=== PATIENT | female | born 1935 | race Caucasian/White ===

== ENCOUNTER → 2016-09-28 | Outpatient (CLI) | payer BC ==
[~2016-09-28] MED LIST: ACET300T2 PO; ACET325T30 PO; AGG PO; ALUM-30 PO; ARTI1SOL8 OPB; ATV/1 PO; BACL1TAB PO; DIPH25TA24 PO; FERR325T51 PO; FLUT27.5 NAE; GUAI100S75 PO; HYDR-4330 PO; LACT10SO30 PO; LEVE500T13 PO; LORA-741 PO; LTRSCR45 TOP; MOML PO; MRLP17X PO; NTRGSL/4 UT; OFLO0.3S4 OPR; ONDA4TAB46 PO; OXGN; OXYC1TAB3 PO; PHN/100 PO; PRLSR20 PO; TAMO20TA47 PO; TRAM-10 PO; VENL75CA73 PO; [UNRECOGNIZED DRUG - CODE] PO; [UNRECOGNIZED DRUG - CODE] PO
== END | disposition home or self-care (01) ==
LOC: C.LABWYN 12:40
PROVIDERS: ATTEND Psychiatry & Neurology Neurology
DX: G40.209 Localization-related (focal) (partial) symptomatic epilepsy and epileptic syndromes with complex partial seizures, not intractable, without status epilepticus (principal)

== ENCOUNTER → 2016-10-11 | Outpatient (CLI) | payer BC ==
--- NOTE | 2016-10-11 11:38 | DIAGNOSTIC IMAGING REPORT ---
HEAD CT NONCONTRAST CT DOSE: 823.94 mGycm HISTORY: Fall. Head injury. TECHNIQUE: Multiaxial CT images of the head were performed without the use of intravenous contrast. Automated exposure control was utilized for this study. Comparison: Head CT 07/31/2016. Findings: The paranasal sinuses and mastoid air cells are clear. Right-sided norman holes are again noted. 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 Atrophy and microvascular ischemic changes are again noted. There is no mass, hematoma, midline shift, acute infarct. Impression: No significant change compared to the prior study. No acute intracranial abnormality. 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 Electronically signed by: Neymar Head M.D. 10/11/2016 11:36 AM Dictated Date/Time: 10/11/2016 11:31 AM
== END | disposition home or self-care (01) ==
LOC: C.CTS 11:19
PROVIDERS: ATTEND Psychiatry & Neurology Neurology
DX: S09.90XA Unspecified injury of head, initial encounter (principal); X58.XXXA Exposure to other specified factors, initial encounter

== ENCOUNTER → 2016-10-17 | Outpatient (CLI) | payer BC | END | disposition home or self-care (01) | LOC: C.LABWYN 13:58 | PROVIDERS: ATTEND Psychiatry & Neurology Neurology | DX: G40.209 Localization-related (focal) (partial) symptomatic epilepsy and epileptic syndromes with complex partial seizures, not intractable, without status epilepticus (principal) ==

== ENCOUNTER → 2016-11-02 | Outpatient (CLI) | payer BC | END | disposition home or self-care (01) | LOC: C.LAB 10:11 | PROVIDERS: ATTEND Psychiatry & Neurology Neurology | DX: G40.209 Localization-related (focal) (partial) symptomatic epilepsy and epileptic syndromes with complex partial seizures, not intractable, without status epilepticus (principal) ==

== ENCOUNTER → 2016-12-01 | Outpatient (CLI) | payer BC | END | disposition home or self-care (01) | LOC: C.LABWYN 08:47 | PROVIDERS: ATTEND Psychiatry & Neurology Neurology | DX: G40.209 Localization-related (focal) (partial) symptomatic epilepsy and epileptic syndromes with complex partial seizures, not intractable, without status epilepticus (principal) ==

== ENCOUNTER → 2017-02-06 | Outpatient (CLI) | payer BC ==
[~2017-02-06] MED LIST changes: +CETI10TA84 PO; -OXYC1TAB3 PO; -TAMO20TA47 PO; +TAMO20TA9 PO; +[UNRECOGNIZED DRUG - CODE] PO
== END | disposition home or self-care (01) ==
LOC: C.LABWYN 10:09
PROVIDERS: ATTEND Psychiatry & Neurology Neurology
DX: G40.209 Localization-related (focal) (partial) symptomatic epilepsy and epileptic syndromes with complex partial seizures, not intractable, without status epilepticus (principal)

== ENCOUNTER → 2017-02-08 | Outpatient (CLI) | payer BC | END | disposition home or self-care (01) | LOC: C.PATHSPEC 18:11 | PROVIDERS: ATTEND Plastic Surgery | DX: L72.0 Epidermal cyst (principal) ==

== ENCOUNTER → 2017-03-06 | Outpatient (CLI) | payer BC | END | disposition home or self-care (01) | LOC: C.LABWYN 08:58 | PROVIDERS: ATTEND Psychiatry & Neurology Neurology | DX: G40.209 Localization-related (focal) (partial) symptomatic epilepsy and epileptic syndromes with complex partial seizures, not intractable, without status epilepticus (principal) ==

== ENCOUNTER → 2017-03-29 | Outpatient (CLI) | payer BC ==
[~2017-03-29] MED LIST changes: -CETI10TA84 PO; +TAMO20TA47 PO; -TAMO20TA9 PO; -[UNRECOGNIZED DRUG - CODE] PO
[2017-03-29 08:37] LABS: HEMATOCRIT 29.9 % (37-47); MEAN CELL VOLUME 71.9 fL (80-100); MEAN CORPUSCULAR HEMOGLOBIN 23.1 pg (25-34); MEAN CORPUSCULAR HGB CONC 32.1 g/dl (32-36); MEAN PLATELET VOLUME 10.2 fL (7.4-10.4); PLATELET COUNT 154 K/uL (130-400); RED BLOOD COUNT 4.16 M/uL (4.2-5.4)
[2017-03-29 09:03] LABS: TOTAL IRON BINDING CAPACITY 144 mcg/dl (250-450)
== END | disposition home or self-care (01) ==
LOC: C.LABWYN 08:02
PROVIDERS: ATTEND Internal Medicine
DX: D64.9 Anemia, unspecified (principal)

== ENCOUNTER → 2017-04-10 | Outpatient (CLI) | payer BC ==
[2017-04-10 09:17] LABS: HEMATOCRIT 29.3 % (37-47); MEAN CELL VOLUME 69.6 fL (80-100); MEAN CORPUSCULAR HEMOGLOBIN 22.8 pg (25-34); MEAN CORPUSCULAR HGB CONC 32.8 g/dl (32-36); MEAN PLATELET VOLUME 10.2 fL (7.4-10.4); PLATELET COUNT 162 K/uL (130-400); RED BLOOD COUNT 4.21 M/uL (4.2-5.4); WHITE BLOOD COUNT 4.43 K/uL (4.8-10.8)
--- NOTE | 2017-04-17 07:11 | CODING QUERY NO DIAGNOSIS ---
TREATMENT RENDERED WITHOUT A DIAGNOSIS Dr. Mak, To promote full compliance with coding requirements relating to patient care, physician participation is requested in all cases of laboratory sampler uncertainty. Please assist us with providing a diagnosis/symptom for the test(s) below: A diagnosis/symptom was not documented on your Order. A valid diagnosis/symptom is required to bill all insurances. Please remember that we are unable to code a diagnosis of rule out, probable, possible, questionable, or suspected. Tests that require a diagnosis: * DIGOXIN LEVEL DIAGNOSIS: * AUTOMATED RETICULOCYTE DIAGNOSIS: * CBC W/O DIFF DIAGNOSIS: DATE OF SERVICE: 04/10/17 Provider Signature: Date: Thank you Irvin Banerjee [facility] Information Management Once completed, please kindly fax back to [phone] For questions please call [phone]
== END | disposition home or self-care (01) ==
LOC: C.LABWYN 07:41
PROVIDERS: ATTEND Internal Medicine
DX: G40.209 Localization-related (focal) (partial) symptomatic epilepsy and epileptic syndromes with complex partial seizures, not intractable, without status epilepticus (principal); I48.91 Unspecified atrial fibrillation; D64.9 Anemia, unspecified; Z51.81 Encounter for therapeutic drug level monitoring; Z79.899 Other long term (current) drug therapy

== ENCOUNTER → 2017-04-12 | Outpatient (CLI) | payer BC ==
--- NOTE | 2017-04-12 09:28 | DIAGNOSTIC IMAGING REPORT ---
GI SERIES W/AIR ROUTINE CLINICAL HISTORY: R07.9,K44.9,K21.9pain. Nausea. Hernia. COMPARISON STUDY: None FLUOROSCOPY TIME: 2.1 minutes. FINDINGS: Patient initiates swallowing function well. Mild esophageal irritability is present. There is moderate gastroesophageal reflux. Size and configuration stomach are normal. Duodenal bulb fills well. Duodenal sweep is unremarkable. IMPRESSION: Moderate gastroesophageal reflux. Otherwise negative study. The above report was generated using voice recognition software. It may contain grammatical, syntax or spelling errors. Electronically signed by: Cecilio Belcher M.D. 04/12/2017 9:27 AM Dictated Date/Time: 04/12/2017 9:26 AM
== END | disposition home or self-care (01) ==
LOC: C.RAD 08:32
PROVIDERS: ATTEND Registered Nurse
DX: K21.9 Gastro-esophageal reflux disease without esophagitis (principal); K44.9 Diaphragmatic hernia without obstruction or gangrene; R07.9 Chest pain, unspecified

== ENCOUNTER → 2017-06-04 | Outpatient (CLI) | payer BC | END | disposition home or self-care (01) | LOC: C.RDSM 11:49 | PROVIDERS: ATTEND Physical Medicine & Rehabilitation Sports Medicine | DX: Z96.641 Presence of right artificial hip joint (principal); M25.551 Pain in right hip ==

== ENCOUNTER → 2017-07-10 | Outpatient (CLI) | payer BC | END | disposition home or self-care (01) | LOC: C.MAMM 09:57 | PROVIDERS: ATTEND Physical Medicine & Rehabilitation Sports Medicine | DX: M85.80 Other specified disorders of bone density and structure, unspecified site (principal); M81.0 Age-related osteoporosis without current pathological fracture ==

== ENCOUNTER → 2017-07-29 | Outpatient (CLI) | payer BC ==
[~2017-07-29] MED LIST changes: -ACET300T2 PO; +CETI10TA84 PO; -HYDR-4330 PO; -TAMO20TA47 PO; +TAMO20TA9 PO
== END | disposition home or self-care (01) ==
LOC: C.LABSPEC 13:24
PROVIDERS: ATTEND Internal Medicine
DX: R19.7 Diarrhea, unspecified (principal)

== ENCOUNTER → 2017-07-30 | Outpatient (CLI) | payer BC ==
--- NOTE | 2017-07-30 12:30 | DIAGNOSTIC IMAGING REPORT ---
PET/CT HISTORY: BREAST CANCER TECHNIQUE: PET/CT was performed from the base of the skull through the pelvis following the intravenous administration of 13.4 mCi of F18-FDG. Non-contrast CT imaging was performed over the same range without breath-hold for attenuation correction of PET images and anatomic correlation, but not for primary interpretation as it is not of standard diagnostic quality. CT DOSE: 326.60 mGycm COMPARISON: Head CT 12/29/2015. FINDINGS: HEAD AND NECK: There is no FDG-avid disease or significant lymphadenopathy in the imaged portions of the head and the neck. CHEST: There is no FDG-avid disease in the chest. There is no axillary, mediastinal, or hilar lymphadenopathy. There is no pleural or pericardial effusion. There is no air-space disease or suspicious lung nodule. Calcified silicone right breast implant demonstrating extracapsular extension of silicone within the upper outer quadrant. This remains unchanged. Prior left mastectomy. Right basilar densities remain unchanged and likely represent atelectasis. ABDOMEN/PELVIS: Below the diaphragm, tracer is distributed physiologically in the gastrointestinal and genitourinary tracts. There is no significant lymphadenopathy and no FDG-avid disease. MUSCULOSKELETAL: There is no FDG-avid or destructive bone lesion. Right hip prosthesis. IMPRESSION: No FDG avid disease identified. Electronically signed by: Neymar Head M.D. 07/30/2017 12:29 PM Dictated Date/Time: 07/30/2017 12:14 PM
== END | disposition home or self-care (01) ==
LOC: C.PET 09:58
PROVIDERS: ATTEND Internal Medicine Hematology
DX: C50.912 Malignant neoplasm of unspecified site of left female breast (principal); Z17.0 Estrogen receptor positive status [ER+]

== ENCOUNTER → 2017-08-28 | Outpatient (CLI) | payer BC ==
[~2017-08-28] MED LIST changes: +ACET-1346 PO; -ACET325T30 PO
[2017-08-28 12:27] LABS: HEMATOCRIT 33.4 % (37-47); MEAN CELL VOLUME 71.2 fL (80-100); MEAN CORPUSCULAR HGB CONC 32.3 g/dl (32-36); MEAN PLATELET VOLUME 10.1 fL (7.4-10.4); PLATELET COUNT 183 K/uL (130-400); RED BLOOD COUNT 4.69 M/uL (4.2-5.4); WHITE BLOOD COUNT 5.87 K/uL (4.8-10.8)
[2017-08-28 12:59] LABS: BLOOD UREA NITROGEN 31 mg/dl (7-18); BUN/CREATININE RATIO 33.9 (10-20); CALCIUM 8.4 mg/dl (8.5-10.1); CARBON DIOXIDE 26 mmol/L (21-32); CHLORIDE 103 mmol/L (98-107); GLUCOSE 108 mg/dl (70-99); POTASSIUM 4.5 mmol/L (3.5-5.1); SODIUM 137 mmol/L (136-145)
[2017-08-28 13:46] LABS: CALCIUM URINE 5.3 mg/dl
[2017-08-28 13:49] LABS: BLOOD UREA NITROGEN 32 mg/dl (7-18); BUN/CREATININE RATIO 35.5 (10-20); CALCIUM 8.4 mg/dl (8.5-10.1); CARBON DIOXIDE 27 mmol/L (21-32); CHLORIDE 103 mmol/L (98-107); CREATININE 0.91 mg/dl (0.60-1.20); GLUCOSE 99 mg/dl (70-99); POTASSIUM 4.6 mmol/L (3.5-5.1); SODIUM 138 mmol/L (136-145)
== END | disposition home or self-care (01) ==
LOC: C.LAB1850 10:57
PROVIDERS: ATTEND Internal Medicine Rheumatology
DX: K21.9 Gastro-esophageal reflux disease without esophagitis (principal); M80.00XA Age-related osteoporosis with current pathological fracture, unspecified site, initial encounter for fracture; E61.8 Deficiency of other specified nutrient elements; E55.9 Vitamin D deficiency, unspecified

== ENCOUNTER → 2017-11-02 | Outpatient (CLI) | payer BC ==
[~2017-11-02] MED LIST changes: +LEVO25TA5 PO; +PSEU60TA80 PO
== END | disposition home or self-care (01) ==
LOC: C.LABWYN 08:04
PROVIDERS: ATTEND Internal Medicine
DX: G40.909 Epilepsy, unspecified, not intractable, without status epilepticus (principal); E03.9 Hypothyroidism, unspecified

== ENCOUNTER → 2017-11-28 | Outpatient (CLI) | payer BC ==
[~2017-11-28] MED LIST changes: +ZOLE5INJ IM
[2017-11-28 13:20] VITALS: BP 143/82; PULSE 72; TEMP 37.2; O2SAT 92
--- NOTE | 2017-11-28 14:02 | Radiation Oncology Follow-Up ---
Radiation Oncology Follow-Up Date of Visit Nov 28, 2017. Reason For Visit One-month follow-up Radiation Completion Date 10/29/17 Diagnosis (1) Breast cancer Status: Resolved Location: Chest wall recurrence Histology Subtype: Lobular carcinoma Stage: Not Applicable Permanent Comment: Status post biopsy of left breast mass 12/07/2015 Lobular carcinoma, grade 1 Estrogen receptor positive, progesterone receptor positive, 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 Treatment was completed October 29, 2017. She received 6640 cGy Last Edited By: Neli Nguyen on Nov 09, 2017 07:57 History of Present Illness Ms. Ridley has a previous history of right breast cancer treated with a mastectomy/reconstruction. More recently, she was diagnosed with left breast cancer. She underwent a mastectomy and sentinel lymph node biopsy of the left breast on 02/03/2016. Pathology from surgery revealed invasive lobular carcinoma that measures 6.5 cm in the greatest dimension with nipple involvement present; the margins were close in the closest margin was 1 mm. Pathology revealed lymphovascular space invasion as well. The tumor was estrogen receptor positive, progesterone receptor positive and HER-2 negative as per previous biopsy staining. 3 sentinel lymph nodes were excised and all the lymph nodes were positive for metastatic carcinoma with no evidence of extranodal extension. The patient was staged as pathologic [id number]. The patient was seen in consultation by Dr. Bogdan Longoria for medical oncology. Dr. Longoria ordered a PET/CT scan which was completed on 12/29/2015 which revealed no evidence of locoregional disease or distant metastatic disease. As per notes , the patient did not want any chemotherapy. The patient was placed on tamoxifen underneath the supervision of Dr. Clay Roth. More recently, the patient noticed a nodule along her mastectomy scar. The patient was seen and evaluated by Dr. Clay Roth who recommended a punch biopsy which was completed on 07/04/2017 which confirmed invasive lobular carcinoma that was estrogen receptor positive and progesterone receptor positive. The patient is being referred to Dr. Francisco Guardado who has ordered a PET/CT scan. We are also seen the patient in consultation discuss role of radiation therapy. She completed radiation therapy October 29, 2017. She received 6640 cGy. Treatment to the left chest wall, supraclavicular area, and axilla. Interim History She has been doing well over the past month. Skin irritation steadily improved. She now has some dark discoloration of the skin. She denies any tenderness. She has no open areas. She is noted no masses or tenderness and no change of the axilla on the left. On the right this morning she felt she may have noticed a lump in the right axilla. There was no pain associated. She was unsure as to the size. She mentioned this to her daughter. Her daughter also checked this area and did not notice a mass in the right axilla. She has been having difficulty with venous access. Since her diagnosis of the breast cancer on the left she has been having blood draws from the right. It is very difficult to gain access on the right. When she receives infusions there is difficulty with using the right arm. Allergies Coded Allergies: Morphine (Verified Adverse Reaction, Unknown, itching, 07/31/16) pt Home Medications Scheduled Artificial Tear Solution ([facility] Natural Tears 0.1-0.3 %), 2 DROPS OPB DIRECTED Betamethasone/Clotrimazole (Clotrimazole/Betameth Crm 45 Gm), 1 APPLN TOP BID Cetirizine (Zyrtec), 10 MG PO DAILY Dipyridamole/Aspirin (Aggrenox 25-200 mg), 1 CAP PO BID Ferrous Sulfate (Iron Supplement), 1 TAB PO BID Fluticasone Furoate (Veramyst), 2 SPRY [place] QAM Home O2 Therapy (Oxygen), 2 LITERS NA HS Levetiracetam (Keppra), 500 MG PO BID Levothyroxine Sodium (Levothyroxine Sodium), 1 TAB PO DAILY Lorazepam (Ativan), 1 MG PO QID Multiple Vitamins W/ Minerals (Theravim), 1 TAB PO QAM Nitroglycerin (Nitrostat), 0.4 MG UT PRN Ofloxacin (Oph) (Ocuflox Oph Soln), 1 DROPS OPR Q3H Omeprazole (Prilosec), 20 MG PO BID Phenytoin Sodium (Dilantin), 160 MG PO BID Pseudoephedrine-Guaifenesin (Mucinex D), 1 TAB PO DAILY Venlafaxine Hcl (Venlafaxine Extended Rel), 75 MG PO BID Zoledronic Acid (Reclast), 1 APPLN IM 3x then monthly Scheduled PRN Acetaminophen (Acetaminophen), 650 MG PO Q4 PRN for Pain or Fever Alum & Mag Hydrox-Simethicone (Mylanta), 30 ML PO Q6 PRN for Indigestion Baclofen (Lioresal), 10 MG PO BID PRN for Muscle Spasms Benzocaine-Menthol (Mouth-Thro (Chloraseptic), 1 LINUS PO UD PRN for SORE THROAT Diphenhydramine Hcl (Benadryl), 1 TAB PO DAILY PRN for ITCHING Guaifenesin (Siltussin Sa), 2 TSP PO Q4H PRN for Cough Lactulose (Encephalopathy) (Lactulose), 30 ML PO QID PRN for Constipation Lorazepam (Ativan), 0.5 MG PO Q4H PRN for Anxiety Magnesium Hydroxide (Milk Of Magnesia), 30 ML PO DAILY PRN for Constipation Ondansetron Hcl (Zofran), 4 MG PO Q6H PRN for Nausea Polyethylene (Miralax), 17 GM PO BID PRN for Constipation Tramadol (Ultram), 1-2 MG PO Q4H PRN for Pain Review of Systems Gastrointestinal: Symptoms: WNL, Constipation GI Comments: Takes stool softeners PRN Oral: Symptoms: No Problems Respiratory: Symptoms: WNL Other Respiratory: Oxygen runs on the lower side Urinary: Symptoms: WNL Skin: Symptoms: No Problems Breast: Right Upper Arm Measurement: 27.5 Right Mid Arm Measurement: 23.1 Right Wrist Measurement: 16.3 Left Upper Arm Measurement: 28.4 Left Mid Arm Measurement: 24.1 Left Wrist Measurement: 16.5 Arm Dominence: Right Physical Exam Vital Signs Date Time Temp Pulse Resp B/P (MAP) Pulse Ox O2 Delivery O2 Flow Rate FiO2 11/28/17 13:20 37.2 72 16 143/82 92 Fatigue: None General Appearance: no apparent distress Eyes: normal inspection, EOMI ENT: normal ENT inspection, hearing grossly normal Neck: no adenopathy, thyroid normal Respiratory/Chest: lungs clear, no respiratory distress, no accessory muscle use Breast: Breast examination reveals status post mastectomy on the left. There is resolving hyperpigmentation. There are no masses or tenderness and no axillary adenopathy. On the right she has a implant. Skin is taut around the implant. Examination of the axilla does not reveal any adenopathy. The chest wall showed no masses or tenderness. Cardiovascular: regular rate, rhythm, no gallop, no murmur Extremities: no pedal edema Neurologic/Psychiatric: no motor/sensory deficits, alert, normal mood/affect Skin: warm/dry Pain Management Patient Reports Pain: No Pain Management Plan She denied pain therefore requires no pain management. Laboratory Laboratory Results: not applicable Pathology Pathology Results: and pertinent findings noted in HPI Imaging Imaging Studies: not applicable Assessment & Plan Plan: Patient was also seen and examined by Dr. Guardado. She will continue regular follow-up with medical oncology. She is going to be scheduled to see Dr. Watson to follow her as her breast surgeon. Dr. Roth has now retired. We asked her to return to our office in 6 months. She may call if she has any questions or concerns in the interim. We discussed using sunscreen. We also discussed that she may go ahead and use the left arm for needle sticks and venous access. She had only a few lymph nodes removed from the side as compared to the right where she had the previous radical mastectomy and axillary lymph node dissection. Assessment & Plan (Attending) I agree with note created by Neli Nguyen PA-C. I reviewed the patient's chart and information with her. I have examined and evaluated the patient. I reviewed relevant clinical information and answered the patient's and/or family' s questions. CUSHION MAKER Total Time In Follow-Up I spent 20 minutes speaking to the patient and performing examination. I spent 15 minutes reviewing information and completing this note. Total Time (Attending) In Follow-Up I spent 15 minutes examining and counseling the patient. CUSHION MAKER Copy To Sallie Watson MD; Francisco Guardado M.D.; Antoine Mak D.O.
== END | disposition home or self-care (01) ==
LOC: C.ONC 13:14
PROVIDERS: ATTEND Physician Assistant Medical
DX: Z08 Encounter for follow-up examination after completed treatment for malignant neoplasm (principal); Z92.3 Personal history of irradiation; Z85.3 Personal history of malignant neoplasm of breast

== ENCOUNTER → 2017-12-06 | Outpatient (CLI) | payer BC ==
[~2017-12-06] MED LIST changes: -TAMO20TA9 PO
== END | disposition home or self-care (01) ==
LOC: C.LABWYN 09:43
PROVIDERS: ATTEND Internal Medicine
DX: E03.9 Hypothyroidism, unspecified (principal)

== ENCOUNTER 2018-01-03 16:05 | Emergency (ER) | payer BC ==
[~2018-01-03] VITALS: Ht 160 cm; Wt 76.2 kg
[2018-01-03 16:05] VITALS: TEMP 36.5; O2SAT 87; Ht 160 cm; Wt 76.2 kg
[2018-01-03] MEDS ORDERED: SODIUM CHLORIDE 0.9% 1000ML 1,000 ML IV STA (16:15)
[2018-01-03] MEDS ORDERED: ONDANSETRON INJ 2 MG/ML 2 ML VIAL IV STA (16:15)
[2018-01-03] MEDS ORDERED: OPTIRAY 320 IV PRN (16:30)
--- NOTE | 2018-01-03 16:36 | DIAGNOSTIC IMAGING REPORT ---
CHEST ONE VIEW PORTABLE HISTORY: 82 years-old Female syncope acute syncopal event COMPARISON: Chest radiograph 07/31/2016, PET CT 07/30/2017 TECHNIQUE: Portable AP view of the chest FINDINGS: Cardiac silhouette is enlarged, unchanged. Atherosclerosis of the aorta. Mitral annular calcifications. Chronic right hemidiaphragmatic elevation with linear subsegmental right basilar opacities suggesting atelectasis or scarring. No pneumothorax, pleural effusion or overt pulmonary edema. Surgical clips project over the right axilla. Mild sigmoidal scoliosis of the spine. Subacute or chronic appearing minimally displaced fractures involve the lateral aspects of the left ninth and 10th ribs. Vascular calcifications of the left axilla. IMPRESSION: 1. Cardiomegaly without overt pulmonary edema. 2. Chronic right hemidiaphragmatic elevation with subsegmental right basilar atelectasis/scarring. 3. Subacute or chronic appearing minimally displaced fractures involve the lateral aspects of the left ninth and 10th ribs. The above report was generated using voice recognition software. It may contain grammatical, syntax or spelling errors. Electronically signed by: Reyes Kaur M.D. 01/03/2018 4:34 PM Dictated Date/Time: 01/03/2018 4:32 PM
[2018-01-03 17:51] LABS: BASO % 0.4 %; BASO ABS # 0.03 K/uL (0-0.2); EOS % 0.4 %; EOS ABS # 0.03 K/uL (0-0.5); HEMATOCRIT 31.1 % (37-47); HEMOGLOBIN 10.2 g/dL (12.0-16.0); IG# 0.01 K/uL (0.00-0.02); LYMPH % 9.4 %; LYMPH ABS # 0.64 K/uL (1.2-3.4); MEAN CORPUSCULAR HEMOGLOBIN 23.9 pg (25-34); MEAN CORPUSCULAR HGB CONC 32.8 g/dl (32-36); MEAN PLATELET VOLUME 9.6 fL (7.4-10.4); MONO % 7.2 %; MONO ABS # 0.49 K/uL (0.11-0.59); NEUT % 82.5 %; NEUT ABS # 5.62 K/uL (1.4-6.5); PLATELET COUNT 174 K/uL (130-400); RED CELL DISTRIBUTION WIDTH CV 15.3 % (11.5-14.5); RED CELL DISTRIBUTION WIDTH SD 40.6 fL (36.4-46.3); WHITE BLOOD COUNT 6.82 K/uL (4.8-10.8)
[2018-01-03 18:07] LABS: ALBUMIN 4.1 gm/dl (3.4-5.0); AST/SGOT 17 U/L (15-37); BLOOD UREA NITROGEN 22 mg/dl (7-18); CARBON DIOXIDE 29 mmol/L (21-32); CREATININE 0.89 mg/dl (0.60-1.20); GLUCOSE 107 mg/dl (70-99); LIPASE 97 U/L (73-393); POTASSIUM 4.2 mmol/L (3.5-5.1); SODIUM 137 mmol/L (136-145)
[2018-01-03] MEDS ORDERED: MULTTAB63 PO (18:11)
[2018-01-03] MEDS ORDERED: POLY1POW2 PO (18:11)
[2018-01-03] MEDS ORDERED: LEVE500T13 PO (18:11)
[2018-01-03] MEDS ORDERED: CHOL20009 PO (18:11)
[2018-01-03] MEDS ORDERED: SENN-61 PO (18:11)
[2018-01-03] MEDS ORDERED: PHEN-310 PO (18:11)
[2018-01-03] MEDS ORDERED: CETI10TA62 PO (18:11)
[2018-01-03] MEDS ORDERED: EFF75 PO (18:11)
[2018-01-03] MEDS ORDERED: NXM/40 PO (18:11)
[2018-01-03] MEDS ORDERED: ASPI1CAP2 PO (18:11)
[2018-01-03] MEDS ORDERED: LEVO25TA PO (18:11)
[2018-01-03] MEDS ORDERED: ATV/1 PO (18:11)
[2018-01-03] MEDS ORDERED: DLN100 PO ×2 (18:11)
[2018-01-03 18:12] LABS: ALKALINE PHOSPHATASE 123 U/L (45-117); ALT/SGPT 23 U/L (12-78); TOTAL PROTEIN 7.6 gm/dl (6.4-8.2)
--- NOTE | 2018-01-03 19:10 | DIAGNOSTIC IMAGING REPORT ---
ABDOMEN AND PELVIS CT WITH IV CONTRAST CT DOSE: 361.18 mGy.cm HISTORY: Acute generalized abdominal pain with history of breast cancer. Acute syncope abd pain TECHNIQUE: Multiaxial CT images of the abdomen and pelvis were performed following the use of intravenous contrast. A dose lowering technique was utilized adhering to the principles of ALARA. COMPARISON STUDY: PET CT 07/30/2017, CT abdomen and pelvis 08/10/2015 FINDINGS: Right breast implant with intracapsular rupture and peripherally calcified capsule is partially imaged. There appears to have been prior left-sided mastectomy. At least moderate multichamber cardiac enlargement with coronary arterial disease. Mitral and aortic annular calcifications are present. The pulmonary arterial tree appears mildly dilated. Chronic consolidation of the right lung base with linear subsegmental opacities of the left lung base suggesting scarring/atelectasis. There is no pneumatosis or pneumoperitoneum identified. 9 mm low attenuating lesion of the posterior right hepatic lobe is unchanged suggesting benign etiology such as a hepatic cyst. No intrahepatic biliary ductal dilation. Gallbladder, spleen, and adrenal glands are unremarkable. Moderate generalized pancreatic atrophy. Low attenuating lesions of the bilateral kidneys suggests renal cysts, largest of which measures 4.0 cm on the left. No renal calculi or obstructive uropathy. Mild wall thickening of the bladder with suggested perivesicular stranding. Pelvic structures are suboptimally visualized secondary to streak artifact from right hip arthroplasty. Uterus is unremarkable. No adnexal mass lesions. Extensive calcification of the abdominal aorta without aneurysm. No bulky adenopathy identified. No bowel obstruction or focal bowel wall thickening. Fluid-filled nondilated loops of small bowel with air-fluid levels noted. Extensive diverticulosis of the sigmoid colon without evidence of acute diverticulitis. Postoperative changes of the cecum suggests prior appendectomy. Soft tissues are unremarkable. The bones appear osteoporotic. Multilevel changes about the spine. Remote inferior pubic smart-white fractures are seen bilaterally. Multilevel Schmorl's nodes. IMPRESSION: 1. No acute intra-abdominal or intrapelvic abnormality identified. 2. No bowel obstruction. Multiple nondilated fluid-filled loops of small bowel throughout the abdomen and pelvis are likely physiologic with enteritis or ileus also in the differential. 3. Colonic diverticulosis without diverticulitis. 4. Cardiomegaly. 5. Right breast augmentation with chronic intracapsular rupture. 6. Additional findings as above. Electronically signed by: Reyes Kaur M.D. 01/03/2018 7:09 PM Dictated Date/Time: 01/03/2018 6:59 PM
[2018-01-03 19:24] VITALS: BP 104/71; PULSE 64; O2SAT 94
--- NOTE | 2018-01-03 21:41 | EMERGENCY ROOM VISIT NOTE ---
History Report prepared by Antonietta: Keaton Dillon Under the Supervision of: Dr. Pro Kennedy D.O. First contact with patient: 16:06 Stated Complaint: Syncope History of Present Illness The patient is an 82 year old female who presents to the Emergency Room with concerns over syncopal/seizure episodes that began today shortly prior to arrival. Per the nursing staff the patient was found by EMS at [facility] sitting on the toilet, having a diarrhea-like bowel movement. The patient returned to [facility] because of the diarrhea and nausea that she was having at her families [facility]. [facility] the [facility] she was having diarrhea and she had an episode where she stares off for 3-5 seconds. She returned to baseline. Family notes that this is consistent with her typical seizures. The patient states that her symptoms started earlier today, before the seizure activity, with abdominal pain around her bellybutton and she vomited shortly after this pain began. She denies any chest pain, shortness of breath, or urinary symptoms. She notes that she does wear 2L of oxygen, but only when she is up and active. She does not need to wear it when she is at rest. The patient does have a history of seizures. There was seizure-like activity observed by the [facility] nursing staff per the patient. She has not missed any doses of her medications. Source of History: patient Onset: Shortly [employer] Position: head Quality: other (Seizure/Syncopal Episode ) Timing: other (multiple episodes of seizure activity) Associated Symptoms: + nausea, + vomiting, + abdominal pain, No chest pain, No SOB Review of Systems See HPI for pertinent positives & negatives. A total of 10 systems reviewed and were otherwise negative. Past Medical & Surgical Medical Problems: (1) Anemia (2) Benign hypertension (3) Breast cancer (4) Cerebrovascular disease (5) Chronic obstructive lung disease (6) Depression (7) Gastroesophageal reflux disease (8) History of atrial fibrillation (9) History of breast cancer (10) History of nephrolithiasis (11) History of subdural hematoma (12) Seizure disorder (13) Traumatic subdural hematoma Surgical Problems: (1) Status post section (2) Status post mastectomy Family History Heart disease Hypertension Social History Smoking Status: Former Smoker Alcohol Use: none Drug Use: none Marital Status: single Housing Status: assisted living Occupation Status: retired Current/Historical Medications Scheduled Artificial Tear Solution ([employer] Natural Tears 0.1-0.3 %), 2 DROPS OPB DIRECTED Aspirin-Dipyridamole (Aspirin/Dipyridamole 25-200 mg), 1 TAB PO BID Cetirizine Hcl (Qc All Day Allergy), 10 MG PO DAILY Cholecalciferol (Vitamin D), 2,000 UNITS PO DAILY Dipyridamole/Aspirin (Aggrenox 25-200 mg), 1 CAP PO BID Esomeprazole Magnesium (Nexium), 40 MG PO DAILY Home O2 Therapy (Oxygen), 2 LITERS NA HS Levetiracetam (Keppra), 500 MG PO BID Levothyroxine Sodium (Synthroid), 25 MCG PO DAILY Multiple Vitamins W/ Minerals (Therems M), 1 TAB PO DAILY Nitroglycerin (Nitrostat), 0.4 MG UT PRN Phenytoin Sodium (Dilantin), 1 CAP PO QAM Phenytoin Sodium (Dilantin), 200 MG PO QPM Phenytoin Sodium Extended (Dilantin), 30 MG PO DAILY Polyethylene Glycol 3350 (Bulk (Polyethylene Glycol 3350), 17 GM PO DAILY Senna (Senokot), 2 TAB PO DAILY Venlafaxine Hcl (Effexor), 75 MG PO BIDM Scheduled PRN Acetaminophen (Acetaminophen), 650 MG PO Q4 PRN for Pain or Fever Diphenhydramine Hcl (Benadryl), 1 TAB PO DAILY PRN for ITCHING Lorazepam (Ativan), 0.5 MG PO Q4H PRN for Anxiety Lorazepam (Ativan), 1 MG PO QID PRN for Anxiety Ondansetron Hcl (Zofran), 4 MG PO Q6H PRN for Nausea Allergies Coded Allergies: Morphine (Verified Adverse Reaction, Unknown, itching, 01/03/18) pt Physical Exam Vital Signs Date Time Temp Pulse Resp B/P (MAP) Pulse Ox O2 Delivery O2 Flow Rate FiO2 01/03/18 19:24 64 20 104/71 94 01/03/18 18:30 58 20 139/63 96 Room Air 01/03/18 17:30 52 22 131/85 98 Nasal Cannula 2.0 01/03/18 16:05 Nasal Cannula 2.0 01/03/18 16:05 87 Room Air 01/03/18 16:05 36.5 54 20 129/72 87 Room Air Physical Exam GENERAL: Sitting up in bed, alert, well appearing, well nourished, no distress, non-toxic EYE EXAM: normal conjunctiva. PERRL and EOM's intact. OROPHARYNX: no exudate, no erythema, lips, buccal mucosa, and tongue normal and mucous membranes are moist NECK: supple, no nuchal rigidity, no adenopathy, non-tender LUNGS: Clear to auscultation. Normal chest wall mechanics HEART: no murmurs, S1 normal and S2 normal ABDOMEN: abdomen soft, non-tender, normo-active bowel sounds, no masses, no rebound or guarding. BACK: Back is symmetrical on inspection and there is no deformity, no midline tenderness, no CVA tenderness. SKIN: no rashes and no bruising UPPER EXTREMITIES: upper extremities are grossly normal. LOWER EXTREMITIES: No pitting edema. NEURO EXAM: Normal sensorium, cranial nerves II-XII intact, normal speech, no weakness of arms, no weakness of legs. No drift. Finger to nose intact. Gross sensation intact. Medical Decision & Procedures ER Provider Diagnostic Interpretation: Radiology results as stated below per my review and the radiologist's interpretation: ABDOMEN AND PELVIS CT WITH IV CONTRAST CT DOSE: 361.18 mGy.cm HISTORY: Acute generalized abdominal pain with history of breast cancer. Acute syncope abd pain TECHNIQUE: Multiaxial CT images of the abdomen and pelvis were performed following the use of intravenous contrast. A dose lowering technique was utilized adhering to the principles of ALARA. COMPARISON STUDY: PET CT 07/30/2017, CT abdomen and pelvis 08/10/2015 FINDINGS: Right breast implant with intracapsular rupture and peripherally calcified capsule is partially imaged. There appears to have been prior left-sided mastectomy. At least moderate multichamber cardiac enlargement with coronary arterial disease. Mitral and aortic annular calcifications are present. The pulmonary arterial tree appears mildly dilated. Chronic consolidation of the right lung base with linear subsegmental opacities of the left lung base suggesting scarring/atelectasis. There is no pneumatosis or pneumoperitoneum identified. 9 mm low attenuating lesion of the posterior right hepatic lobe is unchanged suggesting benign etiology such as a hepatic cyst. No intrahepatic biliary ductal dilation. Gallbladder, spleen, and adrenal glands are unremarkable. Moderate generalized pancreatic atrophy. Low attenuating lesions of the bilateral kidneys suggests renal cysts, largest of which measures 4.0 cm on the left. No renal calculi or obstructive uropathy. Mild wall thickening of the bladder with suggested perivesicular stranding. Pelvic structures are suboptimally visualized secondary to streak artifact from right hip arthroplasty. Uterus is unremarkable. No adnexal mass lesions. Extensive calcification of the abdominal aorta without aneurysm. No bulky adenopathy identified. No bowel obstruction or focal bowel wall thickening. Fluid-filled nondilated loops of small bowel with air-fluid levels noted. Extensive diverticulosis of the sigmoid colon without evidence of acute diverticulitis. Postoperative changes of the cecum suggests prior appendectomy. Soft tissues are unremarkable. The bones appear osteoporotic. Multilevel changes about the spine. Remote inferior pubic smart-white fractures are seen bilaterally. Multilevel Schmorl's nodes. IMPRESSION: 1. No acute intra-abdominal or intrapelvic abnormality identified. 2. No bowel obstruction. Multiple nondilated fluid-filled loops of small bowel throughout the abdomen and pelvis are likely physiologic with enteritis or ileus also in the differential. 3. Colonic diverticulosis without diverticulitis. 4. Cardiomegaly. 5. Right breast augmentation with chronic intracapsular rupture. 6. Additional findings as above. Electronically signed by: Reyes Kaur M.D. 01/03/2018 7:09 PM Dictated Date/Time: 01/03/2018 6:59 PM CHEST ONE VIEW PORTABLE HISTORY: 82 years-old Female syncope acute syncopal event COMPARISON: Chest radiograph 07/31/2016, PET CT 07/30/2017 TECHNIQUE: Portable AP view of the chest FINDINGS: Cardiac silhouette is enlarged, unchanged. Atherosclerosis of the aorta. Mitral annular calcifications. Chronic right hemidiaphragmatic elevation with linear subsegmental right basilar opacities suggesting atelectasis or scarring. No pneumothorax, pleural effusion or overt pulmonary edema. Surgical clips project over the right axilla. Mild sigmoidal scoliosis of the spine. Subacute or chronic appearing minimally displaced fractures involve the lateral aspects of the left ninth and 10th ribs. Vascular calcifications of the left axilla. IMPRESSION: 1. Cardiomegaly without overt pulmonary edema. 2. Chronic right hemidiaphragmatic elevation with subsegmental right basilar atelectasis/scarring. 3. Subacute or chronic appearing minimally displaced fractures involve the lateral aspects of the left ninth and 10th ribs. The above report was generated using voice recognition software. It may contain grammatical, syntax or spelling errors. Electronically signed by: Reyes Kaur M.D. 01/03/2018 4:34 PM Dictated Date/Time: 01/03/2018 4:32 PM Laboratory Results 01/03/18 17:20 Red Blood Count 4.26, Mean Corpuscular Volume 73.0, Mean Corpuscular Hemoglobin 23.9, Mean Corpuscular Hemoglobin Concent 32.8, Mean Platelet Volume 9.6, Neutrophils (%) (Auto) 82.5, Lymphocytes (%) (Auto) 9.4, Monocytes (%) (Auto) 7.2, Eosinophils (%) (Auto) 0.4, Basophils (%) (Auto) 0.4, Neutrophils # (Auto) 5.62, Lymphocytes # (Auto) 0.64, Monocytes # (Auto) 0.49, Eosinophils # (Auto) 0.03, Basophils # (Auto) 0.03 01/03/18 17:20 Test 01/03/18 17:20 White Blood Count 6.82 K/uL (4.8-10.8) Red Blood Count 4.26 M/uL (4.2-5.4) Hemoglobin 10.2 g/dL (12.0-16.0) Hematocrit 31.1 % (37-47) Mean Corpuscular Volume 73.0 fL (80-100) Mean Corpuscular Hemoglobin 23.9 pg (25-34) Mean Corpuscular Hemoglobin Concent 32.8 g/dl (32-36) Platelet Count 174 K/uL (130-400) Mean Platelet Volume 9.6 fL (7.4-10.4) Neutrophils (%) (Auto) 82.5 % Lymphocytes (%) (Auto) 9.4 % Monocytes (%) (Auto) 7.2 % Eosinophils (%) (Auto) 0.4 % Basophils (%) (Auto) 0.4 % Neutrophils # (Auto) 5.62 K/uL (1.4-6.5) Lymphocytes # (Auto) 0.64 K/uL (1.2-3.4) Monocytes # (Auto) 0.49 K/uL (0.11-0.59) Eosinophils # (Auto) 0.03 K/uL (0-0.5) Basophils # (Auto) 0.03 K/uL (0-0.2) RDW Standard Deviation 40.6 fL (36.4-46.3) RDW Coefficient of Variation 15.3 % (11.5-14.5) Immature Granulocyte % (Auto) 0.1 % Immature Granulocyte # (Auto) 0.01 K/uL (0.00-0.02) Anion Gap 6.0 mmol/L (3-11) Est Creatinine Clear Calc Drug Dose 47.6 ml/min Estimated GFR () 70.0 Estimated GFR (Non- 60.4 BUN/Creatinine Ratio 24.9 (10-20) Calcium Level 8.0 mg/dl (8.5-10.1) Total Bilirubin 0.4 mg/dl (0.2-1) Direct Bilirubin 0.1 mg/dl (0-0.2) Aspartate Amino Transf (AST/SGOT) 17 U/L (15-37) Alanine Aminotransferase (ALT/SGPT) 23 U/L (12-78) Alkaline Phosphatase 123 U/L (45-117) Troponin I < 0.015 ng/ml (0-0.045) Total Protein 7.6 gm/dl (6.4-8.2) Albumin 4.1 gm/dl (3.4-5.0) Lipase 97 U/L (73-393) Phenytoin (Dilantin) Level 16.7 mcg/mL (10-20) Laboratory results per my review. Medications Administered Medications (Trade) Dose Ordered Sig/Olivia Route Start Time Stop Time Status Last Admin Dose Admin Sodium Chloride 1,000 ml @ 999 mls/hr Q1H1M STAT IV 01/03/18 16:15 01/03/18 17:15 DC 01/03/18 16:15 999 MLS/HR Ondansetron HCl (Zofran Inj) 4 mg NOW STAT IV 01/03/18 16:15 01/03/18 16:17 DC 01/03/18 17:30 4 MG ECG Per My Interpretation Indication: syncope (seizure) Rate (beats per minute): 57 Findings: T-wave inversion (high lateral, anterior, and lateral), other (LAD) ED Course ED COURSE: Vital signs were reviewed and showed normal vitals. The patients medical record was reviewed The above diagnostic studies were performed and reviewed. ED treatments and interventions as stated above. 1608: The patient was evaluated in room C1B. A complete history and physical examination was performed. 1615: Ordered Zofran 4 mg IV, Sodium Chloride 1000 mL @ 999 mL/hr IV. 1620: I updated the patient. Her daughter was now at bedside. She notes that she has "starring off episodes" as seizures. The patient is now feeling well and the daughter confirms she is at her baseline. 190: I discussed the case with Dr. Wilkins - Neurology. He suggests she continued her current medication and follow up as an outpatient. 1918: Upon reevaluation, the patient is resting in bed. I discussed my findings with the patient and she understands and agrees with the treatment plan, she is adamantly declining urine and requesting to be discharged. Based on the patients age, coexisting illnesses, exam and lab findings the decision to treat as an outpatient was made. The patient remained stable while under my care. The patient appeared well at the time of discharge. Medical Decision Differential diagnoses includes but is not limited to gastritis, peptic ulcer disease, GERD, gallbladder disease, pancreatitis, small bowel obstruction, acute coronary syndrome, pericarditis, ischemic bowel, irritable bowel disease, irritable bowel syndrome, appendicitis, diverticulitis, malignancy, hernia, urinary tract infection, torsion, perforation, trauma, infectious, vasovagal event, infection, hypoglycemia, electrolyte abnormalities, cardiac sources, intracerebral event, toxicologic, neurologic, as well as others were entertained. Patient is an 82-year-old female who started having nausea vomiting diarrhea. [facility] At that time she a 5 second episode of staring off. Shortly after this she was back to baseline. She did not pass out. She was alert when this occurred. Family notes this is typical for her seizures and they witnessed this. Patient notes that she is feeling significantly better. CBC along with BMP, LFTs, bilirubin and troponin was negative. Lipase is normal. Patient was updated throughout the course of her stay. Request a UA but patient notes that she does not want to stay any longer. CT of abdomen pelvis is unremarkable. She was discharged follow-up with PCP as an outpatient for nausea vomiting and diarrhea associated with a likely seizure. Discussed with Pt concerning signs and symptoms to watch out for. Pt was instructed to follow up with their PCP and discussed with the patient their option to return to the ED at anytime for persistent or worsening symptoms. The appropriate anticipatory guidance and out-patient management, including indications for return to the emergency department, were explained at length to the patient and understood. Medication Reconcilliation Current Medication List: was personally reviewed by me Blood Pressure Screening Patient's blood pressure: Normal blood pressure Consults Time Called: 1856 Consulting Physician: Dr. Claudette Kramer Returned Call: 1900 I discussed the case with Dr. Claudette Kramer. He suggests she continued her current medication and follow up as an outpatient. Impression Primary Impression: Seizure Additional Impression: Diarrhea Scribe Attestation The scribe's documentation has been prepared under my direction and personally reviewed by me in its entirety. I confirm that the note above accurately reflects all work, treatment, procedures, and medical decision making performed by me. Departure Information Dispostion Home / Self-Care Referrals [facility] (PCP) Forms HOME CARE DOCUMENTATION FORM, IMPORTANT VISIT INFORMATION Patient Instructions My [facility] Additional Instructions Please follow up with your primary care doctor with in the next 24 hours. Any worsening of your symptoms, please return to the ED immediately. This includes any fevers greater than 100.4, worsening pain, chest pain, shortness breath, persistent nausea, vomiting, unable to eat or drink, or any other concerning signs or symptoms from your standpoint. Problem Qualifiers Additional Impression: Diarrhea Diarrhea type: unspecified type Qualified Codes: R19.7 - Diarrhea, unspecified
== END 2018-01-03 19:31 | disposition home or self-care (01) ==
LOC: EDBD 16:05 → C.EDC 16:06
DX: G40.909 Epilepsy, unspecified, not intractable, without status epilepticus (principal); R19.7 Diarrhea, unspecified; R11.2 Nausea with vomiting, unspecified; I10 Essential (primary) hypertension; Z85.3 Personal history of malignant neoplasm of breast; J44.9 Chronic obstructive pulmonary disease, unspecified; F32.9 Major depressive disorder, single episode, unspecified; Z87.891 Personal history of nicotine dependence; Z90.10 Acquired absence of unspecified breast and nipple; Z98.891 History of uterine scar from previous surgery; Z88.5 Allergy status to narcotic agent; Z82.49 Family history of ischemic heart disease and other diseases of the circulatory system; Z79.02 Long term (current) use of antithrombotics/antiplatelets; Z79.82 Long term (current) use of aspirin; Z79.899 Other long term (current) drug therapy

== ENCOUNTER → 2018-05-01 | Outpatient (CLI) | payer BC ==
[~2018-05-01] MED LIST changes: -ALUM-30 PO; +ASPI1CAP2 PO; -BACL1TAB PO; +CETI10TA62 PO; -CETI10TA84 PO; +CHOL20009 PO; +DLN100 PO; +EFF75 PO; -FERR325T51 PO; -FLUT27.5 NAE; -GUAI100S75 PO; -LACT10SO30 PO; +LEVO25TA PO; -LEVO25TA5 PO; -LTRSCR45 TOP; -MOML PO; -MRLP17X PO; +MULTTAB63 PO; +NXM/40 PO; -OFLO0.3S4 OPR; +PHEN-310 PO; -PHN/100 PO; +POLY1POW2 PO; -PRLSR20 PO; -PSEU60TA80 PO; +SENN-61 PO; -TRAM-10 PO; -VENL75CA73 PO; -ZOLE5INJ IM; -[UNRECOGNIZED DRUG - CODE] PO; -[UNRECOGNIZED DRUG - CODE] PO
--- NOTE | 2018-05-01 10:49 | DIAGNOSTIC IMAGING REPORT ---
PET/CT HISTORY: BREAST CANCER TECHNIQUE: PET/CT was performed from the base of the skull through the pelvis following the intravenous administration of 13.7 mCi of F18-FDG. Non-contrast CT imaging was performed over the same range without breath-hold for attenuation correction of PET images and anatomic correlation, but not for primary interpretation as it is not of standard diagnostic quality. CT DOSE: COMPARISON: PET CT 07/30/2017. FINDINGS: HEAD AND NECK: There is no FDG-avid disease or significant lymphadenopathy in the imaged portions of the head and the neck. CHEST: There is no FDG-avid disease in the chest. There is no axillary, mediastinal, or hilar lymphadenopathy. There is no pleural or pericardial effusion. There is no air-space disease or suspicious lung nodule. Calcified silicone right breast implant demonstrating extracapsular extension of silicone within the upper outer quadrant. This remains unchanged. Prior left mastectomy. Right basilar densities remain unchanged and likely represent atelectasis. Emphysema. ABDOMEN/PELVIS: Below the diaphragm, tracer is distributed physiologically in the gastrointestinal and genitourinary tracts. There is no significant lymphadenopathy and no FDG-avid disease. Stable left renal cyst. MUSCULOSKELETAL: There is no FDG-avid or destructive bone lesion. Right hip prosthesis. IMPRESSION: No FDG avid disease identified. No change from the prior study. Electronically signed by: Neymar Head M.D. 05/01/2018 10:48 AM Dictated Date/Time: 05/01/2018 10:37 AM
== END | disposition home or self-care (01) ==
LOC: C.PET 08:46
PROVIDERS: ATTEND Internal Medicine Hematology
DX: C50.912 Malignant neoplasm of unspecified site of left female breast (principal); Z17.0 Estrogen receptor positive status [ER+]

== ENCOUNTER 2018-10-29 18:55 | Observation (INO) ==
[2018-10-29] MEDS ORDERED: DiphenhydrAMINE HCL 50 MG/ML VIAL IV STA (19:16)
[2018-10-29] MEDS ORDERED: ACETAMINOPHEN 1,000 MG/100 ML VIAL IV STA (19:16)
[2018-10-29] MEDS ORDERED: SODIUM CHLORIDE 0.9% 1000ML 1,000 ML IV ONE (19:16)
[2018-10-29] MEDS ORDERED: PROCHLORPERAZINE 2 ML IV ONE (19:18)
--- NOTE | 2018-10-29 19:58 | XRay Report ---
XR chest 1V portable CLINICAL HISTORY: Chest Pain dyspnea COMPARISON STUDY: 07/07/2018 FINDINGS: Chronic elevation right hemidiaphragm. Mild stable cardiomegaly. Subsegmental atelectasis r ight base. Lungs otherwise appear clear. IMPRESSION: Subsegmental atelectasis right base. Chronic change. Mild stable cardiomegaly. The above report was generated using voice recognition software. It may contain grammatical, syntax or spelling errors. Electronically signed by: Cecilio Belcher M.D. 10/29/2018 7:57 PM
[2018-10-29 20:16] LABS: Influenza A virus by PCR Neg for Influ A (Neg); Influenza B virus by PCR Neg for Influ B (Neg)
--- NOTE | 2018-10-29 20:36 | CT Scan Report ---
CT head/brain wo con CT DOSE: 614.27 mGy.cm HISTORY: Mental status change headache TECHNIQUE: Multiaxial CT images of the head were performed without the use of intravenous contrast. A dose lowering technique was utilized adhering to the principles of ALARA. Comparison: 10/11/2016 Findings: No change compared to the prior study. Old right occipital infarct. Moderate atrophy. Chron ic small vessel change of the periventricular and deep white matter regions. Prior postoperative changes. Ventricular system is midline. The calvarium and skull base are intact. The ventricles and sulci are within normal limits. There is no mass, hematoma, midline shift, or acut e infarct. Impression: Chronic and pre-existing postoperative change. No acute intracranial abnormality. The above report was generated using voice recognition software. It may contain grammatical, syntax or spelling errors. Electronically signed by: Cecilio Belcher M.D. 10/29/2018 8:34 PM
[2018-10-29 20:46] LABS: Basophils # (auto) 0.01 K/uL (0-0.2); Basophils % (auto) 0.2 %; Hematocrit (blood only) 27.6 % (37-47); Hemoglobin 8.6 g/dL (12.0-16.0); Immature Granulocytes # (auto) 0.01 K/uL (0.00-0.02); Immature Granulocytes % (auto) 0.2 %; Lymphocytes # (auto) 0.31 K/uL (1.2-3.4); Lymphocytes % (auto) 7.7 %; Mean Corpuscular Hgb Conc 31.2 g/dL (32-36); Mean Corpuscular Volume 74.8 fL (80-100); Mean Platelet Volume 10.1 fL (7.4-10.4); Monocytes % (auto) 9.9 %; Platelet Count 149 K/uL (130-400); RDW Coefficient of Variation 15.3 % (11.5-14.5); RDW Standard Deviation 41.1 fL (36.4-46.3); Red Blood Count 3.69 M/uL (4.2-5.4); White Blood Count 4.03 K/uL (4.8-10.8)
[2018-10-29 20:53] LABS: Alanine Aminotransferase 19 U/L (12-78); Albumin Level 3.3 gm/dl (3.4-5.0); Aspartate Aminotransferase 18 U/L (15-37); Blood Urea Nitrogen 26 mg/dl (7-18); Calcium 7.4 mg/dl (8.5-10.1); Carbon Dioxide 28 mmol/L (21-32); Chloride 104 mmol/L (98-107); Creatinine Clr Calc Pharmacy 50.6 ml/min; Est GFR (Non-African American) 68.2; Glucose 137 mg/dl (70-99); Sodium 139 mmol/L (136-145)
[2018-10-29 20:58] LABS: Alkaline Phosphatase 85 U/L (45-117); Bilirubin,Total 0.2 mg/dl (0.2-1); Globulin 3.3 gm/dl (2.5-4.0); Phosphorus 2.9 mg/dl (2.5-4.9); Total Protein 6.6 gm/dl (6.4-8.2); Troponin I < 0.015 ng/ml (0-0.045)
[2018-10-29 21:19] LABS: Basophilic Stippling Occasional; Ovalocytes 1+; Tear Drop Cells Occasional
[2018-10-29 22:05] LABS: Appearance Urine Clear (Clear); Bacteria Urine Automated Negative (Negative); Bilirubin Urine Negative (Negative); Cast Urine Automated 0 /lpf (0-5); Color Urine Dark Yellow; Epithelial Cell Urine Auto >30 /lpf (0-5); Glucose Urine UA Negative (Negative); Ketones Urine Negative (Negative); Leukocyte Esterase Urine 1+ (Negative); Nitrite Urine Negative (Negative); Protein Urine Trace (Negative); Specific Gravity Urine 1.026 (1.000-1.030); Urobilinogen Urine Negative (Negative); pH Urine 5.5 (4.5-7.5)
[2018-10-29 22:22] LABS: Renal Epithelial Cells Urine 0-5 /lpf (0-5)
--- NOTE | 2018-10-29 22:37 | Emergency Department Note ---
Entered by Gricelda Marrero acting as a scribe for Azar Harrison MD History of Present Illness General Chief complaint: Headache Stated complaint: HEADACHE Time Seen by Provider: 10/29/18 19:05 Source: patient Limitations: no limitations History of Present Illness Provider complaint: headache Location: head Radiation: non-radiation Associated symptoms: + denies other symptoms (diarrhea, changes in vision), + loss of appetite and + nausea/vomiting (vomiting no nausea); no fever/chills The patient is a 83 year old male who presents to the Emergency Room with complaints of a headache that began 2 hours prior to arrival. The patient states that the pain is in the front of her head. The patient states that she vomited and has a loss of appetite. The patient denies any fevers, chills, diarrhea, nausea, or changes in vision. The patient denies a history of migraines. The patient states that she wears oxygen normally and states that she feels like she's breathing normally. The patient states that she has a history of acid refulx and a mastectomy. Home Medications Home Medications Medication Instructions Recorded Confirmed Type acetaminophen [Tylenol] 650 mg PO Q4H PRN 10/29/18 10/29/18 History aspirin-dipyridamole 1 cap PO BID 10/29/18 10/29/18 History biotin 1,000 mcg PO BID 10/29/18 10/29/18 History calcium carbonate [Tums] 1 tab PO Q4H PRN 10/29/18 10/29/18 History cetirizine [Zyrtec] 10 mg PO QAM 10/29/18 10/29/18 History cholecalciferol (vitamin D3) 2,000 unit PO QAM 10/29/18 10/29/18 History diphenhydramine HCl [Banophen] 25 mg PO Q8H PRN 10/29/18 10/29/18 History esomeprazole magnesium 40 mg PO QAM 10/29/18 10/29/18 History fluticasone [Flonase Allergy 1 spray INTRANASAL DAILY 10/29/18 10/29/18 History Relief] fluticasone-vilanterol [Breo 1 inh INHALATION DAILY 10/29/18 10/29/18 History Ellipta] guaifenesin 10 ml PO Q4H PRN 10/29/18 10/29/18 History ipratropium-albuterol 3 ml INHALATION QID PRN 10/29/18 10/29/18 History levetiracetam 500 mg PO BID 10/29/18 10/29/18 History lorazepam 0.5 mg PO UD PRN 10/29/18 10/29/18 History lorazepam 1 mg PO QID 10/29/18 10/29/18 History multivitamin,jl-mssg-vgisagdy 1 tab PO QAM 10/29/18 10/29/18 History [Therems-M] nitroglycerin [Nitrostat] 0.4 mg SUBLINGUAL UD 10/29/18 10/29/18 History ondansetron HCl 4 mg PO Q6H PRN 10/29/18 10/29/18 History phenytoin sodium extended 100 mg PO QAM 10/29/18 10/29/18 History phenytoin sodium extended 200 mg PO QPM 10/29/18 10/29/18 History polyethylene glycol 3350 [Miralax] 17 g PO DAILY 10/29/18 10/29/18 History polyvinyl alcohol [Artificial 1 drp OPHTHALMIC (EYE) DAILY PRN 10/29/18 History Tears (polyvin alc)] sennosides-docusate sodium 2 tab PO QAM 10/29/18 10/29/18 History [Senna-S] venlafaxine 150 mg PO QAM 10/29/18 10/29/18 History Allergies Allergy/AdvReac Type Severity Reaction Status Date / Time morphine Allergy Unknown itching Verified 10/29/18 23:05 Past Med/Surg History Medical History Pneumonia History of stroke Traumatic subdural hematoma (Resolved Unknown) "2011 after fall evacuated by Dr. 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 Treatment was completed October 29, 2017. 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 Status post mastectomy and sentinel lymph node biopsy 02/03/2016 Stage pT3 pN1a M0, lymphovascular invasion Biopsy-proven chest wall recurrence 07/04/2017" DJD (degenerative joint disease) of hip (Acute) Diarrhea (Acute) Seizure (Acute) Thalassemia Surgical History Status post mastectomy (Chronic) Status post section (Chronic) Social History Current Living Situation: Personal Care Facility Current Living Situation Comment: [facility] Other Information That Helps Us Care for You: No Feels Safe at Home: Yes Safety Concerns: Feels Safe At This Time Smoking Status: Never smoker Do You Dip or Chew Tobacco: No Second Hand Exposure: No Tobacco Cessation Education Requested by Patient: No Hx Alcohol Use: Yes Alcohol type: wine Alcohol Intake Frequency: a few times a week Hx Substance Use: No Beliefs That Will Affect Care: None Preferred Language: Croatian Communication Ability: Effective Review of Systems See HPI for pertinent positives & negatives. and A total of 10 systems reviewed and were otherwise negative Physical Exam Vital Signs Vital Signs - 24 hr 10/29/18 19:01 10/29/18 19:04 10/29/18 19:05 Temperature Temperature Source Sepsis Recent Fever Within 48 Hours No Sepsis New/Unexplained Change in Mental Status No Sepsis Action Taken by Nursing No Action Required Pulse Rate 86 86 Pulse Rate [Left Finger] Pulse Rhythm [Left Finger] Pulse Strength [Left Finger] Respiratory Rate 26 H 24 Respiratory Effort / Characteristics Respiratory Depth Respiratory Pattern Blood Pressure 114/64 Blood Pressure [Left Arm] Blood Pressure Mean 80 Blood Pressure Mean [Left Arm] Blood Pressure Position [Left Arm] Pulse Oximetry 97 98 Pulse Oximetry [Left Index Finger] Oxygen Delivery Method Oxygen Delivery Method [Left Index Finger] Oxygen Flow Rate Oxygen Flow Rate [Left Index Finger] 10/29/18 19:06 10/29/18 19:10 10/29/18 19:20 Temperature 38.2 C H Temperature Source Oral Sepsis Recent Fever Within 48 Hours Sepsis New/Unexplained Change in Mental Status Sepsis Action Taken by Nursing Pulse Rate 79 81 Pulse Rate [Left Finger] 90 Pulse Rhythm [Left Finger] Pulse Strength [Left Finger] Respiratory Rate 18 26 H 25 H Respiratory Effort / Characteristics Non-Labored Spontaneous Respiratory Depth Normal Respiratory Pattern Regular Blood Pressure Blood Pressure [Left Arm] 114/68 Blood Pressure Mean Blood Pressure Mean [Left Arm] 83 Blood Pressure Position [Left Arm] Lying Pulse Oximetry 81 L 98 98 Pulse Oximetry [Left Index Finger] Oxygen Delivery Method Room Air Oxygen Delivery Method [Left Index Finger] Oxygen Flow Rate Oxygen Flow Rate [Left Index Finger] 10/29/18 19:29 10/29/18 19:30 10/29/18 19:35 Temperature Temperature Source Sepsis Recent Fever Within 48 Hours Sepsis New/Unexplained Change in Mental Status Sepsis Action Taken by Nursing Pulse Rate 80 Pulse Rate [Left Finger] Pulse Rhythm [Left Finger] Pulse Strength [Left Finger] Respiratory Rate 25 H Respiratory Effort / Characteristics Respiratory Depth Respiratory Pattern Blood Pressure Blood Pressure [Left Arm] Blood Pressure Mean Blood Pressure Mean [Left Arm] Blood Pressure Position [Left Arm] Pulse Oximetry 98 98 98 Pulse Oximetry [Left Index Finger] Oxygen Delivery Method Nasal Cannula Nasal Cannula Oxygen Delivery Method [Left Index Finger] Oxygen Flow Rate 5 5 Oxygen Flow Rate [Left Index Finger] 10/29/18 19:40 10/29/18 19:50 10/29/18 20:00 Temperature Temperature Source Sepsis Recent Fever Within 48 Hours Sepsis New/Unexplained Change in Mental Status Sepsis Action Taken by Nursing Pulse Rate 75 79 73 Pulse Rate [Left Finger] Pulse Rhythm [Left Finger] Pulse Strength [Left Finger] Respiratory Rate 26 H 25 H 28 H Respiratory Effort / Characteristics Respiratory Depth Respiratory Pattern Blood Pressure Blood Pressure [Left Arm] Blood Pressure Mean Blood Pressure Mean [Left Arm] Blood Pressure Position [Left Arm] Pulse Oximetry 98 97 97 Pulse Oximetry [Left Index Finger] Oxygen Delivery Method Oxygen Delivery Method [Left Index Finger] Oxygen Flow Rate Oxygen Flow Rate [Left Index Finger] 10/29/18 20:10 10/29/18 20:20 10/29/18 20:33 Temperature Temperature Source Sepsis Recent Fever Within 48 Hours Sepsis New/Unexplained Change in Mental Status Sepsis Action Taken by Nursing Pulse Rate 79 80 70 Pulse Rate [Left Finger] Pulse Rhythm [Left Finger] Pulse Strength [Left Finger] Respiratory Rate 27 H 27 H 27 H Respiratory Effort / Characteristics Respiratory Depth Respiratory Pattern Blood Pressure 112/67 Blood Pressure [Left Arm] Blood Pressure Mean 82 Blood Pressure Mean [Left Arm] Blood Pressure Position [Left Arm] Pulse Oximetry 98 96 94 Pulse Oximetry [Left Index Finger] Oxygen Delivery Method Oxygen Delivery Method [Left Index Finger] Oxygen Flow Rate Oxygen Flow Rate [Left Index Finger] 10/29/18 20:35 10/29/18 20:40 10/29/18 20:50 Temperature Temperature Source Sepsis Recent Fever Within 48 Hours Sepsis New/Unexplained Change in Mental Status Sepsis Action Taken by Nursing Pulse Rate 73 71 59 L Pulse Rate [Left Finger] Pulse Rhythm [Left Finger] Pulse Strength [Left Finger] Respiratory Rate 28 H 27 H 23 Respiratory Effort / Characteristics Respiratory Depth Respiratory Pattern Blood Pressure Blood Pressure [Left Arm] Blood Pressure Mean Blood Pressure Mean [Left Arm] Blood Pressure Position [Left Arm] Pulse Oximetry 95 97 98 Pulse Oximetry [Left Index Finger] Oxygen Delivery Method Oxygen Delivery Method [Left Index Finger] Oxygen Flow Rate Oxygen Flow Rate [Left Index Finger] 10/29/18 21:00 10/29/18 21:10 10/29/18 21:20 Temperature Temperature Source Sepsis Recent Fever Within 48 Hours Sepsis New/Unexplained Change in Mental Status Sepsis Action Taken by Nursing Pulse Rate 57 L 58 L 57 L Pulse Rate [Left Finger] Pulse Rhythm [Left Finger] Pulse Strength [Left Finger] Respiratory Rate 24 22 23 Respiratory Effort / Characteristics Respiratory Depth Respiratory Pattern Blood Pressure Blood Pressure [Left Arm] Blood Pressure Mean Blood Pressure Mean [Left Arm] Blood Pressure Position [Left Arm] Pulse Oximetry 99 97 99 Pulse Oximetry [Left Index Finger] Oxygen Delivery Method Oxygen Delivery Method [Left Index Finger] Oxygen Flow Rate Oxygen Flow Rate [Left Index Finger] 10/29/18 21:30 10/29/18 22:32 10/29/18 23:24 Temperature 37 C Temperature Source Oral Sepsis Recent Fever Within 48 Hours Sepsis New/Unexplained Change in Mental Status Sepsis Action Taken by Nursing Pulse Rate 71 Pulse Rate [Left Finger] 58 L 58 L Pulse Rhythm [Left Finger] Regular Pulse Strength [Left Finger] Normal Respiratory Rate 23 19 18 Respiratory Effort / Characteristics Non-Labored Spontaneous Respiratory Depth Normal Respiratory Pattern Blood Pressure Blood Pressure [Left Arm] 111/58 L 108/53 L Blood Pressure Mean Blood Pressure Mean [Left Arm] 75 71 Blood Pressure Position [Left Arm] Pulse Oximetry 100 99 97 Pulse Oximetry [Left Index Finger] Oxygen Delivery Method Nasal Cannula Room Air Oxygen Delivery Method [Left Index Finger] Oxygen Flow Rate 4 Oxygen Flow Rate [Left Index Finger] 10/29/18 23:58 10/30/18 00:30 10/30/18 01:17 Temperature 37.1 C Temperature Source Oral Sepsis Recent Fever Within 48 Hours Sepsis New/Unexplained Change in Mental Status Sepsis Action Taken by Nursing Pulse Rate 54 L Pulse Rate [Left Finger] 62 54 L Pulse Rhythm [Left Finger] Regular Regular Pulse Strength [Left Finger] Normal Normal Respiratory Rate 20 18 Respiratory Effort / Characteristics Non-Labored Spontaneous Non-Labored Spontaneous Respiratory Depth Normal Normal Respiratory Pattern Regular Blood Pressure Blood Pressure [Left Arm] 93/51 L 104/50 L Blood Pressure Mean Blood Pressure Mean [Left Arm] 65 68 Blood Pressure Position [Left Arm] Lying Pulse Oximetry 97 91 Pulse Oximetry [Left Index Finger] 91 Oxygen Delivery Method Nasal Cannula Nasal Cannula Oxygen Delivery Method [Left Index Finger] Nasal Cannula Oxygen Flow Rate 3 3 Oxygen Flow Rate [Left Index Finger] 3 GENERAL: Awake, alert, well-appearing, in no distress HENT: Normocephalic, atraumatic. Oropharynx with dry mucous membranes and otherwise unremarkable. EYES: Normal conjunctiva. Sclera non-icteric. EOMI. No nystamgus. PEARRL. NECK: Supple. No nuchal rigidity. FROM. No JVD. RESPIRATORY: Diminished breath sounds posteriorly with intermittent wheeze, clear anteriorly. CARDIAC: Regular rate, normal rhythm. Extremities warm and well perfused. Pulses equal. ABDOMEN: Soft, non-distended. No tenderness to palpation. No rebound or guarding. No masses. RECTAL: Deferred. MUSCULOSKELETAL: Chest examination reveals no tenderness. The back is symmetrical on inspection without obvious abnormality. There is no CVA tenderness to palpation. No joint edema. LOWER EXTREMITIES: Calves are equal size bilaterally and non-tender. No edema. No discoloration. NEURO: Normal cerebellar function with [id number], alternating palms, heel- to-busch. 5/5 strength. SILT x4 in all extremities. SKIN: No rash or jaundice noted. Course 1909: Past medical records reviewed. The patient was evaluated in room C4, and a complete history and physical examination were performed. 2030: I reassessed the patient after change in mental status. The patient is moving all 4 extremities equally and the patient has symmetrical facial movements, but with increased drowsiness and dysarthria which is most likely due to medication administration. Administered Medications Discontinued Medications Diphenhydramine HCl (Benadryl) 25 mg IV NOW STA Stop: 10/29/18 19:17 Last Admin: 10/29/18 19:37 Dose: 25 mg Acetaminophen (Ofirmev) 1,000 mg in 100 mls @ 400 mls/hr IV NOW STA Stop: 10/29/18 19:30 Last Infusion: 10/29/18 20:25 Dose: 0 mls/hr Admin: 10/29/18 19:37 Dose: 400 mls/hr Prochlorperazine (Compazine) 2 mls @ 1 mls/min IV ONE ONE Stop: 10/29/18 19:19 Last Admin: 10/29/18 19:37 Dose: 1 mls/min Sodium Chloride (Nss 1000ml) 1,000 mls @ 999 mls/hr IV .Q1H1M ONE Stop: 10/29/18 20:16 Last Infusion: 10/29/18 21:03 Dose: 0 mls/hr Admin: 10/29/18 19:38 Dose: 999 mls/hr Medical Decision Making Differential Diagnosis Differential includes: Acute intracranial bleed, trauma, meningitis, encephalitis, increased intracranial pressure, mass or mass effect, facial or dental infection, temporal arteritis, CVA, TIA, acute hypertensive emergency, sinusitis, carbon monoxide exposure. Medical Records Attestation: I reviewed the patient's medical records. Home Medications Current Medication List: was personally reviewed by me Laboratory Data Attestation: I reviewed the patient's lab results. Result diagrams: 10/29/18 20:20 10/29/18 20:20 Lab Results 10/29/18 10/29/18 10/29/18 Range/Units 19:30 20:20 20:20 WBC 4.03 L (4.8-10.8) K/uL RBC 3.69 L (4.2-5.4) M/uL Hgb 8.6 L (12.0-16.0) g/dL Hct 27.6 L (37-47) % MCV 74.8 L (80-100) fL MCH 23.3 L (25-34) pg MCHC 31.2 L (32-36) g/dL RDW Std Deviation 41.1 (36.4-46.3) fL RDW Coeff of Gray 15.3 H (11.5-14.5) % Plt Count 149 (130-400) K/uL MPV 10.1 (7.4-10.4) fL Immature Gran % (Auto) 0.2 % Neut % (Auto) 82.0 % Lymph % (Auto) 7.7 % Hayes % (Auto) 9.9 % Eos % (Auto) 0.0 % Baso % (Auto) 0.2 % Immature Gran # (Auto) 0.01 (0.00-0.02) K/uL Neut # (Auto) 3.30 (1.4-6.5) K/uL Lymph # (Auto) 0.31 L (1.2-3.4) K/uL Hayes # (Auto) 0.40 (0.11-0.59) K/uL Eos # (Auto) 0.00 (0-0.5) K/uL Baso # (Auto) 0.01 (0-0.2) K/uL Basophilic Stippling Occasional Tear Drop Cells Occasional Ovalocytes 1+ VBG pH (7.36-7.41) VBG pCO2 (38-50) mmHg VBG pO2 mmHg VBG HCO3 mmol/L VBG O2 Saturation % VBG Base Excess mEq/L Barometric Pressure mm/Hg Sodium 139 (136-145) mmol/L Potassium 4.0 (3.5-5.1) mmol/L Chloride 104 (98-107) mmol/L Carbon Dioxide 28 (21-32) mmol/L Anion Gap 7.0 (3-11) BUN 26 H (7-18) mg/dl Creatinine 0.80 (0.6-1.2) mg/dl Est Cr Clr Drug Dosing 50.6 ml/min Est GFR ( Amer) 79.0 Est GFR (Non-Af Amer) 68.2 BUN/Creatinine Ratio 33.0 H (10-20) Glucose 137 H (70-99) mg/dl Calcium 7.4 L (8.5-10.1) mg/dl Phosphorus 2.9 (2.5-4.9) mg/dl Magnesium 2.0 (1.8-2.4) mg/dl Total Bilirubin 0.2 (0.2-1) mg/dl AST 18 (15-37) U/L ALT 19 (12-78) U/L Alkaline Phosphatase 85 (45-117) U/L Troponin I < 0.015 (0-0.045) ng/ml Total Protein 6.6 (6.4-8.2) gm/dl Albumin 3.3 L (3.4-5.0) gm/dl Globulin 3.3 (2.5-4.0) gm/dl Albumin/Globulin Ratio 1.0 (0.9-2) Lipase 98 (73-393) U/L Urine Color Urine Appearance (Clear) Urine pH (4.5-7.5) Ur Specific [place] (1.000-1.030) Urine Protein (Negative) Urine Glucose (UA) (Negative) Urine Ketones (Negative) Urine Blood (Negative) Urine Nitrite (Negative) Urine Bilirubin (Negative) Urine Urobilinogen (Negative) Ur Leukocyte Esterase (Negative) Urine WBC (Auto) (0-5) /hpf Urine RBC (Auto) (0-4) /hpf U Hyaline Cast (Auto) (0-5) /lpf U Epithel Cells (Auto) (0-5) /lpf Urine Bacteria (Auto) (Negative) Ur Renal Epithelial Cell (0-5) /lpf Phenytoin (10-20) mcg/ml Influenza Type A (PCR) Neg for Influ A (Neg) Influenza Type B (PCR) Neg for Influ B (Neg) 10/29/18 10/29/18 10/29/18 Range/Units 20:20 21:35 22:50 WBC (4.8-10.8) K/uL RBC (4.2-5.4) M/uL Hgb (12.0-16.0) g/dL Hct (37-47) % MCV (80-100) fL MCH (25-34) pg MCHC (32-36) g/dL RDW Std Deviation (36.4-46.3) fL RDW Coeff of Gray (11.5-14.5) % Plt Count (130-400) K/uL MPV (7.4-10.4) fL Immature Gran % (Auto) % Neut % (Auto) % Lymph % (Auto) % Hayes % (Auto) % Eos % (Auto) % Baso % (Auto) % Immature Gran # (Auto) (0.00-0.02) K/uL Neut # (Auto) (1.4-6.5) K/uL Lymph # (Auto) (1.2-3.4) K/uL Hayes # (Auto) (0.11-0.59) K/uL Eos # (Auto) (0-0.5) K/uL Baso # (Auto) (0-0.2) K/uL Basophilic Stippling Tear Drop Cells Ovalocytes VBG pH 7.31 L (7.36-7.41) VBG pCO2 61 H (38-50) mmHg VBG pO2 45 mmHg VBG HCO3 30 mmol/L VBG O2 Saturation 76.0 % VBG Base Excess 2.4 mEq/L Barometric Pressure 721.8 mm/Hg Sodium (136-145) mmol/L Potassium (3.5-5.1) mmol/L Chloride (98-107) mmol/L Carbon Dioxide (21-32) mmol/L Anion Gap (3-11) BUN (7-18) mg/dl Creatinine (0.6-1.2) mg/dl Est Cr Clr Drug Dosing ml/min Est GFR ( Amer) Est GFR (Non-Af Amer) BUN/Creatinine Ratio (10-20) Glucose (70-99) mg/dl Calcium (8.5-10.1) mg/dl Phosphorus (2.5-4.9) mg/dl Magnesium (1.8-2.4) mg/dl Total Bilirubin (0.2-1) mg/dl AST (15-37) U/L ALT (12-78) U/L Alkaline Phosphatase (45-117) U/L Troponin I (0-0.045) ng/ml Total Protein (6.4-8.2) gm/dl Albumin (3.4-5.0) gm/dl Globulin (2.5-4.0) gm/dl Albumin/Globulin Ratio (0.9-2) Lipase (73-393) U/L Urine Color Dark Yellow Urine Appearance Clear (Clear) Urine pH 5.5 (4.5-7.5) Ur Specific [place] 1.026 (1.000-1.030) Urine Protein Trace H (Negative) Urine Glucose (UA) Negative (Negative) Urine Ketones Negative (Negative) Urine Blood Negative (Negative) Urine Nitrite Negative (Negative) Urine Bilirubin Negative (Negative) Urine Urobilinogen Negative (Negative) Ur Leukocyte Esterase 1+ H (Negative) Urine WBC (Auto) 1-5 (0-5) /hpf Urine RBC (Auto) 0-4 (0-4) /hpf U Hyaline Cast (Auto) 0 (0-5) /lpf U Epithel Cells (Auto) >30 H (0-5) /lpf Urine Bacteria (Auto) Negative (Negative) Ur Renal Epithelial Cell 0-5 (0-5) /lpf Phenytoin 10.3 (10-20) mcg/ml Influenza Type A (PCR) (Neg) Influenza Type B (PCR) (Neg) Imaging Data Radiologist's Impression: Radiology results as stated below per my review and the radiologist's interpretation: CT head/brain wo con CT DOSE: 614.27 mGy.cm HISTORY: Mental status change headache TECHNIQUE: Multiaxial CT images of the head were performed without the use of intravenous contrast. A dose lowering technique was utilized adhering to the principles of ALARA. Comparison: 10/11/2016 Findings: No change compared to the prior study. Old right occipital infarct. Moderate atrophy. Chronic small vessel change of the periventricular and deep white matter regions. Prior postoperative changes. Ventricular system is midline. The calvarium and skull base are intact. The ventricles and sulci are within normal limits. There is no mass, hematoma, midline shift, or acute infarct. Impression: Chronic and pre-existing postoperative change. No acute intracranial abnormality. The above report was generated using voice recognition software. It may contain grammatical, syntax or spelling errors. Electronically signed by: Cecilio Belcher M.D. 10/29/2018 8:34 PM XR chest 1V portable CLINICAL HISTORY: Chest Pain dyspnea COMPARISON STUDY: 07/07/2018 FINDINGS: Chronic elevation right hemidiaphragm. Mild stable cardiomegaly. Subsegmental atelectasis right base. Lungs otherwise appear clear. IMPRESSION: Subsegmental atelectasis right base. Chronic change. Mild stable cardiomegaly. The above report was generated using voice recognition software. It may contain grammatical, syntax or spelling errors. Electronically signed by: Cecilio Belcher M.D. 10/29/2018 7:57 PM ECG Data Attestation: I personally reviewed and interpreted this ECG as follows: Indication: altered mental status Rate (beats per minute): 82 Rhythm: sinus rhythm Findings: + other (LVH) and + PAC; no acute ischemic change Blood Pressure Blood Pressure Findings: Normal blood pressure MDM Narrative The patient is a pleasant 83-year-old woman with a past medical history of remote breast cancer status post mastectomy, CVA, traumatic subdural hematoma, seizure disorder on Dilantin, Keppra, Ativan, COPD on 3 L nasal cannula at baseline who presents to emergency department from [facility] for evaluation of frontal headache which occurred approximately 2 hours prior to arrival per hpi. On arrival patient is in no acute distress, febrile to 38.2, with vital signs otherwise stable. On exam the patient is neurologically intact including 5/5 strength and SILT x 4 extremities and finger to nose. EOMI. No nystamgus. PEARRL. EKG without acute ischemia. Chest x-ray right basilar atelectasis and otherwise without gross focal infiltrate. CT head with stable chronic findings and otherwise no acute process. WBC 4, H/H8 0.6/27.6, platelets 149 all within patient's baseline range. Chemistry without acidosis. BUN/creatinine>30 consistent with the patient's clinically dry appearance. UA without convincing infection. Dilantin level within normal range. Flu negative. Patient was given IV fluids, APAP, Benadryl, Compazine on arrival for her headache and subsequently became drowsy shortly thereafter. Patient was reevaluated at that time and she continued to move all extremities equally with symmetric facial movements. She would arouse to loud voice and follow simple commands and speak with mild dysarthria related to her drowsiness. CT head was performed after onset of symptoms and was unremarkable and given the patient's symptoms occurred shortly after medication administration most likely related to adverse effect of Benadryl or Compazine. The patient does not exhibit any rigidity and so less likely to be extrapyrimidal effect of Compazine. Moreover additional Benadryl could further promote a decrease in her mental status. Therefore reasonable to admit the patient for further monitoring and allow medications to metabolize. Otherwise, given the patient's nausea and vomiting earlier today, fever most likely related to viral GI illness. Case was discussed with Dr. Bell, [facility] hospitalist, who will evaluate the patient for admission. Impression & Plan Headache, Acute alteration in mental status Discharge Plan Visit Data *Final* Discharge Date/Time: 10/30/18 00:03 Chief Complaint: Headache Stated Complaint: HEADACHE ED Provider: Azar Harrison Discharge Problem: Headache, Acute alteration in mental status Patient Disposition: Admitted As Inpatient Discharge Instructions Interventions: ED Discharge Assessment Last Done: 10/30/18 00:03 The scribe's documentation has been prepared under my direction and personally reviewed by me in its entirety. I confirm that the note above accurately reflects all work, treatment, procedures, and medical decision making performed by me.
[2018-10-29 23:01] LABS: Base Excess VBG 2.4 mEq/L; pH VBG 7.31 (7.36-7.41)
[2018-10-30] MEDS ORDERED: guaiFENesin SUGAR FREE 200 MG/10 ML UDC PO PRN (00:30)
[2018-10-30] MEDS ORDERED: ARTIFICIAL TEARS OP PRN (00:30)
[2018-10-30] MEDS ORDERED: ONDANSETRON 4 MG TAB PO PRN (00:30)
[2018-10-30] MEDS ORDERED: ALBUT/IPRATROP 3MG/0.5MG NEB 3 ML VIAL INH PRN (00:30)
[2018-10-30] MEDS ORDERED: CALCIUM CARBONATE 500 MG CHEWABLE TAB PO PRN (00:30)
[2018-10-30] MEDS ORDERED: NITROGLYCERIN SL 0.4 MG/TAB TAB SL PRN (00:30)
[2018-10-30] MEDS ORDERED: LORazepam 0.5 MG TAB PO PRN (00:30)
[2018-10-30] MEDS ORDERED: NITROGLYCERIN SL 0.4 MG/TAB TAB SL SCH (00:30)
[2018-10-30] MEDS ORDERED: ACETAMINOPHEN 325 MG TAB PO PRN (00:30)
[2018-10-30] MEDS ORDERED: ONDANSETRON INJ 2 MG/ML 2 ML VIAL IV PRN (00:30)
--- NOTE | 2018-10-30 00:54 | History and Physical Report ---
DATE OF ADMISSION: 10/29/2018 CHIEF COMPLAINT: Headache. HISTORY OF PRESENT ILLNESS: Patient is an 83-year-old female with history of breast cancer status post right mastectomy 40 years ago, recurrence of breast cancer on tamoxifen and completed left chest wall radiation in early October 2017 and currently on Faslodex injection every 4 weeks, history of atrial fibrillation, history of subdural hematoma status post evacuation, history of rib fracture, history of hematuria, history of seizures, history of COPD, history of thalassemia minor, generalized anxiety disorder, who lives at a personal residential brought in because of severe headache. Daughter is in the room. The patient gets headaches once in a while, but today it was severe and she had to come to the ER. The patient was having some diarrhea since last 1 week and today she had an episode of nausea and vomiting and later severe headache. In the ER, she was given IV Tylenol, Benadryl, Compazine, and fluids. After that, she became drowsy. The labs looked at baseline and CT of the head was unremarkable. Her drowsiness could be from the medication because she is already on Ativan and phenobarbital for seizures at home and the combination of the medication in the ER could be possibly causing her drowsiness. Hemodynamically stable. She had mild temp spike in the ER and we are called for admission. Currently, patient is drowsy, not able to respond to any verbal response. Mild grimacing with painful stimuli. As per daughter, she was doing okay. She did not complained of any blurred visions or sore throat or cough. No recent fever or chills. Did not complain of chest pain or shortness of breath or cough. No abdominal pain. Appetite was okay until today and she walks with help of walker .Could not get a complete review of symptoms as patient is currently drowsy. ALLERGIES: MORPHINE. PAST MEDICAL HISTORY: As mentioned above. PAST SURGICAL HISTORY: Mastectomy, EGD with biopsy, tonsillectomy, hip replacement surgery, brain surgery for hemorrhagic stroke, . FAMILY HISTORY: Significant for heart disease and hypertension. SOCIAL HISTORY: Former smoker, currently living in a personal residential. No drug use as per records. MEDICATIONS: Currently the patient is on aspirin 650 mg p.o. q. 4 hours p.r.n., Aggrenox 1 capsule p.o. b.i.d., biotin 1000 mcg p.o. b.i.d., calcium, Tums 1 tablet p.o. q. 4 hours p.r.n., cetirizine 10 mg p.o. q.a.m., vitamin D 2000 units p.o. a.m., Benadryl 25 mg p.o. q. 8 hours p.r.n., Nexium 40 mg p.o. a.m., Flonase 1 spray into each nostril daily, Breo Ellipta one inhalation daily, guaifenesin 10 mL p.o. q. 4 hours p.r.n., DuoNebs inhalation q.i.d. p.r.n., Keppra 500 mg p.o. b.i.d., Ativan 0.5 mg p.o. p.r.n., Ativan 1 mg p.o. q.i.d., multivitamins with minerals 1 tablet p.o. a.m., nitroglycerin 0.4 mg sublingual p.r.n., Zofran 4 mg p.o. q. 6 hours p.r.n., phenytoin 200 mg p.o. p.m., phenytoin 100 mg p.o. in a.m., MiraLax 17 g p.o. daily, artificial tears 1 drop daily p.r.n., Senokot-S 2 tablets p.o. p.m., venlafaxine 150 mg p.o. q.a.m. REVIEW OF SYMPTOMS: Are currently unobtainable as the patient is drowsy. PHYSICAL EXAMINATION: GENERAL: The patient is currently drowsy and responds to painful stimuli. VITAL SIGNS: Temperature 38.2, pulse 58, respiratory rate 19, blood pressure 111/58, oxygen 99% on 4 liters. HEENT: No pallor, no icterus. Pupils are sluggish, reactive to light. NECK: No JVD, no neck masses. CARDIOVASCULAR: S1, S2 heard, regular rate and rhythm, no murmur, no gallop. RESPIRATORY SYSTEM: Normal AP diameter. No accessory muscle use. No wheezing, no crackles. ABDOMEN: Soft, bowel sounds present. No distention. CENTRAL NERVOUS SYSTEM: Drowsy, does not obey any commands. Grimacing on painful stimuli. EXTREMITIES: No edema, no erythema. LABORATORY DATA: WBC 4, hemoglobin 8.6, hematocrit 27.6, platelets 149. Venous blood gas, pH 7.3, pCO2 of 61, pO2 of 45, bicarb 30, oxygen 91%. Sodium 139, potassium 4, chloride 104, bicarb 28, BUN 26, creatinine 0.8, serum glucose 137, calcium 7.4, phosphorus 2.9, magnesium 2.2, total bilirubin 0.2, AST 18, ALT 19, alkaline phosphatase 85, troponin I less than 0.015, lipase 98. Urinalysis +1for leukocyte esterase but negative for bacteria. Phenytoin level 10.3. Influenza A and B negative. IMAGING DATA: CT of the head, chronic and persistent postoperative change, no acute intracranial abnormalities seen. Chest x-ray, no acute findings. EKG: Sinus rhythm with PACs with a rate of 82. No acute ST changes seen. ASSESSMENT AND PLAN: This is an 83-year-old female who presents with headache and after her medications feels drowsy. 1. Drowsiness. The patient is on phenobarbital, Keppra, and Ativan at home and treated with IV Benadryl, IV Tylenol and Compazine in the ER and became drowsy. CT of the head is unremarkable. Mostly the drowsiness could be from the medications. On ABG, CO2 is slightly elevated. We will place on BiPAP at nighttime and she has a mild temperature spike. We will follow the cultures. Possibly urinary tract infection. We will place on IV fluids and IV Rocephin. Follow the cultures. Follow the response. Monitor on the tele floor. 2. Severe headaches. Currently, patient received IV Tylenol and Benadryl and Compazine in the ER and currently drowsy. CT of the head is unremarkable. We will observe in tele floor .. 3. History of seizures. Continue her Keppra and phenobarbital. Holding Ativan for drowsiness. Restart when patient is more awake. 4. Anxiety and depression. Continue venlafaxine. 5. History of chronic obstructive pulmonary disease. Continue home inhalers p.r.n., currently stable. 6. History of gastroesophageal reflux disease. Continue PPI. 7. History of cerebrovascular accident, on Aggrenox. 8. History of atrial fibrillation, currently in sinus rhythm. Rate under control. Not on anticoagulation, probably secondary to subdural hematoma and hematuria in the past. 9. History of breast cancer status post mastectomy, recurrence, and currently follows with hem/onc and on chemotherapy q. 4 weeks. 10. History of thalassemia minor. Has anemia and leukopenia. Seems to be at baseline. Follow up labs with PCP. 11. Deep venous thrombosis prophylaxis, sequential compression devices for now. 12. Disposition: Close monitoring in tele floor. PT/OT per discharge. Discharge back to personal residential when stable. The patient is a level 1 full code. MTDD
[2018-10-30] MEDS ORDERED: cefTRIAXone SODIUM 1,000 MG in SODIUM CHLOR 0.9% AD-VAN 50 ML IV SCH (01:00)
[2018-10-30] MEDS: SODIUM CHLORIDE 0.9% 1000ML 1,000 ML IV SCH ×2 (01:48→12:29)
[2018-10-30] MEDS ORDERED: CETIRIZINE HCL 10 MG TABLET PO SCH (09:00)
[2018-10-30] MEDS ORDERED: levETIRAcetam 500 MG TAB PO SCH (09:00)
[2018-10-30] MEDS ORDERED: PHENYTOIN SODIUM ER 100 MG CAP PO SCH ×2 (09:00→21:00)
[2018-10-30] MEDS ORDERED: FLUTICASONE PROPIONATE NA SPR 16 GM BTL SCH (09:00)
[2018-10-30] MEDS ORDERED: DOCUSATE SODIUM/SENNA 50/8.6MG TAB PO SCH (09:00)
[2018-10-30] MEDS ORDERED: NON-FORMULARY MEDICATION (Biotin [Biotin] 1,000 MCG) PO SCH (09:00)
[2018-10-30] MEDS ORDERED: CHOLECALCIFEROL 1,000 UNITS TAB PO SCH (09:00)
[2018-10-30] MEDS ORDERED: CEROVITE ADV FORMULA TAB PO SCH (09:00)
[2018-10-30] MEDS ORDERED: POLYETHYLENE (MIRALAX) 17 GM PACK PO SCH (09:00)
[2018-10-30] MEDS ORDERED: PANTOprazole 40 MG TAB PO SCH (09:00)
[2018-10-30] MEDS ORDERED: DIPYRIDAMOLE/ASPIRIN CAP PO SCH (09:00)
[2018-10-30] MEDS ORDERED: VENLAFAXINE HCL XR 150 MG CAPXR PO SCH (09:00)
[2018-10-30] MEDS: LORazepam 1 MG TAB PO SCH ×3 (10:06→18:11)
--- NOTE | 2018-10-30 15:32 | Hospitalist Progress Note ---
Date of Service October 30, 2018 Assessment & Plan (1) Headache: Presented to ED with severe headache after experiencing nausea and vomiting. Head CT showed chronic changes, no acute findings. Low clinical suspicion for [employer]ACTITIONER infection. Headache resolved. (2) Acute alteration in mental status: Probable metabolic encephalopathy secondary to meds administered for headache. Resolved. (3) Nausea & vomiting: Patient attributes nausea and vomiting to something that she ate. She also had some loose stools. Consider gastroenteritis. No evidence of obstruction on abdominal films. Symptoms resolved. (4) Fever: Temp was 38.2 in ED; subsequent temps normal. WBC 4030. No infiltrates on chest x-ray. UA did not appear to be infected. Had some nausea, vomiting, and loose stools. Consider gastroenteritis. Blood cultures negative. Received a dose of ceftriaxone, but no apparent indication for ongoing antibiotic therapy. Re-evaluate as necessary if fever recurs. (5) Seizure disorder: Phenytoin level 10.3. Continue phenytoin and levetiracetam. (6) Breast cancer: Ongoing management per Medical Oncology. (7) DVT prophylaxis: No anticoagulants due to history of SDH. SCD's. Ambulating. (8) Discharge planning issues: Returning to [facility] under the care of Dr. Mak. Subjective Recheck for headache and other problems. Pt was seen in her room around 1515 and re-evaluated in the evening. Daughter was visiting after dinner. Patient feels well and would like to be discharged. Daughter agrees and is supportive. Headache resolved. No further nausea or vomiting. No fever. No urinary symptoms. No chest pain. No cough. Chronic dyspnea on home O2, unchanged. Ambulating in room. Physical Exam 2 Vital Signs (Past 24 Hours): Last Vital Signs Temp 36.9 C 10/30/18 11:27 Pulse 54 L 10/30/18 11:27 Resp 16 10/30/18 11:27 BP 127/55 L 10/30/18 11:27 Pulse Ox 98 10/30/18 11:27 Constitutional: no acute distress Respiratory: Auscultation: + rales (few bibasilar) Cardiovascular: Rate/Rhythm: regular rate and regular rhythm Heart Sounds: no gallop Extremities: no edema Gastrointestinal (Abdomen): Inspection/Auscultation: normal bowel sounds Percussion/Palpation: abdomen soft; abdomen nontender Psychiatric: A+Ox3, euthymic affect _ (1) Headache Headache chronicity pattern: acute headache Headache type: unspecified Intractability: not intractable Qualified Code(s): R51 - Headache
--- NOTE | 2018-10-31 09:02 | Discharge Summary ---
Date of Service Date of admission: 10/29/18 Date of discharge: 10/30/18 Admission HPI Per Admitting Provider Patient is an 83-year-old female with history of breast cancer status post right mastectomy 40 years ago, recurrence of breast cancer on tamoxifen and completed left chest wall radiation in early October 2017 and currently on Faslodex injection every 4 weeks, history of atrial fibrillation, history of subdural hematoma status post evacuation, history of rib fracture, history of hematuria, history of seizures, history of COPD, history of thalassemia minor, generalized anxiety disorder, who lives at a personal longterm brought in because of severe headache. Daughter is in the room. The patient gets headaches once in a while, but today it was severe and she had to come to the ER. The patient was having some diarrhea since last 1 week and today she had an episode of nausea and vomiting and later severe headache. In the ER, she was given IV Tylenol, Benadryl, Compazine, and fluids. After that, she became drowsy. The labs looked at baseline and CT of the head was unremarkable. Her drowsiness could be from the medication because she is already on Ativan and phenobarbital for seizures at home and the combination of the medication in the ER could be possibly causing her drowsiness. Hemodynamically stable. She had mild temp spike in the ER and we are called for admission. Currently, patient is drowsy, not able to respond to any verbal response. Mild grimacing with painful stimuli. As per daughter, she was doing okay. She did not complained of any blurred visions or sore throat or cough. No recent fever or chills. Did not complain of chest pain or shortness of breath or cough. No abdominal pain. Appetite was okay until today and she walks with help of walker .Could not get a complete review of symptoms as patient is currently drowsy. Admission Exam Per Admitting Provider GENERAL: The patient is currently drowsy and responds to painful stimuli. VITAL SIGNS: Temperature 38.2, pulse 58, respiratory rate 19, blood pressure 111/58, oxygen 99% on 4 liters. HEENT: No pallor, no icterus. Pupils are sluggish, reactive to light. NECK: No JVD, no neck masses. CARDIOVASCULAR: S1, S2 heard, regular rate and rhythm, no murmur, no gallop. RESPIRATORY SYSTEM: Normal AP diameter. No accessory muscle use. No wheezing, no crackles. ABDOMEN: Soft, bowel sounds present. No distention. CENTRAL NERVOUS SYSTEM: Drowsy, does not obey any commands. Grimacing on painful stimuli. EXTREMITIES: No edema, no erythema. Principal Diagnosis headache nausea and vomiting Discharge Data Allergies Allergy/AdvReac Type Severity Reaction Status Date / Time morphine Allergy Unknown itching Verified 10/29/18 23:05 Consultations 10/29/18 22:30 ED Decision to Admit Stat 10/30/18 00:30 Consult Case Management - Discharge Planning Routine Ordered Studies 10/29/18 19:16 CT head/brain wo con Stat Hospital Course (1) Headache: Presented to ED with severe headache after experiencing nausea and vomiting. Head CT showed chronic changes, no acute findings. Low clinical suspicion for [employer] HELPER infection. Headache resolved. (2) Acute alteration in mental status: Probable metabolic encephalopathy secondary to meds administered for headache. Resolved. (3) Nausea & vomiting: Patient attributes nausea and vomiting to something that she ate. She also had some loose stools. Consider gastroenteritis. No evidence of obstruction on abdominal films. Symptoms resolved. (4) Fever: Temp was 38.2 in ED; subsequent temps normal. WBC 4030. No infiltrates on chest x-ray. UA did not appear to be infected. Had some nausea, vomiting, and loose stools. Consider gastroenteritis. Blood cultures negative. Received a dose of ceftriaxone, but no apparent indication for ongoing antibiotic therapy. Re-evaluate as necessary if fever recurs. (5) Seizure disorder: Phenytoin level 10.3. Continue phenytoin and levetiracetam. (6) Breast cancer: Ongoing management per Medical Oncology. (7) DVT prophylaxis: No anticoagulants due to history of SDH. SCD's. Ambulating. (8) Discharge planning issues: Returning to [facility] under the care of Dr. Mak. Total Time Total Time Spent Total Time Spent (In Minutes): 30 Discharge Plan Discharge Items Patient Disposition: Personal Long-Term Reason For Visit: HEADACHE Discharge Diagnosis: headache Condition: Good Discharge Goals: Decrease discomfort Activity: Resume your previous activity Non-emergency contact: Primary Care Provider and Hospitalist Call non-emergency contact if: you have any medication questions and your symptoms worsen Follow-up/Referrals: Antoine Mak [Physician] - Diet: Heart Healthy Addtl Provider Instructions: OTHER INSTRUCTIONS: Seek medical attention if you have: * temperature above 101 * severe headache * chest pain or trouble breathing * abdominal pain, nausea, vomiting * diarrhea, dark stools or bloody stools * any unanswered questions or concerns Call 911 if symptoms are severe. Call if you have any questions or problems. My cell # is [phone]. You can also reach a [facility] hospitalist on duty at [facility] 24 hours a day by calling [phone]. Prescriptions: Continue aspirin-dipyridamole 25-200 mg capsule, ER multiphase 12 hr 1 cap PO BID RF: 0 biotin 1,000 mcg Tablet,Chewable 1,000 mcg PO BID RF: 0 fluticasone-vilanterol [Breo Ellipta] 100-25 mcg/dose Blister With Device 1 inh INHALATION DAILY RF: 0 esomeprazole magnesium 40 mg capsule,delayed release(DR/EC) 40 mg PO QAM RF: 0 fluticasone [Flonase Allergy Relief] 50 mcg/actuation [place],Suspension 1 spray INTRANASAL DAILY RF: 0 levetiracetam 500 mg tablet 500 mg PO BID RF: 0 lorazepam 1 mg tablet 1 mg PO QID RF: 0 phenytoin sodium extended 100 mg capsule 100 mg PO QAM RF: 0 phenytoin sodium extended 100 mg capsule 200 mg PO QPM RF: 0 polyethylene glycol 3350 [Miralax] 17 gram/dose Powder 17 g PO DAILY RF: 0 cetirizine [Zyrtec] 10 mg Tablet 10 mg PO QAM RF: 0 sennosides-docusate sodium [Senna-S] 8.6-50 mg Tablet 2 tab PO QAM RF: 0 multivitamin,[id number] [Therems-M] 27-0.4 mg Tablet 1 tab PO QAM RF: 0 venlafaxine 150 mg Capsule,Extended Release 24hr 150 mg PO QAM RF: 0 cholecalciferol (vitamin D3) 2,000 unit Capsule 2,000 unit PO QAM RF: 0 acetaminophen [Tylenol] 325 mg Tablet 650 mg PO Q4H PRN (Reason: Fever Or Pain) RF: 0 polyvinyl alcohol [Artificial Tears (polyvin alc)] 1.4 % Drops 1 drp OPHTHALMIC (EYE) DAILY PRN (Reason: Dry Eye(S)) RF: 0 diphenhydramine HCl [Banophen] 25 mg Capsule 25 mg PO Q8H PRN (Reason: Allergy Symptoms) RF: 0 ipratropium-albuterol 0.5 mg-3 mg(2.5 mg base)/3 mL Solution For Nebulization 3 ml INHALATION QID PRN (Reason: Shortness Of Breath) RF: 0 nitroglycerin [Nitrostat] 0.4 mg Tablet, Sublingual 0.4 mg Sublingual UD RF: 0 ondansetron HCl 4 mg tablet 4 mg PO Q6H PRN (Reason: .N/V) RF: 0 calcium carbonate [Tums] 200 mg calcium (500 mg) Tablet,Chewable 1 tab PO Q4H PRN (Reason: Gi Upset) RF: 0 guaifenesin 100 mg/5 mL Liquid 10 ml PO Q4H PRN (Reason: Cough) RF: 0 lorazepam 0.5 mg Tablet 0.5 mg PO UD PRN (Reason: Anxiety) RF: 0 Stand-Alone Forms: [facility] Discharge Orders: Discharge Order (Routine); Ordered 10/30/18 Ordered By: Best Garcia Admission Data Admit Date/Time: 10/29/18 23:15 Attending Provider: Best Garcia Admit Provider: Denys Bell Primary Care Provider: LUCAS VELAZQUEZ Other Providers: Denys Bell Service: Telemetry Other Interventions: Discharge Summary Assessment (RN) Last Done: 10/30/18 18:18 DC Date/Time DO NOT enter until pt leaves facility: 10/30/18 19:00
== END 2018-10-30 19:00 | disposition home or self-care (01) ==
LOC: ED 18:55 → 2S 18:55

== ENCOUNTER 2019-09-25 10:53 | Inpatient (IN) ==
[2019-09-25] MEDS ORDERED: SODIUM CHLORIDE 0.9% 1000ML 500 ML IV ONE ×2 (11:07→13:05)
--- NOTE | 2019-09-25 11:46 | XRay Report ---
XR chest 1V portable CLINICAL HISTORY: Pt c/o chest pain dyspnea COMPARISON STUDY: 10/29/2018 FINDINGS: Poor inspiratory volumes. Calcification of the mitral annulus as well as thoracic aorta. Lungs are clear. Postoperative changes right axilla. IMPRESSION: No acute process. ACT 112: Negative or not required by law. The above report was generated using voice recognition software. It may contain grammatical, syntax or spelling errors. Electronically signed by: Cecilio Belcher M.D. 09/25/2019 11:45 AM
[2019-09-25 12:19] LABS: Basophils # (auto) 0.03 K/uL (0-0.2); Basophils % (auto) 0.3 %; Eosinophils # (auto) 0.09 K/uL (0-0.5); Eosinophils % (auto) 0.9 %; Hematocrit (blood only) 32.3 % (37-47); Hemoglobin 9.8 g/dL (12.0-16.0); Immature Granulocytes # (auto) 0.03 K/uL (0.00-0.02); Immature Granulocytes % (auto) 0.3 %; Lymphocytes # (auto) 0.78 K/uL (1.2-3.4); Lymphocytes % (auto) 7.8 %; Mean Corpuscular Hemoglobin 22.9 pg (25-34); Mean Corpuscular Hgb Conc 30.3 g/dL (32-36); Mean Corpuscular Volume 75.5 fL (80-100); Mean Platelet Volume 9.9 fL (7.4-10.4); Neutrophils # (auto) 8.12 K/uL (1.4-6.5); Neutrophils % (auto) 80.7 %; Platelet Count 174 K/uL (130-400); RDW Coefficient of Variation 15.5 % (11.5-14.5); RDW Standard Deviation 42.3 fL (36.4-46.3); Red Blood Count 4.28 M/uL (4.2-5.4); White Blood Count 10.05 K/uL (4.8-10.8)
[2019-09-25 12:25] LABS: iSTAT Creatinine 0.7 mg/dl (0.6-1.3); iSTAT Hemoglobin 11.2 g/dl (12.0-16.0); iSTAT Ionized Calcium 1.12 mmol/l (1.12-1.32); iSTAT Potassium 3.8 mEq/L (3.3-5.0)
[2019-09-25 12:31] LABS: INR 1.2 (0.9-1.1); Partial Thromboplastin Time 27.3 Seconds (21.0-31.0); Prothrombin Time 11.8 Seconds (9.0-12.0)
[2019-09-25] MEDS ORDERED: OPTIRAY 320 125ml IV PRN (12:34)
[2019-09-25 12:39] LABS: Alanine Aminotransferase 28 U/L (12-78); Albumin Level 3.6 gm/dl (3.4-5.0); Aspartate Aminotransferase 17 U/L (15-37); BUN Creatinine Ratio 27.3 (10-20); Blood Urea Nitrogen 23 mg/dl (7-18); Calcium 8.7 mg/dl (8.5-10.1); Carbon Dioxide 35 mmol/L (21-32); Chloride 103 mmol/L (98-107); Creatinine Clr Calc Pharmacy 45.8 ml/min; Est GFR (Non-African American) 63.8; Glucose 111 mg/dl (70-99); Magnesium 1.8 mg/dl (1.8-2.4); Potassium 3.8 mmol/L (3.5-5.1); Sodium 141 mmol/L (136-145)
[2019-09-25 12:45] LABS: Albumin Globulin Ratio 0.8 (0.9-2); Alkaline Phosphatase 92 U/L (45-117); Bilirubin,Total 0.5 mg/dl (0.2-1); Creatine Kinase MB 3.4 ng/ml (0.5-3.6); Globulin 4.3 gm/dl (2.5-4.0); Total Protein 7.9 gm/dl (6.4-8.2); Troponin I < 0.015 ng/ml (0-0.045)
--- NOTE | 2019-09-25 12:46 | Emergency Department Note ---
Entered by Denis Hou acting as a scribe for History of Present Illness General Chief complaint: Altered Mental Status Stated complaint: ams/bradycardia Time Seen by Provider: 09/25/19 10:57 Source: patient History of Present Illness Provider complaint: Altered mental status Onset (ago): hour(s) (This morning) Location: head Pain Consistency: + constant Relieved By: + none Associated symptoms: + confusion and + other (Bradycardic) The patient is an 84 year old female who presents to the Emergency Room with complaints of constant altered mental status that started this morning some time between 08:00-10:00. Per EMS, the patient was at her baseline at 08:00, however at 10:00, staff at [facility] noticed she had a significant decline in mental status. Per the nursing note, the patient was started on Amiodarone in August but was taken off of it yesterday due to be bradycardic. Per EMS, the patient has been marly in the high 40s-low 50s range since they arrived. Her blood pressure was around 138 systolically and his BSG was 124. Additionally, the patient is normally on 2L of supplemental oxygen however she required 4L this morning to get her in the mid 90s. HPI is limited secondary to patient's altered mental status. Home Medications Home Medications Medication Instructions Recorded Confirmed Type acetaminophen [Tylenol] 650 mg PO Q4 PRN MDD 3 GRAMS/24 03/11/19 09/25/19 History HOURS. aspirin-dipyridamole [Aggrenox] 1 cap PO BID 03/11/19 09/25/19 History biotin 1 mg PO BID 03/11/19 09/25/19 History calcium carbonate [Tums] 500 mg PO Q4 PRN 03/11/19 09/25/19 History cetirizine [Zyrtec] 10 mg PO QAM 03/11/19 09/25/19 History cholecalciferol (vitamin D3) 2,000 unit PO QAM 03/11/19 09/25/19 History [Vitamin D3] esomeprazole magnesium [Nexium] 40 mg PO QAM 03/11/19 09/25/19 History fluticasone propionate [Flonase 1 spray INTRANASAL QAM 03/11/19 09/25/19 History Allergy Relief] ipratropium-albuterol 3 ml INHALATION Q6 PRN 03/11/19 09/25/19 History levetiracetam [Keppra] 500 mg PO BID 03/11/19 09/25/19 History lorazepam [Ativan] 0.5 mg PO Q6 PRN 03/11/19 09/25/19 History lorazepam [Ativan] 1 mg PO QID 03/11/19 09/25/19 History multivitamin,od-chye-yramymue 1 tab PO QAM 03/11/19 09/25/19 History [Therems-M] nitroglycerin [Nitrostat] 0.4 mg SUBLINGUAL UD PRN 03/11/19 09/25/19 History ondansetron HCl [Zofran] 4 mg PO Q6 PRN 03/11/19 09/25/19 History polyethylene glycol 3350 [Miralax] 17 g PO QAM 03/11/19 09/25/19 History sennosides-docusate sodium 2 tab PO QAM 03/11/19 09/25/19 History [Senna-S] venlafaxine [Effexor XR] 150 mg PO QAM 03/11/19 09/25/19 History Oxygen Home #1 ea 05/29/19 09/19/19 History diphenhydramine HCl [Banophen] 25 mg PO Q6H PRN 08/17/19 09/25/19 History amiodarone 200 mg tablet 400 mg PO BID tab 09/19/19 09/25/19 History carboxymethylcellulose sodium 0.25 1 drops OP QID PRN 09/19/19 09/25/19 History % eye drops metoprolol tartrate 25 mg tablet 25 mg PO BIDM 09/19/19 09/25/19 History phenytoin sodium extended 100 mg 100 mg PO .COMPLEX 09/19/19 09/25/19 History capsule phenytoin sodium extended 60 mg PO QAM 09/25/19 09/25/19 History [Dilantin] Allergies Allergy/AdvReac Type Severity Reaction Status Date / Time morphine Allergy Mild itching Verified 09/25/19 11:12 Past Med/Surg History Medical History Anxiety and depression Breast cancer (Resolved) "Status post biopsy of left breast mass 12/07/2015 Lobular carcinoma, grade 1 Estrogen receptor positive, progesterone receptor positive, 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 Treatment was completed October 29, 2017. 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 Status post mastectomy and sentinel lymph node biopsy 02/03/2016 Stage pT3 pN1a M0, lymphovascular invasion Biopsy-proven chest wall recurrence 07/04/2017" Chronic anemia COPD (chronic obstructive pulmonary disease) DJD (degenerative joint disease) of hip (Acute) Hematuria History of breast cancer (Chronic) History of nephrolithiasis (Chronic) History of stroke History of subdural hematoma (Chronic) Hypertension Mitral regurgitation Paroxysmal atrial fibrillation Rib fractures Seizure disorder (Chronic 04/25/13) Thalassemia Thalassemia minor Surgical History H/O brain surgery S/P hip replacement Status post section (Chronic) Status post mastectomy (Chronic) Family History Mother Breast cancer Cardiac disorder Father Cardiac disorder Social History Preferred Language: Jordanian Communication Ability: Impaired District Resource Officer Required: No Beliefs That Will Affect Care: None marital status: / Current Living Situation: Personal Care Facility Current Living Situation Comment: [facility] Feels Safe at Home: Yes Smoking Status: Former smoker Second Hand Exposure: No ; Hx Alcohol Use: Yes Alcohol type: wine Hx Substance Use: No Review of Systems See HPI for pertinent positives & negatives. and A total of 10 systems reviewed and were otherwise negative Physical Exam Vital Signs Vital Signs - 24 hr 09/25/19 11:10 09/25/19 11:47 09/25/19 12:28 Temperature 37 C Temperature Source Oral Pulse Rate 62 Pulse Rate [Apical] 60 Pulse Rate from SpO2 Sensor Respiratory Rate 20 28 H Respiratory Effort / Characteristics Blood Pressure 160/79 H Blood Pressure [Left Arm] 140/73 Blood Pressure Mean 106 Blood Pressure Mean [Left Arm] 95 Pulse Oximetry 97 99 94 Oxygen Delivery Method Nasal Cannula Nasal Cannula Nasal Cannula Oxygen Flow Rate 4 4 2 Sepsis Recent Fever Within 48 Hours No Sepsis New/Unexplained Change in Mental Status No Sepsis Action Taken by Nursing No Action Required Oxygen Flow Rate - Titration 2 09/25/19 13:00 09/25/19 13:31 09/25/19 14:00 Temperature Temperature Source Pulse Rate 66 66 63 Pulse Rate [Apical] Pulse Rate from SpO2 Sensor 66 63 Respiratory Rate 24 31 H 27 H Respiratory Effort / Characteristics Blood Pressure 170/74 H 171/83 H 174/73 H Blood Pressure [Left Arm] Blood Pressure Mean 106 101 92 Blood Pressure Mean [Left Arm] Pulse Oximetry 100 99 Oxygen Delivery Method Nasal Cannula Nasal Cannula Oxygen Flow Rate 4 4 4 Sepsis Recent Fever Within 48 Hours Sepsis New/Unexplained Change in Mental Status Sepsis Action Taken by Nursing Oxygen Flow Rate - Titration 09/25/19 14:05 Temperature Temperature Source Pulse Rate Pulse Rate [Apical] 66 Pulse Rate from SpO2 Sensor Respiratory Rate 21 Respiratory Effort / Characteristics Non-Labored Spontaneous Blood Pressure Blood Pressure [Left Arm] Blood Pressure Mean Blood Pressure Mean [Left Arm] Pulse Oximetry 98 Oxygen Delivery Method Nasal Cannula Oxygen Flow Rate 4 Sepsis Recent Fever Within 48 Hours Sepsis New/Unexplained Change in Mental Status Sepsis Action Taken by Nursing Oxygen Flow Rate - Titration GENERAL: Awake, alert, well-appearing, in no distress HENT: Normocephalic, atraumatic. Oropharynx unremarkable. EYES: Normal conjunctiva. Sclera non-icteric. NECK: Supple. No nuchal rigidity. FROM. No masses. RESPIRATORY: Clear to auscultation. No wheezes. No rales. Normal respiratory effort. CARDIAC: Normal rate. Normal rhythm. No murmurs. No rubs. Extremities warm and well perfused. Pulses equal. No JVD. GI: Soft, non-distended. No tenderness to palpation. No rebound or guarding. No masses. RECTAL: Deferred. MUSCULOSKELETAL: Atraumatic. Chest examination reveals no tenderness. The back is symmetrical on inspection without obvious abnormality. There is no CVA tenderness to palpation. No joint edema. LOWER EXTREMITIES: Calves are equal size bilaterally and non-tender. No edema. No discoloration. NEURO: Normal sensorium. No sensory or motor deficits noted. Course Course 1059: Past medical records reviewed. The patient was evaluated in room C04, and a complete history and physical examination were performed. 1141: I reevaluated the patient and updated the family that is now at bedside. 1401: I discussed the patient's case with Lorin Bowers PAC under Dr. Radha Yap. They agreed to accept the patient for further evaluation. Consultations Consultation #1: I discussed the patient's case with Lorin Bowers PAC under Dr. Radha Yap. They agreed to accept the patient for further evaluation. Time: 14:01 Administered Medications Calcium Carbonate (Tums) 500 mg PO Q4 PRN PRN Reason: Dyspepsia Stop: 10/25/19 16:26 Last Admin: 09/27/19 16:33 Dose: 500 mg Documented by: [id number] C[facility]irizine [facility] ([facility]tec) [facility] [place]: 10/26/19 08:59 Last Admin: 09/27/19 09:28 Dose: 10 mg Documented by: [id number] Admin: 09/26/19 08:22 Dose: 10 mg Documented by: [id number] Dipyridamole/Aspirin (Aggrenox 200mg/25mg) 1 cap PO Q12H [facility] Stop: 10/25/19 19:59 Last Admin: 09/27/19 09:29 Dose: 1 cap Documented by: [id number] Admin: 09/26/19 21:37 Dose: 1 cap Documented by: [id number] Admin: 09/26/19 08:19 Dose: 1 cap Documented by: [id number] Admin: 09/25/19 20:29 Dose: Not Given Documented by: [id number] Fluticasone Propionate (Flonase) 1 sprays [place] [facility] [place]: 10/26/19 08:59 Last Admin: 09/27/19 09:30 Dose: 1 sprays Documented by: [id number] Admin: 09/26/19 08:19 Dose: Not Given Documented by: [id number] Levetiracetam (Keppra) 750 mg PO 0800,1999 [facility] Stop: 10/27/19 09:02 Last Admin: 09/27/19 09:28 Dose: 750 mg Documented by: [id number] Lorazepam (Ativan) 1 mg PO QID [facility] Stop: 10/27/19 13:59 Last Admin: 09/27/19 17:02 Dose: 1 mg Documented by: [id number] Admin: 09/27/19 13:43 Dose: 1 mg Documented by: [id number] Metoprolol Tartrate (Lopressor) 25 mg PO BID@0800,1600 [facility] Stop: 10/25/19 16:59 Last Admin: 09/27/19 17:01 Dose: 25 mg Documented by: [id number] Admin: 09/27/19 09:29 Dose: 25 mg Documented by: [id number] Admin: 09/26/19 16:22 Dose: 25 mg Documented by: [id number] Admin: 09/26/19 08:18 Dose: 25 mg Documented by: [id number] Admin: 09/25/19 17:30 Dose: 25 mg Documented by: [id number] Miconazole Nitrate (Monistat 7 Vag) 1 appln PV HS [facility] Stop: 10/04/19 08:59 Last Admin: 09/27/19 09:31 Dose: 1 appln Documented by: [id number] Multivitamins/Minerals (Multivitamin W/ Minerals Tab) 1 tab PO QAM [facility] Stop: 10/26/19 08:59 Last Admin: 09/27/19 09:29 Dose: 1 tab Documented by: [id number] Admin: 09/26/19 08:21 Dose: 1 tab Documented by: [id number] Pantoprazole Sodium (Protonix) 40 mg PO QAM [facility] Stop: 10/26/19 08:59 Last Admin: 09/27/19 09:29 Dose: 40 mg Documented by: [id number] Admin: 09/26/19 08:18 Dose: 40 mg Documented by: [id number] Polyethylene Glycol (Miralax Powder Packet) 17 gm PO QAM [facility] Stop: 10/26/19 08:59 Last Admin: 09/27/19 09:29 Dose: 17 gm Documented by: [id number] Admin: 09/26/19 08:19 Dose: Not Given Documented by: [id number] Senna/Docusate Sodium (Senokot S) 2 tab PO QAM [facility] Stop: 10/26/19 08:59 Last Admin: 09/27/19 09:28 Dose: 2 tab Documented by: [id number] Admin: 09/26/19 08:21 Dose: 2 tab Documented by: [id number] Venlafaxine HCl (Effexor Extended Release) 150 mg PO QAM [facility] Stop: 10/26/19 08:59 Last Admin: 09/27/19 09:29 Dose: 150 mg Documented by: [id number] Admin: 09/26/19 08:18 Dose: 150 mg Documented by: [id number] Vitamin D (Vitamin D3) 2,000 units PO QAM [facility] Stop: 10/26/19 08:59 Last Admin: 09/27/19 09:29 Dose: 2,000 units Documented by: [id number] Admin: 09/26/19 08:22 Dose: 2,000 units Documented by: [id number] Discontinued Medications Albuterol (Duoneb) 12 ml NEB ONE ONE Stop: 09/25/19 13:59 Last Admin: 09/25/19 14:05 Dose: 12 ml Documented by: [id number] Sodium Chloride (Nss 1000ml) 500 mls @ 999 mls/hr IV .Q31M ONE Stop: 09/25/19 11:37 Last Infusion: 09/25/19 12:51 Dose: 0 mls/hr Documented by: [id number] Admin: 09/25/19 12:20 Dose: 999 mls/hr Documented by: [id number] Sodium Chloride (Nss 1000ml) 500 mls @ 999 mls/hr IV .Q31M ONE Stop: 09/25/19 13:35 Last Infusion: 09/25/19 13:42 Dose: 0 mls/hr Documented by: [id number] Admin: 09/25/19 13:11 Dose: 999 mls/hr Documented by: [id number] Magnesium Sulfate/Dextrose (Magnesium Sulfate / D5w) 1 gm in 100 mls @ 100 mls/hr IV ONE ONE Stop: 09/25/19 14:57 Last Infusion: 09/25/19 15:21 Dose: 0 mls/hr Documented by: [id number] Admin: 09/25/19 14:08 Dose: 100 mls/hr Documented by: [id number] Methylprednisolone 40 mg/ (Syringe) 0.64 mls @ 1.5 mls/min IV Q8 [facility] Stop: 10/26/19 09:09 Last Admin: 09/27/19 05:50 Dose: 1.5 mls/min Documented by: [id number] Admin: 09/26/19 21:43 Dose: 1.5 mls/min Documented by: [id number] Admin: 09/26/19 13:46 Dose: 1.5 mls/min Documented by: [id number] Admin: 09/26/19 10:43 Dose: 1.5 mls/min Documented by: [id number] Ioversol (Optiray 320 125ml) 118 ml IV ONCE PRN PRN Reason: Interaction Checking Stop: 09/29/19 12:33 Last Admin: 09/25/19 12:34 Dose: 118 ml Documented by: [id number] Ipratropium Sylvia (Atrovent 0.02% 0.5mg/2.5ml) 0.5 mg INH Q6R [facility] Stop: 10/25/19 18:59 Last Admin: 09/26/19 08:59 Dose: 0.5 mg Documented by: [id number] Admin: 09/26/19 07:06 Dose: Not Given Documented by: [id number] Admin: 09/26/19 01:56 Dose: Not Given Documented by: [id number] Admin: 09/25/19 19:34 Dose: Not Given Documented by: [id number] Ipratropium Sylvia (Atrovent 0.02% 0.5mg/2.5ml) 0.5 mg INH Q4R [facility] Stop: 10/26/19 11:59 Last Admin: 09/27/19 11:32 Dose: Not Given Documented by: [id number] Admin: 09/27/19 07:19 Dose: Not Given Documented by: [id number] Admin: 09/27/19 02:25 Dose: Not Given Documented by: [id number] Admin: 09/26/19 23:15 Dose: Not Given Documented by: [id number] Admin: 09/26/19 19:42 Dose: Not Given Documented by: [id number] Admin: 09/26/19 15:19 Dose: 0.5 mg Documented by: [id number] Admin: 09/26/19 11:31 Dose: 0.5 mg Documented by: [id number] Levalbuterol HCl (Xopenex 1.25mg/0.5ml Neb) 1.25 mg INH Q6R [facility] Stop: 10/25/19 18:59 Last Admin: 09/26/19 08:58 Dose: 1.25 mg Documented by: [id number] Admin: 09/26/19 07:06 Dose: Not Given Documented by: [id number] Admin: 09/26/19 01:56 Dose: Not Given Documented by: [id number] Admin: 09/25/19 19:35 Dose: Not Given Documented by: [id number] Levalbuterol HCl (Xopenex 1.25mg/0.5ml Neb) 1.25 mg INH Q4R [facility] Stop: 10/26/19 11:59 Last Admin: 09/27/19 11:32 Dose: Not Given Documented by: [id number] Admin: 09/27/19 07:19 Dose: Not Given Documented by: [id number] Admin: 09/27/19 02:25 Dose: Not Given Documented by: [id number] Admin: 09/26/19 23:15 Dose: Not Given Documented by: [id number] Admin: 09/26/19 19:41 Dose: Not Given Documented by: [id number] Admin: 09/26/19 15:19 Dose: 1.25 mg Documented by: [id number] Admin: 09/26/19 11:31 Dose: 1.25 mg Documented by: [id number] Levetiracetam (Keppra) 500 mg PO Q12H [facility] Stop: 10/25/19 19:59 Last Admin: 09/27/19 09:54 Dose: Not Given Documented by: [id number] Admin: 09/26/19 21:38 Dose: 500 mg Documented by: [id number] Admin: 09/26/19 08:18 Dose: 500 mg Documented by: [id number] Admin: 09/25/19 20:29 Dose: Not Given Documented by: [id number] Lorazepam (Ativan) 1 mg PO QID [facility] Stop: 10/25/19 16:59 Last Admin: 09/26/19 08:17 Dose: 1 mg Documented by: [id number] Admin: 09/25/19 22:37 Dose: 1 mg Documented by: [id number] Admin: 09/25/19 22:37 Dose: 1 mg Documented by: [id number] Admin: 09/25/19 20:29 Dose: Not Given Documented by: [id number] Admin: 09/25/19 17:29 Dose: 1 mg Documented by: [id number] Lorazepam (Ativan) 0.5 mg PO TID PRN PRN Reason: Anxiety Stop: 10/26/19 13:59 Last Admin: 09/27/19 11:47 Dose: 0.5 mg Documented by: [id number] Admin: 09/26/19 16:22 Dose: 0.5 mg Documented by: [id number] Methylprednisolone (Solumedrol) 60 mg IV NOW STA Stop: 09/25/19 13:59 Last Admin: 09/25/19 14:08 Dose: 60 mg Documented by: [id number] Ondansetron HCl (Zofran) Confirm Administered Dose 4 mg .ROUTE .STK-MED ONE Stop: 09/27/19 16:59 Last Admin: 09/27/19 17:02 Dose: 4 mg Documented by: [id number] Phenytoin Sodium (Dilantin Er) 100 mg PO BID [facility] Stop: 10/25/19 20:59 Last Admin: 09/27/19 09:54 Dose: Not Given Documented by: [id number] Admin: 09/26/19 21:37 Dose: 100 mg Documented by: [id number] Admin: 09/26/19 08:18 Dose: 100 mg Documented by: [id number] Admin: 09/25/19 20:30 Dose: Not Given Documented by: [id number] Medical Decision Making Differential Diagnosis Differential diagnoses includes but is not limited to toxic, metabolic, inf ectious, traumatic, cardiac, neurologic, hematologic, psychiatric and inflammatory etiologies. Medical Records Attestation: I reviewed the patient's medical records. Home Medications Current Medication List: was personally reviewed by me Laboratory Data Attestation: I reviewed the patient's lab results. Result diagrams: 09/26/19 04:34 09/26/19 04:34 Lab Results 09/25/19 09/25/19 09/25/19 Range/Units 12:09 12:09 12:09 WBC 10.05 (4.8-10.8) K/uL RBC 4.28 (4.2-5.4) M/uL Hgb 9.8 L (12.0-16.0) g/dL POC Hgb (12.0-16.0) g/dl Hct 32.3 L (37-47) % POC Hct (37-47) % MCV 75.5 L (80-100) fL MCH 22.9 L (25-34) pg MCHC 30.3 L (32-36) g/dL RDW Std Deviation 42.3 (36.4-46.3) fL RDW Coeff of Gray 15.5 H (11.5-14.5) % Plt Count 174 (130-400) K/uL MPV 9.9 (7.4-10.4) fL Immature Gran % (Auto) 0.3 % Neut % (Auto) 80.7 % Lymph % (Auto) 7.8 % [place] % (Auto) 10.0 % Eos % (Auto) 0.9 % Baso % (Auto) 0.3 % Immature Gran # (Auto) 0.03 H (0.00-0.02) K/uL Neut # (Auto) 8.12 H (1.4-6.5) K/uL Lymph # (Auto) 0.78 L (1.2-3.4) K/uL [place] # (Auto) 1.00 H (0.11-0.59) K/uL Eos # (Auto) 0.09 (0-0.5) K/uL Baso # (Auto) 0.03 (0-0.2) K/uL PT 11.8 (9.0-12.0) Seconds INR 1.2 H (0.9-1.1) APTT 27.3 (21.0-31.0) Seconds PTT Ratio 1.0 POC Sodium (135-144) mEq/L Sodium (136-145) mmol/L POC Potassium (3.3-5.0) mEq/L Potassium (3.5-5.1) mmol/L POC Chloride (101-112) mEq/L Chloride (98-107) mmol/L Carbon Dioxide (21-32) mmol/L POC Total CO2 (24-31) mEq/l Anion Gap (3-11) POC Anion Gap (16-25) mmol/L POC BUN (7-18) mg/dl BUN (7-18) mg/dl Creatinine (0.6-1.2) mg/dl POC Creatinine (0.6-1.3) mg/dl Est Cr Clr Drug Dosing ml/min Est GFR ( Amer) Est GFR (Non-Af Amer) BUN/Creatinine Ratio (10-20) Glucose (70-99) mg/dl POC Glucose (other) (70-99) mg/dl Calcium (8.5-10.1) mg/dl POC Ioniz Calcium Antonio (1.12-1.32) mmol/l Magnesium (1.8-2.4) mg/dl Total Bilirubin (0.2-1) mg/dl AST (15-37) U/L ALT (12-78) U/L Alkaline Phosphatase (45-117) U/L Total Creatine Kinase (26-192) U/L CK-MB (CK-2) (0.5-3.6) ng/ml Troponin I (0-0.045) ng/ml Total Protein (6.4-8.2) gm/dl Albumin (3.4-5.0) gm/dl Globulin (2.5-4.0) gm/dl Albumin/Globulin Ratio (0.9-2) TSH (0.300-4.500) uIu/ml Urine Color Urine Appearance (Clear) Urine pH (4.5-7.5) Ur Specific [place] (1.000-1.030) Urine Protein (Negative) Urine Glucose (UA) (Negative) Urine Ketones (Negative) Urine Blood (Negative) Urine Nitrite (Negative) Urine Bilirubin (Negative) Urine Urobilinogen (Negative) Ur Leukocyte Esterase (Negative) Urine WBC (Auto) (0-5) /hpf Urine RBC (Auto) (0-4) /hpf U Hyaline Cast (Auto) (0-5) /lpf U Epithel Cells (Auto) (0-5) /lpf Urine Bacteria (Auto) (Negative) Phenytoin 19.8 (10-20) mcg/ml 09/25/19 09/25/19 09/25/19 Range/Units 12:09 12:09 12:09 WBC (4.8-10.8) K/uL RBC (4.2-5.4) M/uL Hgb (12.0-16.0) g/dL POC Hgb (12.0-16.0) g/dl Hct (37-47) % POC Hct (37-47) % MCV (80-100) fL MCH (25-34) pg MCHC (32-36) g/dL RDW Std Deviation (36.4-46.3) fL RDW Coeff of Gray (11.5-14.5) % Plt Count (130-400) K/uL MPV (7.4-10.4) fL Immature Gran % (Auto) % Neut % (Auto) % Lymph % (Auto) % [place] % (Auto) % Eos % (Auto) % Baso % (Auto) % Immature Gran # (Auto) (0.00-0.02) K/uL Neut # (Auto) (1.4-6.5) K/uL Lymph # (Auto) (1.2-3.4) K/uL [place] # (Auto) (0.11-0.59) K/uL Eos # (Auto) (0-0.5) K/uL Baso # (Auto) (0-0.2) K/uL PT (9.0-12.0) Seconds INR (0.9-1.1) APTT (21.0-31.0) Seconds PTT Ratio POC Sodium (135-144) mEq/L Sodium 141 (136-145) mmol/L POC Potassium (3.3-5.0) mEq/L Potassium 3.8 (3.5-5.1) mmol/L POC Chloride (101-112) mEq/L Chloride 103 (98-107) mmol/L Carbon Dioxide 35 H (21-32) mmol/L POC Total CO2 (24-31) mEq/l Anion Gap 3.0 (3-11) POC Anion Gap (16-25) mmol/L POC BUN (7-18) mg/dl BUN 23 H (7-18) mg/dl Creatinine 0.84 (0.6-1.2) mg/dl POC Creatinine (0.6-1.3) mg/dl Est Cr Clr Drug Dosing 45.8 ml/min Est GFR ( Amer) 74.0 Est GFR (Non-Af Amer) 63.8 BUN/Creatinine Ratio 27.3 H (10-20) Glucose 111 H (70-99) mg/dl POC Glucose (other) (70-99) mg/dl Calcium 8.7 (8.5-10.1) mg/dl POC Ioniz Calcium [place] (1.12-1.32) mmol/l Magnesium 1.8 (1.8-2.4) mg/dl Total Bilirubin 0.5 (0.2-1) mg/dl AST 17 (15-37) U/L ALT 28 (12-78) U/L Alkaline Phosphatase 92 (45-117) U/L Total Creatine Kinase 90 (26-192) U/L CK-MB (CK-2) 3.4 (0.5-3.6) ng/ml Troponin I < 0.015 (0-0.045) ng/ml Total Protein 7.9 (6.4-8.2) gm/dl Albumin 3.6 (3.4-5.0) gm/dl Globulin 4.3 H (2.5-4.0) gm/dl Albumin/Globulin Ratio 0.8 L (0.9-2) TSH 2.900 (0.300-4.500) uIu/ml Urine Color Urine Appearance (Clear) Urine pH (4.5-7.5) Ur Specific [place] (1.000-1.030) Urine Protein (Negative) Urine Glucose (UA) (Negative) Urine Ketones (Negative) Urine Blood (Negative) Urine Nitrite (Negative) Urine Bilirubin (Negative) Urine Urobilinogen (Negative) Ur Leukocyte Esterase (Negative) Urine WBC (Auto) (0-5) /hpf Urine RBC (Auto) (0-4) /hpf U Hyaline Cast (Auto) (0-5) /lpf U Epithel Cells (Auto) (0-5) /lpf Urine Bacteria (Auto) (Negative) Phenytoin (10-20) mcg/ml 09/25/19 09/25/19 Range/Units 12:12 13:32 WBC (4.8-10.8) K/uL RBC (4.2-5.4) M/uL Hgb (12.0-16.0) g/dL POC Hgb 11.2 L (12.0-16.0) g/dl Hct (37-47) % POC Hct 33 L (37-47) % MCV (80-100) fL MCH (25-34) pg MCHC (32-36) g/dL RDW Std Deviation (36.4-46.3) fL RDW Coeff of Gray (11.5-14.5) % Plt Count (130-400) K/uL MPV (7.4-10.4) fL Immature Gran % (Auto) % Neut % (Auto) % Lymph % (Auto) % [place] % (Auto) % Eos % (Auto) % Baso % (Auto) % Immature Gran # (Auto) (0.00-0.02) K/uL Neut # (Auto) (1.4-6.5) K/uL Lymph # (Auto) (1.2-3.4) K/uL [place] # (Auto) (0.11-0.59) K/uL Eos # (Auto) (0-0.5) K/uL Baso # (Auto) (0-0.2) K/uL PT (9.0-12.0) Seconds INR (0.9-1.1) APTT (21.0-31.0) Seconds PTT Ratio POC Sodium 142 (135-144) mEq/L Sodium (136-145) mmol/L POC Potassium 3.8 (3.3-5.0) mEq/L Potassium (3.5-5.1) mmol/L POC Chloride 98 L (101-112) mEq/L Chloride (98-107) mmol/L Carbon Dioxide (21-32) mmol/L POC Total CO2 36 H (24-31) mEq/l Anion Gap (3-11) POC Anion Gap 13.0 L (16-25) mmol/L POC BUN 23 H (7-18) mg/dl BUN (7-18) mg/dl Creatinine (0.6-1.2) mg/dl POC Creatinine 0.7 (0.6-1.3) mg/dl Est Cr Clr Drug Dosing ml/min Est GFR ( Amer) Est GFR (Non-Af Amer) BUN/Creatinine Ratio (10-20) Glucose (70-99) mg/dl POC Glucose (other) 118 H (70-99) mg/dl Calcium (8.5-10.1) mg/dl POC Ioniz Calcium [place] 1.12 (1.12-1.32) mmol/l Magnesium (1.8-2.4) mg/dl Total Bilirubin (0.2-1) mg/dl AST (15-37) U/L ALT (12-78) U/L Alkaline Phosphatase (45-117) U/L Total Creatine Kinase (26-192) U/L CK-MB (CK-2) (0.5-3.6) ng/ml Troponin I (0-0.045) ng/ml Total Protein (6.4-8.2) gm/dl Albumin (3.4-5.0) gm/dl Globulin (2.5-4.0) gm/dl Albumin/Globulin Ratio (0.9-2) TSH (0.300-4.500) uIu/ml Urine Color Dark Yellow Urine Appearance Clear (Clear) Urine pH 6.0 (4.5-7.5) Ur Specific [place] 1.043 H (1.000-1.030) Urine Protein 1+ H (Negative) Urine Glucose (UA) Negative (Negative) Urine Ketones Negative (Negative) Urine Blood Negative (Negative) Urine Nitrite Negative (Negative) Urine Bilirubin Negative (Negative) Urine Urobilinogen Negative (Negative) Ur Leukocyte Esterase Negative (Negative) Urine WBC (Auto) 1-5 (0-5) /hpf Urine RBC (Auto) 5-10 H (0-4) /hpf U Hyaline Cast (Auto) 1-5 (0-5) /lpf U Epithel Cells (Auto) 10-20 H (0-5) /lpf Urine Bacteria (Auto) Negative (Negative) Phenytoin (10-20) mcg/ml Imaging Data Radiologist's Impression: Radiology results as stated below per my review and the radiologist's interpretation: XR chest 1V portable CLINICAL HISTORY: Pt c/o chest pain dyspnea COMPARISON STUDY: 10/29/2018 FINDINGS: Poor inspiratory volumes. Calcification of the mitral annulus as well as thoracic aorta. Lungs are clear. Postoperative changes right axilla. IMPRESSION: No acute process. ACT 112: Negative or not required by law. The above report was generated using voice recognition software. It may contain grammatical, syntax or spelling errors. Electronically signed by: Cecilio Belcher M.D. 09/25/2019 11:[address] head/brain wo con CLINICAL HISTORY: Stroke evaluation ACUTE STROKE SYMPTOMS. CHANGE IN MENTAL STATUS. HEADACHES. COMPARISON STUDY: 08/17/2019 TECHNIQUE: Axial CT of the brain is performed from the vertex to the skull base. IV contrast was not administered for this examination. A dose lowering technique was utilized adhering to the principles of ALARA. CT DOSE: FINDINGS: No intra or extra-axial mass lesions are visualized. There is no CT evidence of acute cortical infarction. There is no evidence of midline shift. There is no acute hemorrhage. No calvarial fractures are visualized. There are extensive white matter hypodensities likely on a small vessel basis. 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 There is no evidence of acute sinusitis. There are old right frontal and parietal lobe norman hole's. IMPRESSION: No acute intracranial findings ACT 112: Negative or not required by law. Electronically signed by: Harry Childers M.D. 09/25/2019 12:[address] angio head w con HISTORY: Pt c/o AMS TECHNIQUE: Multiaxial CT angiography of the head was performed IV contrast: None. Maximum intensity projection images were also obtained. A dose lowering technique was utilized adhering to the principles of ALARA. COMPARISON: None. FINDINGS: There is no mass, hematoma, midline shift, or acute infarct. Visualized intracranial internal carotid arteries, distal vertebral arteries, and basilar artery are widely patent. There is no significant stenosis, occlusion, or aneurysm seen within the bilateral ACAs, MCAs, or tour bus driver/guide. Small caliber distal right vertebral artery presumably on an anatomic basis. IMPRESSION: No significant stenosis, occlusion, or aneurysm within the [place] of [place]. ACT 112: Negative or not required by law. The above report was generated using voice recognition software. It may contain grammatical, syntax or spelling errors. Electronically signed by: Cecilio Belcher M.D. 09/25/2019 1:[address] angio neck with con CLINICAL HISTORY: Acute change in mental status. Possible stroke. COMPARISON STUDY: No previous studies for comparison. TECHNIQUE: CT angiography was performed from the aortic arch to the skull base. MIP imaging was performed. The patient was scanned in a dynamic helical fashion during intravenous administration of 118 cc of Optiray 320. A dose lowering technique was utilized adhering to the principles of ALARA. CT DOSE: Technique: CT angiogram of the carotid and vertebral arteries was obtained using intravenous contrast and 3-D reconstruction. NASCET criteria was utilized. Findings: The visualized portions of the lung apices reveal emphysema. The right carotid revealed no evidence of aneurysm and no evidence of dissection. There is no evidence of hemodynamic significant stenosis. Atheromat ous calcifications are visualized in the common carotid and carotid bulb The left carotid revealed no evidence of hemodynamic significant stenosis. There is no evidence of aneurysm. There is no evidence of dissection. Atheromatous calcifications are visualized within the common carotid and carotid bulb There is no evidence of hemodynamically significant vertebral stenosis. There is no evidence of vertebral dissection. There is a dominant left vertebral artery. IMPRESSION: No evidence of hemodynamically significant carotid or vertebral artery stenosis. No evidence of dissection. ACT 112: Negative or not required by law. Electronically signed by: Harry Childers M.D. 09/25/2019 12:53 PM ECG Data Attestation: I personally reviewed and interpreted this ECG as follows: Indication: + altered mental status Rate (beats per minute): 60 Rhythm: + normal sinus ECG Intervals/blocks: + Normal QT-c (448) ECG [place]: + Normal ECG ST segments: + T-wave inversions (Lateral); no ST depression and no ST elevation Comparison ECG Date: from (10/30/18) Change: no significant change Blood Pressure Blood Pressure Findings: Elevated blood pressure Blood Pressure Disposition: Referred to patients primary care provider HARISH Narrative This is a 84-year-old female who presents emergency department complaining of sudden change in mental status. Upon arrival to the emergency department the patient appears to be postictal. I will note that the patient does have a history of seizures and is on seizure medication. Using shared medical decision making with patient family a stroke work-up was initiated and the patient was sent for CTA of the head and neck. This did not show any acute process. Over time the patient did improve here in the emergency department and I suspect that she had a seizure. She was given a normal saline bolus here in the emergency department. I felt that the patient could be safely [facility] however family would like her admitted for observation. I did discuss the case with the hospitalist service who agreed to meet the patient. Patient and family were in agreement with the treatment plan. Impression & Plan Altered mental status Discharge Plan Visit Data *Final* Discharge Date/Time: 09/25/19 15:29 Chief Complaint: Altered Mental Status Stated Complaint: ams/bradycardia ED Provider: Fernando Kraus Discharge Problem: Altered mental status Patient Disposition: Admitted As Inpatient Discharge Instructions Interventions: ED Discharge Assessment Last Done: 09/25/19 15:29 Discharge Problem: Altered mental status Qualifiers: Altered mental status type: unspecified Qualified Code(s): R41.82 - Altered mental status, unspecified The scribe's documentation has been prepared under my direction and personally reviewed by me in its entirety. I confirm that the note above accurately reflects all work, treatment, procedures, and medical decision making performed by me.
--- NOTE | 2019-09-25 12:51 | CT Scan Report ---
CT head/brain wo con CLINICAL HISTORY: Stroke evaluation ACUTE STROKE SYMPTOMS. CHANGE IN MENTAL STATUS. HEADACHES. COMPARISON STUDY: 08/17/2019 TECHNIQUE: Axial CT of the brain is performed from the vertex to the skull base. IV contrast was not administered for this examination. A dose lowering technique was utilized adhering to the principles of ALARA. CT DOSE: FINDINGS: No intra or extra-axial mass lesions are visualized. There is no CT evidence of acute cortical infarc tion. There is no evidence of midline shift. There is no acute hemorrhage. No calvarial fractures ar e visualized. There are extensive white matter hypodensities likely on a small vessel basis. There are old occipita l lobe infarcts There is no evidence of pathologic ventricular dilatation. There is no evidence of acute sinusitis. There are old right frontal and parietal lobe norman hole's. IMPRESSION: No acute intracranial findings ACT 112: Negative or not required by law. Electronically signed by: Harry Childers M.D. 09/25/2019 12:49 PM
--- NOTE | 2019-09-25 12:54 | CT Scan Report ---
CT angio neck with con CLINICAL HISTORY: Acute change in mental status. Possible stroke. COMPARISON STUDY: No previous studies for comparison. TECHNIQUE: CT angiography was performed from the aortic arch to the skull base. MIP imaging was perfo rmed. The patient was scanned in a dynamic helical fashion during intravenous administration of 118 c c of Optiray 320. A dose lowering technique was utilized adhering to the principles of ALARA. CT DOSE: Technique: CT angiogram of the carotid and vertebral arteries was obtained using intravenous contrast and 3-D reconstruction. NASCET criteria was utilized. Findings: The visualized portions of the lung apices reveal emphysema. The right carotid revealed no evidence of aneurysm and no evidence of dissection. There is no evidenc e of hemodynamic significant stenosis. Atheromatous calcifications are visualized in the common carot id and carotid bulb The left carotid revealed no evidence of hemodynamic significant stenosis. There is no evidence of an eurysm. There is no evidence of dissection. Atheromatous calcifications are visualized within the com mon carotid and carotid bulb There is no evidence of hemodynamically significant vertebral stenosis. There is no evidence of verte bral dissection. There is a dominant left vertebral artery. IMPRESSION: No evidence of hemodynamically significant carotid or vertebral artery stenosis. No evidence of disse ction. ACT 112: Negative or not required by law. Electronically signed by: Harry Childers M.D. 09/25/2019 12:53 PM
--- NOTE | 2019-09-25 13:05 | CT Scan Report ---
CT angio head w con HISTORY: Pt c/o AMS TECHNIQUE: Multiaxial CT angiography of the head was performed IV contrast: None. Maximum intensit y projection images were also obtained. A dose lowering technique was utilized adhering to the princ iplgeovanny of [place]. COMPARISON: None. FINDINGS: There is no mass, hematoma, midline shift, or acute infarct. Visualized intracranial market research intern al carotid arteries, distal vertebral arteries, and basilar artery are widely patent. There is no sig nificant stenosis, occlusion, or aneurysm seen within the bilateral ACAs, MCAs, or unleavened dough mixer. Small calibe r distal right vertebral artery presumably on an anatomic basis. IMPRESSION: No significant stenosis, occlusion, or aneurysm within the [place] of [place]. ACT 112: Negative or not required by law. The above report was generated using voice recognition software. It may contain grammatical, syntax or spelling errors. Electronically signed by: Cecilio Belcher M.D. 09/25/2019 1:03 PM
[2019-09-25 13:41] LABS: Appearance Urine Clear (Clear); Bacteria Urine Automated Negative (Negative); Bilirubin Urine Negative (Negative); Blood Urine Negative (Negative); Color Urine Dark Yellow; Glucose Urine UA Negative (Negative); Ketones Urine Negative (Negative); Leukocyte Esterase Urine Negative (Negative); Nitrite Urine Negative (Negative); Protein Urine 1+ (Negative); Specific Gravity Urine 1.043 (1.000-1.030); Urobilinogen Urine Negative (Negative)
[2019-09-25] MEDS ORDERED: MAGNESIUM SULFATE / D5W 1 GM/100 ML BAG IV ONE (13:58)
[2019-09-25] MEDS ORDERED: ALBUT/IPRATROP 3MG/0.5MG NEB 3 ML VIAL NEB ONE (13:58)
[2019-09-25] MEDS ORDERED: methylPREDNISolone 125 MG/2 ML VIAL IV STA (13:58)
--- NOTE | 2019-09-25 15:06 | History & Physical Report ---
Date of Service September 25, 2019 Assessment & Plan (1) Altered mental status: Pt is 84 y/o F with PMH A-fib, h/o subdural hematoma s/p evacuation in ?2012, H/O CVA in 2010 followed by seizure disorder, COPD on 3L oxygen, depression, anxiety, thalassemia minor, h/o breast CA to right breast 40 years ago s/p R mastectomy with recurrence left chest s/p chest radiation and currently on Faslodex presented to ER with c/o AMS. It is reported this morning pt at her baseline and was talking and ate breakfast and took morning meds. Between 8:00-10:00AM reported pt with altered mental status described as "unresponsive", lethargic. Daughter reports when she got to [facility] that pt would talk a little but was very lethargic. Reported altered mental status end of 08/2019. Recent hospitalization at [facility] for confusion, pneumonia, atrial fibrillation. She was started on amiodarone and her Dilantin was decreased to 300 mg a day. Today in ER Dilantin: 19.8, Keppra level pending DDX: Seizure, Dilantin toxicity, medication side effect. -Currently in ER patient at baseline mental status -Will decrease Dilantin to 100 mg twice daily given Dilantin level of 19.8 -Monitor for any further confusion -UA and urine culture pending -Neurology consult (2) Seizure disorder: Daughter reports possible seizure on 09/17/2019 described as staring off episode -Dilantin: 19.8 -Keppra level pending -Decrease Dilantin to 100 mg twice daily for now -Continue Keppra -Seizure precautions -Neurology consult. Would appreciate further medication recommendations (3) COPD (chronic obstructive pulmonary disease): On chronic 3 L oxygen via nasal cannula. Reported baseline O2 sats high 80s to low 90s Patient intolerant to frequent nebulizer treatments and prior inhaler secondary to increased anxiety CXR: No acute findings -In ER O2 sats 96% on 4 L -In ER given hour-long nebulizer treatment, Solu-Medrol 60 mg, magnesium 1 g, 1L NSS -Continue chronic oxygen, 3L via NC, goal 88-94% pulse ox -Xopenex Atrovent nebs (4) History of recent pneumonia: Reported diagnosis of pneumonia during hospitalization at 09/14/19 - 09/17/2019 was in [facility]. Reported was treated with antibiotics and was discharged on Augmentin x7-day course -Finished recent Augmentin course (5) Cerebrovascular disease: -Continue Aggrenox (6) Thalassemia minor: (7) Chronic anemia: Hgb: 9.8. Baseline hemoglobin in the 9's -Monitor H&H (8) Anxiety and depression: -Continue venlafaxine, Ativan (9) History of breast cancer: h/o breast CA to right breast 40 years ago s/p R mastectomy with recurrence left chest s/p chest radiation and currently on Faslodex every month DVT Prophylaxis -SCDs fow now DNR/DNI as per discussion with pt and pt's daughter Follows with Dr Mak at [facility] for routine care Pt was seen and care coordinated with Dr Garcia. See addendum History of Present Illness Chief Complaint: Altered mental status Primary Care Provider: [facility] Pt is 84 y/o F with PMH A-fib, h/o subdural hematoma s/p evacuation in ?2012, H/O CVA in 2010 followed by seizure disorder, COPD on 3L oxygen, depression, anxiety, thalassemia minor, h/o breast CA to right breast 40 years ago s/p R mastectomy with recurrence left chest s/p chest radiation and currently on Faslodex presented to ER with c/o AMS. It is reported this morning pt at her baseline and was talking and ate breakfast and took morning meds. Between 8:00-10:00AM reported pt with altered mental status described as "unresponsive", lethargic. Daughter reports when she got to [facility] that pt would talk a little but was very lethargic. Had UTI end of 07/2019. Urine culture +klebsiella oxytoca and was treated with antibiotic. Daughter reports at that time pt with dysuria. No further dysuria. Denies hematuria, flank pain, back pain, abdominal pain, fever chills. End of August was traveling to [place] when had confusion. 09/14/19 - 09/17/2019 was in [facility] for confusion and diagnosed with a-fib, pneumonia. Reports was treated with antibiotics. Amiodarone and metoprolol was started. Dilantin was decreased. Reported metabolic encephalopathy when seen by Neurology -Jenny Dorantes on 09/19/19. Daughter states when driving pt back to [facility] she thought she had a seizure which she describes as "staring off and acting strange" but reports was still talking. Daughter reports staff at [facility] have been reporting bradycardia in 50's. State s yesterday pt with 2 falls. Uses walker to ambulate however more unsteady of feet past several days. Reports first fall yesterday onto buttocks. Reports second fall that she hit her head. Patient denies any loss of consciousness. Denies any dizziness, shortness of breath, chest pain prior to falls. Patient states after second fall she did feel little dizzy when she was getting back up. Also c/o increased fatigue, decreased appetite and decreased oral intake the past several days. Denies increased SOB or wheezing. Reports feels breathing at baseline. Denies any recent cough. Reports does not like to use inhalers or nebulizer as it increases her anxiety. Denies fever/chills, diaphoresis, N/V/D/C, VAUGHAN, syncope, vision changes, neck pain, CP, SOB, orthopnea, palpitations, cough, sore throat, choking, otalgia, rhinorrhea, abdominal pain, paresthesias, extremity edema, rashes, urinary symptoms. Allergies Allergy/AdvReac Type Severity Reaction Status Date / Time morphine Allergy Mild itching Verified 09/25/19 11:12 Home Medications Home Medications Medication Instructions Recorded Confirmed Type acetaminophen [Tylenol] 650 mg PO Q4 PRN MDD 3 GRAMS/24 03/11/19 09/25/19 History HOURS. aspirin-dipyridamole [Aggrenox] 1 cap PO BID 03/11/19 09/25/19 History biotin 1 mg PO BID 03/11/19 09/25/19 History calcium carbonate [Tums] 500 mg PO Q4 PRN 03/11/19 09/25/19 History cetirizine [Zyrtec] 10 mg PO QAM 03/11/19 09/25/19 History cholecalciferol (vitamin D3) 2,000 unit PO QAM 03/11/19 09/25/19 History [Vitamin D3] esomeprazole magnesium [Nexium] 40 mg PO QAM 03/11/19 09/25/19 History fluticasone propionate [Flonase 1 spray INTRANASAL QAM 03/11/19 09/25/19 History Allergy Relief] ipratropium-albuterol 3 ml INHALATION Q6 PRN 03/11/19 09/25/19 History levetiracetam [Keppra] 500 mg PO BID 03/11/19 09/25/19 History lorazepam [Ativan] 0.5 mg PO Q6 PRN 03/11/19 09/25/19 History lorazepam [Ativan] 1 mg PO QID 03/11/19 09/25/19 History multivitamin,nr-dfbd-[id number] 1 tab PO QAM 03/11/19 09/25/19 History [Therems-M] nitroglycerin [Nitrostat] 0.4 mg SUBLINGUAL UD PRN 03/11/19 09/25/19 History ondansetron HCl [Zofran] 4 mg PO Q6 PRN 03/11/19 09/25/19 History polyethylene glycol 3350 [Miralax] 17 g PO QAM 03/11/19 09/25/19 History sennosides-docusate sodium 2 tab PO QAM 03/11/19 09/25/19 History [Senna-S] venlafaxine [Effexor XR] 150 mg PO QAM 03/11/19 09/25/19 History Oxygen Home #1 ea 05/29/19 09/19/19 History diphenhydramine HCl [Banophen] 25 mg PO Q6H PRN 08/17/19 09/25/19 History amiodarone 200 mg tablet 400 mg PO BID tab 09/19/19 09/25/19 History carboxymethylcellulose sodium 0.25 1 drops OP QID PRN 09/19/19 09/25/19 History % eye drops metoprolol tartrate 25 mg tablet 25 mg PO BIDM 09/19/19 09/25/19 History phenytoin sodium extended 100 mg 100 mg PO .COMPLEX 09/19/19 09/25/19 History capsule phenytoin sodium extended 60 mg PO QAM 09/25/19 09/25/19 History [Dilantin] Past Med/Surg History Medical History (Updated 09/25/19 @ 19:38 by Mike Saravia MD) Anxiety and depression Breast cancer (Resolved) "Status post biopsy of left breast mass 12/07/2015 Lobular carcinoma, grade 1 Estrogen receptor positive, progesterone receptor positive, 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 Treatment was completed October 29, 2017. She received 6640 cGy" On 07/26/17 16:45 Neli Alfonso Nguyen wrote "Status post biopsy of left breast mass 12/07/2015 Lobular carcinoma, grade 1 Estrogen receptor positive, progesterone receptor positive, HER-2/filiberto negative Status post mastectomy and sentinel lymph node biopsy 02/03/2016 Stage pT3 pN1a M0, lymphovascular invasion Biopsy-proven chest wall recurrence 07/04/2017" Chronic anemia COPD (chronic obstructive pulmonary disease) DJD (degenerative joint disease) of hip (Acute) Hematuria History of breast cancer (Chronic) History of nephrolithiasis (Chronic) History of stroke History of subdural hematoma (Chronic) Hypertension Mitral regurgitation Paroxysmal atrial fibrillation Rib fractures Seizure disorder (Chronic 04/25/13) Thalassemia Thalassemia minor Surgical History H/O brain surgery S/P hip replacement Status post section (Chronic) Status post mastectomy (Chronic) Family History Mother Breast cancer Cardiac disorder Father Cardiac disorder Social History Preferred Language: French Communication Ability: Effective Photographic Reproduction Technician Required: No Beliefs That Will Affect Care: None marital status: / Current Living Situation: Personal Care Facility Current Living Situation Comment: [facility] Other Information That Helps Us Care for You: No Feels Safe at Home: Yes Safety Concerns: Feels Safe At This Time Smoking Status: Former smoker Second Hand Exposure: No ; Hx Alcohol Use: Yes Alcohol type: wine Hx Substance Use: No Review of Systems Review of Systems: All systems reviewed & are unremarkable except as noted in HPI & below Physical Exam Physical Exam: General: no distress, WDWN Head: normocephalic, atraumatic Eyes: PERRL, EOM's intact, no nystagmus, conjunctiva non-injected, anicteric ENT: Hard of hearing, normal inspection external ears, nose, mucous membranes moist Neck: supple, trachea midline, non-tender Lungs: no respiratory distress,90% on 3.5L nasal cannula, no retractions, able to speak in sentences, scattered wheezing throughout, no rhonchi/rales CV: RRR, no murmur, no JVD, no pretibial edema Abd: normal BS, soft, non-tender Ext: no cyanosis, no calf tenderness Neuro: A&O x 3, no focal deficits noted, face is strong and symmetric, tongue midline, no dysarthria, shoulder shrug intact, strength equal bilateral upper and lower extremities, finger to nose intact, no pronator drift. normal affect Skin: warm, dry Results & Data Vital Signs (Past 12 Hours) Vital Signs Temp Pulse Pulse Resp BP BP Pulse Ox 09/25/19 14:05 66 21 98 09/25/19 14:00 63 27 H 174/73 H 99 09/25/19 13:31 66 31 H 171/83 H 100 09/25/19 13:00 66 24 170/74 H 09/25/19 12:28 60 28 H 140/73 94 09/25/19 11:47 99 09/25/19 11:10 37 C 62 20 160/79 H 97 Laboratory Results Short CBC 09/25/19 Range/Units 12:09 WBC 10.05 (4.8-10.8) K/uL Hgb 9.8 L (12.0-16.0) g/dL Hct 32.3 L (37-47) % Plt Count 174 (130-400) K/uL BMP 09/25/19 12:09 Sodium 141 Potassium 3.8 Chloride 103 Carbon Dioxide 35 H BUN 23 H Creatinine 0.84 Glucose 111 H Calcium 8.7 Cardiac Enzymes 09/25/19 09/25/19 Range/Units 12:09 12:09 Total Creatine Kinase 90 (26-192) U/L CK-MB (CK-2) 3.4 (0.5-3.6) ng/ml Troponin I < 0.015 (0-0.045) ng/ml Liver Function 09/25/19 Range/Units 12:09 Total Bilirubin 0.5 (0.2-1) mg/dl AST 17 (15-37) U/L ALT 28 (12-78) U/L Alkaline Phosphatase 92 (45-117) U/L Albumin 3.6 (3.4-5.0) gm/dl Urine 09/25/19 Range/Units 13:32 Urine Color Dark Yellow Urine Appearance Clear (Clear) Urine pH 6.0 (4.5-7.5) Ur Specific [place] 1.043 H (1.000-1.030) Urine Protein 1+ H (Negative) Urine Glucose (UA) Negative (Negative) Diagnostic Findings CT HEAD: IMPRESSION: No acute intracranial findings CTA HEAD: IMPRESSION: No significant stenosis, occlusion, or aneurysm within the [place]. CTA NECK: IMPRESSION: No evidence of hemodynamically significant carotid or vertebral artery stenosis. No evidence of dissection. CXR: IMPRESSION: No acute process. ECG Rate (beats per minute): 60 Rhythm: sinus rhythm Findings: + T-wave inversion (Lateral) Additional Comments: T wave inversion noted on 10/2018 ekg Code Status & VTE Plan VTE Prophylaxis Plan VTE Prophylaxis will be ordered: Yes Supervising Physician Co-Signing Physician Notes HISTORY: Record reviewed. Patient interviewed and examined. Care coordinated with Lorin Calderón PA-C. Please refer to her documentation for complete history. Briefly, 84 YO F with history of atrial fibrillation, SDH on warfarin therapy, stroke, seizure disorder, and other problems. Hospitalized in [place] about 2 weeks ago with pneumonia and paroxysmal AF. Discharged to [facility] on 09/16; new discharge meds were amiodarone and amoxicillin / clavulanic acid. Weak since discharge. Anorexic. Unsteady gait with 2 falls yesterday. Amiodarone held yesterday for bradycardia. Episode of decreased responsiveness this morning. Brought to ED for evaluation. EXAM: General- no distress ENT- hard of hearing Lungs- clear to auscultation; no respiratory distress Cardiovascular- RRR; II/ murmur systolic murmur LSB and base; no gallop; no JVD; no pretibial edema Abdomen- + bowel sounds, soft, nontender Extremities- no cyanosis; no calf tenderness Neuro- alert, oriented essentially x 3 (missed day of week by a couple days); + nystagmus with lateral gaze Skin- warm & dry DATA: Hemoglobin 9.8, white count 10,050, platelet count 174,000. PT 11.8, INR 1.2, PTT 27.3. Sodium 141, potassium 3.8, chloride 103, CO2 35, BUN 23, creatinine 0.84, glucose 111. Troponin less than 0.015. Phenytoin level 19.8. UA negative nitrites, negative leukocyte esterase, 1-5 WBCs, 5-10 RBCs, 10-20 epithelial cells, no bacteria. Other lab studies as noted. Chest x-ray reviewed-no infiltrates, effusions, CHF. CT head showed small vessel ischemic changes, old infarcts, no acute findings. CTA of head and neck demonstrated atheromatous plaque without significant stenosis, aneurysm, dissection. EKG performed at 1101 reviewed and demonstrated normal sinus rhythm, LVH, inverted T waves laterally, possible age-indeterminate inferior infarct, similar to previous tracing on 03/11/2019. ASSESSMENT AND PLAN: Paroxysmal atrial fibrillation, recently started on amiodarone. Amiodarone held yesterday for bradycardia. Currently in sinus rhythm. Consider drug drug interaction between amiodarone and phenytoin. Consider decreasing amiodarone dose. Consult Cardiology. No anticoagulation because of falls and prior history of subdural hematoma. Cerebrovascular disease, status post CVA. Currently on aspirin/dipyridamole. EKG showed old strokes, small vessel ischemic changes, no acute findings. Seizure disorder, apparently due to underlying cerebrovascular disease. Currently managed with phenytoin and levetiracetam. Episode of decreased responsiveness this morning, now back to baseline. Consider drug drug interaction between amiodarone and phenytoin. Phenytoin level is borderline high at 19.8. Consider decreasing dose. Consult Neurology. Oral fluid intake has been poor. Check orthostatic vital signs. Please refer to KATELYN Calderón's documentation for discussion of other issues.
[2019-09-25] MEDS ORDERED: ARTIFICIAL TEARS OP OINT 3.5 GM TUBE OP PRN (16:27)
[2019-09-25] MEDS ORDERED: PHENYTOIN SODIUM ER 100 MG CAP PO SCH (16:27)
[2019-09-25] MEDS ORDERED: CALCIUM CARBONATE 500 MG CHEWABLE TAB PO PRN (16:27)
[2019-09-25] MEDS ORDERED: NITROGLYCERIN SL 0.4 MG/TAB TAB SL PRN (16:27)
[2019-09-25] MEDS ORDERED: ACETAMINOPHEN 325 MG TAB PO PRN (16:27)
[2019-09-25] MEDS: LORazepam 1 MG TAB PO SCH ×3 (17:29→22:37)
[2019-09-25] MEDS: METOPROLOL TARTRATE 25 MG TAB PO SCH (17:30)
[2019-09-25] MEDS ORDERED: XOPENEX/ATROVENT 1.25mg/0.5MG NEB COMBO NEB SCH (19:00)
[2019-09-25] MEDS: IPRATROPIUM BROMIDE NEB SOLN 0.02% 2.5 ML VIAL INH SCH (19:34)
[2019-09-25] MEDS: LEVALBUTEROL 1.25MG/0.5ML NEB INH SCH (19:35)
--- NOTE | 2019-09-25 19:35 | Cardiology Consultation ---
Date of Consultation September 25, 2019 Assessment & Plan (1) Altered mental status: (2) Paroxysmal atrial fibrillation: (3) Mitral regurgitation: (4) Hypertension: ASSESSMENT/PLAN: 1. Altered mental status: As per primary service. There is no obvious cardiac etiology to explain her altered mental status/confusion. Dilantin has been reduced by primary service to see if there is any improvement. 2. Paroxysmal atrial fibrillation: She has a history of paroxysmal atrial fibrillation and recently per records had another episode while hospitalized at another facility. Amiodarone has been discontinued by other providers. On telemetry, she is currently mildly bradycardic. Agree with holding amiodarone at this point. Continue beta-rodriguez as tolerated. She is not anticoagulated as noted in the HPI. She has also declined anticoagulation in the past due to issues with following, bleeding, and chronic anemia issues. 3. Mitral regurgitation: Reported as moderate in 2017. This can be monitored over time as an outpatient. 4. Hypertension: Blood pressure is currently mildly elevated. Titrate medications as appropriate. 5. Disposition: Cardiology will sign off at this time. Please call with any other questions or concerns. Thank you for allowing me to participate in the care of your patient. Please call for any other questions or concerns. Sincerely, Chan Saravia M.D. History of Present Illness Reason for Consultation: "h/o a-fib; recent med changes" Requesting Physician: Dr. Garcia Attending Physician: Best Garcia MD History of Present Illness Mrs. Ridley is an 84-year-old female with a history of paroxysmal atrial fibrillation, hypertension, hyperlipidemia, mitral regurgitation, and recurrent strokes/TIAs. She also has a history of breast cancer, COPD on supplemental O2 (3L), and seizure disorder (Neurology follows). She was diagnosed with atrial fibrillation on May 11, 2011 when she was found to have a heart rate 144 beats per minute at [facility]. She was awakened that morning with chest pain and was admitted. Her serial troponins were negative. She had her first stroke in October of 2010. She also had documented siezures and was evaluated by Dr. Vega (Neurology) who changed her medications. He also addressed anticoagulation in this patient with history of strokes. He felt that they were likely due to small vessel disease and that she would not have much benefit from anticoagulation. Aggrenox was started. She fell and developed a right frontal subdural hematoma in April of 2012, which required draining by Dr. Noel, neurosurgery. She had another fall in March 2013 and suffered a right hip fracture. She has had the following studies: 1. Echo 05/11/11: Mildly reduced left ventricular systolic function with an EF of 40%. Mild generalized hypokinesia. Moderate mitral annular calcification. Dilated atria and mild mitral regurgitation. 2. Echo 07/14/11: Normal LV size and systolic function. EF 60%. Adzu-yf-qpyzdjfv MR. 3. Carotid duplex 02/08/13: Moderate atherosclerotic plaque bilaterally. No significant stenosis. 4. Echo 07/27/14: Normal LV size, wall motion, systolic function. EF 60%. Mild LVH. Mild to moderate MR. Mild aortic root dilation (4 cm). No significant change since 07/14/11 echo. 5. Dobutamine stress echo 08/25/2015: Negative for ischemia at 107% MPHR. EF 60-65%. Normal wall motion. Sclerotic aortic valve. Moderate MR. Moderate MAC. RVSP 40-50 mmHg. 6. Echo 10/20/2016: Normal LV size and systolic function. EF 60-65%. Normal wall motion. No LVH. No diastolic dysfunction. Mild left atrial dilation. Moderate MR. RVSP 36. Patient is a poor historian and became agitated during our visit. She does not recall her medical issues and does not recall having a daughter, although she had accompanied her to the cardiology office in the past when she was last seen on 12/22/2016. After that visit, she plans on following up on an as-needed basis. According to the admitting record, she was recently hospitalized at [facility] for confusion, pneumonia, and atrial fibrillation and discharged on amiodarone and adjusted Dilantin dose. She does not recall this event and states that she thought she was in [place]. She denies chest pain, shortness of breath, or any other pain. She denies nausea, vomiting, bleeding. Records indicate that she has been having issues with falling which is a chronic issue. She denies this. According to records, she was recently started on amiodarone for atrial fibrillation but this was also recently discontinued for bradycardia. Her dose of amiodarone was the loading dose at 400 mg twice daily. She also was taking metoprolol 25 mg twice daily. She has not been on anticoagulation therapy. She apparently had baseline mental status earlier this morning around breakfast time and then had altered mental status with reported unresponsive episode. Neurology consultation has been requested by primary service and is currently pending. Review of systems: As above and otherwise unobtainable due to patient's mental status. Family history: No known premature CAD. Social history: She quit smoking in August of 2010 after smoking for 50 yrs. She denies alcohol or drug abuse. She lives in an assisted living facility, [facility]. She is a retired microbiologist. She was alone in her hospital room. Allergies Allergy/AdvReac Type Severity Reaction Status Date / Time morphine Allergy Mild itching Verified 09/25/19 11:12 Home Medications Home Medications Medication Instructions Recorded Confirmed Type acetaminophen [Tylenol] 650 mg PO Q4 PRN MDD 3 GRAMS/24 03/11/19 09/25/19 History HOURS. aspirin-dipyridamole [Aggrenox] 1 cap PO BID 03/11/19 09/25/19 History biotin 1 mg PO BID 03/11/19 09/25/19 History calcium carbonate [Tums] 500 mg PO Q4 PRN 03/11/19 09/25/19 History cetirizine [Zyrtec] 10 mg PO QAM 03/11/19 09/25/19 History cholecalciferol (vitamin D3) 2,000 unit PO QAM 03/11/19 09/25/19 History [Vitamin D3] esomeprazole magnesium [Nexium] 40 mg PO QAM 03/11/19 09/25/19 History fluticasone propionate [Flonase 1 spray INTRANASAL QAM 03/11/19 09/25/19 History Allergy Relief] ipratropium-albuterol 3 ml INHALATION Q6 PRN 03/11/19 09/25/19 History levetiracetam [Keppra] 500 mg PO BID 03/11/19 09/25/19 History lorazepam [Ativan] 0.5 mg PO Q6 PRN 03/11/19 09/25/19 History lorazepam [Ativan] 1 mg PO QID 03/11/19 09/25/19 History multivitamin,ie-ekzr-hizcswkn 1 tab PO QAM 03/11/19 09/25/19 History [Therems-M] nitroglycerin [Nitrostat] 0.4 mg SUBLINGUAL UD PRN 03/11/19 09/25/19 History ondansetron HCl [Zofran] 4 mg PO Q6 PRN 03/11/19 09/25/19 History polyethylene glycol 3350 [Miralax] 17 g PO QAM 03/11/19 09/25/19 History sennosides-docusate sodium 2 tab PO QAM 03/11/19 09/25/19 History [Senna-S] venlafaxine [Effexor XR] 150 mg PO QAM 03/11/19 09/25/19 History Oxygen Home #1 ea 05/29/19 09/19/19 History diphenhydramine HCl [Banophen] 25 mg PO Q6H PRN 08/17/19 09/25/19 History amiodarone 200 mg tablet 400 mg PO BID tab 09/19/19 09/25/19 History carboxymethylcellulose sodium 0.25 1 drops OP QID PRN 09/19/19 09/25/19 History % eye drops metoprolol tartrate 25 mg tablet 25 mg PO BIDM 09/19/19 09/25/19 History phenytoin sodium extended 100 mg 100 mg PO .COMPLEX 09/19/19 09/25/19 History capsule phenytoin sodium extended 60 mg PO QAM 09/25/19 09/25/19 History [Dilantin] Patient History Medical History (Updated 09/25/19 @ 19:38 by Mike Saravia MD) Anxiety and depression Breast cancer (Resolved) "Status post biopsy of left breast mass 12/07/2015 Lobular carcinoma, grade 1 Estrogen receptor positive, progesterone receptor positive, 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 Treatment was completed October 29, 2017. 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 Status post mastectomy and sentinel lymph node biopsy 02/03/2016 Stage pT3 pN1a M0, lymphovascular invasion Biopsy-proven chest wall recurrence 07/04/2017" Chronic anemia COPD (chronic obstructive pulmonary disease) DJD (degenerative joint disease) of hip (Acute) Hematuria History of breast cancer (Chronic) History of nephrolithiasis (Chronic) History of stroke History of subdural hematoma (Chronic) Hypertension Mitral regurgitation Paroxysmal atrial fibrillation Rib fractures Seizure disorder (Chronic 04/25/13) Thalassemia Thalassemia minor Surgical History H/O brain surgery S/P hip replacement Status post section (Chronic) Status post mastectomy (Chronic) Family History Mother Breast cancer Cardiac disorder Father Cardiac disorder Social History Preferred Language: Cambodian Communication Ability: Effective 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 Alert and confused. Became agitated and told me to leave her alone and get out of her room. She repeatedly said this and would not let me complete the examination. HEENT: Anicteric sclera. Neck: No JVD. Cardiac: Attempted but patient refused. Pulmonary: Patient refused. Abdomen: Soft, nontender, nondistended. Pt refused auscultation. Extremities: 2+ radial pulses bilaterally. 2+ posterior tibialis pulses bilaterally. Trace bilateral lower extremity edema. No palpable cords. No cyanosis. Results & Data Vital Signs (Past 12 Hours) Vital Signs Temp Pulse Pulse Resp BP BP Pulse Ox 09/25/19 16:28 71 28 H 152/70 H 96 09/25/19 15:30 75 16 149/74 H 09/25/19 15:00 73 22 156/72 H 09/25/19 14:47 76 26 H 175/82 H 91 09/25/19 14:30 67 20 184/81 H 97 09/25/19 14:05 66 21 98 09/25/19 14:00 63 27 H 174/73 H 99 09/25/19 13:31 66 31 H 171/83 H 100 09/25/19 13:00 66 24 170/74 H 09/25/19 12:28 60 28 H 140/73 94 09/25/19 11:47 99 09/25/19 11:10 37 C 62 20 160/79 H 97 Laboratory Results Laboratory Results - last 24 hr 09/25/19 09/25/19 09/25/19 12:09 12:09 12:09 WBC 10.05 RBC 4.28 Hgb 9.8 L POC Hgb Hct 32.3 L POC Hct MCV 75.5 L MCH 22.9 L MCHC 30.3 L RDW Std Deviation 42.3 RDW Coeff of Gray 15.5 H Plt Count 174 MPV 9.9 Immature Gran % (Auto) 0.3 Neut % (Auto) 80.7 Lymph % (Auto) 7.8 [place] % (Auto) 10.0 Eos % (Auto) 0.9 Baso % (Auto) 0.3 Immature Gran # (Auto) 0.03 H Neut # (Auto) 8.12 H Lymph # (Auto) 0.78 L [place] # (Auto) 1.00 H Eos # (Auto) 0.09 Baso # (Auto) 0.03 PT INR APTT PTT Ratio POC Sodium Sodium POC Potassium Potassium POC Chloride Chloride Carbon Dioxide POC Total CO2 Anion Gap POC Anion Gap POC BUN BUN Creatinine POC Creatinine Est Cr Clr Drug Dosing Est GFR ( Amer) Est GFR (Non-Af Amer) BUN/Creatinine Ratio Glucose POC Glucose (other) Calcium POC Ioniz Calcium Antonio Magnesium Total Bilirubin AST ALT Alkaline Phosphatase Total Creatine Kinase CK-MB (CK-2) Troponin I Total Protein Albumin Globulin Albumin/Globulin Ratio TSH Urine Color Urine Appearance Urine pH Ur Specific Carney Urine Protein Urine Glucose (UA) Urine Ketones Urine Blood Urine Nitrite Urine Bilirubin Urine Urobilinogen Ur Leukocyte Esterase Urine WBC (Auto) Urine RBC (Auto) U Hyaline Cast (Auto) U Epithel Cells (Auto) Urine Bacteria (Auto) Nasal Screen MRSA (PCR) Phenytoin 19.8 Levetiracetam Pending 09/25/19 09/25/19 09/25/19 12:09 12:09 12:09 WBC RBC Hgb POC Hgb Hct POC Hct MCV MCH MCHC RDW Std Deviation RDW Coeff of Gray Plt Count MPV Immature Gran % (Auto) Neut % (Auto) Lymph % (Auto) [place] % (Auto) Eos % (Auto) Baso % (Auto) Immature Gran # (Auto) Neut # (Auto) Lymph # (Auto) [place] # (Auto) Eos # (Auto) Baso # (Auto) PT 11.8 INR 1.2 H APTT 27.3 PTT Ratio 1.0 POC Sodium Sodium 141 POC Potassium Potassium 3.8 POC Chloride Chloride 103 Carbon Dioxide 35 H POC Total CO2 Anion Gap 3.0 POC Anion Gap POC BUN BUN 23 H Creatinine 0.84 POC Creatinine Est Cr Clr Drug Dosing 45.8 Est GFR ( Amer) 74.0 Est GFR (Non-Af Amer) 63.8 BUN/Creatinine Ratio 27.3 H Glucose 111 H POC Glucose (other) Calcium 8.7 POC Ioniz Calcium Antonio Magnesium 1.8 Total Bilirubin 0.5 AST 17 ALT 28 Alkaline Phosphatase 92 Total Creatine Kinase 90 CK-MB (CK-2) 3.4 Troponin I < 0.015 Total Protein 7.9 Albumin 3.6 Globulin 4.3 H Albumin/Globulin Ratio 0.8 L TSH Urine Color Urine Appearance Urine pH Ur Specific Carney Urine Protein Urine Glucose (UA) Urine Ketones Urine Blood Urine Nitrite Urine Bilirubin Urine Urobilinogen Ur Leukocyte Esterase Urine WBC (Auto) Urine RBC (Auto) U Hyaline Cast (Auto) U Epithel Cells (Auto) Urine Bacteria (Auto) Nasal Screen MRSA (PCR) Phenytoin Levetiracetam 09/25/19 09/25/19 09/25/19 12:09 12:12 13:32 WBC RBC Hgb POC Hgb 11.2 L Hct POC Hct 33 L MCV MCH MCHC RDW Std Deviation RDW Coeff of Gray Plt Count MPV Immature Gran % (Auto) Neut % (Auto) Lymph % (Auto) [place] % (Auto) Eos % (Auto) Baso % (Auto) Immature Gran # (Auto) Neut # (Auto) Lymph # (Auto) [place] # (Auto) Eos # (Auto) Baso # (Auto) PT INR APTT PTT Ratio POC Sodium 142 Sodium POC Potassium 3.8 Potassium POC Chloride 98 L Chloride Carbon Dioxide POC Total CO2 36 H Anion Gap POC Anion Gap 13.0 L POC BUN 23 H BUN Creatinine POC Creatinine 0.7 Est Cr Clr Drug Dosing Est GFR ( Amer) Est GFR (Non-Af Amer) BUN/Creatinine Ratio Glucose POC Glucose (other) 118 H Calcium POC Ioniz Calcium Antonio 1.12 Magnesium Total Bilirubin AST ALT Alkaline Phosphatase Total Creatine Kinase CK-MB (CK-2) Troponin I Total Protein Albumin Globulin Albumin/Globulin Ratio TSH 2.900 Urine Color Dark Yellow Urine Appearance Clear Urine pH 6.0 Ur Specific Carney 1.043 H Urine Protein 1+ H Urine Glucose (UA) Negative Urine Ketones Negative Urine Blood Negative Urine Nitrite Negative Urine Bilirubin Negative Urine Urobilinogen Negative Ur Leukocyte Esterase Negative Urine WBC (Auto) 1-5 Urine RBC (Auto) 5-10 H U Hyaline Cast (Auto) 1-5 U Epithel Cells (Auto) 10-20 H Urine Bacteria (Auto) Negative Nasal Screen MRSA (PCR) Phenytoin Levetiracetam 09/25/19 Unknown WBC RBC Hgb POC Hgb Hct POC Hct MCV MCH MCHC RDW Std Deviation RDW Coeff of Gray Plt Count MPV Immature Gran % (Auto) Neut % (Auto) Lymph % (Auto) [place] % (Auto) Eos % (Auto) Baso % (Auto) Immature Gran # (Auto) Neut # (Auto) Lymph # (Auto) [place] # (Auto) Eos # (Auto) Baso # (Auto) PT INR APTT PTT Ratio POC Sodium Sodium POC Potassium Potassium POC Chloride Chloride Carbon Dioxide POC Total CO2 Anion Gap POC Anion Gap POC BUN BUN Creatinine POC Creatinine Est Cr Clr Drug Dosing Est GFR ( Amer) Est GFR (Non-Af Amer) BUN/Creatinine Ratio Glucose POC Glucose (other) Calcium POC Ioniz Calcium Antonio Magnesium Total Bilirubin AST ALT Alkaline Phosphatase Total Creatine Kinase CK-MB (CK-2) Troponin I Total Protein Albumin Globulin Albumin/Globulin Ratio TSH Urine Color Urine Appearance Urine pH Ur Specific Carney Urine Protein Urine Glucose (UA) Urine Ketones Urine Blood Urine Nitrite Urine Bilirubin Urine Urobilinogen Ur Leukocyte Esterase Urine WBC (Auto) Urine RBC (Auto) U Hyaline Cast (Auto) U Epithel Cells (Auto) Urine Bacteria (Auto) Nasal Screen MRSA (PCR) Positive A Phenytoin Levetiracetam Diagnostic Findings Neck CTA, head CTA, head CTA reports from 09/25/19 reviewed: No acute abnormalitie s reported by Radiology. Old right occipital lobe infarct per Radiology with bilateral extensive white matter disease. Chest x-ray 09/25/2019: No acute process per Radiology. ECG personally reviewed: ECG 09/25/2019: NSR [address]/T-wave abnormality, possibly due to LVH/repolarization abnormality. Possible inferior infarct. ECG 03/11/2019: Sinus bradycardia with PVC. LVH with Anterolateral ST/T-wave abnormality. Inferior infarct. Medications Administered Current Inpatient Medications Acetaminophen (Tylenol) 650 mg PO Q4H PRN PRN Reason: Pain or Fever Stop: 10/25/19 16:26 Calcium Carbonate (Tums) 500 mg PO Q4 PRN PRN Reason: Dyspepsia Stop: 10/25/19 16:26 Cetirizine HCl (Zyrtec) 10 mg PO QAM [facility] Stop: 10/26/19 08:59 Dipyridamole/Aspirin (Aggrenox 200mg/25mg) 1 cap PO Q12H [facility] Stop: 10/25/19 19:59 Fluticasone Propionate (Flonase) 1 sprays [place] QAM [facility] Stop: 10/26/19 08:59 Ipratropium [place] (Atrovent 0.02% 0.5mg/2.5ml) 0.5 mg INH Q6R [facility] Stop: 10/25/19 18:59 Last Admin: 09/25/19 19:34 Dose: Not Given Documented by: Levalbuterol HCl (Xopenex 1.25mg/0.5ml Neb) 1.25 mg INH Q6R [facility] Stop: 10/25/19 18:59 Last Admin: 09/25/19 19:35 Dose: Not Given Documented by: Levetiracetam (Keppra) 500 mg PO Q12H [facility] Stop: 10/25/19 19:59 Lorazepam (Ativan) 1 mg PO QID [facility] Stop: 10/25/19 16:59 Last Admin: 09/25/19 17:29 Dose: 1 mg Documented by: Metoprolol Tartrate (Lopressor) 25 mg PO BID@0800,1600 [facility] Stop: 10/25/19 16:59 Last Admin: 09/25/19 17:30 Dose: 25 mg Documented by: Multi-Ingredient Cream (Lacri-Lube) 1 appln OP QID PRN PRN Reason: Dry Eye(S) Stop: 10/23/19 16:26 Multivitamins/Minerals (Multivitamin W/ Minerals Tab) 1 tab PO QAM [facility] Stop: 10/26/19 08:59 Nitroglycerin (Nitrostat) 0.4 mg SL UD PRN PRN Reason: Chest Pain Stop: 10/25/19 16:26 [facility] [place]: 10/26/19 08:59 Phenytoin Sodium (Dilantin Er) [facility] [place]: 10/26/19 08:59 Phenytoin Sodium (Dilantin Er) 100 mg PO BID [facility] Stop: 10/25/19 20:59 Polyethylene Glycol (Miralax Powder Packet) [facility] [place]: 10/26/19 08:59 Senna/Docusate Sodium (Senokot S) [facility] [place]: 10/26/19 08:59 Venlafaxine HCl (Effexor Extended Release) [facility] [place]: 10/26/19 08:59 Vitamin D (Vitamin D3) 2,000 units [facility] [place]: 10/26/19 08:59 PG Care Time/CCT Total # of Minutes Spent Total Time Spent with Patient: Total time spent is greater than 50% in coordination of care (as documented) at patient's floor/unit and/or counseling patient:
[2019-09-25] MEDS: DIPYRIDAMOLE/ASPIRIN CAP PO SCH (20:29)
[2019-09-25] MEDS: levETIRAcetam 500 MG TAB PO SCH (20:29)
[2019-09-25] MEDS: PHENYTOIN SODIUM ER 100 MG CAP PO SCH (20:30)
[2019-09-26] MEDS: LEVALBUTEROL 1.25MG/0.5ML NEB INH SCH ×8 (01:56→23:15)
[2019-09-26] MEDS: IPRATROPIUM BROMIDE NEB SOLN 0.02% 2.5 ML VIAL INH SCH ×8 (01:56→23:15)
[2019-09-26 04:49] LABS: Hematocrit (blood only) 29.1 % (37-47); Mean Corpuscular Hemoglobin 22.8 pg (25-34); Mean Corpuscular Hgb Conc 30.9 g/dL (32-36); Mean Corpuscular Volume 73.9 fL (80-100); Mean Platelet Volume 9.9 fL (7.4-10.4); Nucleated RBC # (auto) 0.02 K/uL (0-0); Nucleated RBC % (auto) 0.2 %; Platelet Count 180 K/uL (130-400); RDW Coefficient of Variation 15.3 % (11.5-14.5); RDW Standard Deviation 40.6 fL (36.4-46.3); Red Blood Count 3.94 M/uL (4.2-5.4); White Blood Count 8.11 K/uL (4.8-10.8)
[2019-09-26 05:12] LABS: BUN Creatinine Ratio 28.5 (10-20); Calcium 8.3 mg/dl (8.5-10.1); Creatinine Clr Calc Pharmacy 48.2 ml/min; Est GFR (African American) 84.8; Est GFR (Non-African American) 73.2; Potassium 3.4 mmol/L (3.5-5.1)
--- NOTE | 2019-09-26 06:03 | Electrocardiogram Report ---
Test Reason : Blood Pressure : / mmHG Vent. Rate : 060 BPM Atrial Rate : 060 BPM P-R Int : 192 ms QRS Dur : 106 ms QT Int : 448 ms P-R-T Axes : 065 -18 164 degrees QTc Int : 448 ms Normal sinus rhythm Left ventricular hypertrophy with repolarization abnormality Inferior infarct (cited on or before 25-APR-2012) Abnormal ECG When compared with ECG of 11-MAR-2019 20:59, Premature ventricular complexes are no longer Present Inverted T waves have replaced nonspecific T wave abnormality in Lateral leads Confirmed by Mike Saravia ([id number]) on 09/26/2019 6:02:48 AM Referred By: Confirmed By:Mike Saravia
[2019-09-26] MEDS: LORazepam 1 MG TAB PO SCH (08:17)
[2019-09-26] MEDS: METOPROLOL TARTRATE 25 MG TAB PO SCH ×2 (08:18→16:22)
[2019-09-26] MEDS: VENLAFAXINE HCL XR 150 MG CAPXR PO SCH (08:18)
[2019-09-26] MEDS: PHENYTOIN SODIUM ER 100 MG CAP PO SCH ×2 (08:18→21:37)
[2019-09-26] MEDS: PANTOprazole 40 MG TAB PO SCH (08:18)
[2019-09-26] MEDS: levETIRAcetam 500 MG TAB PO SCH ×2 (08:18→21:38)
[2019-09-26] MEDS: DIPYRIDAMOLE/ASPIRIN CAP PO SCH ×2 (08:19→21:37)
[2019-09-26] MEDS: FLUTICASONE PROPIONATE NA SPR 16 GM BTL NAE SCH (08:19)
[2019-09-26] MEDS: POLYETHYLENE (MIRALAX) 17 GM PACK PO SCH (08:19)
[2019-09-26] MEDS: CEROVITE ADV FORMULA TAB PO SCH (08:21)
[2019-09-26] MEDS: DOCUSATE SODIUM/SENNA 50/8.6MG TAB PO SCH (08:21)
[2019-09-26] MEDS: CETIRIZINE HCL 10 MG TABLET PO SCH (08:22)
[2019-09-26] MEDS: CHOLECALCIFEROL 1,000 UNITS TAB PO SCH (08:22)
[2019-09-26] MEDS ORDERED: PHENYTOIN SODIUM ER 30 MG CAP PO SCH (09:00)
[2019-09-26] MEDS ORDERED: PHENYTOIN SODIUM ER 100 MG CAP PO SCH (09:00)
--- NOTE | 2019-09-26 09:17 | Hospitalist Progress Note ---
Date of Service September 26, 2019 Assessment & Plan (1) COPD (chronic obstructive pulmonary disease): developed SOB with respiratory distress COPD exacerbation on chronic oxygen, 3L via NC, currently requiring 4L via NC( titrate down to 3 L goal 88-92% pulse ox) , cont respiratory tx with Neb:-Xopenex Atrovent neb;ordered for scheduled neb frequency increased to q4 hrs and q hrs PRN CXR: No acute findings -In ER given Solu-Medrol 60 mg, will cont 40 mg IV Solu -Medrol q 8hrs transition to Prednisone in next 24-48 hrs if resp status improves (2) History of recent pneumonia: Reported diagnosis of pneumonia during hospitalization at 09/14/19 - 09/17/2019 was in [facility]. Reported was treated with antibiotics and was discharged on Augmentin x7-day course -Finished recent Augmentin course Cxry no acute finding (3) Altered mental status: presented with metabolic encephalopathy : multifactorial : Dilantin toxicity : in ER Dilantin level : 19.8,/hypoxia .copd exacerbation mental status improved to baseline Pt is 84 y/o F with PMH A-fib, h/o subdural hematoma s/p evacuation in ?2012, H/O CVA in 2010 followed by seizure disorder, COPD on 3L oxygen, depression, anxiety, thalassemia minor, h/o breast CA to right breast 40 years ago s/p R mastectomy with recurrence left chest s/p chest radiation and currently on Fa slodex presented to ER with c/o AMS. It is reported this morning pt at her baseline and was talking and ate breakfast and took morning meds. Between 8:00- 10:00AM reported pt with altered mental status described as "unresponsive", lethargic. Daughter reports when she got to [facility] that pt would talk a little but was very lethargic. Reported altered mental status end of 08/2019. Recent hospitalization at [facility] for confusion, pneumonia, atrial fibrillation. She was started on amiodarone and her Dilantin was decreased to 300 mg a day. -Will decrease Dilantin to 100 mg twice daily given Dilantin level of 19.8 -Neurology consult (4) Seizure disorder: Daughter reports possible seizure on 09/17/2019 described as staring off episode -Dilantin level elevated : 19.8 -Keppra level pending -Decreased Dilantin to 100 mg twice daily -Continue Keppra -Seizure precautions -Neurology consult. Would appreciate further medication recommendations (5) Cerebrovascular disease: -Continue Aggrenox (6) Thalassemia minor: (7) Chronic anemia: due to above Hgb: 9.8. Baseline hemoglobin in the 9's -Monitor H&H (8) Anxiety and depression: -Continue venlafaxine, Ativan prn DNR /DNI DISPOSITION (9) History of breast cancer: h/o breast CA to right breast 40 years ago s/p R mastectomy with recurrence left chest s/p chest radiation and currently on Faslodex every month DVT Prophylaxis -SCDs fow now DNR/DNI as per discussion with pt and pt's daughter Follows with Dr Mak at [facility] for routine care Pt was seen and care coordinated with Dr Garcia. See addendum Subjective developed severe SOB , tachypnic this AM evluated at bedside , awake and alert complains of being SOB ordered for stat Neb tx , IV solu Medrol HR rate controlled Afib on monitor no cough , no complain of chest pain , no fever or chills Review of Systems Review of Systems: All systems reviewed & are unremarkable except as noted in HPI & below Respiratory: as per Subjective / HPI, + dyspnea and + dyspnea on exertion Cardiovascular: no chest pain Gastrointestinal: no abdominal pain and no nausea Psychiatric: + anxiety; no behavioral changes Physical Exam Constitutional: WD/WN, vitals as above no acute distress Eyes: PERRL, conjunctivae normal, anicteric sclerae ENMT: external ear and nose normal, oropharynx normal Neck: trachea midline, no thyromegaly Respiratory: no cough Auscultation: + diminished lung sounds (bilateral diminished breath sound ); no wheezes Cardiovascular: Extremities: no edema Gastrointestinal (Abdomen): normal bowel sounds, soft, nontender, no hepatosplenomegaly Musculoskeletal: no cyanosis or clubbing, extremities motor strength 5/5 Skin: no rashes, warm and dry Neurologic: PERRL, EOMI, accommodation nl, no face palsy, no dysarthria Psychiatric: Orientation: alert Results & Data Vital Signs (Past 12 Hours) Vital Signs Temp Pulse Resp Pulse Ox 09/26/19 08:59 67 20 94 09/26/19 04:00 36.9 C 64 24 94 (1) COPD (chronic obstructive pulmonary disease) COPD type: COPD with acute exacerbation Qualified Code(s): J44.1 - Chronic obstructive pulmonary disease with (acute) exacerbation
[2019-09-26] MEDS: methylPREDNISolone 40 MG in SYRINGE 0 ML IV SCH ×3 (10:43→21:43)
--- NOTE | 2019-09-26 11:01 | Neurology Consultation ---
Date of Consultation September 26, 2019 Assessment & Plan (1) Paroxysmal atrial fibrillation: (2) Chronic anemia: (3) History of recent pneumonia: (4) Altered mental status: Kaur Ridley is an 84 yo woman w/ PMH of hypertension, paroxysmal A. fib not on anticoagulation, COPD, history of subdural hematoma s/p evacuation, thalassemia minor, history of stroke complicated by epilepsy on Keppra/Dilantin, history of breast cancer status post mastectomy and focal radiation, and depression/anxiety who presents to [facility] for evaluation of altered mental status and concern for possible seizure. # AMS: unclear cause, though has recently recovered from UTI, pneumonia and started on amio/metoprolol for new onset Afib which has caused ongoing bradycardia. She also has COPD on 3L NC at home which she has required intermittent uptitration of oxygen in the last few days. In talking with Sonja Dorantes, there is concern that she may have an underlying dementia and this could represent delirium on dementia. - TSH was elevated to 6.69 on 09/23, normalized at admission (but appears that she has a long standing history of elevated TSH/hypothyroidism though not on any medications at home), query whether she requires treatment for hypothyroidism ( consider outpatient endocrine follow up) - she also appears to be on ativan 1mg qid at home; this appears to be for anxiety, however, given her age and other co-morbidities, would recommend slow wean off and transitioning to alternative anxiety agent (may need to monitor for seizures and increase keppra as needed) -Per daughter, her staring spells are consistent with her prior seizures in the past (what daughter describes does not sound like a seizure actually sounds more like a behavioral spell related to dementia). Additionally, it would be very unlikely that she would have a breakthrough seizure as she is on standing Ativan at home for anxiety as above. # H/o epilepsy: on dilantin 300mg daily/keppra 500mg bid at home. Amiodarone can increase levels of dilantin however she was not quite at toxic levels when admitted. - would obtain routine EEG as an outpatient after below adjustments to her AEDs - AEDs: increase keppra to 750 mg bid (would give one time 750mg keppra IV dose this evening before transitioning to PO dose in AM) - discontinue dilantin given interactions with multiple cardiac meds that she may need in the future for Afib rate control - follow up with Sonja Dorantes or Dr Vega in the next 1-2 weeks to check in after AED change # H/o stroke and SDH s/p clot evac: on aggrenox at home, likely ok to be just on aspirin 81mg daily but will defer to her outpatient neurologist, Dr Vega, to make any changes to home medications (ideally, would be on AC, but has h/o not wanting to be on AC 2/2 anemia and several other reasons) Thank you for this interesting consult. Please text or call with questions. (5) History of stroke: (6) Seizure disorder: History of Present Illness Attending Physician: Cinda Andre MD History of Present Illness Kaur Ridley is an 84 yo woman w/ PMH of hypertension, paroxysmal A. fib not on anticoagulation, COPD, history of subdural hematoma s/p evacuation, thalassemia minor, history of stroke complicated by epilepsy on Keppra/Dilantin, history of breast cancer status post mastectomy and focal radiation, and depression/anxiety who presents to [facility] for evaluation of altered mental status and concern for possible seizure. She was in her normal state of health until the end of July 2019 when she was found to have a Klebsiella UTI that was treated. In the end of August, she had traveled to [place] when she had acute onset of confusion. She was hospitalized at [facility] from [id number] for confusion with diagnosed with A. fib, pneumonia and possible seizures. She was started on amiodarone and metoprolol for the A. fib. Pneumonia was treated with antibiotics. Her Dilantin dose was decreased down to 300 mg daily given concern that this could be causing Dilantin toxicity. She followed up with Sonja Dorantes on September 19 for ongoing encephalopathy post discharge, thought to be toxic-metabolic from ongoing infections and several recent medication changes. She returned to her facility but daughter was concerned that she keeps having starring off episodes and "acting strange". On 09/24, patient was noted to have 2 falls one where she hit her head without loss of consciousness. Staff at her facility reported that he has been bradycardic in the 50s since returning. She was reportedly in her normal baseline but became "unresponsive" around 8 AM on 09/24, prompting presentation to the ED. In the ED, she was afebrile with heart rate 62, respiratory rate 20, blood pressure 160/79, satting 97% on 4 L nasal cannula. Labs are notable for WBC 10.05, hemoglobin 9.8 with microcytosis, platelets 174, BUN 23, creatinine 0.4, glucose 111, INR 1.2, mildly elevated CO2 35, normal anion gap of 3, calcium 8.7, mag 1.8, LFTs within normal, CK 3.4, troponin negative, UA no sign of infection. Chest x-ray showed no signs of pneumonia. Of note, TSH was 6.69 on 09/23/2019 now within normal limits at 2.9 this admission. It appears that she has a longstanding history of elevated TSH values in the past. Total Dilantin level 15.1 increased to 19.8 on 09/25/2019; Keppra level pending. Independent review of CT head shows encephalomalacia in the right>left occipital lobes, moderate small vessel ischemic disease, generalized atrophy with ex vacuo dilation and prior right frontal craniotomy site. CTA head and neck shows diffuse atherosclerosis of the aortic arch and carotids bilaterally, hypoplastic right vertebral artery, no high-grade stenosis, LVO or aneurysm noted. On examination today, she was irritable and spoke minimally with examiner. Her daughter was in the room and able to fill me in on her history as given above. She feels as though her mom is slowly improving and is close to her baseline at this time. Allergies Allergy/AdvReac Type Severity Reaction Status Date / Time morphine Allergy Mild itching Verified 09/25/19 11:12 Home Medications Home Medications Medication Instructions Recorded Confirmed Type acetaminophen [Tylenol] 650 mg PO Q4 PRN MDD 3 GRAMS/24 03/11/19 09/25/19 History HOURS. aspirin-dipyridamole [Aggrenox] 1 cap PO BID 03/11/19 09/25/19 History biotin 1 mg PO BID 03/11/19 09/25/19 History calcium carbonate [Tums] 500 mg PO Q4 PRN 03/11/19 09/25/19 History cetirizine [Zyrtec] 10 mg PO QAM 03/11/19 09/25/19 History cholecalciferol (vitamin D3) 2,000 unit PO QAM 03/11/19 09/25/19 History [Vitamin D3] esomeprazole magnesium [Nexium] 40 mg PO QAM 03/11/19 09/25/19 History fluticasone propionate [Flonase 1 spray INTRANASAL QAM 03/11/19 09/25/19 History Allergy Relief] ipratropium-albuterol 3 ml INHALATION Q6 PRN 03/11/19 09/25/19 History levetiracetam [Keppra] 500 mg PO BID 03/11/19 09/25/19 History lorazepam [Ativan] 0.5 mg PO Q6 PRN 03/11/19 09/25/19 History lorazepam [Ativan] 1 mg PO QID 03/11/19 09/25/19 History multivitamin,mi-seqt-kimvjymq 1 tab PO QAM 03/11/19 09/25/19 History [Therems-M] nitroglycerin [Nitrostat] 0.4 mg SUBLINGUAL UD PRN 03/11/19 09/25/19 History ondansetron HCl [Zofran] 4 mg PO Q6 PRN 03/11/19 09/25/19 History polyethylene glycol 3350 [Miralax] 17 g PO QAM 03/11/19 09/25/19 History sennosides-docusate sodium 2 tab PO QAM 03/11/19 09/25/19 History [Senna-S] venlafaxine [Effexor XR] 150 mg PO QAM 03/11/19 09/25/19 History Oxygen Home #1 ea 05/29/19 09/19/19 History diphenhydramine HCl [Banophen] 25 mg PO Q6H PRN 08/17/19 09/25/19 History amiodarone 200 mg tablet 400 mg PO BID tab 09/19/19 09/25/19 History carboxymethylcellulose sodium 0.25 1 drops OP QID PRN 09/19/19 09/25/19 History % eye drops metoprolol tartrate 25 mg tablet 25 mg PO BIDM 09/19/19 09/25/19 History phenytoin sodium extended 100 mg 100 mg PO .COMPLEX 09/19/19 09/25/19 History capsule phenytoin sodium extended 60 mg PO QAM 09/25/19 09/25/19 History [Dilantin] Patient History Medical History Anxiety and depression Breast cancer (Resolved) "Status post biopsy of left breast mass 12/07/2015 Lobular carcinoma, grade 1 Estrogen receptor positive, progesterone receptor positive, 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 Treatment was completed October 29, 2017. 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 Status post mastectomy and sentinel lymph node biopsy 02/03/2016 Stage pT3 pN1a M0, lymphovascular invasion Biopsy-proven chest wall recurrence 07/04/2017" Chronic anemia COPD (chronic obstructive pulmonary disease) DJD (degenerative joint disease) of hip (Acute) Hematuria History of breast cancer (Chronic) History of nephrolithiasis (Chronic) History of stroke History of subdural hematoma (Chronic) Hypertension Mitral regurgitation Paroxysmal atrial fibrillation Rib fractures Seizure disorder (Chronic 04/25/13) Thalassemia Thalassemia minor Surgical History H/O brain surgery S/P hip replacement Status post section (Chronic) Status post mastectomy (Chronic) Family History Mother Breast cancer Cardiac disorder Father Cardiac disorder Social History Preferred Language: Somali Communication Ability: Effective Branch Assistant Required: No Beliefs That Will Affect Care: None marital status: / Current Living Situation: Personal Care Facility Current Living Situation Comment: [facility] Other Information That Helps Us Care for You: No Feels Safe at Home: Yes Safety Concerns: Feels Safe At This Time Smoking Status: Former smoker Second Hand Exposure: No ; Hx Alcohol Use: Yes Alcohol type: wine Hx Substance Use: No Review of Systems Review of Systems: 14 point review of systems completed and negative except as in HPI. Physical Exam Physical Exam: General Exam: GEN: NAD, lying in bed. CV: RRR, no peripheral edema PULM: Nonlabored respirations on 3L NC. Neuro Exam: MS: Drowsy but arousable. Oriented to person, being in the hospital, month but not year or date. Paucity of speech but available speech was fluent without dysarthria or paraphasic errors. Language intact including naming, comprehension, repetition. Given drowsy state, difficult to assess her cognition or memory. Attention intact. No neglect. CN: Positive blink to threat bilaterally (has baseline poor vision and would not participate in formal visual field testing). No extinction to double simultaneous stimuli. Unable to visualize fundi on fundoscopic exam. PERRLA OU. EOMI without nystagmus. Facial sensation intact to LT. Facial muscles full and symmetric. Hearing intact to conversation. Uvula midline with symmetric palatal elevation. Shoulder shrug normal. Tongue midline. MOTOR: Normal bulk and tone. No pronator drift. All extremities antigravity without drift to bed with full strength noted in bilateral deltoids, biceps, hand grasp, iliopsoas, foot flexion/extension. REFLEXES: 1 + at biceps, triceps, brachioradialis, trace patella and absent Achilles bilaterally. Toes mute bilaterally. SENSORY: Intact to LT without extinction to double simultaneous stimuli. Did not want to participate in vibration or temperature testing. COORDINATION: No dysmetria or ataxia on [id number] bilaterally. Normal Agatha bilaterally. GAIT: Deferred given physical status Results & Data Vital Signs (Past 12 Hours) Vital Signs Temp Pulse Pulse Resp BP Pulse Ox 09/26/19 08:59 67 20 94 09/26/19 08:13 37.0 C 75 28 H 161/84 H 96 09/26/19 07:00 66 22 09/26/19 04:00 36.9 C 64 24 94 Laboratory Results Laboratory Results - last 24 hr 09/25/19 09/25/19 09/25/19 12:09 12:09 Unknown WBC RBC Hgb Hct MCV MCH MCHC RDW Std Deviation RDW Coeff of Gray Plt Count MPV Absolute Nucleated RBC Nucleated RBC % (auto) Sodium Potassium Chloride Carbon Dioxide Anion Gap BUN Creatinine Est Cr Clr Drug Dosing Est GFR ( Amer) Est GFR (Non-Af Amer) BUN/Creatinine Ratio Glucose Calcium Total Creatine Kinase 90 TSH 2.900 Nasal Screen MRSA (PCR) Positive A 09/26/19 09/26/19 04:34 04:34 WBC 8.11 RBC 3.94 L Hgb 9.0 L Hct 29.1 L MCV 73.9 L MCH 22.8 L MCHC 30.9 L RDW Std Deviation 40.6 RDW Coeff of Gray 15.3 H Plt Count 180 MPV 9.9 Absolute Nucleated RBC 0.02 H Nucleated RBC % (auto) 0.2 Sodium 141 Potassium 3.4 L Chloride 105 Carbon Dioxide 35 H Anion Gap 1.0 L BUN 21 H Creatinine 0.75 Est Cr Clr Drug Dosing 48.2 Est GFR ( Amer) 84.8 Est GFR (Non-Af Amer) 73.2 BUN/Creatinine Ratio 28.5 H Glucose 78 Calcium 8.3 L Total Creatine Kinase TSH Nasal Screen MRSA (PCR) PG Care Time/CCT Total # of Minutes Spent Total Time Spent with Patient: Total time spent is greater than 50% in coordination of care (as documented) at patient's floor/unit and/or counseling patient:
[2019-09-26] MEDS: LORazepam 0.5 MG TAB PO PRN (16:22)
[2019-09-27] MEDS: IPRATROPIUM BROMIDE NEB SOLN 0.02% 2.5 ML VIAL INH SCH ×3 (02:25→11:32)
[2019-09-27] MEDS: LEVALBUTEROL 1.25MG/0.5ML NEB INH SCH ×3 (02:25→11:32)
[2019-09-27] MEDS: methylPREDNISolone 40 MG in SYRINGE 0 ML IV SCH (05:50)
--- NOTE | 2019-09-27 08:08 | Hospitalist Progress Note ---
Date of Service September 27, 2019 Assessment & Plan (1) COPD (chronic obstructive pulmonary disease): PT status improved to baseline, does not have any shortness of breath, dyspnea on exertion, nonproductive cough On 3 L oxygen via nasal cannula: Which is her baseline Admitted SOB with respiratory distress COPD exacerbation CXR: No acute findings -We will DC IV Solu-Medrol, started on p.o. prednisone 40 mg daily will need total 5 days of treatment (2) History of recent pneumonia: Reported diagnosis of pneumonia during hospitalization at 09/14/19 - 09/17/2019 was in [facility]. Reported was treated with antibiotics and was discharged on Augmentin x7-day course -Finished recent Augmentin course Cxry no acute finding (3) Altered mental status: Resolved, awake alert oriented to person only, approximate baseline, patient is very hard of hearing as well presented with metabolic encephalopathy : multifactorial : Dilantin toxicity : in ER Dilantin level : 19.8,/hypoxia .copd exacerbation mental status improved to baseline Pt is 84 y/o F with PMH A-fib, h/o subdural hematoma s/p evacuation in ?2012, H/O CVA in 2010 followed by seizure disorder, COPD on 3L oxygen, depression, anxiety, thalassemia minor, h/o breast CA to right breast 40 years ago s/p R mastectomy with recurrence left chest s/p chest radiation and currently on Faslodex presented to ER with c/o AMS. It is reported this morning pt at her baseline and was talking and ate breakfast and took morning meds. Between 8:00- 10:00AM reported pt with altered mental status described as "unresponsive", lethargic. Daughter reports when she got to [facility] that pt would talk a little but was very lethargic. Reported altered mental status end of 08/2019. Recent hospitalization at [facility] for confusion, pneumonia, atrial fibrillation. She was started on amiodarone and Dilantin 300 mg a day. -Will decrease Dilantin to 100 mg twice daily given Dilantin level of 19.8(was on 300 mg a day) -Neurology consult appreciated, will decrease patient's benzodiazepine dose, Ativan to 0.5 mg 3 times daily as needed(was not scheduled prior)-to prevent delirium, unresponsiveness (4) Seizure disorder: Daughter reports possible seizure on 09/17/2019 described as "staring off" episode Started on Dilantin 300 mg daily -Dilantin level elevated : 19.8 -Keppra level pending -Decreased Dilantin to 100 mg twice daily -Continue Keppra -Seizure precautions -Neurology consult-initiated (5) Cerebrovascular disease: -Continue Aggrenox (6) Thalassemia minor: (7) Chronic anemia: due to above Hgb: 9.8. Baseline hemoglobin in the 9's -Monitor H&H (8) Anxiety and depression: -Continue venlafaxine, Ativan prn DNR /DNI DVT prophylaxis: On SCD and teds DISPOSITION Follows with Dr Mak at [facility] for routine care And is to return back to personal [place] [facility] facility in next 24 to 48 hours is remains medically stable (9) History of breast cancer: h/o breast CA to right breast 40 years ago s/p R mastectomy with recurrence left chest s/p chest radiation and currently on Faslodex every month Subjective complains of burning while urinating No complaint of cough, no shortness of breath, no fever or chills, comfortable, sitting up in chair finishing breakfast Review of Systems Constitutional: Very hard of hearing Respiratory: as per Subjective / HPI; no cough, no dyspnea and no dyspnea on exertion Psychiatric: + anxiety Physical Exam Constitutional: WD/WN, vitals as above no acute distress Eyes: PERRL, conjunctivae normal, anicteric sclerae ENMT: external ear and nose normal, oropharynx normal Neck: trachea midline, no thyromegaly Respiratory: no cough Auscultation: + diminished lung sounds (bilateral diminished breath sound ); no wheezes Cardiovascular: Extremities: no edema Gastrointestinal (Abdomen): normal bowel sounds, soft, nontender, no hepatosplenomegaly Musculoskeletal: no cyanosis or clubbing, extremities motor strength 5/5 Skin: no rashes, warm and dry Neurologic: PERRL, EOMI, accommodation nl, no face palsy, no dysarthria Psychiatric: Orientation: alert Results & Data Vital Signs (Past 12 Hours) Vital Signs Temp Pulse Pulse Resp BP Pulse Ox 09/27/19 04:03 36.9 C 69 64 H 129/68 94 09/27/19 00:11 53 L 09/26/19 23:24 36.8 C 68 20 126/68 96 (1) COPD (chronic obstructive pulmonary disease) COPD type: COPD with acute exacerbation Qualified Code(s): J44.1 - Chronic obstructive pulmonary disease with (acute) exacerbation
[2019-09-27] MEDS: CETIRIZINE HCL 10 MG TABLET PO SCH (09:28)
[2019-09-27] MEDS: DOCUSATE SODIUM/SENNA 50/8.6MG TAB PO SCH (09:28)
[2019-09-27] MEDS: levETIRAcetam 250 MG TAB PO SCH ×2 (09:28→20:15)
[2019-09-27] MEDS: VENLAFAXINE HCL XR 150 MG CAPXR PO SCH (09:29)
[2019-09-27] MEDS: METOPROLOL TARTRATE 25 MG TAB PO SCH ×2 (09:29→17:01)
[2019-09-27] MEDS: PANTOprazole 40 MG TAB PO SCH (09:29)
[2019-09-27] MEDS: POLYETHYLENE (MIRALAX) 17 GM PACK PO SCH (09:29)
[2019-09-27] MEDS: CHOLECALCIFEROL 1,000 UNITS TAB PO SCH (09:29)
[2019-09-27] MEDS: CEROVITE ADV FORMULA TAB PO SCH (09:29)
[2019-09-27] MEDS: DIPYRIDAMOLE/ASPIRIN CAP PO SCH ×2 (09:29→20:14)
[2019-09-27] MEDS: FLUTICASONE PROPIONATE NA SPR 16 GM BTL NAE SCH (09:30)
[2019-09-27] MEDS: MICONAZOLE NITRATE 2% VAG CR 45 GM TUBE PV SCH ×2 (09:31→20:15)
[2019-09-27] MEDS: levETIRAcetam 500 MG TAB PO SCH (09:54)
[2019-09-27] MEDS: PHENYTOIN SODIUM ER 100 MG CAP PO SCH (09:54)
[2019-09-27] MEDS: LORazepam 0.5 MG TAB PO PRN (11:47)
[2019-09-27] MEDS ORDERED: IPRATROPIUM BROMIDE NEB SOLN 0.02% 2.5 ML VIAL INH PRN (12:53)
[2019-09-27] MEDS ORDERED: LEVALBUTEROL 1.25MG/0.5ML NEB INH PRN (12:53)
[2019-09-27] MEDS: LORazepam 1 MG TAB PO SCH ×3 (13:43→20:14)
[2019-09-27] MEDS ORDERED: ALUMINUM/MAGNESIUM SUSP 30 ML UDC PO PRN (16:55)
[2019-09-27] MEDS ORDERED: ONDANSETRON INJ 2 MG/ML 2 ML VIAL IV PRN (16:55)
[2019-09-27] MEDS ORDERED: ONDANSETRON INJ 2 MG/ML 2 ML VIAL ONE (16:58)
--- NOTE | 2019-09-28 07:41 | Neurology Progress Note ---
Date of Service September 28, 2019 Assessment & Plan (1) Paroxysmal atrial fibrillation: (2) Chronic anemia: (3) History of recent pneumonia: (4) Altered mental status: Kaur Ridley is an 84 yo woman w/ PMH of hypertension, paroxysmal A. fib not on anticoagulation, COPD, history of subdural hematoma s/p evacuation, thalassemia minor, history of stroke complicated by epilepsy on Keppra/Dilantin, history of breast cancer status post mastectomy and focal radiation, and depression/anxiety who presents to [facility] for evaluation of altered mental status and concern for possible seizure. # AMS: unclear cause, though has recently recovered from UTI, pneumonia and sta rted on amio/metoprolol for new onset Afib which has caused ongoing bradycardia. She also has COPD on 3L NC at home which she has required intermittent uptitration of oxygen in the last few days. In talking with Sonja Dorantes, there is concern that she may have an underlying dementia and this could represent delirium on dementia. Her behavior as observed today would definitely be consistent with underlying dementia, as well as likely underlying severe psychiatric co-morbidity (anxiety, depression, benzo dependence). - TSH was elevated to 6.69 on 09/23, normalized at admission (but appears that she has a long standing history of elevated TSH/hypothyroidism though not on any medications at home), query whether she requires treatment for hypothyroidism ( consider outpatient endocrine follow up) - she also appears to be on ativan 1mg qid at home; this appears to be for anxiety, however, given her age and other co-morbidities, would recommend slow wean off and transitioning to alternative anxiety agent (this can be done as an outpatient; may need to monitor for seizures and increase keppra as needed) -Per daughter, her staring spells are consistent with her prior "seizures" in the past (what daughter describes though does not sound like a seizure, actually sounds more like a behavioral spell related to dementia). Additionally, it would be very unlikely that she would have a breakthrough seizure as she is on standing Ativan at home for anxiety as above. # H/o epilepsy: on dilantin 300mg daily/keppra 500mg bid at home. Amiodarone can increase levels of dilantin however she was not quite at toxic levels when admitted. - would obtain routine EEG as an outpatient after below adjustments to her AEDs - AEDs: continue keppra to 750 mg bid - follow up with Sonja Dorantes or Dr Vega in the next 1-2 weeks to check in after AED change - if she plans to continue ativan 1mg qid scheduled and 0.5mg tid prn, would recommend completely weaning off of all AEDs as this much ativan should definitely cover any seizure like activity # H/o stroke and SDH s/p clot evac: on aggrenox at home, likely ok to be just on aspirin 81mg daily but will defer to her outpatient neurologist, Dr Vega, to make any changes to home medications (ideally, would be on AC, but has h/o not want ing to be on AC 2/2 anemia and several other reasons) Thank you for this interesting consult. She is stable for transfer back to her halfway from a neurologic standpoint. Please text or call with questions. (5) History of stroke: (6) Seizure disorder: Subjective NAEs overnight. Per report, she was trial weaned on lower dose of ativan yesterday and both patient and daughter started screaming. Pt was hyperventilating as well. Daughter reported to primary team that ativan was "not negotiable". Also told primary team that she would like the dilantin restarted in 1 week or so, despite having an extensive discussion 2 days ago that this medication would not be indicated for seizure management as current events do not have seizure semiology (more likely 2/2 behavioral spells from underlying dementia) and that there are serious interactions between dilantin and medications for Afib rate control. This morning, patient only opened her eyes and screamed at examiner, would not follow commands and was being verbally abusive. Staff reported similar verbally abusive behavior for last day or so. Review of Systems Review of Systems: Unable to assess 2/2 mental status and patient refusal to participate in exam or talk to examiner. Physical Exam Physical Exam: Unable to assess 2/2 mental status (likely underlying dementia) and patient refusal to participate in exam or talk much with examiner. Pt became verbally abusive and raised left arm to strike at examiner so examination was terminated. Results & Data Vital Signs (Past 12 Hours) Vital Signs Temp Pulse Resp BP Pulse Ox 09/28/19 03:53 37 C 78 16 127/74 96 09/27/19 23:03 36.9 C 61 18 127/68 94 01/11/20 19:44 36.8 C 53 L 16 137/69 94 PG Care Time/CCT Total # of Minutes Spent Total Time Spent with Patient: Total time spent is greater than 50% in coordination of care (as documented) at patient's floor/unit and/or counseling patient:
[2019-09-28] MEDS: levETIRAcetam 250 MG TAB PO SCH ×2 (09:03→20:02)
[2019-09-28] MEDS: LORazepam 1 MG TAB PO SCH ×4 (09:03→20:03)
[2019-09-28] MEDS: METOPROLOL TARTRATE 25 MG TAB PO SCH ×2 (09:03→16:59)
[2019-09-28] MEDS: DIPYRIDAMOLE/ASPIRIN CAP PO SCH ×2 (09:04→20:03)
[2019-09-28] MEDS: VENLAFAXINE HCL XR 150 MG CAPXR PO SCH (09:04)
[2019-09-28] MEDS: CHOLECALCIFEROL 1,000 UNITS TAB PO SCH (09:04)
[2019-09-28] MEDS: predniSONE 20 MG TAB PO SCH (09:04)
[2019-09-28] MEDS: CEROVITE ADV FORMULA TAB PO SCH (09:04)
[2019-09-28] MEDS: PANTOprazole 40 MG TAB PO SCH (09:04)
[2019-09-28] MEDS: FLUTICASONE PROPIONATE NA SPR 16 GM BTL NAE SCH (09:04)
[2019-09-28] MEDS: POLYETHYLENE (MIRALAX) 17 GM PACK PO SCH (09:14)
[2019-09-28] MEDS: CETIRIZINE HCL 10 MG TABLET PO SCH (09:14)
[2019-09-28] MEDS: DOCUSATE SODIUM/SENNA 50/8.6MG TAB PO SCH (09:14)
--- NOTE | 2019-09-28 15:00 | Hospitalist Progress Note ---
Date of Service September 28, 2019 Assessment & Plan (1) COPD (chronic obstructive pulmonary disease): PT status improved to baseline, does not have any shortness of breath, dyspnea on exertion, nonproductive cough On 3 L oxygen via nasal cannula: Which is her baseline Admitted SOB with respiratory distress COPD exacerbation CXR: No acute findings/on p.o. prednisone (2) History of recent pneumonia: Reported diagnosis of pneumonia during hospitalization at 09/14/19 - 09/17/2019 was in [facility]. Reported was treated with antibiotics and was discharged on Augmentin x7-day course -Finished recent Augmentin course Cxry no acute finding -indication for continued antibiotics (3) Altered mental status: Resolved, awake alert oriented to person only, approximate baseline, patient is very hard of hearing as well presented with metabolic encephalopathy : multifactorial : Dilantin toxicity : in ER Dilantin level : 19.8,/hypoxia .copd exacerbation mental status improved to baseline Pt is 84 y/o F with PMH A-fib, h/o subdural hematoma s/p evacuation in ?2012, H/O CVA in 2010 followed by seizure disorder, COPD on 3L oxygen, depression, anxiety, thalassemia minor, h/o breast CA to right breast 40 years ago s/p R mastectomy with recurrence left chest s/p chest radiation and currently on Faslodex presented to ER with c/o AMS. It is reported this morning pt at her baseline and was talking and ate breakfast and took morning meds. Between 8:00- 10:00AM reported pt with altered mental status described as "unresponsive", lethargic. Daughter reports when she got to [facility] that pt would talk a little but was very lethargic. Reported altered mental status end of 08/2019. Recent hospitalization at [facility], [place] for confusion, pneumonia, atrial fibrillation. She was started on amiodarone and Dilantin 300 mg a day. -Neurology consult appreciated, Chester discontinued secondary to multiple drug interaction specially with amiodarone Keppra dose increased to 750 mg twice daily Patient does not fit clinical picture of seizure disorder Will need close outpatient follow-up with neurology for further adjustment of medications Neurology recommends decrease patient's benzodiazepine dose, to prevent delirium, unresponsiveness Has been on 1 mg scheduled dose every 6 hours- Cussed with patient's daughter at bedside, daughter at and adamantly refused to have any adjustment of Ativan dose for the patient Says " she has been on that 1 mg every 6 hours Ativan dose for years/and it has worked well for her anxiety" Does not want to have any change She already spoke with patient's physician at [facility] that : changing Ativan dose is non-negotiable (4) Seizure disorder: Daughter reports possible seizure on 09/17/2019 described as "staring off" episode Dilantin discontinued secondary to multiple drug interaction Continue on Keppra 750 mg twice daily -Seizure precautions -Neurology consult-treat input (5) Cerebrovascular disease: -Continue Aggrenox (6) Thalassemia minor: (7) Chronic anemia: due to above Hgb: 9.8. Baseline hemoglobin in the 9's -Monitor H&H (8) Anxiety and depression: -Continue venlafaxine, Ativan prn DNR /DNI DVT prophylaxis: On SCD and teds DISPOSITION Follows with Dr Mak at [facility] for routine care Plan is to return back to personal detention [place] if remains medically stable (9) History of breast cancer: h/o breast CA to right breast 40 years ago s/p R mastectomy with recurrence left chest s/p chest radiation and currently on Faslodex every month Subjective Offers no new complaint, Very hard of hearing, Gets very agitated when repeating a question cough has improved, no fever or chills Review of Systems Constitutional: Very hard of hearing Respiratory: as per Subjective / HPI; no cough, no dyspnea and no dyspnea on exertion Psychiatric: + anxiety Physical Exam Constitutional: WD/WN, vitals as above no acute distress Eyes: PERRL, conjunctivae normal, anicteric sclerae ENMT: external ear and nose normal, oropharynx normal Neck: trachea midline, no thyromegaly Respiratory: no cough Auscultation: + diminished lung sounds (bilateral diminished breath sound ); no wheezes Cardiovascular: Extremities: no edema Gastrointestinal (Abdomen): normal bowel sounds, soft, nontender, no hepatos plenomegaly Musculoskeletal: no cyanosis or clubbing, extremities motor strength 5/5 Skin: no rashes, warm and dry Neurologic: PERRL, EOMI, accommodation nl, no face palsy, no dysarthria Psychiatric: Orientation: alert Results & Data Vital Signs (Past 12 Hours) Vital Signs Temp Pulse Pulse Resp BP Pulse Ox 09/28/19 08:55 65 09/28/19 08:20 36.6 C 58 L 16 156/74 H 93 09/28/19 03:53 37 C 78 16 127/74 96 (1) COPD (chronic obstructive pulmonary disease) COPD type: COPD with acute exacerbation Qualified Code(s): J44.1 - Chronic obstructive pulmonary disease with (acute) exacerbation
[2019-09-28] MEDS: MICONAZOLE NITRATE 2% VAG CR 45 GM TUBE PV SCH (20:03)
[2019-09-29] MEDS: POLYETHYLENE (MIRALAX) 17 GM PACK PO SCH (09:46)
[2019-09-29] MEDS: DOCUSATE SODIUM/SENNA 50/8.6MG TAB PO SCH (09:46)
[2019-09-29] MEDS: DIPYRIDAMOLE/ASPIRIN CAP PO SCH (09:54)
[2019-09-29] MEDS: levETIRAcetam 250 MG TAB PO SCH (09:55)
[2019-09-29] MEDS: METOPROLOL TARTRATE 25 MG TAB PO SCH (09:55)
[2019-09-29] MEDS: VENLAFAXINE HCL XR 150 MG CAPXR PO SCH (09:55)
[2019-09-29] MEDS: LORazepam 1 MG TAB PO SCH ×2 (09:55→13:01)
[2019-09-29] MEDS: FLUTICASONE PROPIONATE NA SPR 16 GM BTL NAE SCH ×2 (09:56→10:03)
[2019-09-29] MEDS: CEROVITE ADV FORMULA TAB PO SCH (09:56)
[2019-09-29] MEDS: predniSONE 20 MG TAB PO SCH (09:56)
[2019-09-29] MEDS: CHOLECALCIFEROL 1,000 UNITS TAB PO SCH (09:57)
[2019-09-29] MEDS: CETIRIZINE HCL 10 MG TABLET PO SCH (09:57)
[2019-09-29] MEDS: PANTOprazole 40 MG TAB PO SCH (09:57)
--- NOTE | 2019-09-29 12:53 | Discharge Summary ---
Date of Service September 29, 2019 Admission HPI Per Admitting Provider Pt is 84 y/o F with PMH A-fib, h/o subdural hematoma s/p evacuation in ?2013, H/O CVA in 2010 followed by seizure disorder, COPD on 3L oxygen, depression, anxiety, thalassemia minor, h/o breast CA to right breast 40 years ago s/p R mastectomy with recurrence left chest s/p chest radiation and currently on Faslodex presented to ER with c/o AMS. It is reported this morning pt at her baseline and was talking and ate breakfast and took morning meds. Between 8:00- 10:00AM reported pt with altered mental status described as "unresponsive", lethargic. Daughter reports when she got to [facility] that pt would talk a little but was very lethargic. Had UTI end of 07/2019. Urine culture +klebsiella oxytoca and was treated with antibiotic. Daughter reports at that time pt with dysuria. No further dysuria. Denies hematuria, flank pain, back pain, abdominal pain, fever chills. End of August was traveling to [place] when had confusion. 09/14/19 - 09/17/2019 was in [facility] for confusion and diagnosed with a-fib, pneumonia. Reports was treated with antibiotics. Amiodarone and metoprolol was started. Dilantin was decreased. Reported metabolic encephalopathy when seen by Neurology -Jenny Dorantes on 09/19/19. Daughter states when driving pt back to [facility] she thought she had a seizure which she describes as "staring off and acting strange" but reports was still talking. Daughter reports staff at [facility] have been reporting bradycardia in 50's. States yesterday pt with 2 falls. Uses walker to ambulate however more unsteady of feet past several days. Reports first fall yesterday onto buttocks. Reports second fall that she hit her head. Patient denies any loss of consciousness. Denies any dizziness, shortness of breath, chest pain prior to falls. Patient states after second fall she did feel little dizzy when she was getting back up. Also c/o increased fatigue, decreased appetite and decreased oral intake the past several days. Denies increased SOB or wheezing. Reports feels breathing at baseline. Denies any recent cough. Reports does not like to use inhalers or nebulizer as it increases her anxiety. Denies fever/chills, diaphoresis, N/V/D/C, VAUGHAN, syncope, vision changes, neck pain, CP, SOB, orthopnea, palpitations, cough, sore throat, choking, otalgia, rhinorrhea, abdominal pain, paresthesias, extremity edema, rashes, urinary symptoms. Principal Diagnosis changed mental status , confusion , symptom has resolved /copd exacerbation - resolved Discharge Exam Constitutional WD/WN, vitals as above no acute distress Eyes PERRL, conjunctivae normal, anicteric sclerae ENMT external ear and nose normal, oropharynx normal Neck trachea midline, no thyromegaly Respiratory no cough Auscultation: + diminished lung sounds (bilateral diminished breath sound ); no wheezes Cardiovascular Extremities: no edema Gastrointestinal (Abdomen) normal bowel sounds, soft, nontender, no hepatosplenomegaly Musculoskeletal no cyanosis or clubbing, extremities motor strength 5/5 Skin no rashes, warm and dry Neurologic PERRL, EOMI, accommodation nl, no face palsy, no dysarthria Psychiatric Orientation: alert Discharge Data Allergies Allergy/AdvReac Type Severity Reaction Status Date / Time morphine Allergy Mild itching Verified 09/25/19 11:12 Consultations 09/25/19 14:00 ED Decision to Admit Stat 09/25/19 16:27 Consult Cardiology Routine Consult Case Management - Discharge Planning Routine Consult Neurology Routine Ordered Studies 09/25/19 11:05 CT angio head w con Stat CT angio neck with con Stat CT head/brain wo con Stat Hospital Course (1) COPD (chronic obstructive pulmonary disease): PT status improved to baseline, does not have any shortness of breath, dyspnea on exertion, nonproductive cough On 3 L oxygen via nasal cannula: Which is her baseline Admitted SOB with respiratory distress COPD exacerbation CXR: No acute findings/on p.o. prednisone (2) History of recent pneumonia: Reported diagnosis of pneumonia during hospitalization at 09/14/19 - 09/17/2019 was in [facility]. Reported was treated with antibiotics and was discharged on Augmentin x7-day course -Finished recent Augmentin course Cxry no acute finding -no indication for continued antibiotics (3) Altered mental status: Resolved, awake alert oriented to person only, approximate baseline, patient is very hard of hearing as well presented with metabolic encephalopathy : multifactorial : Dilantin toxicity : in ER Dilantin level : 19.8,/hypoxia .copd exacerbation mental status improved to baseline Pt is 84 y/o F with PMH A-fib, h/o subdural hematoma s/p evacuation in ?2013, H/O CVA in 2010 followed by seizure disorder, COPD on 3L oxygen, depression, anxiety, thalassemia minor, h/o breast CA to right breast 40 years ago s/p R mastectomy with recurrence left chest s/p chest radiation and currently on Faslodex presented to ER with c/o AMS. It is reported this morning pt at her baseline and was talking and ate breakfast and took morning meds. Between 8:00- 10:00AM reported pt with altered mental status described as "unresponsive", lethargic. Daughter reports when she got to [facility] that pt would talk a little but was very lethargic. Reported altered mental status end of 08/2019. Recent hospitalization at [facility] for confusion, pneumonia, atrial fibrillation. She was started on amiodarone and Dilantin 300 mg a day. -Neurology consult appreciated, Charles discontinued secondary to multiple drug interaction specially with amiodarone Keppra dose increased to 750 mg twice daily Patient does not fit clinical picture of seizure disorder Will need close outpatient follow-up with neurology for further adjustment of medications Neurology recommends decrease patient's benzodiazepine dose, to prevent delirium, unresponsiveness Has been on 1 mg scheduled dose every 6 hours- Cussed with patient's daughter at bedside, daughter at and adamantly refused to have any adjustment of Ativan dose for the patient Says " she has been on that 1 mg every 6 hours Ativan dose for years/and it has worked well for her anxiety" Does not want to have any change She already spoke with patient's physician at [facility] that : changing Ativan dose is non-negotiable pt is discharged with prior dose of Ativan 1 mg PO QID scheduled (4) Seizure disorder: Daughter reports possible seizure on 09/17/2019 described as "staring off" episode Dilantin discontinued secondary to multiple drug interaction Continue on Keppra 750 mg twice daily( increase dose ) -Seizure precautions -Neurology consult-appreciate input-Dilantin D/yong (5) Cerebrovascular disease: -Continue Aggrenox (6) Thalassemia minor: (7) Chronic anemia: due to above Hgb: 9.8. Baseline hemoglobin in the 9's - (8) Anxiety and depression: -Continue venlafaxine, Ativan prn DNR /DNI DVT prophylaxis: On SCD and teds DISPOSITION Follows with Dr Mak at [facility] for routine care return back to personal longterm today Daughter updated at baseline (9) History of breast cancer: h/o breast CA to right breast 40 years ago s/p R mastectomy with recurrence left chest s/p chest radiation and currently on Faslodex every month Total Time Total Time Spent Total Time Spent (In Minutes): approx 40 mins Total Time Includes: Examination of the Patient, Discharge Planning and Medication Reconciliation Discharge Plan Discharge Items Patient Disposition: Personal Jail Reason For Visit: AMS Discharge Diagnosis: changed mental status , confusion , symptom has resolved /copd exacerbation - resolved Activity: Resume your previous activity Non-emergency contact: Primary Care Provider Call non-emergency contact if: you have any medication questions Follow-up/Referrals: LUCAS VELAZQUEZ [Primary Care Provider] - Diet: Heart Healthy Addtl Attending Provider Instructions: CHANGED MEDICATIONS : DILANTIN IS DISCONTINUED KEPPRA DOSE INCREASED TO 750 MG TWICE DAILY FOLLOW UP WITH NEUROLOGY DR PANDEY IN 1 WEEK FOR FURTHER MEDICATION ADJUSTMENT IF NEEDED Pending Studies at Discharge: No Stand-Alone Forms: Oatmeal, Smoking Cessation Skilled Items Patient informed of condition?: Yes DNR: Yes Discharge Level of Care: Other Communicable Disease: No Discharge Prognosis: Stable Lines: None Urinary Catheter: No Medications and DC Order Prescriptions: Continued metoprolol tartrate 25 mg tablet 25 mg PO BIDM RF: 0 TheraTears 0.25 % drops 1 drops OP QID PRN (Reason: Dry Eye(S)) RF: 0 amiodarone 200 mg tablet 400 mg PO BID RF: 0 (DME) Oxygen Home Liters Per Minute See Dose Instructions .ROUTE .MEDSUPPLY Qty: 1 RF: 0 aspirin-dipyridamole [Aggrenox] 25-200 mg capsule, ER multiphase 12 hr 1 cap PO BID RF: 0 ipratropium-albuterol 0.5 mg-3 mg(2.5 mg base)/3 mL solution for nebulization 3 ml inhalation Q6 PRN (Reason: Shortness Of Breath) RF: 0 polyethylene glycol 3350 [Miralax] 17 gram Powder In Packet 17 g PO QAM RF: 0 cetirizine [Zyrtec] 10 mg Tablet 10 mg PO QAM RF: 0 ondansetron HCl [Zofran] 4 mg tablet 4 mg PO Q6 PRN (Reason: Nausea) RF: 0 sennosides-docusate sodium [Senna-S] 8.6-50 mg Tablet 2 tab PO QAM RF: 0 venlafaxine [Effexor XR] 150 mg capsule,extended release 24hr 150 mg PO QAM RF: 0 lorazepam [Ativan] 0.5 mg tablet 0.5 mg PO Q6 PRN (Reason: Anxiety) RF: 0 esomeprazole magnesium [Nexium] 40 mg capsule,delayed release(DR/EC) 40 mg PO QAM RF: 0 calcium carbonate [Tums] 200 mg calcium (500 mg) Tablet,Chewable 500 mg PO Q4 PRN (Reason: Dyspepsia) RF: 0 nitroglycerin [Nitrostat] 0.4 mg tablet, sublingual 0.4 mg sublingual UD PRN (Reason: Chest Pain) RF: 0 lorazepam [Ativan] 1 mg tablet 1 mg PO QID RF: 0 fluticasone propionate [Flonase Allergy Relief] 50 mcg/actuation spray,suspension 1 spray intranasal QAM RF: 0 Therems-M 27-0.4 mg Tablet 1 tab PO QAM RF: 0 biotin 1 mg Tablet 1 mg PO BID RF: 0 acetaminophen [Tylenol] 325 mg Capsule 650 mg PO Q4 MDD 3 GRAMS/24 HOURS. PRN (Reason: Fever Or Pain) RF: 0 cholecalciferol (vitamin D3) [Vitamin D3] 2,000 unit Capsule 2,000 unit PO QAM RF: 0 diphenhydramine HCl [Banophen] 25 mg Tablet 25 mg PO Q6H PRN (Reason: Allergy Symptoms) RF: 0 Changed levetiracetam [Keppra] 500 mg tablet 750 mg PO BID Qty: 0 RF: 0 Discontinued phenytoin sodium extended [Dilantin Extended] 100 mg capsule 100 mg PO .COMPLEX RF: 0 Dilantin 30 mg capsule 60 mg PO QAM RF: 0 Discharge Orders: Discharge Order (Routine); Ordered 09/29/19 Ordered By: Cinda Andre Admission Data Admit Date/Time: 09/25/19 15:03 Attending Provider: Cinda Andre Admit Provider: Best Garcia Primary Care Provider: LUCAS VELAZQUEZ Other Providers: Best Garcia ; Mike Saravia ; Berta Atkins Other Interventions: Discharge Summary Assessment (RN) Last Done: 09/29/19 12:49 DC Date/Time DO NOT enter until pt leaves facility: 09/29/19 13:29
== END 2019-09-29 13:29 | disposition home or self-care (01) | DRG 917 ==
LOC: ED 10:53 → SUATTDRO 15:03 → 1E 15:03 → 2N 09-26 10:00

== ENCOUNTER 2019-10-15 08:26 | Inpatient (IN) ==
--- NOTE | 2019-10-15 08:59 | CT Scan Report ---
CT SCAN OF THE BRAIN WITHOUT IV CONTRAST CLINICAL HISTORY: Fall. Left eye pain. COMPARISON STUDY: CT of the brain dated 09/25/2019. TECHNIQUE: Unenhanced axial CT scan of the brain is performed from the vertex to the skull base. A do se lowering technique was utilized adhering to the principles of ALARA. The Examination is degraded b y motion artifact. The patient was scanned twice in an effort to improve image quality. FINDINGS: Brain parenchyma: Bilateral occipital encephalomalacia is unchanged. There are age-related involution al changes noting advanced subcortical and periventricular microangiopathic change. There is no hemo rrhage, mass effect, or evidence of acute territorial ischemia by CT criteria. Guevara-white matter diff erentiation is preserved. No extra-axial fluid collection is seen. Ventricles, sulci, cisterns: Prominent secondary to involutional change. Intracranial vasculature: There is atherosclerotic calcification of the cavernous carotid and vertebr al arteries. Calvarium: The skeletal structures are osteopenic. No depressed calvarial fracture is identified. The re are right frontal and right parietal norman holes. Soft tissues: There is left frontal and left periorbital scalp contusion. Sinuses and mastoids: There is a small air-fluid level in the left maxillary antrum. Trace fluid is a lso seen in the sphenoid sinuses and the frontal sinuses. Mild mucosal thickening is noted in the eth moid sinuses. The mastoid air cells are well pneumatized. Orbits: The bony orbits are grossly intact. There are bilateral ocular lens implants. IMPRESSION: 1. There is no hemorrhage, mass effect, or evidence of acute territorial ischemia by CT criteria noti ng a motion degraded examination. 2. Chronic/senescent and postoperative changes as above. ACT 112: Negative or not required by law. Electronically signed by: Deshawn Martin M.D. 10/15/2019 8:58 AM
--- NOTE | 2019-10-15 09:06 | CT Scan Report ---
CT SCAN OF THE CERVICAL SPINE CLINICAL HISTORY: Trauma. Fall. COMPARISON STUDY: CT of the cervical spine dated 08/17/2019. TECHNIQUE: CT scan of the cervical spine is performed from the skull base to the upper thoracic spine . Images are reviewed in the axial, sagittal, and coronal planes. IV contrast was not administered fo r this examination. A dose lowering technique was utilized adhering to the principles of ALARA. FINDINGS: Skeletal structures: The skeletal structures are osteopenic. There is no evidence of fracture or subl uxation involving the cervical spine. Vertebral body height is maintained. There is minimal anterolis thesis at C3-C4. Minimal retrolisthesis is noted at C5-C6. There is straightening of the cervical harrison dosis with mild reversal centered at C4-C5. Anterior osteophytes are seen throughout. The odontoid pr ocess and lateral masses are intact. The atlantoaxial articulation is preserved noting advanced produ ctive degenerative change. The spinous processes appear intact. There is a minimal chronic superior e ndplate compression deformity of T3. There is moderate multilevel cervical spondylosis. Uncovertebral and facet arthropathy contribute to neural foraminal stenosis at several levels. Intervertebral discs: There is advanced disc space narrowing seen at C4-C5, C5-C6, C6-C7, and C7-T1. Central canal: Posterior disc osteophyte complexes at C3-C4, C4-C5, and C5-C6 likely contribute to mu ltilevel acquired compromise the central canal. Soft tissues: The prevertebral and paraspinous soft tissues are within normal limits. There is advanc ed atherosclerotic calcification of the carotid bulbs. Calvarium: The visualized calvarium at the skull base appears intact. Brain parenchyma: Partially visualized brain parenchyma the skull base is within normal limits. Sinuses and mastoids: There is trace fluid in the sphenoid sinuses. The mastoid air cells are well pn eumatized. Lung apices: Advanced and edematous change is noted. Airspace consolidation is seen at the left apex. Diffuse intralobular septal thickening is noted. IMPRESSION: 1. There is no evidence of fracture or subluxation involving the cervical spine. 2. Osteopenia and spondylotic change as above. 3. Emphysema. 4. Intralobular septal thickening at the lung apices suggests congestive failure. Clinical correlatio n will be required. 5. Airspace consolidation is seen at the left apex. Correlate clinically for evidence of pneumonia/as piration pneumonitis versus a component of pulmonary edema. ACT 112: Negative or not required by law. Electronically signed by: Deshawn Martin M.D. 10/15/2019 9:04 AM
[2019-10-15 09:13] LABS: Basophils # (auto) 0.01 K/uL (0-0.2); Basophils % (auto) 0.1 %; Hematocrit (blood only) 27.2 % (37-47); Hemoglobin 8.3 g/dL (12.0-16.0); Immature Granulocytes # (auto) 0.01 K/uL (0.00-0.02); Immature Granulocytes % (auto) 0.1 %; Lymphocytes # (auto) 0.36 K/uL (1.2-3.4); Lymphocytes % (auto) 5.2 %; Mean Corpuscular Hemoglobin 23.1 pg (25-34); Mean Corpuscular Hgb Conc 30.5 g/dL (32-36); Mean Corpuscular Volume 75.6 fL (80-100); Mean Platelet Volume 9.1 fL (7.4-10.4); Monocytes # (auto) 0.35 K/uL (0.11-0.59); Monocytes % (auto) 5.1 %; Neutrophils # (auto) 6.17 K/uL (1.4-6.5); Neutrophils % (auto) 89.5 %; Nucleated RBC # (auto) 0.03 K/uL (0-0); Nucleated RBC % (auto) 0.5 %; Platelet Count 160 K/uL (130-400); RDW Coefficient of Variation 16.2 % (11.5-14.5); RDW Standard Deviation 44.1 fL (36.4-46.3)
--- NOTE | 2019-10-15 09:13 | CT Scan Report ---
CT facial bones wo con CT DOSE: 2314.64 mGy.cm HISTORY: Trauma. Pain. Pt c/o fall, left eye pain TECHNIQUE: Multiaxial CT images of the maxillofacial region were performed and reformatted in the cor onal plane without the use of contrast. A dose lowering technique was utilized adhering to the princ iplAjith. COMPARISON: None. FINDINGS: The visualized cervical spine, skull base, pterygoid plates, nasal bones, lamina papyracea, orbital floors, mandible, and zygomatic arches are intact. No fractures. The orbits are unremarkable . IMPRESSION: No fractures within the maxillofacial region. ACT 112: Negative or not required by law. The above report was generated using voice recognition software. It may contain grammatical, syntax or spelling errors. Electronically signed by: Cecilio Belcher M.D. 10/15/2019 9:12 AM
[2019-10-15 09:23] LABS: INR 1.1 (0.9-1.1); Partial Thromboplastin Ratio 0.9; Partial Thromboplastin Time 25.6 Seconds (21.0-31.0); Prothrombin Time 11.1 Seconds (9.0-12.0)
[2019-10-15 09:29] LABS: BUN Creatinine Ratio 26.1 (10-20); Calcium 9.4 mg/dl (8.5-10.1); Creatinine Clr Calc Pharmacy 51.7 ml/min; Est GFR (African American) 82.2; Est GFR (Non-African American) 70.9; Potassium 4.1 mmol/L (3.5-5.1)
[2019-10-15] MEDS ORDERED: FUROSEMIDE 40 MG/4 ML VIAL IV STA (09:44)
[2019-10-15] MEDS ORDERED: ACETAMINOPHEN 1,000 MG/100 ML VIAL IV STA (09:45)
[2019-10-15 09:51] LABS: Creatine Kinase MB 4.9 ng/ml (0.5-3.6); Troponin I 0.124 ng/ml (0-0.045)
--- NOTE | 2019-10-15 09:56 | XRay Report ---
XR shoulder LT min 2V routine HISTORY: 84 years-old Female Pt c/o left shoulder pain acute left shoulder pain COMPARISON: Chest radiograph of same day TECHNIQUE: 2 views of the left shoulder FINDINGS: Demineralized appearance the bones. Moderate glenohumeral and AC joint osteoarthritis. There is no ac nightmute fracture, dislocation or opaque foreign body. Suspected minimal rotator cuff calcific tendinosis. Arterial vascular calcifications are noted. Calcified plaque of the thoracic aorta. Mixed interstiti al and alveolar opacities throughout the left lung with cardiomegaly. IMPRESSION: No acute fracture or dislocation. ACT 112: Negative or not required by law. The above report was generated using voice recognition software. It may contain grammatical, syntax o r spelling errors. Electronically signed by: Reyes Kaur M.D. 10/15/2019 9:54 AM
--- NOTE | 2019-10-15 09:58 | XRay Report ---
XR chest 1V portable HISTORY: 84 years-old Female Pt c/o left shoulder pain . Atypical chest pain with left shoulder pain COMPARISON: Chest radiograph 09/25/2019, CT cervical spine 10/15/2019 TECHNIQUE: Portable AP view of the chest FINDINGS: Cardiac silhouette is enlarged. Chronic right hemidiaphragmatic elevation. Calcifications of the mitr al annulus with calcified plaque of the thoracic aorta. Trace pleural effusions. No pneumothorax. Pul monary vascular congestion with interstitial coarsening. Emphysema. Mixed interstitial and alveolar o pacities of the left midlung and left upper lobe with minimal right basilar consolidation. Surgical c lips of the right axillary distribution. Sigmoidal scoliosis of the spine with degenerative changes o f the shoulders and spine. IMPRESSION: 1. Cardiomegaly with pulmonary edema and trace pleural effusions. 2. Patchy left mid lung, left upper lobe and right lung base airspace opacities are suggestive of asy mmetric pulmonary edema versus pneumonia. 3. Emphysema. ACT 112: Negative or not required by law. The above report was generated using voice recognition software. It may contain grammatical, syntax o r spelling errors. Electronically signed by: Reyes Kaur M.D. 10/15/2019 9:57 AM
--- NOTE | 2019-10-15 10:00 | XRay Report ---
SINGLE VIEW PELVIS CLINICAL HISTORY: Fall. Left pelvic pain. FINDINGS: 2 AP supine pelvic radiographs are compared to study dated 06/04/2017 and correlated with pe lvic CT dated 08/17/2019. The skeletal structures are osteopenic. There is no radiographic evidence of acute fracture involving the hips or bony pelvis. There is chronic posttraumatic deformity of the pu bic ring bilaterally. A bipolar right hip arthroplasty is in near anatomic alignment. No periprosthet ic lucency is identified. Moderate joint space narrowing is seen in the left hip. There is degenerati ve sclerosis of the sacroiliac joints. Lumbosacral spondylosis is partially visualized. There is adva nced atherosclerotic calcification of the abdominal aorta Arteries. No bowel obstruction is seen. The overlying soft tissues are normal as visualized. IMPRESSION: No acute osseous abnormality is identified. Electronically signed by: Deshawn Martin M.D. 10/15/2019 9:58 AM
[2019-10-15 10:17] LABS: Appearance Urine Clear (Clear); Bilirubin Urine Negative (Negative); Blood Urine Negative (Negative); Color Urine Yellow; Glucose Urine UA Negative (Negative); Ketones Urine Negative (Negative); Leukocyte Esterase Urine Negative (Negative); Nitrite Urine Negative (Negative); Protein Urine Negative (Negative); Specific Gravity Urine 1.015 (1.000-1.030); Urobilinogen Urine Negative (Negative); pH Urine 7.5 (4.5-7.5)
--- NOTE | 2019-10-15 11:23 | History & Physical Report ---
Date of Service October 15, 2019 Assessment & Plan (1) Acute on chronic respiratory failure: This is an 84-year-old female from [facility] with a PMH of chronic hypoxic respiratory failure on 2-3L NC, paroxysmal atrial fibrillation, COPD, history of recent pneumonia, seizure disorder, history of stroke, depression and anxiety and other medical problems listed below who presents after fall at facility this morning and was found to have acute on chronic respiratory failure with hypoxia and hypercapnia, metabolic encephalopathy and evidence of pulmonary edema on CXR. -After fall this morning, found to have acute hypoxia in the 80s while on baseline 3 L nasal cannula O2 -Initially required 15 L/min oxygen mask to maintain saturation above 90%, but now 93% on oxygen mask at 3 L -ABG ordered due to encephalopathy and concern for CO2 retention. Results show respiratory acidosis with pH of 7.32, pCO2 of 75, HCO3 of 38 -Will initiate BiPAP with plans for repeat in 4 hours -Keep NPO while on BiPAP (2) Metabolic encephalopathy: In the setting of acute on chronic hypoxic and hypercapnic respiratory failure -On BiPAP now- expect improvement of mentation -CT head without any acute findings, UA negative, chest x-ray with evidence of airspace opacities suggesting possible pneumonia but does not appear clinically consistent with PNA. Follow blood cultures -Has been recommended by neurology to wean chronic Ativan 1mg QID plus PRN dosing but family is not interested in this - counseled that it could be contributing to overall confusion (3) Acute decompensated heart failure: No documented history of heart failure. Most recent 2D echo from 2017 with preserved EF, no evidence of diastolic dysfunction -BNP elevated at 7050. Crackles on pulmonary exam. No peripheral edema or documented weight gain at [facility] (weighed 3x in past week without gain) -CXR with cardiomegaly with pulmonary edema and trace pleural effusions and patchy left mid lung, left upper lobe and right lung base airspace opacities are suggestive of asymmetric pulmonary edema vs PNA -Considering PNA but no reported fever, cough, wheezing. No leukocytosis. Procalcitonin and lactic acid WNL. Blood cultures obtained - continue to follow -Given 40mg IV Lasix in ED. Strict intake & output, daily weights, 2D echo ordered -[place]ine [place] [facility] [place]. Appreciate recommendations (4) Elevated troponin: Initial troponin elevated 0.124. No history of troponin elevation in the past -No evidence of acute ischemic change on EKG. No chest pain -Trend troponin, monitor on telemetry (5) Frequent falls: Continue PT/OT, fall precautions (6) Seizure disorder: Dilantin was discontinued on 09/25 due to possible medication interaction with amiodarone -Continue Keppra 750 mg twice daily. No recent witnessed seizures (7) Hypertension: Continue Lopressor (8) Paroxysmal atrial fibrillation: Amiodarone dose decreased last week per [facility] [place] from 400 to 200 mg daily -Not on anticoagulation due to history of frequent falls, h/o remote subdural hematoma, chronic anemia (9) COPD (chronic obstructive pulmonary disease): Ipratropium-albuterol neb PRN on outpatient med list -Seems to have chronic respiratory acidosis at baseline - on 3L NC O2 (10) History of stroke: Continue aggrenox for h/o stroke (11) Chronic anemia: Hgb of 8.3 (baseline ~9-9.5) -No evidence of active bleeding. Continue to monitor CBC (12) Depression with anxiety: Continue SNRI, holding ativan while in respiratory failure on BiPAP DVT Ppx: SCDs for now Code status: DNR per POLST form (on paper chart), per discussion with daughter at bedside PCP: Obdulio Dispo: Admitted to PCU. Discharge planning, PT and OT ordered. Patient seen in collaboration with Dr. Caballero. Please see addendum. History of Present Illness Chief Complaint: Acute on chronic hypoxic respiratory failure, confusion, fall Primary Care Provider: Antoine Mak This is an 84-year-old female from [facility] with a PMH of chronic hypoxic respiratory failure on 2-3L NC, paroxysmal atrial fibrillation, COPD, history of recent pneumonia, seizure disorder, history of stroke, depression and anxiety and other medical problems listed below who presents after fall at facility this morning. Patient has complicated recent medical history requiring multiple hospital admissions. Was initially admitted to [facility] in [place] in August for pneumonia and new onset atrial fibrillation. During admission, patient was started on amiodarone. Was admitted to [facility] from Sep 25- for metabolic encephalopathy and Dilantin level was elevated. Was evaluated by neurology and decision was made to discontinue Dilantin due to possible medication reaction with amiodarone. Keppra dose was increased to 750mg BID by Dr. Atkins on 09/25. Since discharge, patient followed up [place] [facility] [place] on 10/08/18 for bradycardia and had amiodarone dose decreased from 400 to 200 mg daily. Has also been seen by [facility] [place] with plan to continue new Keppra dose of 750mg BID. Also takes 1 mg lorazepam 4 times daily for many years with additional PRN dosing. Per note, neurology discussed weaning patient off of this medication, however family refused. Was also recommended to decrease taking medications like Benadryl that could contribute to worsening mental status. Has continued to suffer from more frequent falls, with 3 falls noted since the weekend by [facility] hern[facility]. Falls are attributed to advanced age, balance impairment, oxygen use, history of stroke, memory impairment, etc. Ambulates with walker and has had increased supervision at assisted living. Has also been participating in PT. This morning, nursing staff heard yelling out from patient around 0730 and went to her room, finding her lying on the ground next to her bed. It looked to staff although she got tangled up in sheets. Upon further questioning, patient seemed lethargic and unable to appropriately answer staff questions, so she was sent to ED for further evaluation. Unable to obtain ROS due to patient's current cognitive state. Allergies Allergy/AdvReac Type Severity Reaction Status Date / Time morphine Allergy Mild itching Verified 10/15/19 08:40 Home Medications Home Medications Medication Instructions Recorded Confirmed Type Chasity-M 1 tab PO QAM 03/11/19 10/15/19 History acetaminophen [Tylenol] 650 mg PO Q4 PRN MDD 3 GRAMS/24 03/11/19 10/15/19 History HOURS. aspirin-dipyridamole [Aggrenox] 1 cap PO BID 03/11/19 10/15/19 History biotin 1 mg PO BID 03/11/19 10/15/19 History calcium carbonate [Tums] 500 mg PO Q4 PRN 03/11/19 10/15/19 History cetirizine [Zyrtec] 10 mg PO QAM 03/11/19 10/15/19 History cholecalciferol (vitamin D3) 2,000 unit PO QAM 03/11/19 10/15/19 History [Vitamin D3] esomeprazole magnesium [Nexium] 40 mg PO QAM 03/11/19 10/15/19 History fluticasone propionate [Flonase 1 spray INTRANASAL QAM 03/11/19 10/15/19 History Allergy Relief] ipratropium-albuterol 3 ml INHALATION Q6 PRN 03/11/19 10/15/19 History lorazepam [Ativan] 0.5 mg PO Q6 PRN 03/11/19 10/15/19 History lorazepam [Ativan] 1 mg PO QID 03/11/19 10/15/19 History nitroglycerin [Nitrostat] 0.4 mg SUBLINGUAL UD PRN 03/11/19 10/15/19 History ondansetron HCl [Zofran] 4 mg PO Q6 PRN 03/11/19 10/15/19 History polyethylene glycol 3350 [Miralax] 17 g PO QAM 03/11/19 10/15/19 History sennosides-docusate sodium 2 tab PO QAM 03/11/19 10/15/19 History [Senna-S] Oxygen Home #1 ea 05/29/19 10/13/19 History carboxymethylcellulose sodium 0.25 1 drops OP QID PRN 09/19/19 10/15/19 History % eye drops levetiracetam [Keppra] 750 mg PO BID #0 tab 09/27/19 10/15/19 Rx amiodarone 200 mg tablet 200 mg PO QAM 10/08/19 10/15/19 History metoprolol tartrate 25 mg tablet 25 mg PO BID tab 10/13/19 10/15/19 History venlafaxine 150 mg PO QAM 10/15/19 10/15/19 History Past Med/Surg History Medical History Breast cancer (Resolved) "Status post biopsy of left breast mass 12/07/2015 Lobular carcinoma, grade 1 Estrogen receptor positive, progesterone receptor positive, 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 Treatment was completed October 29, 2017. She received 6640 cGy" On 07/26/17 16:45 Neli Alfonso Nguyen wrote "Status post biopsy of left breast mass 12/07/2015 Lobular carcinoma, grade 1 Estrogen receptor positive, progesterone receptor positive, HER-2/filiberto negative Status post mastectomy and sentinel lymph node biopsy 02/03/2016 Stage pT3 pN1a M0, lymphovascular invasion Biopsy-proven chest wall recurrence 07/04/2017" Chronic anemia (Chronic) COPD (chronic obstructive pulmonary disease) (Chronic) DJD (degenerative joint disease) of hip (Acute) Frequent falls (Acute) Hematuria History of breast cancer (Chronic) History of nephrolithiasis (Chronic) History of stroke (Chronic) History of subdural hematoma (Chronic) Hypertension (Chronic) Mitral regurgitation (Chronic) Paroxysmal atrial fibrillation (Chronic) Seizure disorder (Chronic 04/25/13) Thalassemia minor (Chronic) Surgical History H/O brain surgery S/P hip replacement Status post section (Chronic) Status post mastectomy (Chronic) Family History Mother Breast cancer Cardiac disorder Father Cardiac disorder Social History Preferred Language: Tunisian Communication Ability: Impaired Cartoon Designer Required: No Beliefs That Will Affect Care: None marital status: / Current Living Situation: Personal Care Facility Current Living Situation Comment: [facility] Other Information That Helps Us Care for You: No Feels Safe at Home: Yes Safety Concerns: Feels Safe At This Time Smoking Status: Former smoker Smoking End Date: 2009 ; Second Hand Exposure: No ; Hx Alcohol Use: Yes Alcohol type: wine Hx Substance Use: No Review of Systems Review of Systems: Unobtainable due to cognitive status Physical Exam Physical Exam: General Appearance: WD/WN, vitals as above, frail, lethargic but responsive to sternal rub, intermittent verbal stimuli, saturating at 99% on 3 L oxygen mask Head: normocephalic, atraumatic Eyes: normal inspection, PERRL, conjunctivae normal, anicteric sclerae ENT: external ear and nose normal, oropharynx normal Neck: trachea midline, no thyromegaly normal visual inspection Respiratory: normal respiratory effort, lungs bibasilar Rales, scattered rhonchi. Normal insp/exp effort, no accessory muscle use Cardiovascular: regular rate, rhythm, no murmur appreciated, normal peripheral pulses, trace BLE edema. Vessels: no JVD Chest: normal inspection of chest Abdomen/GI: normal bowel sounds, soft, nontender, no hepatosplenomegaly Extremities/Musculoskelatal: no cyanosis or clubbing, extremities motor strength 5/5 Neurologic: PERRL, CN's II-XI grossly intact and moves all extremities Psychiatric: Lethargic, able to answer some yes or no questions, agitated Skin: no rashes, normal color, warm/dry. Skin tear on anterior right busch. No purulent drainage or surrounding warmth Results & Data Vital Signs (Past 12 Hours) Vital Signs Temp Pulse Resp BP Pulse Ox 10/15/19 10:30 70 22 160/75 H 100 10/15/19 10:00 80 20 188/86 H 97 10/15/19 09:30 78 17 189/92 H 100 10/15/19 09:29 78 19 184/85 H 100 10/15/19 09:00 83 21 181/93 H 98 10/15/19 08:59 83 30 H 190/96 H 98 10/15/19 08:55 83 22 200/83 H 100 10/15/19 08:37 36.6 C 92 H 20 179/84 H 94 Laboratory Results Short CBC 10/15/19 10/15/19 10/15/19 Range/Units 08:56 08:56 08:56 WBC 6.90 (4.8-10.8) K/uL RBC 3.60 L (4.2-5.4) M/uL Hgb 8.3 L (12.0-16.0) g/dL Hct 27.2 L (37-47) % MCV 75.6 L (80-100) fL MCH 23.1 L (25-34) pg MCHC 30.5 L (32-36) g/dL RDW Std Deviation 44.1 (36.4-46.3) fL RDW Coeff of Gray 16.2 H (11.5-14.5) % Plt Count 160 (130-400) K/uL MPV 9.1 (7.4-10.4) fL Immature Gran % (Auto) 0.1 % Neut % (Auto) 89.5 % Lymph % (Auto) 5.2 % Laurel % (Auto) 5.1 % Eos % (Auto) 0.0 % Baso % (Auto) 0.1 % Immature Gran # (Auto) 0.01 (0.00-0.02) K/uL Neut # (Auto) 6.17 (1.4-6.5) K/uL Lymph # (Auto) 0.36 L (1.2-3.4) K/uL Laurel # (Auto) 0.35 (0.11-0.59) K/uL Eos # (Auto) 0.00 (0-0.5) K/uL Baso # (Auto) 0.01 (0-0.2) K/uL Absolute Nucleated RBC 0.03 H (0-0) K/uL Nucleated RBC % (auto) 0.5 % PT 11.1 (9.0-12.0) Seconds INR 1.1 (0.9-1.1) APTT 25.6 (21.0-31.0) Seconds PTT Ratio 0.9 Sodium 141 (136-145) mmol/L Potassium 4.1 (3.5-5.1) mmol/L Chloride 103 (98-107) mmol/L Carbon Dioxide 37 H (21-32) mmol/L Anion Gap 1.0 L (3-11) BUN 20 H (7-18) mg/dl Creatinine 0.77 (0.6-1.2) mg/dl Est Cr Clr Drug Dosing 51.7 ml/min Est GFR ( Amer) 82.2 Est GFR (Non-Af Amer) 70.9 BUN/Creatinine Ratio 26.1 H (10-20) Glucose 140 H (70-99) mg/dl Calcium 9.4 (8.5-10.1) mg/dl Total Creatine Kinase (26-192) U/L CK-MB (CK-2) (0.5-3.6) ng/ml CK/CKMB % Calc (0-3.0) Troponin I (0-0.045) ng/ml NT-Pro-B Natriuret Pep (0-1800) pg/ml Urine Color Urine Appearance (Clear) Urine pH (4.5-7.5) Ur Specific [place] (1.000-1.030) Urine Protein (Negative) Urine Glucose (UA) (Negative) Urine Ketones (Negative) Urine Blood (Negative) Urine Nitrite (Negative) Urine Bilirubin (Negative) Urine Urobilinogen (Negative) Ur Leukocyte Esterase (Negative) Blood Type Antibody Screen 10/15/19 10/15/19 10/15/19 Range/Units 08:56 09:55 10:11 WBC (4.8-10.8) K/uL RBC (4.2-5.4) M/uL Hgb (12.0-16.0) g/dL Hct (37-47) % MCV (80-100) fL MCH (25-34) pg MCHC (32-36) g/dL RDW Std Deviation (36.4-46.3) fL RDW Coeff of Gray (11.5-14.5) % Plt Count (130-400) K/uL MPV (7.4-10.4) fL Immature Gran % (Auto) % Neut % (Auto) % Lymph % (Auto) % Laurel % (Auto) % Eos % (Auto) % Baso % (Auto) % Immature Gran # (Auto) (0.00-0.02) K/uL Neut # (Auto) (1.4-6.5) K/uL Lymph # (Auto) (1.2-3.4) K/uL Laurel # (Auto) (0.11-0.59) K/uL Eos # (Auto) (0-0.5) K/uL Baso # (Auto) (0-0.2) K/uL Absolute Nucleated RBC (0-0) K/uL Nucleated RBC % (auto) % PT (9.0-12.0) Seconds INR (0.9-1.1) APTT (21.0-31.0) Seconds PTT Ratio Sodium (136-145) mmol/L Potassium (3.5-5.1) mmol/L Chloride (98-107) mmol/L Carbon Dioxide (21-32) mmol/L Anion Gap (3-11) BUN (7-18) mg/dl Creatinine (0.6-1.2) mg/dl Est Cr Clr Drug Dosing ml/min Est GFR ( Amer) Est GFR (Non-Af Amer) BUN/Creatinine Ratio (10-20) Glucose (70-99) mg/dl Calcium (8.5-10.1) mg/dl Total Creatine Kinase 115 (26-192) U/L CK-MB (CK-2) 4.9 H (0.5-3.6) ng/ml CK/CKMB % Calc 4.3 H (0-3.0) Troponin I 0.124 H* (0-0.045) ng/ml NT-Pro-B Natriuret Pep 7050 H (0-1800) pg/ml Urine Color Yellow Urine Appearance Clear (Clear) Urine pH 7.5 (4.5-7.5) Ur Specific [place] 1.015 (1.000-1.030) Urine Protein Negative (Negative) Urine Glucose (UA) Negative (Negative) Urine Ketones Negative (Negative) Urine Blood Negative (Negative) Urine Nitrite Negative (Negative) Urine Bilirubin Negative (Negative) Urine Urobilinogen Negative (Negative) Ur Leukocyte Esterase Negative (Negative) Blood Type O Positive Antibody Screen NEGATIVE BMP 10/15/19 08:56 Sodium 141 Potassium 4.1 Chloride 103 Carbon Dioxide 37 H BUN 20 H Creatinine 0.77 Glucose 140 H Calcium 9.4 Cardiac Enzymes 10/15/19 Range/Units 08:56 Total Creatine Kinase 115 (26-192) U/L CK-MB (CK-2) 4.9 H (0.5-3.6) ng/ml Troponin I 0.124 H* (0-0.045) ng/ml Urine 10/15/19 Range/Units 09:55 Urine Color Yellow Urine Appearance Clear (Clear) Urine pH 7.5 (4.5-7.5) Ur Specific [place] 1.015 (1.000-1.030) Urine Protein Negative (Negative) Urine Glucose (UA) Negative (Negative) Diagnostic Findings Head CT: IMPRESSION: 1. There is no hemorrhage, mass effect, or evidence of acute territorial ischemia by CT criteria noting a motion degraded examination. 2. Chronic/senescent and postoperative changes as above. Cervical spine CT: IMPRESSION: 1. There is no evidence of fracture or subluxation involving the cervical spine. 2. Osteopenia and spondylotic change as above. 3. Emphysema. 4. Intralobular septal thickening at the lung apices suggests congestive failure. Clinical correlation will be required. 5. Airspace consolidation is seen at the left apex. Correlate clinically for evidence of pneumonia/aspiration pneumonitis versus a component of pulmonary edema. Face CT: IMPRESSION: No fractures within the maxillofacial region. CXR: IMPRESSION: 1. Cardiomegaly with pulmonary edema and trace pleural effusions. 2. Patchy left mid lung, left upper lobe and right lung base airspace opacities are suggestive of asymmetric pulmonary edema versus pneumonia. 3. Emphysema. Shoulder XR left: IMPRESSION: No acute fracture or dislocation. Pelvis XR: IMPRESSION: No acute osseous abnormality is identified. ECG Findings: + other (LVH) and + 1st degree AV block Code Status & VTE Plan VTE Prophylaxis Plan VTE Prophylaxis will be ordered: Yes Supervising Physician Co-Signing Physician Notes Pt seen and examined on admission in the ED room B10, care coordinated with Alejandra Damon PA-C.Please refer to her note above for further detail. Pt is an 84 y/o F w/ above complex medical hx who presents after fall. Pt did not seem to loose consciousness as she was reportedly yelling for staff when she fell. Hx of recent multiple hosp. admissions, hx of altered mental status, s/p multiple falls (also hx of subdural hematoma and therefore not on any AC). In the past week seen as outpt in cardiology and neurology clinic. Pt on chronic ativan (besides other medications). In the ED pt is barely responsive, pt's daughter present at the bedside. Neither pt nor daughter can provide pertinent hx, hx obtained from staff at [facility]. However daughter reports visiting the pt day prior and states that pt felt well and was mentally at her baseline, able to communicate, even went for a walk together. Currently pt is laying in bed on NC, difficult to arouse. Physical exam sign. for crackles, no wheezes. Pt has an abrasion on her LLE (seems new d/t fall), also has an abrasion on the left upper face. No hx of fevers, no WBC elevation, per daughter no hx of cough. CXR sign. for poss. pulm. edema vs PNA. BNP elevated, trop also elevated. Pt received 40 mg IV lasix in the ED and responded well. Cardiology was consulted, not likely ACS. Trop elevation most likely d/t demand ischemia. Plan to hold further diuretic until re-evaluation tomorrow. Beta rodriguez dose reduced. Given pt's mental status stat ABG was obtained which confirmed respiratory acidosis / CO2 retention and BiPAP was initiated. Abx not started at this time as procal, WBC, lactate wnl. Will cont. to closely monitor and will re-assess as needed. Update: Pt seen again on the floor in room E202, in the afternoon. She is on BiPAP, awake and alert. Answers most questions appropriately. This is very significant clinical improvement. Will cont. to closely monitor. Also, check I/Os, daily weights for management of acute chf. (1) COPD (chronic obstructive pulmonary disease) COPD type: COPD with acute exacerbation Qualified Code(s): J44.1 - Chronic obstructive pulmonary disease with (acute) exacerbation
[2019-10-15 12:30] LABS: Allen Test Pos (Pos); Base Excess ABG 10.1 mEq/L (-9-1.8); HCO3 ABG 38 mmol/L (19-24); Oxygen Saturation ABG 95.3 % (90-95); PCO2 ABG 75 mmHg (35-46); PO2 ABG 89 mmHg (80-95); pH ABG 7.32 (7.35-7.45)
[2019-10-15] MEDS ORDERED: POLYETHYLENE (MIRALAX) 17 GM PACK PO PRN (12:51)
[2019-10-15] MEDS ORDERED: ACETAMINOPHEN 325 MG TAB PO PRN ×2 (12:51→12:54)
[2019-10-15] MEDS ORDERED: CALCIUM CARBONATE 500 MG CHEWABLE TAB PO PRN (12:51)
[2019-10-15] MEDS ORDERED: ALBUT/IPRATROP 3MG/0.5MG NEB 3 ML VIAL INH PRN (12:51)
[2019-10-15] MEDS ORDERED: ARTIFICIAL TEARS OP PRN (13:00)
--- NOTE | 2019-10-15 13:54 | Emergency Department Note ---
Entered by Carmita Samayoa acting as a scribe for Fernando Kraus MD History of Present Illness General Chief complaint: Fall Time Seen by Provider: 10/15/19 08:27 Source: EMS Mode of arrival: EMS Limitations: altered mental status History of Present Illness Onset (ago): minute(s) 30 Location: head (Fall) Pain Consistency: + other (Fall) Quality: + other (Fall) Associated symptoms: + headaches and + other (Fall, left shoulder pain); no seizure and no syncope The patient is an 84 year old female presenting to the Emergency Department via EMS complaining of an episode of a fall occurring 30 minutes ago. EMS reports that the patient resides in a senior care and when she was getting out of bed this morning, fell onto her face. They state that the patient was complaining of left shoulder pain. They note that the patient was also complaining of a headach e. They add that the patient didnt lose consciousness during her fall or have any seizure like activity. The HPI and ROS are limited due to AMS. Home Medications Home Medications Medication Instructions Recorded Confirmed Type Therems-M 1 tab PO QAM 03/11/19 10/15/19 History acetaminophen [Tylenol] 650 mg PO Q4 PRN MDD 3 GRAMS/24 03/11/19 10/15/19 History HOURS. aspirin-dipyridamole [Aggrenox] 1 cap PO BID 03/11/19 10/15/19 History biotin 1 mg PO BID 03/11/19 10/15/19 History calcium carbonate [Tums] 500 mg PO Q4 PRN 03/11/19 10/15/19 History cetirizine [Zyrtec] 10 mg PO QAM 03/11/19 10/15/19 History cholecalciferol (vitamin D3) 2,000 unit PO QAM 03/11/19 10/15/19 History [Vitamin D3] esomeprazole magnesium [Nexium] 40 mg PO QAM 03/11/19 10/15/19 History fluticasone propionate [Flonase 1 spray INTRANASAL QAM 03/11/19 10/15/19 History Allergy Relief] ipratropium-albuterol 3 ml INHALATION Q6 PRN 03/11/19 10/15/19 History lorazepam [Ativan] 0.5 mg PO Q6 PRN 03/11/19 10/15/19 History lorazepam [Ativan] 1 mg PO QID 03/11/19 10/15/19 History nitroglycerin [Nitrostat] 0.4 mg SUBLINGUAL UD PRN 03/11/19 10/15/19 History ondansetron HCl [Zofran] 4 mg PO Q6 PRN 03/11/19 10/15/19 History polyethylene glycol 3350 [Miralax] 17 g PO QAM 03/11/19 10/15/19 History sennosides-docusate sodium 2 tab PO QAM 03/11/19 10/15/19 History [Senna-S] Oxygen Home #1 ea 05/29/19 10/13/19 History carboxymethylcellulose sodium 0.25 1 drops OP QID PRN 09/19/19 10/15/19 History % eye drops levetiracetam [Keppra] 750 mg PO BID #0 tab 09/27/19 10/15/19 Rx amiodarone 200 mg tablet 200 mg PO QAM 10/08/19 10/15/19 History metoprolol tartrate 25 mg tablet 25 mg PO BID tab 10/13/19 10/15/19 History venlafaxine 150 mg PO QAM 10/15/19 10/15/19 History lisinopril 2.5 mg PO QAM 14 Days #14 tab 10/17/19 Rx Allergies Allergy/AdvReac Type Severity Reaction Status Date / Time morphine Allergy Mild itching Verified 10/15/19 08:40 Past Med/Surg History Medical History Breast cancer (Resolved) "Status post biopsy of left breast mass 12/07/2015 Lobular carcinoma, grade 1 Estrogen receptor positive, progesterone receptor positive, 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 Treatment was completed October 29, 2017. She received 6640 cGy" On 07/26/17 16:45 Neli Nguyen wrote "Status post biopsy of left breast mass 12/07/2015 Lobular carcinoma, grade 1 Estrogen receptor positive, progesterone receptor positive, HER-2/filiberto neg ative Status post mastectomy and sentinel lymph node biopsy 02/03/2016 Stage pT3 pN1a M0, lymphovascular invasion Biopsy-proven chest wall recurrence 07/04/2017" Chronic anemia (Chronic) COPD (chronic obstructive pulmonary disease) (Chronic) DJD (degenerative joint disease) of hip (Acute) Frequent falls (Acute) Hematuria History of breast cancer (Chronic) History of nephrolithiasis (Chronic) History of stroke (Chronic) History of subdural hematoma (Chronic) Hypertension (Chronic) Mitral regurgitation (Chronic) Paroxysmal atrial fibrillation (Chronic) Seizure disorder (Chronic 04/25/13) Thalassemia minor (Chronic) Surgical History H/O brain surgery S/P hip replacement Status post section (Chronic) Status post mastectomy (Chronic) Family History Mother Breast cancer Cardiac disorder Father Cardiac disorder Social History Preferred Language: Yi Communication Ability: Effective Internet E Commerce Specialist Required: No Beliefs That Will Affect Care: None marital status: / Current Living Situation: Personal Care Facility Current Living Situation Comment: [facility] Feels Safe at Home: Yes Smoking Status: Former smoker Second Hand Exposure: No ; Hx Alcohol Use: Yes Alcohol type: wine Hx Substance Use: No Review of Systems The HPI and ROS are limited due to AMS. Physical Exam Vital Signs Vital Signs - 24 hr 10/15/19 08:37 10/15/19 08:55 10/15/19 08:59 Temperature 36.6 C Temperature Source Oral Pulse Rate 92 H 83 83 Pulse Rate from SpO2 Sensor 83 84 Respiratory Rate 20 22 30 H Blood Pressure 179/84 H 200/83 H 190/96 H Blood Pressure Mean 115 110 101 Blood Pressure Position Lying Pulse Oximetry 94 100 98 Oxygen Delivery Method Non-rebreather Oxygen Flow Rate 15 Sepsis Recent Fever Within 48 Hours No Sepsis Action Taken by Nursing No Action Required 10/15/19 09:00 10/15/19 09:29 10/15/19 09:30 Temperature Temperature Source Pulse Rate 83 78 78 Pulse Rate from SpO2 Sensor 83 77 78 Respiratory Rate 21 19 17 Blood Pressure 181/93 H 184/85 H 189/92 H Blood Pressure Mean 108 104 114 Blood Pressure Position Pulse Oximetry 98 100 100 Oxygen Delivery Method Oxymask Oxymask Other Oxygen Flow Rate 3 3 Sepsis Recent Fever Within 48 Hours Sepsis Action Taken by Nursing 10/15/19 10:00 Temperature Temperature Source Pulse Rate 80 Pulse Rate from SpO2 Sensor 79 Respiratory Rate 20 Blood Pressure 188/86 H Blood Pressure Mean 91 Blood Pressure Position Pulse Oximetry 97 Oxygen Delivery Method Oxymask Oxygen Flow Rate 3 Sepsis Recent Fever Within 48 Hours Sepsis Action Taken by Nursing GENERAL: Awake, alert, well-appearing, in no acute distress HENT: Normocephalic, atraumatic. Oropharynx unremarkable. EYES: Swelling to left thigh. Normal conjunctiva. Sclera non-icteric. NECK: Supple. No nuchal rigidity. FROM. No JVD. RESPIRATORY: Clear to auscultation. CARDIAC: Regular rate, normal rhythm. Extremities warm and well perfused. Pulses equal. ABDOMEN: Soft, non-distended. No tenderness to palpation. No rebound or guarding. No masses. RECTAL: Deferred. MUSCULOSKELETAL: Chest examination reveals no tenderness. The back is symmetrical on inspection without obvious abnormality. There is no CVA tenderness to palpation. No joint edema. LOWER EXTREMITIES: Calves are equal size bilaterally and non-tender. No edema. No discoloration. NEURO: Normal sensorium. No sensory or motor deficits noted. SKIN: No rash or jaundice noted. Course Course 08: The patient was evaluated in room B10, and a complete history and physical examination were performed. 0942: I updated the patient's family at this time. 0958: I discussed the patients case with Alejandra Damon PA-C. Dr[facility] management. Administered Medications Discontinued Medications Amiodarone [facility] (Cordarone) [facility] [place] Stop: 11/14/19 13:14 Last Admin: 10/17/19 08:27 Dose: 200 mg Documented by: [id number] Admin: 10/16/19 08:32 Dose: 200 mg Documented by: [id number] Admin: 10/15/19 15:34 Dose: Not Given Documented by: [id number] Cetirizine HCl (Zyrtec) 10 [facility] [place] Stop: 11/15/19 08:59 Last Admin: 10/17/19 08:27 Dose: 10 mg Documented by: [id number] Admin: 10/16/19 08:32 Dose: 10 mg Documented by: [id number] Fluticasone Propionate (Flonase) 1 sprays [place] [facility] Stop: 11/15/19 08:59 Last Admin: 10/17/19 08:26 Dose: 1 sprays Documented by: [id number] Admin: 10/16/19 08:34 Dose: 1 sprays Documented by: [id number] Furosemide (Lasix) 40 mg IV NOW STA Stop: 10/15/19 09:45 Last Admin: 10/15/19 10:08 Dose: 40 mg Documented by: [id number] Acetaminophen (Ofirmev) 1,000 mg in 100 mls @ 400 mls/hr IV NOW STA Stop: 10/15/19 09:59 Last Infusion: 10/15/19 11:52 Dose: 0 mls/hr Documented by: [id number] Admin: 10/15/19 10:09 Dose: 400 mls/hr Documented by: [id number] Acetaminophen (Ofirmev) 1,000 mg in 100 mls @ 400 mls/hr IV Q8H PRN PRN Reason: Mild Pain Stop: 10/18/19 16:15 Last Infusion: 10/16/19 04:52 Dose: 0 mls/hr Documented by: [id number] Admin: 10/16/19 04:36 Dose: 400 mls/hr Documented by: [id number] Infusion: 10/15/19 22:08 Dose: 0 mls/hr Documented by: [id number] Admin: 10/15/19 21:01 Dose: 400 mls/hr Documented by: [id number] Levetiracetam (Keppra) 750 mg PO BID@799,1999 [facility] Stop: 11/14/19 13:14 Last Admin: 10/17/19 08:27 Dose: 750 mg Documented by: [id number] Admin: 10/16/19 19:22 Dose: 750 mg Documented by: [id number] Admin: 10/16/19 08:33 Dose: 750 mg Documented by: [id number] Admin: 10/15/19 20:47 Dose: 500 mg Documented by: [id number] Admin: 10/15/19 15:34 Dose: Not Given Documented by: [id number] Lisinopril (Zestril) 2.5 mg PO ONE ONE Stop: 10/17/19 02:01 Last Admin: 10/17/19 02:09 Dose: 2.5 mg Documented by: [id number] Lorazepam (Ativan) 0.5 mg PO BID PRN PRN Reason: Anxiety Stop: 11/15/19 10:21 Last Admin: 10/16/19 19:21 Dose: 0.5 mg Documented by: [id number] Admin: 10/16/19 10:40 Dose: 0.5 mg Documented by: [id number] Lorazepam (Ativan) 0.5 mg PO TID [facility] Stop: 11/16/19 13:59 Last Admin: 10/17/19 13:45 Dose: 0.5 mg Documented by: [id number] Lorazepam (Ativan) 0.5 mg PO NOW STA Stop: 10/17/19 07:45 Last Admin: 10/17/19 08:26 Dose: 0.5 mg Documented by: [id number] Metoprolol Tartrate (Lopressor) 25 mg PO BID@0800,1600 [facility] Stop: 11/14/19 13:14 Last Admin: 10/15/19 16:27 Dose: Not Given Documented by: [id number] Admin: 10/15/19 15:34 Dose: Not Given Documented by: [id number] Metoprolol Tartrate (Lopressor) 12.5 mg PO BID@0800,1600 [facility] Stop: 11/15/19 07:59 Last Admin: 10/17/19 08:26 Dose: 12.5 mg Documented by: [id number] Admin: 10/16/19 16:00 Dose: 12.5 mg Documented by: [id number] Admin: 10/16/19 08:31 Dose: 12.5 mg Documented by: [id number] Pantoprazole Sodium (Protonix) 40 mg PO [facility]; Protocol Stop: 11/15/19 08:59 Last Admin: 10/17/19 08:27 Dose: 40 mg Documented by: [id number] Admin: 10/16/19 08:33 Dose: 40 mg Documented by: [id number] Senna/Docusate Sodium (Senokot S) 2 tab PO [facility] Stop: 11/14/19 13:14 Last Admin: 10/17/19 08:27 Dose: 2 tab Documented by: [id number] Admin: 10/16/19 08:31 Dose: 2 tab Documented by: [id number] Admin: 10/15/19 15:34 Dose: Not Given Documented by: [id number] Venlafaxine HCl (Effexor Extended Release) 150 mg PO [facility] Stop: 11/14/19 13:14 Last Admin: 10/17/19 08:26 Dose: 150 mg Documented by: [id number] Admin: 10/16/19 08:32 Dose: 150 mg Documented by: [id number] Admin: 10/15/19 15:34 Dose: Not Given Documented by: [id number] Medical Decision Making Differential Diagnosis Differential diagnoses include major intracranial, cervical, spinal, thoracic, abdominal, pelvic and neurologic injury. Fracture, contusion, sprain, strain, laceration, abrasions included as well. Medical Records Attestation: I reviewed the patient's medical records. Home Medications Current Medication List: was personally reviewed by me Laboratory Data Attestation: I reviewed the patient's lab results. Result diagrams: 10/17/19 05:38 10/17/19 05:38 Lab Results 10/15/19 10/15/19 10/15/19 Range/Units 08:56 08:56 08:56 WBC 6.90 (4.8-10.8) K/uL RBC 3.60 L (4.2-5.4) M/uL Hgb 8.3 L (12.0-16.0) g/dL Hct 27.2 L (37-47) % MCV 75.6 L (80-100) fL MCH 23.1 L (25-34) pg MCHC 30.5 L (32-36) g/dL RDW Std Deviation 44.1 (36.4-46.3) fL RDW Coeff of Gray 16.2 H (11.5-14.5) % Plt Count 160 (130-400) K/uL MPV 9.1 (7.4-10.4) fL Immature Gran % (Auto) 0.1 % Neut % (Auto) 89.5 % Lymph % (Auto) 5.2 % Mcnairy % (Auto) 5.1 % Eos % (Auto) 0.0 % Baso % (Auto) 0.1 % Immature Gran # (Auto) 0.01 (0.00-0.02) K/uL Neut # (Auto) 6.17 (1.4-6.5) K/uL Lymph # (Auto) 0.36 L (1.2-3.4) K/uL Mcnairy # (Auto) 0.35 (0.11-0.59) K/uL Eos # (Auto) 0.00 (0-0.5) K/uL Baso # (Auto) 0.01 (0-0.2) K/uL Absolute Nucleated RBC 0.03 H (0-0) K/uL Nucleated RBC % (auto) 0.5 % PT 11.1 (9.0-12.0) Seconds INR 1.1 (0.9-1.1) APTT 25.6 (21.0-31.0) Seconds PTT Ratio 0.9 Sodium 141 (136-145) mmol/L Potassium 4.1 (3.5-5.1) mmol/L Chloride 103 (98-107) mmol/L Carbon Dioxide 37 H (21-32) mmol/L Anion Gap 1.0 L (3-11) BUN 20 H (7-18) mg/dl Creatinine 0.77 (0.6-1.2) mg/dl Est Cr Clr Drug Dosing 51.7 ml/min Est GFR ( Amer) 82.2 Est GFR (Non-Af Amer) 70.9 BUN/Creatinine Ratio 26.1 H (10-20) Glucose 140 H (70-99) mg/dl Calcium 9.4 (8.5-10.1) mg/dl Total Creatine Kinase (26-192) U/L CK-MB (CK-2) (0.5-3.6) ng/ml CK/CKMB % Calc (0-3.0) Troponin I (0-0.045) ng/ml NT-Pro-B Natriuret Pep (0-1800) pg/ml Urine Color Urine Appearance (Clear) Urine pH (4.5-7.5) Ur Specific Grimes (1.000-1.030) Urine Protein (Negative) Urine Glucose (UA) (Negative) Urine Ketones (Negative) Urine Blood (Negative) Urine Nitrite (Negative) Urine Bilirubin (Negative) Urine Urobilinogen (Negative) Ur Leukocyte Esterase (Negative) Blood Type Antibody Screen 10/15/19 10/15/19 10/15/19 Range/Units 08:56 09:55 10:11 WBC (4.8-10.8) K/uL RBC (4.2-5.4) M/uL Hgb (12.0-16.0) g/dL Hct (37-47) % MCV (80-100) fL MCH (25-34) pg MCHC (32-36) g/dL RDW Std Deviation (36.4-46.3) fL RDW Coeff of Gray (11.5-14.5) % Plt Count (130-400) K/uL MPV (7.4-10.4) fL Immature Gran % (Auto) % Neut % (Auto) % Lymph % (Auto) % Mcnairy % (Auto) % Eos % (Auto) % Baso % (Auto) % Immature Gran # (Auto) (0.00-0.02) K/uL Neut # (Auto) (1.4-6.5) K/uL Lymph # (Auto) (1.2-3.4) K/uL Mcnairy # (Auto) (0.11-0.59) K/uL Eos # (Auto) (0-0.5) K/uL Baso # (Auto) (0-0.2) K/uL Absolute Nucleated RBC (0-0) K/uL Nucleated RBC % (auto) % PT (9.0-12.0) Seconds INR (0.9-1.1) APTT (21.0-31.0) Seconds PTT Ratio Sodium (136-145) mmol/L Potassium (3.5-5.1) mmol/L Chloride (98-107) mmol/L Carbon Dioxide (21-32) mmol/L Anion Gap (3-11) BUN (7-18) mg/dl Creatinine (0.6-1.2) mg/dl Est Cr Clr Drug Dosing ml/min Est GFR ( Amer) Est GFR (Non-Af Amer) BUN/Creatinine Ratio (10-20) Glucose (70-99) mg/dl Calcium (8.5-10.1) mg/dl Total Creatine Kinase 115 (26-192) U/L CK-MB (CK-2) 4.9 H (0.5-3.6) ng/ml CK/CKMB % Calc 4.3 H (0-3.0) Troponin I 0.124 H* (0-0.045) ng/ml NT-Pro-B Natriuret Pep 7050 H (0-1800) pg/ml Urine Color Yellow Urine Appearance Clear (Clear) Urine pH 7.5 (4.5-7.5) Ur Specific Grimes 1.015 (1.000-1.030) Urine Protein Negative (Negative) Urine Glucose (UA) Negative (Negative) Urine Ketones Negative (Negative) Urine Blood Negative (Negative) Urine Nitrite Negative (Negative) Urine Bilirubin Negative (Negative) Urine Urobilinogen Negative (Negative) Ur Leukocyte Esterase Negative (Negative) Blood Type O Positive Antibody Screen NEGATIVE Imaging Data Radiologist's Impression: Radiology results as stated below per my review and th e radiologist's interpretation: CT SCAN OF THE BRAIN WITHOUT IV CONTRAST CLINICAL HISTORY: Fall. Left eye pain. COMPARISON STUDY: CT of the brain dated 09/25/2019. TECHNIQUE: Unenhanced axial CT scan of the brain is performed from the vertex to the skull base. A dose lowering technique was utilized adhering to the principles of ALARA. The Examination is degraded by motion artifact. The patient was scanned twice in an effort to improve image quality. FINDINGS: Brain parenchyma: Bilateral occipital encephalomalacia is unchanged. There are age-related involutional changes noting advanced subcortical and periventricular microangiopathic change. There is no hemorrhage, mass effect, or evidence of acute territorial ischemia by CT criteria. Guevara-white matter differentiation is preserved. No extra-axial fluid collection is seen. Ventricles, sulci, cisterns: Prominent secondary to involutional change. Intracranial vasculature: There is atherosclerotic calcification of the cavernous carotid and vertebral arteries. Calvarium: The skeletal structures are osteopenic. No depressed calvarial fracture is identified. There are right frontal and right parietal norman holes. Soft tissues: There is left frontal and left periorbital scalp contusion. Sinuses and mastoids: There is a small air-fluid level in the left maxillary antrum. Trace fluid is also seen in the sphenoid sinuses and the frontal sinuses. Mild mucosal thickening is noted in the ethmoid sinuses. The mastoid air cells are well pneumatized. Orbits: The bony orbits are grossly intact. There are bilateral ocular lens implants. IMPRESSION: 1. There is no hemorrhage, mass effect, or evidence of acute territorial ischemia by CT criteria noting a motion degraded examination. 2. Chronic/senescent and postoperative changes as above. ACT 112: Negative or not required by law. Electronically signed by: Deshawn Martin M.D. 10/15/2019 8:[address] SCAN OF THE CERVICAL SPINE CLINICAL HISTORY: Trauma. Fall. COMPARISON STUDY: CT of the cervical spine dated 08/17/2019. TECHNIQUE: CT scan of the cervical spine is performed from the skull base to the upper thoracic spine. Images are reviewed in the axial, sagittal, and coronal planes. IV contrast was not administered for this examination. A dose lowering technique was utilized adhering to the principles of ALARA. FINDINGS: Skeletal structures: The skeletal structures are osteopenic. There is no evidence of fracture or subluxation involving the cervical spine. Vertebral body height is maintained. There is minimal anterolisthesis at C3-C4. Minimal retrolisthesis is noted at C5-C6. There is straightening of the cervical lordosis with mild reversal centered at C4-C5. Anterior osteophytes are seen throughout. The odontoid process and lateral masses are intact. The atlantoaxial articulation is preserved noting advanced productive degenerative change. The spinous processes appear intact. There is a minimal chronic superior endplate compression deformity of T3. There is moderate multilevel cervical spondylosis. Uncovertebral and facet arthropathy contribute to neural foraminal stenosis at several levels. Intervertebral discs: There is advanced disc space narrowing seen at C4-C5, C5- C6, C6-C7, and C7-T1. Central canal: Posterior disc osteophyte complexes at C3-C4, C4-C5, and C5-C6 likely contribute to multilevel acquired compromise the central canal. Soft tissues: The prevertebral and paraspinous soft tissues are within normal limits. There is advanced atherosclerotic calcification of the carotid bulbs. Calvarium: The visualized calvarium at the skull base appears intact. Brain parenchyma: Partially visualized brain parenchyma the skull base is within normal limits. Sinuses and mastoids: There is trace fluid in the sphenoid sinuses. The mastoid air cells are well pneumatized. Lung apices: Advanced and edematous change is noted. Airspace consolidation is seen at the left apex. Diffuse intralobular septal thickening is noted. IMPRESSION: 1. There is no evidence of fracture or subluxation involving the cervical spine. 2. Osteopenia and spondylotic change as above. 3. Emphysema. 4. Intralobular septal thickening at the lung apices suggests congestive failure. Clinical correlation will be required. 5. Airspace consolidation is seen at the left apex. Correlate clinically for evidence of pneumonia/aspiration pneumonitis versus a component of pulmonary edema. ACT 112: Negative or not required by law. Electronically signed by: Deshawn Martin M.D. 10/15/2019 9:[address] facial bones wo con CT DOSE: 2314.64 mGy.cm HISTORY: Trauma. Pain. Pt c/o fall, left eye pain TECHNIQUE: Multiaxial CT images of the maxillofacial region were performed and reformatted in the coronal plane without the use of contrast. A dose lowering technique was utilized adhering to the principles of ALARA. COMPARISON: None. FINDINGS: The visualized cervical spine, skull base, pterygoid plates, nasal bon es, lamina papyracea, orbital floors, mandible, and zygomatic arches are intact. No fractures. The orbits are unremarkable. IMPRESSION: No fractures within the maxillofacial region. ACT 112: Negative or not required by law. The above report was generated using voice recognition software. It may contain grammatical, syntax or spelling errors. Electronically signed by: Cecilio Belcher M.D. 10/15/2019 9:12 AM XR shoulder LT min 2V routine HISTORY: 84 years-old Female Pt c/o left shoulder pain acute left shoulder pain COMPARISON: Chest radiograph of same day TECHNIQUE: 2 views of the left shoulder FINDINGS: Demineralized appearance the bones. Moderate glenohumeral and AC joint osteoarthritis. There is no acute fracture, dislocation or opaque foreign body. Suspected minimal rotator cuff calcific tendinosis. Arterial vascular calcifications are noted. Calcified plaque of the thoracic aorta. Mixed interstitial and alveolar opacities throughout the left lung with cardiomegaly. IMPRESSION: No acute fracture or dislocation. ACT 112: Negative or not required by law. The above report was generated using voice recognition software. It may contain grammatical, syntax or spelling errors. Electronically signed by: Reyes Kaur M.D. 10/15/2019 9:54 AM XR chest 1V portable HISTORY: 84 years-old Female Pt c/o left shoulder pain . Atypical chest pain with left shoulder pain COMPARISON: Chest radiograph 09/25/2019, CT cervical spine 10/15/2019 TECHNIQUE: Portable AP view of the chest FINDINGS: Cardiac silhouette is enlarged. Chronic right hemidiaphragmatic elevation. Calcifications of the mitral annulus with calcified plaque of the thoracic aorta. Trace pleural effusions. No pneumothorax. Pulmonary vascular congestion with interstitial coarsening. Emphysema. Mixed interstitial and alveolar opacities of the left midlung and left upper lobe with minimal right basilar consolidation. Surgical clips of the right axillary distribution. Sigmoidal scoliosis of the spine with degenerative changes of the shoulders and spine. IMPRESSION: 1. Cardiomegaly with pulmonary edema and trace pleural effusions. 2. Patchy left mid lung, left upper lobe and right lung base airspace opacities are suggestive of asymmetric pulmonary edema versus pneumonia. 3. Emphysema. ACT 112: Negative or not required by law. The above report was generated using voice recognition software. It may contain grammatical, syntax or spelling errors. Electronically signed by: Reyes Kaur M.D. 10/15/2019 9:57 AM SINGLE VIEW PELVIS CLINICAL HISTORY: Fall. Left pelvic pain. FINDINGS: 2 AP supine pelvic radiographs are compared to study dated 06/04/2017 and correlated with pelvic CT dated 08/17/2019. The skeletal structures are osteopenic. There is no radiographic evidence of acute fracture involving the hips or bony pelvis. There is chronic posttraumatic deformity of the pubic ring bilaterally. A bipolar right hip arthroplasty is in near anatomic alignment. No periprosthetic lucency is identified. Moderate joint space narrowing is seen in the left hip. There is degenerative sclerosis of the sacroiliac joints. Lumbosacral spondylosis is partially visualized. There is advanced atherosclerotic calcification of the abdominal aorta Arteries. No bowel obstruction is seen. The overlying soft tissues are normal as visualized. IMPRESSION: No acute osseous abnormality is identified. Electronically signed by: Deshawn Martin M.D. 10/15/2019 9:58 AM Blood Pressure Blood Pressure Findings: Elevated blood pressure Blood Pressure Disposition: further management by hospitalist MDM Narrative This is an 84-year-old female who presents emergency department after a fall. Using shared medical decision making this patient was sent for CAT scan of the head as well as face. X-rays of the pelvis and chest did not show any broken bones. Patient does have an elevation in her white blood cell count. I therefore did did discuss the case with the hospitalist service who did agree to admit the patient. Impression & Plan Frequent falls, Elevated troponin Discharge Plan Visit Data *Final* Discharge Date/Time: 10/15/19 12:04 Chief Complaint: Fall ED Provider: Fernando Kraus Discharge Problem: Frequent falls, Elevated troponin Patient Disposition: Admitted As Inpatient Discharge Instructions Interventions: ED Discharge Assessment Last Done: 10/15/19 12:04 The scribe's documentation has been prepared under my direction and personally reviewed by me in its entirety. I confirm that the note above accurately reflects all work, treatment, procedures, and medical decision making performed by me.
--- NOTE | 2019-10-15 14:00 | XRay Report ---
XR forearm LT 2V, XR humerus LT 2V HISTORY: 84 years-old Female Pt c/o left arm pain acute pain of the left upper extremity COMPARISON: None available TECHNIQUE: 2 views of the left humerus and 2 views of the left forearm FINDINGS: FOREARM: Demineralized appearance of the bones. Radiocarpal and intercarpal osteoarthritis. Degenerative martin es are also noted about the elbow. No acute fracture, dislocation or opaque foreign body. HUMERUS: Moderate osteoarthritis of the glenohumeral and AC joint. No acute fracture, dislocation or opaque fo reign body. Arterial calcifications are noted. Interstitial opacities throughout the left lung. IMPRESSION: No acute fracture or dislocation. ACT 112: Negative or not required by law. The above report was generated using voice recognition software. It may contain grammatical, syntax o r spelling errors. Electronically signed by: Reyes Kaur M.D. 10/15/2019 1:58 PM
[2019-10-15] MEDS: METOPROLOL TARTRATE 25 MG TAB PO SCH ×2 (15:34→16:27)
[2019-10-15] MEDS: DOCUSATE SODIUM/SENNA 50/8.6MG TAB PO SCH (15:34)
[2019-10-15] MEDS: levETIRAcetam 250 MG TAB PO SCH ×2 (15:34→20:47)
[2019-10-15] MEDS: AMIODARONE 200 MG TAB PO SCH (15:34)
[2019-10-15] MEDS: VENLAFAXINE HCL XR 150 MG CAPXR PO SCH (15:34)
--- NOTE | 2019-10-15 15:48 | Cardiology Consultation ---
Date of Consultation October 15, 2019 Assessment & Plan (1) Elevated troponin: Patient does have a mild elevation in her cardiac biomarkers. 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 Her presentation would be atypical and is much more likely that this is demand ischemia. Normal LV function with normal wall motion on echocardiogram. She certainly has a history of hypoxia and is on chronic oxygen. She has hypercapnic respiratory failure at this time. (2) Acute on chronic respiratory failure: She has significant underlying lung disease and at this time as hypercapnic respiratory failure. Her chest x-ray believed to be consistent with pulmonary vascular congestion and an N terminal proBNP was significantly elevated. She was administered diuretic in the emergency room and did affect a significant diuresis. She is on noninvasive ventilation at this time. I would not administer additional diuretic still have a better opportunity to assess her ventilatory and respiratory status and safer level of consciousness improves. (3) Paroxysmal atrial fibrillation: She has a history of atrial fibrillation diagnosed in [place] during a prior hospitalization with pneumonia. Do not believe she has had a clinical recurrence. She has not been on systemic anticoagulation due to frequent falls and history of subdural hematoma. I think it is appropriate to avoid anticoagul ation. She has been maintained on lower dose amiodarone. She does have an element of bradycardia but I doubt that this has caused symptoms. I think we could reduce her beta-blockade however he continue low-dose amiodarone. History of Present Illness Reason for Consultation: Congestive heart failure Requesting Physician: Ada Attending Physician: Sam Caballero MD History of Present Illness Patient is currently a resident at [facility] and was brought in by caregivers for a fall earlier today. Patient has history of falls and was found on the ground by her bed. Additional details are not available. Patient is currently poorly responsive and on noninvasive ventilation. Additional history cannot be obtained. Allergies Allergy/AdvReac Type Severity Reaction Status Date / Time morphine Allergy Mild itching Verified 10/15/19 08:40 Home Medications Home Medications Medication Instructions Recorded Confirmed Type Therems-M 1 tab PO QAM 03/11/19 10/15/19 History acetaminophen [Tylenol] 650 mg PO Q4 PRN MDD 3 GRAMS/24 03/11/19 10/15/19 History HOURS. aspirin-dipyridamole [Aggrenox] 1 cap PO BID 03/11/19 10/15/19 History biotin 1 mg PO BID 03/11/19 10/15/19 History calcium carbonate [Tums] 500 mg PO Q4 PRN 03/11/19 10/15/19 History cetirizine [Zyrtec] 10 mg PO QAM 03/11/19 10/15/19 History cholecalciferol (vitamin D3) 2,000 unit PO QAM 03/11/19 10/15/19 History [Vitamin D3] esomeprazole magnesium [Nexium] 40 mg PO QAM 03/11/19 10/15/19 History fluticasone propionate [Flonase 1 spray INTRANASAL QAM 03/11/19 10/15/19 History Allergy Relief] ipratropium-albuterol 3 ml INHALATION Q6 PRN 03/11/19 10/15/19 History lorazepam [Ativan] 0.5 mg PO Q6 PRN 03/11/19 10/15/19 History lorazepam [Ativan] 1 mg PO QID 03/11/19 10/15/19 History nitroglycerin [Nitrostat] 0.4 mg SUBLINGUAL UD PRN 03/11/19 10/15/19 History ondansetron HCl [Zofran] 4 mg PO Q6 PRN 03/11/19 10/15/19 History polyethylene glycol 3350 [Miralax] 17 g PO QAM 03/11/19 10/15/19 History sennosides-docusate sodium 2 tab PO QAM 03/11/19 10/15/19 History [Senna-S] Oxygen Home #1 ea 05/29/19 10/13/19 History carboxymethylcellulose sodium 0.25 1 drops OP QID PRN 09/19/19 10/15/19 History % eye drops levetiracetam [Keppra] 750 mg PO BID #0 tab 09/27/19 10/15/19 Rx amiodarone 200 mg tablet 200 mg PO QAM 10/08/19 10/15/19 History metoprolol tartrate 25 mg tablet 25 mg PO BID tab 10/13/19 10/15/19 History venlafaxine 150 mg PO QAM 10/15/19 10/15/19 History Patient History Medical History Breast cancer (Resolved) "Status post biopsy of left breast mass 12/07/2015 Lobular carcinoma, grade 1 Estrogen receptor positive, progesterone receptor positive, HER-2/filiberto negativ e Status post mastectomy and sentinel lymph node biopsy 02/03/2016 Stage pT3 pN1a M0, lymphovascular invasion Biopsy-proven chest wall recurrence 07/04/2017 Status post completion of radiation therapy to the left chest wall, supraclavicular area, and axilla. Treatment was completed October 29, 2017. 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 Status post mastectomy and sentinel lymph node biopsy 02/03/2016 Stage pT3 pN1a M0, lymphovascular invasion Biopsy-proven chest wall recurrence 07/04/2017" Chronic anemia (Chronic) COPD (chronic obstructive pulmonary disease) (Chronic) DJD (degenerative joint disease) of hip (Acute) Frequent falls (Acute) Hematuria History of breast cancer (Chronic) History of nephrolithiasis (Chronic) History of stroke (Chronic) History of subdural hematoma (Chronic) Hypertension (Chronic) Mitral regurgitation (Chronic) Paroxysmal atrial fibrillation (Chronic) Seizure disorder (Chronic 04/25/13) Thalassemia minor (Chronic) Surgical History H/O brain surgery S/P hip replacement Status post section (Chronic) Status post mastectomy (Chronic) Family History Mother Breast cancer Cardiac disorder Father Cardiac disorder Social History Preferred Language: Luxembourgish Communication Ability: Impaired Paper [employer] Pul[employer] Operator Required: No Beliefs That Will Affect Care: None marital status: / Current Living Situation: Personal Care Facility Current Living Situation Comment: [facility] Other Information That Helps Us Care for You: No Feels Safe at Home: Yes Safety Concerns: Feels Safe At This Time Smoking Status: Former smoker Smoking End Date: 2009 ; Second Hand Exposure: No ; Hx Alcohol Use: Yes Alcohol type: wine Hx Substance Use: No Review of Systems Review of Systems: Unobtainable due to reduced consciousness Physical Exam Physical Exam: Not responsive to verbal or tactile stimuli. HEENT: Sclerae are anicteric. Pupils are equal and reactive to light and accommodation. Neuro: Obtain did. Not responsive. Cranial nerves could not be evaluated Neck: Examination of the submandibular region did not reveal any significant lymphadenopathy. Lungs: Lungs are clear to auscultation bilaterally. There are no rales wheezes or rhonchi. She has normal respiratory effort without use of accessory muscles. There is normal pulmonary excursion. Chest: Evidence of bilateral mastectomies Cardiac: The rhythm was regular. S1 and S2 were normal. There are no murmurs on examination. The PMI was not markedly displaced on palpation. Abdomen: The abdomen was soft and nontender. Extremities: Patient has bilateral radial pulses that are equal in intensity. There is no evidence cyanosis or clubbing. There was no evidence of significant peripheral edema bilaterally. Skin: There are no rashes noted on examination today. Results & Data Vital Signs (Past 12 Hours) Vital Signs Temp Pulse Pulse Resp BP BP Pulse Ox 10/15/19 15:15 52 L 18 99 10/15/19 15:02 36.8 C 54 L 16 135/66 99 10/15/19 13:35 53 L 20 93 10/15/19 12:52 36.6 C 80 20 179/83 H 100 10/15/19 12:01 75 19 99 10/15/19 12:00 71 22 148/73 H 99 10/15/19 11:31 57 L 20 99 10/15/19 11:30 65 22 154/69 H 100 10/15/19 11:00 54 L 18 155/63 H 99 10/15/19 10:30 70 22 160/75 H 100 10/15/19 10:00 80 20 188/86 H 97 10/15/19 09:30 78 17 189/92 H 100 10/15/19 09:29 78 19 184/85 H 100 10/15/19 09:00 83 21 181/93 H 98 10/15/19 08:59 83 30 H 190/96 H 98 10/15/19 08:55 83 22 200/83 H 100 10/15/19 08:37 36.6 C 92 H 20 179/84 H 94 Laboratory Results Abnormal Lab Results 10/15/19 10/15/19 10/15/19 08:56 08:56 08:56 WBC 6.90 RBC 3.60 L Hgb 8.3 L Hct 27.2 L MCV 75.6 L MCH 23.1 L MCHC 30.5 L RDW Std Deviation 44.1 RDW Coeff of Gray 16.2 H Plt Count 160 MPV 9.1 Immature Gran % (Auto) 0.1 Neut % (Auto) 89.5 Lymph % (Auto) 5.2 Starr % (Auto) 5.1 Eos % (Auto) 0.0 Baso % (Auto) 0.1 Immature Gran # (Auto) 0.01 Neut # (Auto) 6.17 Lymph # (Auto) 0.36 L Starr # (Auto) 0.35 Eos # (Auto) 0.00 Baso # (Auto) 0.01 Absolute Nucleated RBC 0.03 H Nucleated RBC % (auto) 0.5 PT 11.1 INR 1.1 APTT 25.6 PTT Ratio 0.9 ABG pH ABG pCO2 ABG pO2 ABG HCO3 ABG O2 Saturation ABG Base Excess Farrukh Test Barometric Pressure Oxygen Given Sodium 141 Potassium 4.1 Chloride 103 Carbon Dioxide 37 H Anion Gap 1.0 L BUN 20 H Creatinine 0.77 Est Cr Clr Drug Dosing 51.7 Est GFR ( Amer) 82.2 Est GFR (Non-Af Amer) 70.9 BUN/Creatinine Ratio 26.1 H Glucose 140 H Lactate Calcium 9.4 Total Creatine Kinase CK-MB (CK-2) CK/CKMB % Calc Troponin I NT-Pro-B Natriuret Pep Procalcitonin Urine Color Urine Appearance Urine pH Ur Specific [place] Urine Protein Urine Glucose (UA) Urine Ketones Urine Blood Urine Nitrite Urine Bilirubin Urine Urobilinogen Ur Leukocyte Esterase Blood Type Antibody Screen 10/15/19 10/15/19 10/15/19 08:56 09:55 10:11 WBC RBC Hgb Hct MCV MCH MCHC RDW Std Deviation RDW Coeff of Gray Plt Count MPV Immature Gran % (Auto) Neut % (Auto) Lymph % (Auto) Starr % (Auto) Eos % (Auto) Baso % (Auto) Immature Gran # (Auto) Neut # (Auto) Lymph # (Auto) Starr # (Auto) Eos # (Auto) Baso # (Auto) Absolute Nucleated RBC Nucleated RBC % (auto) PT INR APTT PTT Ratio ABG pH ABG pCO2 ABG pO2 ABG HCO3 ABG O2 Saturation ABG Base Excess Farrukh Test Barometric Pressure Oxygen Given Sodium Potassium Chloride Carbon Dioxide Anion Gap BUN Creatinine Est Cr Clr Drug Dosing Est GFR ( Amer) Est GFR (Non-Af Amer) BUN/Creatinine Ratio Glucose Lactate Calcium Total Creatine Kinase 115 CK-MB (CK-2) 4.9 H CK/CKMB % Calc 4.3 H Troponin I 0.124 H* NT-Pro-B Natriuret Pep 7050 H Procalcitonin Urine Color Yellow Urine Appearance Clear Urine pH 7.5 Ur Specific [place] 1.015 Urine Protein Negative Urine Glucose (UA) Negative Urine Ketones Negative Urine Blood Negative Urine Nitrite Negative Urine Bilirubin Negative Urine Urobilinogen Negative Ur Leukocyte Esterase Negative Blood Type O Positive Antibody Screen NEGATIVE 10/15/19 10/15/19 10/15/19 11:57 11:57 11:59 WBC RBC Hgb Hct MCV MCH MCHC RDW Std Deviation RDW Coeff of Gray Plt Count MPV Immature Gran % (Auto) Neut % (Auto) Lymph % (Auto) Starr % (Auto) Eos % (Auto) Baso % (Auto) Immature Gran # (Auto) Neut # (Auto) Lymph # (Auto) Starr # (Auto) Eos # (Auto) Baso # (Auto) Absolute Nucleated RBC Nucleated RBC % (auto) PT INR APTT PTT Ratio ABG pH 7.32 L ABG pCO2 75 H ABG pO2 89 ABG HCO3 38 H ABG O2 Saturation 95.3 H ABG Base Excess 10.1 H Farrukh Test Pos Barometric Pressure 735.2 Oxygen Given 3 L Sodium Potassium Chloride Carbon Dioxide Anion Gap BUN Creatinine Est Cr Clr Drug Dosing Est GFR ( Amer) Est GFR (Non-Af Amer) BUN/Creatinine Ratio Glucose Lactate 0.8 Calcium Total Creatine Kinase CK-MB (CK-2) CK/CKMB % Calc Troponin I NT-Pro-B Natriuret Pep Procalcitonin 0.10 Urine Color Urine Appearance Urine pH Ur Specific [place] Urine Protein Urine Glucose (UA) Urine Ketones Urine Blood Urine Nitrite Urine Bilirubin Urine Urobilinogen Ur Leukocyte Esterase Blood Type Antibody Screen 10/15/19 14:49 WBC RBC Hgb Hct MCV MCH MCHC RDW Std Deviation RDW Coeff of Gray Plt Count MPV Immature Gran % (Auto) Neut % (Auto) Lymph % (Auto) Starr % (Auto) Eos % (Auto) Baso % (Auto) Immature Gran # (Auto) Neut # (Auto) Lymph # (Auto) Starr # (Auto) Eos # (Auto) Baso # (Auto) Absolute Nucleated RBC Nucleated RBC % (auto) PT INR APTT PTT Ratio ABG pH ABG pCO2 ABG pO2 ABG HCO3 ABG O2 Saturation ABG Base Excess Farrukh Test Barometric Pressure Oxygen Given Sodium Potassium Chloride Carbon Dioxide Anion Gap BUN Creatinine Est Cr Clr Drug Dosing Est GFR ( Amer) Est GFR (Non-Af Amer) BUN/Creatinine Ratio Glucose Lactate Calcium Total Creatine Kinase CK-MB (CK-2) CK/CKMB % Calc Troponin I 0.109 H* NT-Pro-B Natriuret Pep Procalcitonin Urine Color Urine Appearance Urine pH Ur Specific [place] Urine Protein Urine Glucose (UA) Urine Ketones Urine Blood Urine Nitrite Urine Bilirubin Urine Urobilinogen Ur Leukocyte Esterase Blood Type Antibody Screen ECG Additional Comments: Telemetry reveals normal sinus rhythm. PG Care Time/CCT Total # of Minutes Spent Total Time Spent with Patient: Total time spent is greater than 50% in coordination of care (as documented) at patient's floor/unit and/or counseling patient: Coding Level of Care Code 94917 Initial Inpt Care Lvl 3 Diagnoses Elevated troponin R79.89 Acute on chronic respiratory failure J96.20 Paroxysmal atrial fibrillation I48.0
--- NOTE | 2019-10-15 16:05 | XCELERA ---
[id number] [id number]
[2019-10-15 17:20] LABS: Base Excess ABG 12.2 mEq/L (-9-1.8); HCO3 ABG 39 mmol/L (19-24); Oxygen Saturation ABG 95.8 % (90-95); PCO2 ABG 63 mmHg (35-46); PO2 ABG 84 mmHg (80-95)
[2019-10-15 17:21] LABS: Allen Test Pos (Pos)
--- NOTE | 2019-10-15 17:53 | Electrocardiogram Report ---
Test Reason : Blood Pressure : / mmHG Vent. Rate : 078 BPM Atrial Rate : 078 BPM P-R Int : 242 ms QRS Dur : 106 ms QT Int : 416 ms P-R-T Axes : 058 -07 003 degrees QTc Int : 474 ms Sinus rhythm with sinus arrhythmia with 1st degree A-V block Voltage criteria for left ventricular hypertrophy Abnormal ECG When compared with ECG of 25-SEP-2019 11:01, MN interval has increased T wave inversion no longer evident in Anterolateral leads Confirmed by Josiah Jay ([id number]) on 10/15/2019 5:53:00 PM Referred By: REFERRED SELF Confirmed By:Luis Jay
[2019-10-15] MEDS ORDERED: NON-FORMULARY MEDICATION (Biotin 1 MG) PO SCH (21:00)
[2019-10-15] MEDS: ACETAMINOPHEN 1,000 MG/100 ML VIAL IV PRN (21:01)
[2019-10-16] MEDS: ACETAMINOPHEN 1,000 MG/100 ML VIAL IV PRN (04:36)
[2019-10-16] MEDS: METOPROLOL TARTRATE 25 MG TAB PO SCH ×2 (08:31→16:00)
[2019-10-16] MEDS: DOCUSATE SODIUM/SENNA 50/8.6MG TAB PO SCH (08:31)
[2019-10-16] MEDS: CETIRIZINE HCL 10 MG TABLET PO SCH (08:32)
[2019-10-16] MEDS: AMIODARONE 200 MG TAB PO SCH (08:32)
[2019-10-16] MEDS: VENLAFAXINE HCL XR 150 MG CAPXR PO SCH (08:32)
[2019-10-16] MEDS: PANTOprazole 40 MG TAB PO SCH (08:33)
[2019-10-16] MEDS: levETIRAcetam 250 MG TAB PO SCH ×2 (08:33→19:22)
[2019-10-16] MEDS: FLUTICASONE PROPIONATE NA SPR 16 GM BTL NAE SCH (08:34)
--- NOTE | 2019-10-16 08:46 | Cardiology Progress Note ---
Date of Service October 16, 2019 Assessment & Plan (1) Acute on chronic respiratory failure: (2) Elevated troponin: (3) Paroxysmal atrial fibrillation: ASSESSMENT/PLAN: 1. Acute on chronic respiratory failure: She had decreased mental status on presentation according to records. She is much more awake now. Likely due to hypercapnia. She had a reasonable diuresis with diuretic and despite this, still became significantly hypoxic overnight when BiPAP was removed. She does not appear to be significantly hypervolemic on examination. Her respiratory failure is likely due to her underlying pulmonary disease. We will try to maintain a negative fluid balance however. 2. Elevated troponin: Likely due to demand ischemia in the setting of hypoxia. She did not present with acute coronary syndrome. Normal wall motion and LV systolic function on echo. No further evaluation recommended at this time. 3. Paroxysmal atrial fibrillation: Heart rate is acceptable. Can continue on amiodarone if no contraindication. She has not been on anticoagulation due to falls with subdural hematoma. She is on reduced dose beta-rodriguez. No changes recommended at this time. 4. Disposition: Cardiology will sign off at this time. Please call with any other questions or concerns. Subjective She remains on BiPAP. She was easily arousable with verbal stimuli. When asked how she was doing, she stated "you tell me." When asked if she has chest pain, shortness of breath, or any other complaint, she replied with the same response. Nursing notes reviewed from overnight. Without BiPAP, she quickly became hypoxic, despite a reasonable diuresis. She was alone in her hospital room. Review of systems: As above. Physical Exam Physical Exam: Gen.: No acute distress. Alert. HEENT: Anicteric sclera. Neck: No JVD. Cardiac: No ventricular heave. Regular. Normal S1-S2. No murmurs, rubs, or gallops. Pulmonary: Clear to auscultation bilaterally without wheezes, rales, or rhonchi. Abdomen: Soft, nontender, nondistended, with normoactive bowel sounds. No bruits noted. Extremities: 2+ radial pulses bilaterally. 2+ posterior tibialis pulses bilaterally. No edema or cyanosis. Results & Data Vital Signs (Past 12 Hours) Vital Signs Temp Pulse Pulse Resp BP Pulse Ox 10/16/19 08:01 61 20 145/67 H 94 10/16/19 07:14 65 21 95 10/16/19 04:17 36.7 C 67 20 154/81 H 95 10/15/19 23:31 37.1 C 65 24 133/63 94 10/15/19 21:56 57 L 19 95 10/15/19 20:51 74 27 H 97 Intake & Output 10/14/19 10/15/19 10/16/19 10/17/19 06:59 06:59 06:59 06:59 Intake Total 300 / 300 Output Total 1750 / 1750 Balance -1450 / -1450 Weight 66.9 kg Laboratory Results Laboratory Results - last 24 hr 10/15/19 10/15/19 10/15/19 08:56 08:56 08:56 WBC 6.90 RBC 3.60 L Hgb 8.3 L Hct 27.2 L MCV 75.6 L MCH 23.1 L MCHC 30.5 L RDW Std Deviation 44.1 RDW Coeff of Gray 16.2 H Plt Count 160 MPV 9.1 Immature Gran % (Auto) 0.1 Neut % (Auto) 89.5 Lymph % (Auto) 5.2 [place] % (Auto) 5.1 Eos % (Auto) 0.0 Baso % (Auto) 0.1 Immature Gran # (Auto) 0.01 Neut # (Auto) 6.17 Lymph # (Auto) 0.36 L [place] # (Auto) 0.35 Eos # (Auto) 0.00 Baso # (Auto) 0.01 Absolute Nucleated RBC 0.03 H Nucleated RBC % (auto) 0.5 PT 11.1 INR 1.1 APTT 25.6 PTT Ratio 0.9 ABG pH ABG pCO2 ABG pO2 ABG HCO3 ABG O2 Saturation ABG Base Excess Farrukh Test Barometric Pressure Oxygen Given Sodium 141 Potassium 4.1 Chloride 103 Carbon Dioxide 37 H Anion Gap 1.0 L BUN 20 H Creatinine 0.77 Est Cr Clr Drug Dosing 51.7 Est GFR ( Amer) 82.2 Est GFR (Non-Af Amer) 70.9 BUN/Creatinine Ratio 26.1 H Glucose 140 H Lactate Calcium 9.4 Total Creatine Kinase CK-MB (CK-2) CK/CKMB % Calc Troponin I NT-Pro-B Natriuret Pep Procalcitonin Urine Color Urine Appearance Urine pH Ur Specific [place] Urine Protein Urine Glucose (UA) Urine Ketones Urine Blood Urine Nitrite Urine Bilirubin Urine Urobilinogen Ur Leukocyte Esterase Blood Type Antibody Screen 10/15/19 10/15/19 10/15/19 08:56 09:55 10:11 WBC RBC Hgb Hct MCV MCH MCHC RDW Std Deviation RDW Coeff of Gray Plt Count MPV Immature Gran % (Auto) Neut % (Auto) Lymph % (Auto) [place] % (Auto) Eos % (Auto) Baso % (Auto) Immature Gran # (Auto) Neut # (Auto) Lymph # (Auto) [place] # (Auto) Eos # (Auto) Baso # (Auto) Absolute Nucleated RBC Nucleated RBC % (auto) PT INR APTT PTT Ratio ABG pH ABG pCO2 ABG pO2 ABG HCO3 ABG O2 Saturation ABG Base Excess Farrukh Test Barometric Pressure Oxygen Given Sodium Potassium Chloride Carbon Dioxide Anion Gap BUN Creatinine Est Cr Clr Drug Dosing Est GFR ( Amer) Est GFR (Non-Af Amer) BUN/Creatinine Ratio Glucose Lactate Calcium Total Creatine Kinase 115 CK-MB (CK-2) 4.9 H CK/CKMB % Calc 4.3 H Troponin I 0.124 H* NT-Pro-B Natriuret Pep 7050 H Procalcitonin Urine Color Yellow Urine Appearance Clear Urine pH 7.5 Ur Specific [place] 1.015 Urine Protein Negative Urine Glucose (UA) Negative Urine Ketones Negative Urine Blood Negative Urine Nitrite Negative Urine Bilirubin Negative Urine Urobilinogen Negative Ur Leukocyte Esterase Negative Blood Type O Positive Antibody Screen NEGATIVE 10/15/19 10/15/19 10/15/19 11:57 11:57 11:59 WBC RBC Hgb Hct MCV MCH MCHC RDW Std Deviation RDW Coeff of Gray Plt Count MPV Immature Gran % (Auto) Neut % (Auto) Lymph % (Auto) [place] % (Auto) Eos % (Auto) Baso % (Auto) Immature Gran # (Auto) Neut # (Auto) Lymph # (Auto) [place] # (Auto) Eos # (Auto) Baso # (Auto) Absolute Nucleated RBC Nucleated RBC % (auto) PT INR APTT PTT Ratio ABG pH 7.32 L ABG pCO2 75 H ABG pO2 89 ABG HCO3 38 H ABG O2 Saturation 95.3 H ABG Base Excess 10.1 H Farrukh Test Pos Barometric Pressure 735.2 Oxygen Given 3 L Sodium Potassium Chloride Carbon Dioxide Anion Gap BUN Creatinine Est Cr Clr Drug Dosing Est GFR ( Amer) Est GFR (Non-Af Amer) BUN/Creatinine Ratio Glucose Lactate 0.8 Calcium Total Creatine Kinase CK-MB (CK-2) CK/CKMB % Calc Troponin I NT-Pro-B Natriuret Pep Procalcitonin 0.10 Urine Color Urine Appearance Urine pH Ur Specific [place] Urine Protein Urine Glucose (UA) Urine Ketones Urine Blood Urine Nitrite Urine Bilirubin Urine Urobilinogen Ur Leukocyte Esterase Blood Type Antibody Screen 10/15/19 10/15/19 10/15/19 14:49 17:05 21:04 WBC RBC Hgb Hct MCV MCH MCHC RDW Std Deviation RDW Coeff of Gray Plt Count MPV Immature Gran % (Auto) Neut % (Auto) Lymph % (Auto) [place] % (Auto) Eos % (Auto) Baso % (Auto) Immature Gran # (Auto) Neut # (Auto) Lymph # (Auto) [place] # (Auto) Eos # (Auto) Baso # (Auto) Absolute Nucleated RBC Nucleated RBC % (auto) PT INR APTT PTT Ratio ABG pH 7.40 ABG pCO2 63 H ABG pO2 84 ABG HCO3 39 H ABG O2 Saturation 95.8 H ABG Base Excess 12.2 H Farrukh Test Pos Barometric Pressure 733.9 Oxygen Given 35% Sodium Potassium Chloride Carbon Dioxide Anion Gap BUN Creatinine Est Cr Clr Drug Dosing Est GFR ( Amer) Est GFR (Non-Af Amer) BUN/Creatinine Ratio Glucose Lactate Calcium Total Creatine Kinase CK-MB (CK-2) CK/CKMB % Calc Troponin I 0.109 H* 0.071 H* NT-Pro-B Natriuret Pep Procalcitonin Urine Color Urine Appearance Urine pH Ur Specific [place] Urine Protein Urine Glucose (UA) Urine Ketones Urine Blood Urine Nitrite Urine Bilirubin Urine Urobilinogen Ur Leukocyte Esterase Blood Type Antibody Screen Diagnostic Findings Telemetry personally reviewed: Sinus rhythm. No arrhythmia. Echo 10/15/2019: Normal LV systolic function. EF 65 to 70%. Normal wall motion. Mild LVH. Moderate left atrial dilation. RVSP 50-60. Medications Administered Current Inpatient Medications Acetaminophen (Tylenol) 650 mg PO Q4H PRN PRN Reason: Pain or Fever Stop: 11/14/19 12:50 Albuterol (Duoneb) 3 ml INH Q6R PRN PRN Reason: Shortness Of Breath Stop: 11/14/19 12:50 Amiodarone HCl (Cordarone) 200 mg PO [facility] Stop: 11/14/19 13:14 Last Admin: 10/16/19 08:32 Dose: 200 mg Documented by: Artificial Tears (Artificial Tears) 1 drops OP QID PRN PRN Reason: DRY EYES Stop: 11/14/19 12:59 Calcium Carbonate (Tums) 500 mg PO Q4H PRN PRN Reason: Dyspepsia Stop: 11/14/19 12:50 Cetirizine HCl (Zyrtec) 10 mg PO [facility] Stop: 11/15/19 08:59 Last Admin: 10/16/19 08:32 Dose: 10 mg Documented by: Fluticasone Propionate (Flonase) 1 sprays [facility] Stop: 11/15/19 08:59 Last Admin: 10/16/19 08:34 Dose: 1 sprays Documented by: Acetaminophen (Ofirmev) 1,000 mg in 100 mls @ 400 mls/hr IV Q8H PRN PRN Reason: Mild Pain Stop: 10/18/19 16:15 Last Infusion: 10/16/19 04:52 Dose: Infused Documented by: Levetiracetam (Keppra) 750 mg PO BID@0800,2000 [facility] Stop: 11/14/19 13:14 Last Admin: 10/16/19 08:33 Dose: 750 mg Documented by: Metoprolol Tartrate (Lopressor) 12.5 mg PO BID@0800,1600 [facility] Stop: 11/15/19 07:59 Last Admin: 10/16/19 08:31 Dose: 12.5 mg Documented by: Pantoprazole Sodium (Protonix) 40 mg PO [facility]; Protocol Stop: 11/15/19 08:59 Last Admin: 10/16/19 08:33 Dose: 40 mg Documented by: Polyethylene Glycol (Miralax Powder Packet) 17 gm PO DAILY PRN PRN Reason: Constipation Stop: 11/14/19 12:50 Senna/Docusate Sodium (Senokot S) 2 tab PO [facility] Stop: 11/14/19 13:14 Last Admin: 10/16/19 08:31 Dose: 2 tab Documented by: Venlafaxine HCl (Effexor Extended Release) 150 mg PO [facility] Stop: 11/14/19 13:14 Last Admin: 10/16/19 08:32 Dose: 150 mg Documented by: PG Care Time/CCT Total # of Minutes Spent Total Time Spent with Patient: Total time spent is greater than 50% in coordination of care (as documented) at patient's floor/unit and/or counseling patient: Coding Level of Care Code 00944 Subseq Hosp Care Lvl 3 Diagnoses Acute on chronic respiratory failure J96.20 Elevated troponin R79.89 Paroxysmal atrial fibrillation I48.0
[2019-10-16 08:50] LABS: Hematocrit (blood only) 24.7 % (37-47); Hemoglobin 7.6 g/dL (12.0-16.0); Mean Corpuscular Hgb Conc 30.8 g/dL (32-36); Mean Corpuscular Volume 74.8 fL (80-100); Mean Platelet Volume 9.2 fL (7.4-10.4); Platelet Count 158 K/uL (130-400); RDW Coefficient of Variation 15.8 % (11.5-14.5); White Blood Count 4.46 K/uL (4.8-10.8)
[2019-10-16] MEDS ORDERED: CEROVITE ADV FORMULA TAB PO SCH (09:00)
[2019-10-16] MEDS ORDERED: CHOLECALCIFEROL 1,000 UNITS 25 MCG TAB PO SCH (09:00)
[2019-10-16 09:15] LABS: BUN Creatinine Ratio 25.3 (10-20); Calcium 8.8 mg/dl (8.5-10.1); Creatinine Clr Calc Pharmacy 45.8 ml/min; Est GFR (Non-African American) 63.8; Potassium 3.7 mmol/L (3.5-5.1)
[2019-10-16] MEDS: LORazepam 0.5 MG TAB PO PRN ×2 (10:40→19:21)
--- NOTE | 2019-10-16 13:59 | Hospitalist Progress Note ---
Date of Service October 16, 2019 Assessment & Plan (1) Acute on chronic respiratory failure: This is an 84-year-old female from [facility] with a PMH of chronic hypoxic respiratory failure on 2-3L NC, paroxysmal atrial fibrillation, COPD, history of recent pneumonia, seizure disorder, history of stroke, hx of subdural hematoma, depression and anxiety and other medical problems listed below who presents after fall at facility this morning and was found to have acute on chronic respiratory failure with hypoxia and hypercapnia, metabolic encephalopathy and evidence of pulmonary edema on CXR. -After fall in the morning (on day of admission), found to have acute hypoxia in the 80s while on baseline 3 L nasal cannula O2 -Initially required 15 L/min oxygen mask to maintain saturation above 90%, but now 93% on oxygen mask at 3 L -ABG ordered due to encephalopathy and concern for CO2 retention. Results show respiratory acidosis with pH of 7.32, pCO2 of 75, HCO3 of 38 -Started on BiPAP, clinically much improved after BiPAP, ABG repeated also improved -Currently off of BiPAP (2) Metabolic encephalopathy: In the setting of acute on chronic hypoxic and hypercapnic respiratory failure -BiPAP initiated on admission, mentation much improved now -CT head without any acute findings, UA negative, chest x-ray with evidence of airspace opacities suggesting possible pneumonia but does not appear clinically consistent with PNA. Follow blood cultures -Has been recommended by neurology to wean chronic Ativan 1mg QID plus PRN dosing but family is not interested in this - counseled that it could be contributing to overall confusion (3) Acute decompensated heart failure: No documented history of heart failure. Most recent 2D echo from 2017 with preserved EF, no evidence of diastolic dysfunction -BNP elevated at 7050. Crackles on pulmonary exam. No peripheral edema or documented weight gain at [facility] (weighed 3x in past week without gain) -CXR with cardiomegaly with pulmonary edema and trace pleural effusions and patchy left mid lung, left upper lobe and right lung base airspace opacities are suggestive of asymmetric pulmonary edema vs PNA -Considering PNA but no reported fever, cough, wheezing. No leukocytosis. Procalcitonin and lactic acid WNL. Blood cultures obtained - continue to follow -Given 40mg IV Lasix in ED. Strict intake & output, daily weights, 2D echo or dered -Routine consult for [facility] cardiology service. Appreciate recommendations -Patient responded quite well to diuresis -per Cardiology evaluation, mental status change likely due to lung disease /h ypoxia/hypercapnia, does not appear significantly hypervolemic, however will want to keep her net negative -Echocardiogram October 15, mild concentric LVH, LV systolic function normal, left atrium moderately dilated, right atrium mildly dilated, moderate mitral calcification, RV syst. pressure elevated at 50-60 mmHg (4) Elevated troponin: Initial troponin elevated 0.124. No history of troponin elevation in the past -No evidence of acute ischemic change on EKG. No chest pain -troponin peaked , monitor on telemetry (5) Frequent falls: Continue PT/OT, fall precautions (6) Seizure disorder: Dilantin was discontinued on 09/25 due to possible medication interaction with amiodarone -Continue Keppra 750 mg twice daily. No recent witnessed seizures (7) Hypertension: Continue Lopressor (8) Paroxysmal atrial fibrillation: Amiodarone dose decreased last week per [facility] cardiology from 400 to 200 mg daily -Not on anticoagulation due to history of frequent falls, h/o remote subdural hematoma, chronic anemia (9) COPD (chronic obstructive pulmonary disease): Ipratropium-albuterol neb PRN on outpatient med list -Seems to have chronic respiratory acidosis at baseline - on 3L NC O2 (10) History of stroke: Continue aggrenox for h/o stroke (11) Chronic anemia: Hgb ~8 (baseline ~9-9.5) -No evidence of active bleeding. Continue to monitor CBC (12) Depression with anxiety: Continue SNRI, ativan dose decreased, as needed DVT Ppx: SCDs for now Code status: DNR per POLST form (on paper chart), per discussion with daughter at bedside PCP: Obdulio Dispo: Admitted to PCU. Discharge planning, PT and OT ordered. Subjective Patient is lying in bed, currently off BiPAP, awake and alert in no acute distress. Denies any chest pain, shortness of breath, abdominal pain, nausea or vomiting. She answers most questions appropriately however when I talked to her about BiPAP, she said that I was upsetting her. Review of Systems Review of Systems: All systems reviewed & are unremarkable except as noted in HPI & below Constitutional: no fever and no chills Respiratory: no cough Cardiovascular: no chest pain and no palpitations Gastrointestinal: no abdominal pain, no nausea and no vomiting Physical Exam 2 Physical Exam: General Appearance: WD/WN, elderly female, laying in bed, currently off of BiPAP Head: normocephalic, atraumatic Eyes: normal inspection, PERRL, conjunctivae normal, anicteric sclerae ENT: external ear and nose normal, oropharynx normal Neck: trachea midline, no thyromegaly normal visual inspection Respiratory: normal respiratory effort, mild bibasilar crackles, no wheezing. Normal insp/exp effort, no accessory muscle use Cardiovascular: regular rate, rhythm, no murmur appreciated, normal peripheral pulses, trace BLE edema. Vessels: no JVD Chest: normal inspection of chest Abdomen/GI: normal bowel sounds, soft, nontender, nondistended Extremities/MSK: no cyanosis or clubbing, extremities motor strength 5/5, moves extremities spontaneously Neurologic: PERRL, EOMI, CN's II-XI grossly intact and moves all extremities, alert and oriented x3, speech fluent Psychiatric: Patient is awake and alert, answers most questions appropriately, gets easily agitated during review of systems on interview Skin: no rashes, normal color, warm/dry. Skin tear on anterior right busch. No purulent drainage or surrounding warmth Results & Data ([facility]) Vital Signs (Past 12 Hours) Vital Signs Temp Pulse Pulse Resp BP Pulse Ox Pulse Ox 10/16/19 11:23 37.2 C 67 20 169/52 H 95 10/16/19 11:20 93 10/16/19 08:01 61 20 145/67 H 94 10/16/19 08:00 66 10/16/19 07:14 65 21 95 10/16/19 04:17 36.7 C 67 20 154/81 H 95 Pulse Ox Pulse Ox 10/16/19 11:23 10/16/19 11:20 95 80 L 10/16/19 08:01 10/16/19 08:00 10/16/19 07:14 10/16/19 04:17 Laboratory Results 10/16/19 10/16/19 10/15/19 Range/Units 08:30 08:30 21:04 WBC 4.46 L (4.8-10.8) K/uL RBC 3.30 L (4.2-5.4) M/uL Hgb 7.6 L (12.0-16.0) g/dL Hct 24.7 L (37-47) % MCV 74.8 L (80-100) fL MCH 23.0 L (25-34) pg MCHC 30.8 L (32-36) g/dL RDW Std Deviation 43.0 (36.4-46.3) fL RDW Coeff of Gray 15.8 H (11.5-14.5) % Plt Count 158 (130-400) K/uL MPV 9.2 (7.4-10.4) fL ABG pH (7.35-7.45) ABG pCO2 (35-46) mmHg ABG pO2 (80-95) mmHg ABG HCO3 (19-24) mmol/L ABG O2 Saturation (90-95) % ABG Base Excess (-9-1.8) mEq/L Farrukh Test (Pos) Barometric Pressure mm/Hg Oxygen Given Sodium 143 (136-145) mmol/L Potassium 3.7 (3.5-5.1) mmol/L Chloride 102 (98-107) mmol/L Carbon Dioxide 37 H (21-32) mmol/L Anion Gap 4.0 (3-11) BUN 21 H (7-18) mg/dl Creatinine 0.84 (0.6-1.2) mg/dl Est Cr Clr Drug Dosing 45.8 ml/min Est GFR ( Amer) 74.0 Est GFR (Non-Af Amer) 63.8 BUN/Creatinine Ratio 25.3 H (10-20) Glucose 76 (70-99) mg/dl Calcium 8.8 (8.5-10.1) mg/dl Troponin I 0.071 H* (0-0.045) ng/ml 10/15/19 10/15/19 Range/Units 17:05 14:49 WBC (4.8-10.8) K/uL RBC (4.2-5.4) M/uL Hgb (12.0-16.0) g/dL Hct (37-47) % MCV (80-100) fL MCH (25-34) pg MCHC (32-36) g/dL RDW Std Deviation (36.4-46.3) fL RDW Coeff of Gray (11.5-14.5) % Plt Count (130-400) K/uL MPV (7.4-10.4) fL ABG pH 7.40 (7.35-7.45) ABG pCO2 63 H (35-46) mmHg ABG pO2 84 (80-95) mmHg ABG HCO3 39 H (19-24) mmol/L ABG O2 Saturation 95.8 H (90-95) % ABG Base Excess 12.2 H (-9-1.8) mEq/L Farrukh Test Pos (Pos) Barometric Pressure 733.9 mm/Hg Oxygen Given 35% Sodium (136-145) mmol/L Potassium (3.5-5.1) mmol/L Chloride (98-107) mmol/L Carbon Dioxide (21-32) mmol/L Anion Gap (3-11) BUN (7-18) mg/dl Creatinine (0.6-1.2) mg/dl Est Cr Clr Drug Dosing ml/min Est GFR ( Amer) Est GFR (Non-Af Amer) BUN/Creatinine Ratio (10-20) Glucose (70-99) mg/dl Calcium (8.5-10.1) mg/dl Troponin I 0.109 H* (0-0.045) ng/ml Medications Administered Current Inpatient Medications Acetaminophen (Tylenol) 650 mg PO Q4H PRN PRN Reason: Pain or Fever Stop: 11/14/19 12:50 Albuterol (Duoneb) 3 ml INH Q6R PRN PRN Reason: Shortness Of Breath Stop: 11/14/19 12:50 Amiodarone HCl (Cordarone) 200 mg PO [facility] Stop: 11/14/19 13:14 Last Admin: 10/16/19 08:32 Dose: 200 mg Documented by: Artificial Tears (Artificial Tears) 1 drops OP QID PRN PRN Reason: DRY EYES Stop: 11/14/19 12:59 Calcium Carbonate (Tums) 500 mg PO Q4H PRN PRN Reason: Dyspepsia Stop: 11/14/19 12:50 Cetirizine HCl (Zyrtec) 10 mg PO [facility] Stop: 11/15/19 08:59 Last Admin: 10/16/19 08:32 Dose: 10 mg Documented by: Fluticasone Propionate (Flonase) 1 sprays [facility] Stop: 11/15/19 08:59 Last Admin: 10/16/19 08:34 Dose: 1 sprays Documented by: Acetaminophen (Ofirmev) 1,000 mg in 100 mls @ 400 mls/hr IV Q8H PRN PRN Reason: Mild Pain Stop: 10/18/19 16:15 Last Infusion: 10/16/19 04:52 Dose: Infused Documented by: Levetiracetam (Keppra) 750 mg PO BID@0800,2000 [facility] Stop: 11/14/19 13:14 Last Admin: 10/16/19 08:33 Dose: 750 mg Documented by: Lorazepam (Ativan) 0.5 mg PO BID PRN PRN Reason: Anxiety Stop: 11/15/19 10:21 Last Admin: 10/16/19 10:40 Dose: 0.5 mg Documented by: Metoprolol Tartrate (Lopressor) 12.5 mg PO BID@0800,1600 [facility] Stop: 11/15/19 07:59 Last Admin: 10/16/19 08:31 Dose: 12.5 mg Documented by: Pantoprazole Sodium (Protonix) 40 mg PO [facility]; Protocol Stop: 11/15/19 08:59 Last Admin: 10/16/19 08:33 Dose: 40 mg Documented by: Polyethylene Glycol (Miralax Powder Packet) 17 gm PO DAILY PRN PRN Reason: Constipation Stop: 11/14/19 12:50 Senna/Docusate Sodium (Senokot S) 2 tab PO [facility] Stop: 11/14/19 13:14 Last Admin: 10/16/19 08:31 Dose: 2 tab Documented by: Venlafaxine HCl (Effexor Extended Release) 150 mg PO [facility] Stop: 11/14/19 13:14 Last Admin: 10/16/19 08:32 Dose: 150 mg Documented by: (1) COPD (chronic obstructive pulmonary disease) COPD type: COPD with acute exacerbation Qualified Code(s): J44.1 - Chronic obstructive pulmonary disease with (acute) exacerbation
--- NOTE | 2019-10-16 15:17 | XRay Report ---
XR chest 1V portable HISTORY: 84 years-old Female follow up follow up study in a patient with pleural effusions COMPARISON: Chest radiograph 10/15/2019 TECHNIQUE: Portable AP view of the chest FINDINGS: Cardiac silhouette is enlarged. Calcified plaque of the mitral annulus and thoracic aorta. Bilateral pleural effusions with bibasilar opacities. Decreased pulmonary edema. Degenerative changes of the sh oulders and spine. Surgical clips project over the right axilla. Emphysema. IMPRESSION: 1. Cardiomegaly with decreased pulmonary edema. 2. Persistent pleural effusions with bibasilar consolidative opacities. 3. Emphysema. ACT 112: Negative or not required by law. The above report was generated using voice recognition software. It may contain grammatical, syntax o r spelling errors. Electronically signed by: Reyes Kaur M.D. 10/16/2019 3:16 PM
--- NOTE | 2019-10-17 00:59 | Communication Note ---
Date of Service: October 17, 2019 Made aware by RN of uncontrolled blood pressure. SBP 140-190s overnight. Patient asymptomatic as per RN. AP Hypertensive urgency Initiate lisinopril. Will relay to AM provider.
[2019-10-17 06:06] LABS: Hematocrit (blood only) 25.8 % (37-47); Hemoglobin 7.8 g/dL (12.0-16.0); Mean Corpuscular Hemoglobin 22.4 pg (25-34); Mean Corpuscular Hgb Conc 30.2 g/dL (32-36); Mean Corpuscular Volume 74.1 fL (80-100); Mean Platelet Volume 10.4 fL (7.4-10.4); Platelet Count 156 K/uL (130-400); RDW Coefficient of Variation 15.9 % (11.5-14.5); RDW Standard Deviation 41.8 fL (36.4-46.3); Red Blood Count 3.48 M/uL (4.2-5.4); White Blood Count 5.49 K/uL (4.8-10.8)
[2019-10-17 06:37] LABS: BUN Creatinine Ratio 31.7 (10-20); Calcium 8.6 mg/dl (8.5-10.1); Creatinine Clr Calc Pharmacy 47.5 ml/min; Est GFR (African American) 87.7; Est GFR (Non-African American) 75.6; Potassium 3.7 mmol/L (3.5-5.1)
[2019-10-17] MEDS ORDERED: LORazepam 0.5 MG TAB PO STA (07:44)
[2019-10-17] MEDS: VENLAFAXINE HCL XR 150 MG CAPXR PO SCH (08:26)
[2019-10-17] MEDS: FLUTICASONE PROPIONATE NA SPR 16 GM BTL NAE SCH (08:26)
[2019-10-17] MEDS: METOPROLOL TARTRATE 25 MG TAB PO SCH (08:26)
[2019-10-17] MEDS: DOCUSATE SODIUM/SENNA 50/8.6MG TAB PO SCH (08:27)
[2019-10-17] MEDS: CETIRIZINE HCL 10 MG TABLET PO SCH (08:27)
[2019-10-17] MEDS: AMIODARONE 200 MG TAB PO SCH (08:27)
[2019-10-17] MEDS: levETIRAcetam 250 MG TAB PO SCH (08:27)
[2019-10-17] MEDS: PANTOprazole 40 MG TAB PO SCH (08:27)
[2019-10-17] MEDS ORDERED: LORazepam 0.5 MG TAB PO SCH (14:00)
--- NOTE | 2019-10-17 14:41 | Discharge Summary ---
Date of Service October 17, 2019 Admission HPI Per Admitting Provider This is an 84-year-old female from [facility] with a PMH of chronic hypoxic respiratory failure on 2-3L NC, paroxysmal atrial fibrillation, COPD, history of recent pneumonia, seizure disorder, history of stroke, depression and anxiety and other medical problems listed below who presents after fall at facility this morning. Patient has complicated recent medical history requiring multiple hospital admissions. Was initially admitted to [facility] in [place] in August for pneumonia and new onset atrial fibrillation. During admission, patient was started on amiodarone. Was admitted to [facility] from Sep 25- for metabolic encephalopathy and Dilantin level was elevated. Was evaluated by neurology and decision was made to discontinue Dilantin due to possible medication reaction with amiodarone. Keppra dose was increased to 750mg BID by Dr. Atkins on 09/25. Since discharge, patient followed up in [facility] cardiology clinic on 10/08/18 for bradycardia and had amiodarone dose decreased from 400 to 200 mg daily. Has also been seen by [facility] neurology with plan to continue new Keppra dose of 750mg BID. Also takes 1 mg lorazepam 4 times daily for many years with additional PRN dosing. Per note, neurology discussed weaning patient off of this medication, however family refused. Was also recommended to decrease taking medications like Benadryl that could contribute to worsening mental status. Has continued to suffer from more frequent falls, with 3 falls noted since the weekend by [facility]. Falls are attributed to advanced age, balance impairment, oxygen use, history of stroke, memory impairment, etc. Ambulates with walker and has had increased supervision at assisted living. Has also been participating in PT. This morning, nursing staff heard yelling out from patient around 0730 and went to her room, finding her lying on the ground next to her bed. It looked to staff although she got tangled up in sheets. Upon further questioning, patient seemed lethargic and unable to appropriately answer staff questions, so she was sent to ED for further evaluation. Unable to obtain ROS due to patient's current cognitive state. Admission Exam Per Admitting Provider General Appearance: WD/WN, frail, lethargic but responsive to sternal rub, intermittent verbal stimuli Head: normocephalic, atraumatic Eyes: normal inspection, PERRL, conjunctivae normal, anicteric sclerae ENT: external ear and nose normal, oropharynx normal Neck: trachea midline, no thyromegaly normal visual inspection Respiratory: normal respiratory effort, lungs bibasilar Rales, scattered rhonchi. Normal insp/exp effort, no accessory muscle use Cardiovascular: regular rate, rhythm, no murmur appreciated, normal peripheral pulses, trace BLE edema. Vessels: no JVD Chest: normal inspection of chest Abdomen/GI: normal bowel sounds, soft, nontender, no hepatosplenomegaly Extremities/Musculoskelatal: no cyanosis or clubbing, extremities motor strength 5/5 Neurologic: PERRL, CN's II-XI grossly intact and moves all extremities Psychiatric: Lethargic, able to answer some yes or no questions, agitated Skin: no rashes, normal color, warm/dry. Skin tear on anterior right busch. No purulent drainage or surrounding warmth Principal Diagnosis Acute on chronic hypoxic, hypercapnic respiratory failure Metabolic encephalopathy Acute pulmonary edema Discharge Exam General Appearance: WD/WN, elderly female, laying in bed,on 3L NC Head: normocephalic, atraumatic Eyes: normal inspection, PERRL, EOMI, conjunctivae normal, anicteric sclerae ENT: external ear and nose normal, oropharynx normal Neck: trachea midline, no thyromegaly normal visual inspection Respiratory: normal respiratory effort, mild rhonchi, no wheezing. Normal insp/exp effort, no accessory muscle use Cardiovascular: regular rate, rhythm, no murmur appreciated, normal peripheral pulses, no LE edema. Vessels: no JVD Chest: normal inspection of chest Abdomen/GI: normal bowel sounds, soft, nontender, nondistended Extremities/MSK: no cyanosis or clubbing, extremities motor strength 5/5, moves extremities spontaneously Neurologic: PERRL, EOMI, CN's II-XI grossly intact and moves all extremities, alert and oriented x3, speech fluent Psychiatric: Patient is awake and alert, answers most questions appropriately Skin: no rashes, normal color, warm/dry. Skin tear on anterior right busch. No purulent drainage or surrounding warmth Discharge Data Allergies Allergy/AdvReac Type Severity Reaction Status Date / Time morphine Allergy Mild itching Verified 10/15/19 08:40 Consultations 10/15/19 08:33 Consult Case Management - Discharge Planning Routine 10/15/19 09:58 ED Decision to Admit Stat 10/15/19 12:51 Consult Cardiology Routine Consult Case Management - Discharge Planning Routine Ordered Studies 10/15/19 08:30 CT cervical spine wo con Stat CT facial bones wo con Stat CT head/brain wo con Stat Hospital Course (1) Acute on chronic respiratory failure: This is an 84-year-old female from [facility] with a PMH of chronic hypoxic respiratory failure on 2-3L NC, paroxysmal atrial fibrillation, COPD, history of recent pneumonia, seizure disorder, history of stroke, hx of subdural hematoma, depression and anxiety and other medical problems listed below who presents after fall at facility this morning and was found to have a cute on chronic respiratory failure with hypoxia and hypercapnia, metabolic encephalopathy and evidence of pulmonary edema on CXR. -After fall in the morning (on day of admission), found to have acute hypoxia in the 80s while on baseline 3 L nasal cannula O2 -Initially required 15 L/min oxygen mask to maintain saturation above 90%, but now 93% on oxygen mask at 3 L -ABG ordered due to encephalopathy and concern for CO2 retention. Results show respiratory acidosis with pH of 7.32, pCO2 of 75, HCO3 of 38 -Started on BiPAP, clinically much improved after BiPAP, ABG repeated also improved -Currently back to baseline on NC -Pt follows as outpt w/ [facility] pulmonology, discussed w/ them current pt's hospitalization. Pt is well known to them, they follow for her severe COPD. Recommend follow up in their clinic in 2 week. Also recommend a noninvasive home ventilator - Due to chronic respiratory failure consequent to COPD, patient now requires a noninvasive home ventilator. Bilevel therapy with and without a rate would be ineffective as patient requires a volume targeted mode. Ventilation is required to decrease work of breathing and improve pulmonary status. Interruption of ventilator support would lead to decline of health status. NIMV settings should be AVAPS-AE; Breath rate: auto; Inspiratory time:auto; Sigh: off; Tidal Volume: 350-450, PS min: 4-10 PS max: 12-20; EPAP min: 6-10; EPAP max: 10-16; AVAPS rate: 10 during sleep and as needed (2) Metabolic encephalopathy: In the setting of acute on chronic hypoxic and hypercapnic respiratory failure -BiPAP initiated on admission, mentation much improved now -CT head without any acute findings, UA negative, chest x-ray with evidence of airspace opacities suggesting possible pneumonia but does not appear clinically consistent with PNA. Follow blood cultures -Has been recommended by neurology to wean chronic Ativan 1mg QID plus PRN dosing but family is not interested in this - counseled that it could be contributing to overall confusion (3) Acute decompensated heart failure: NOT likely acute decompensated heart failure but Acute pulmonary edema No documented history of heart failure. Most recent 2D echo from 2017 with preserved EF, no evidence of diastolic dysfunction -BNP elevated at 7050. Crackles on pulmonary exam. No peripheral edema or documented weight gain at [facility] (weighed 3x in past week without gain) -CXR with cardiomegaly with pulmonary edema and trace pleural effusions and patchy left mid lung, left upper lobe and right lung base airspace opacities are suggestive of asymmetric pulmonary edema vs PNA -Considering PNA but no reported fever, cough, wheezing. No leukocytosis. Procalcitonin and lactic acid WNL. Blood cultures obtained - continue to follow -Given 40mg IV Lasix in ED. Strict intake & output, daily weights, 2D echo ordered -Routine consult for [facility] cardiology service. Appreciate recommendations -Patient responded quite well to diuresis -per Cardiology evaluation, mental status change likely due to lung disease /hypoxia/hypercapnia, does not appear significantly hypervolemic, however will want to keep her net negative -Echocardiogram October 15, mild concentric LVH, LV systolic function normal, left atrium moderately dilated, right atrium mildly dilated, moderate mitral calcification, RV syst. pressure elevated at 50-60 mmHg (4) Elevated troponin: Initial troponin elevated 0.124. No history of troponin elevation in the past -No evidence of acute ischemic change on EKG. No chest pain -troponin peaked , monitor on telemetry (5) Frequent falls: Continue PT/OT, fall precautions (6) Seizure disorder: Dilantin was discontinued on 09/25 due to possible medication interaction with amiodarone -Continue Keppra 750 mg twice daily. No recent witnessed seizures (7) Hypertension: Continue Lopressor (8) Paroxysmal atrial fibrillation: Amiodarone dose decreased last week per [facility] cardiology from 400 to 200 mg daily -Not on anticoagulation due to history of frequent falls, h/o remote subdural hematoma, chronic anemia (9) COPD (chronic obstructive pulmonary disease): Ipratropium-albuterol neb PRN on outpatient med list -Seems to have chronic respiratory acidosis at baseline - on 3L NC O2 (10) History of stroke: Continue aggrenox for h/o stroke (11) Chronic anemia: Hgb ~8 (baseline ~9-9.5) -No evidence of active bleeding. Continue to monitor CBC (12) Depression with anxiety: Continue SNRI, ativan dose decreased, as needed DVT Ppx: SCDs for now Code status: DNR per POLST form (on paper chart), per discussion with daughter at bedside PCP: Ob[facility] Dispo: Plan to discharge home today Discharge Plan Discharge Items Patient Disposition: [facility] Reason For Visit: ACUTE HYPOIC RESP FAILURE, CHF EXACERBATION Discharge Diagnosis: Acute on chronic hypoxic, hypercapnic respiratory failure Activity: Resume your previous activity Activity Comment: as tolerated, ask for help as needed Non-emergency contact: Primary Care Provider and Surety Bond Agent Call non-emergency contact if: you have any medication questions and your symptoms worsen Follow-up/Referrals: Antoine Mak [Primary Care Provider] - Diet: Regular Addtl Attending Provider Instructions: Make sure to call and make a follow up appointment with your office clinician, you should be seen within 2 weeks, per their recommendation. Make sure your oxygen saturation is between 88 and 92%. It is recommended that you use home noninvasive ventilator (when you sleep at night and when resting during the day). manager care management is coordinating this for you. Check your blood pressure at least once a day, and keep a log of these numbers. Bring this log to your primary care doctor so your blood pressure medications can be adjusted. You were started on new medication (lisinopril) for your blood pressure, take it daily. You should see your primary care doctor within 1 week. It is recommended that you decrease the dose of your ativan to 0.5 mg instead of 1mg. Discuss this with your primary care doctor and/or neurologist. Pending Studies at Discharge: No Stand-Alone Forms: My [employer], Smoking Cessation Skilled Items Patient informed of condition?: Yes DNR: Yes Discharge Level of Care: Other Communicable Disease: No Discharge Prognosis: Deteriorating Lines: None Urinary Catheter: No Medications and DC Order Prescriptions: New lisinopril 2.5 mg Tablet 2.5 mg PO QAM 14 Days Qty: 14 RF: 0 Continued amiodarone 200 mg tablet 200 mg PO QAM RF: 0 TheraTears 0.25 % drops 1 drops OP QID PRN (Reason: Dry Eye(S)) RF: 0 metoprolol tartrate 25 mg tablet 25 mg PO BID RF: 0 (DME) Oxygen Home Liters Per Minute See Dose Instructions .ROUTE .MEDSUPPLY Qty: 1 RF: 0 aspirin-dipyridamole [Aggrenox] 25-200 mg capsule, ER multiphase 12 hr 1 cap PO BID RF: 0 ipratropium-albuterol 0.5 mg-3 mg(2.5 mg base)/3 mL solution for nebulization 3 ml inhalation Q6 PRN (Reason: Shortness Of Breath) RF: 0 polyethylene glycol 3350 [Miralax] 17 gram Powder In Packet 17 g PO QAM RF: 0 cetirizine [Zyrtec] 10 mg Tablet 10 mg PO QAM RF: 0 ondansetron HCl [Zofran] 4 mg tablet 4 mg PO Q6 PRN (Reason: Nausea) RF: 0 sennosides-docusate sodium [Senna-S] 8.6-50 mg Tablet 2 tab PO QAM RF: 0 lorazepam [Ativan] 0.5 mg tablet 0.5 mg PO Q6 PRN (Reason: Anxiety) RF: 0 esomeprazole magnesium [Nexium] 40 mg capsule,delayed release(DR/EC) 40 mg PO QAM RF: 0 calcium carbonate [Tums] 200 mg calcium (500 mg) Tablet,Chewable 500 mg PO Q4 PRN (Reason: Dyspepsia) RF: 0 nitroglycerin [Nitrostat] 0.4 mg tablet, sublingual 0.4 mg sublingual UD PRN (Reason: Chest Pain) RF: 0 lorazepam [Ativan] 1 mg tablet 1 mg PO QID RF: 0 fluticasone propionate [Flonase Allergy Relief] 50 mcg/actuation spray,suspension 1 spray intranasal QAM RF: 0 Therems-M 27-0.4 mg Tablet 1 tab PO QAM RF: 0 biotin 1 mg Tablet 1 mg PO BID RF: 0 acetaminophen [Tylenol] 325 mg Capsule 650 mg PO Q4 MDD 3 GRAMS/24 HOURS. PRN (Reason: Fever Or Pain) RF: 0 cholecalciferol (vitamin D3) [Vitamin D3] 2,000 unit Capsule 2,000 unit PO QAM RF: 0 levetiracetam [Keppra] 500 mg tablet 750 mg PO BID Qty: 0 RF: 0 venlafaxine 150 mg capsule,extended release 24hr 150 mg PO QAM RF: 0 Discharge Orders: Discharge Order (Routine); Ordered 10/17/19 Ordered By: Sam Caballero Admission Data Admit Date/Time: 10/15/19 10:13 Attending Provider: Sam Caballero Admit Provider: Sam Caballero Primary Care Provider: Antoine Mak Other Providers: Benitez Jay Other Interventions: Discharge Summary Assessment (RN) Last Done: 10/17/19 15:14 DC Date/Time DO NOT enter until pt leaves facility: 10/17/19 15:45
--- NOTE | 2019-10-17 14:41 | Hospitalist Progress Note ---
Date of Service October 17, 2019 Assessment & Plan (1) Acute on chronic respiratory failure: This is an 84-year-old female from [facility] with a PMH of chronic hypoxic respiratory failure on 2-3L NC, paroxysmal atrial fibrillation, COPD, history of recent pneumonia, seizure disorder, history of stroke, hx of subdural hematoma, depression and anxiety and other medical problems listed below who presents after fall at facility this morning and was found to have ac [place] on chronic respiratory failure with hypoxia and hypercapnia, metabolic encephalopathy and evidence of pulmonary edema on CXR. -After fall in the morning (on day of admission), found to have acute hypoxia in the 80s while on baseline 3 L nasal cannula O2 -Initially required 15 L/min oxygen mask to maintain saturation above 90%, but now 93% on oxygen mask at 3 L -ABG ordered due to encephalopathy and concern for CO2 retention. Results show respiratory acidosis with pH of 7.32, pCO2 of 75, HCO3 of 38 -Started on BiPAP, clinically much improved after BiPAP, ABG repeated also improved -Currently back to baseline on NC -Pt follows as outpt w/ [facility] pulmonology, discussed w/ them current pt's hospitalization. Pt is well known to them, they follow for her severe COPD. Recommend follow up in their clinic in 2 week. Also recommend a noninvasive home ventilator - Due to chronic respiratory failure consequent to COPD, patient now requires a noninvasive home ventilator. Bilevel therapy with and without a rate would be ineffective as patient requires a volume targeted mode. Ventilation is required to decrease work of breathing and improve pulmonary status. Interruption of ventilator support would lead to decline of health status. NIMV settings should be AVAPS-AE; Breath rate: auto; Inspiratory time:auto; Sigh: off; Tidal Volume: 350-450, PS min: 4-10 PS max: 12-20; EPAP min: 6-10; EPAP max: 10-16; AVAPS rate: 10 during sleep and as needed (2) Metabolic encephalopathy: In the setting of acute on chronic hypoxic and hypercapnic respiratory failure -BiPAP initiated on admission, mentation much improved now -CT head without any acute findings, UA negative, chest x-ray with evidence of airspace opacities suggesting possible pneumonia but does not appear clinically consistent with PNA. Follow blood cultures -Has been recommended by neurology to wean chronic Ativan 1mg QID plus PRN dosing but family is not interested in this - counseled that it could be contributing to overall confusion (3) Acute decompensated heart failure: NOT likely acute decompensated heart failure but Acute pulmonary edema No documented history of heart failure. Most recent 2D echo from 2016 with preserved EF, no evidence of diastolic dysfunction -BNP elevated at 7050. Crackles on pulmonary exam. No peripheral edema or documented weight gain at [facility] (weighed 3x in past week without gain) -CXR with cardiomegaly with pulmonary edema and trace pleural effusions and patchy left mid lung, left upper lobe and right lung base airspace opacities are suggestive of asymmetric pulmonary edema vs PNA -Considering PNA but no reported fever, cough, wheezing. No leukocytosis. Procalcitonin and lactic acid WNL. Blood cultures obtained - continue to follow -Given 40mg IV Lasix in ED. Strict intake & output, daily weights, 2D echo ordered -Routine consult for [facility] cardiology service. Appreciate recommendations -Patient responded quite well to diuresis -per Cardiology evaluation, mental status change likely due to lung disease /hypoxia/hypercapnia, does not appear significantly hypervolemic, however will want to keep her net negative -Echocardiogram October 15, mild concentric LVH, LV systolic function normal, left atrium moderately dilated, right atrium mildly dilated, moderate mitral calcification, RV syst. pressure elevated at 50-60 mmHg (4) Elevated troponin: Initial troponin elevated 0.124. No history of troponin elevation in the past -No evidence of acute ischemic change on EKG. No chest pain -troponin peaked , monitor on telemetry (5) Frequent falls: Continue PT/OT, fall precautions (6) Seizure disorder: Dilantin was discontinued on 09/25 due to possible medication interaction with amiodarone -Continue Keppra 750 mg twice daily. No recent witnessed seizures (7) Hypertension: Continue Lopressor (8) Paroxysmal atrial fibrillation: Amiodarone dose decreased last week per [facility] cardiology from 400 to 200 mg daily -Not on anticoagulation due to history of frequent falls, h/o remote subdural hematoma, chronic anemia (9) COPD (chronic obstructive pulmonary disease): Ipratropium-albuterol neb PRN on outpatient med list -Seems to have chronic respiratory acidosis at baseline - on 3L NC O2 (10) History of stroke: Continue aggrenox for h/o stroke (11) Chronic anemia: Hgb ~8 (baseline ~9-9.5) -No evidence of active bleeding. Continue to monitor CBC (12) Depression with anxiety: Continue SNRI, ativan dose decreased, as needed DVT Ppx: SCDs for now Code status: DNR per POLST form (on paper chart), per discussion with daughter at bedside PCP: [facility] Dispo: Plan to discharge home today Subjective Patient is sitting up in bed, on NC, awake and alert in no acute distress. Denies any chest pain, shortness of breath, abdominal pain, nausea or vomiting. She answers questions appropriately. Daughter at the bedside. Discussed noninvasive home ventilator, and they are interested, think that pt could use that at home. Also discussed with them, that I recommend they decrease her dose of ativan. Review of Systems Review of Systems: All systems reviewed & are unremarkable except as noted in HPI & below Constitutional: no fever and no chills Respiratory: no cough and no dyspnea (but on chronic O2) Cardiovascular: no chest pain, no palpitations and no edema Gastrointestinal: no abdominal pain, no nausea and no vomiting Physical Exam Physical Exam: General Appearance: WD/WN, elderly female, laying in bed,on 3L NC Head: normocephalic, atraumatic Eyes: normal inspection, PERRL, EOMI, conjunctivae normal, anicteric sclerae ENT: external ear and nose normal, oropharynx normal Neck: trachea midline, no thyromegaly normal visual inspection Respiratory: normal respiratory effort, mild rhonchi, no wheezing. Normal insp/exp effort, no accessory muscle use Cardiovascular: regular rate, rhythm, no murmur appreciated, normal peripheral pulses, no LE edema. Vessels: no JVD Chest: normal inspection of chest Abdomen/GI: normal bowel sounds, soft, nontender, nondistended Extremities/MSK: no cyanosis or clubbing, extremities motor strength 5/5, moves extremities spontaneously Neurologic: PERRL, EOMI, CN's II-XI grossly intact and moves all extremities, alert and oriented x3, speech fluent Psychiatric: Patient is awake and alert, answers most questions appropriately Skin: no rashes, normal color, warm/dry. Skin tear on anterior right busch. No purulent drainage or surrounding warmth Results & Data ([facility]) Vital Signs (Past 12 Hours) Vital Signs Temp Pulse Pulse Resp BP Pulse Ox 10/17/19 11:28 36.9 C 57 L 18 164/78 H 99 10/17/19 08:00 83 10/17/19 07:38 37.1 C 67 22 182/82 H 94 10/17/19 04:03 36.6 C 87 21 183/94 H 95 Laboratory Results 10/17/19 10/17/19 10/17/19 Range/Units 05:38 05:38 02:05 WBC 5.49 (4.8-10.8) K/uL RBC 3.48 L (4.2-5.4) M/uL Hgb 7.8 L (12.0-16.0) g/dL Hct 25.8 L (37-47) % MCV 74.1 L (80-100) fL MCH 22.4 L (25-34) pg MCHC 30.2 L (32-36) g/dL RDW Std Deviation 41.8 (36.4-46.3) fL RDW Coeff of Gray 15.9 H (11.5-14.5) % Plt Count 156 (130-400) K/uL MPV 10.4 (7.4-10.4) fL Sodium 141 (136-145) mmol/L Potassium 3.7 (3.5-5.1) mmol/L Chloride 101 (98-107) mmol/L Carbon Dioxide 33 H (21-32) mmol/L Anion Gap 7.0 (3-11) BUN 23 H (7-18) mg/dl Creatinine 0.73 (0.6-1.2) mg/dl Est Cr Clr Drug Dosing 47.5 ml/min Est GFR ( Amer) 87.7 Est GFR (Non-Af Amer) 75.6 BUN/Creatinine Ratio 31.7 H (10-20) Glucose 67 L (70-99) mg/dl POC Glucose 78 (70-99) mg/dl Calcium 8.6 (8.5-10.1) mg/dl (1) COPD (chronic obstructive pulmonary disease) COPD type: COPD with acute exacerbation Qualified Code(s): J44.1 - Chronic obstructive pulmonary disease with (acute) exacerbation
== END 2019-10-17 15:45 | disposition home or self-care (01) | DRG 189 ==
LOC: ED 08:26 → 2E 10:13

== ENCOUNTER 2019-10-23 23:51 | Inpatient (IN) ==
[2019-10-23] MEDS ORDERED: FUROSEMIDE 40 MG/4 ML VIAL IV STA (23:59)
[2019-10-24] MEDS ORDERED: PIPERACILL/TAZOBAC CONSULT ACTIVE PRN (00:04)
[2019-10-24] MEDS ORDERED: PIPERACILLIN/TAZOBACTAM 4.5 GM/120 ML BAG IV ONE (00:04)
[2019-10-24] MEDS ORDERED: XYLOCAINE 1%/SOD BICARB 20 ML VIAL INFIL ONE (00:04)
[2019-10-24] MEDS ORDERED: LEVOFLOXACIN/D5W 750 MG/150 ML BAG IV STA (00:04)
[2019-10-24] MEDS ORDERED: VANCOMYCIN CONSULT ACTIVE PRN (00:14)
[2019-10-24] MEDS ORDERED: VANCOMYCIN HCL 1,250 MG in SODIUM CHLORIDE 0.9% 500 ML IV ONE (00:14)
[2019-10-24] MEDS ORDERED: NITROGLYCERIN/D5W 100MCG/ML 250 ML IV SCH (00:15)
[2019-10-24 00:18] LABS: Basophils # (auto) 0.06 K/uL (0-0.2); Basophils % (auto) 0.5 %; Eosinophils # (auto) 0.16 K/uL (0-0.5); Eosinophils % (auto) 1.2 %; Hematocrit (blood only) 29.2 % (37-47); Immature Granulocytes # (auto) 0.06 K/uL (0.00-0.02); Immature Granulocytes % (auto) 0.5 %; Lymphocytes % (auto) 29.8 %; Mean Corpuscular Hemoglobin 22.9 pg (25-34); Mean Corpuscular Hgb Conc 30.8 g/dL (32-36); Mean Corpuscular Volume 74.3 fL (80-100); Monocytes % (auto) 9.2 %; Neutrophils # (auto) 7.69 K/uL (1.4-6.5); Neutrophils % (auto) 58.8 %; Nucleated RBC # (auto) 0.07 K/uL (0-0); Nucleated RBC % (auto) 0.5 %; Platelet Count 353 K/uL (130-400); RDW Coefficient of Variation 16.5 % (11.5-14.5); RDW Standard Deviation 44.9 fL (36.4-46.3); Red Blood Count 3.93 M/uL (4.2-5.4); White Blood Count 13.07 K/uL (4.8-10.8)
[2019-10-24 00:32] LABS: INR 1.1 (0.9-1.1); Partial Thromboplastin Time 27.8 Seconds (21.0-31.0); Prothrombin Time 11.3 Seconds (9.0-12.0)
[2019-10-24 00:39] LABS: Alanine Aminotransferase 19 U/L (12-78); Albumin Level 3.7 gm/dl (3.4-5.0); Aspartate Aminotransferase 15 U/L (15-37); BUN Creatinine Ratio 19.8 (10-20); Blood Urea Nitrogen 18 mg/dl (7-18); Calcium 8.6 mg/dl (8.5-10.1); Carbon Dioxide 34 mmol/L (21-32); Chloride 102 mmol/L (98-107); Creatinine Clr Calc Pharmacy 40.9 ml/min; Est GFR (African American) 65.4; Est GFR (Non-African American) 56.4; Glucose 247 mg/dl (70-99); Potassium 3.9 mmol/L (3.5-5.1); Sodium 139 mmol/L (136-145)
[2019-10-24 00:44] LABS: Albumin Globulin Ratio 0.8 (0.9-2); Alkaline Phosphatase 105 U/L (45-117); Bilirubin,Total 0.3 mg/dl (0.2-1); Creatine Kinase 67 U/L (26-192); Creatine Kinase MB 2.6 ng/ml (0.5-3.6); Globulin 4.7 gm/dl (2.5-4.0); Total Protein 8.4 gm/dl (6.4-8.2); Troponin I < 0.015 ng/ml (0-0.045)
[2019-10-24 00:45] LABS: Appearance Urine Clear (Clear); Bilirubin Urine Negative (Negative); Blood Urine Negative (Negative); Color Urine Yellow; Epithelial Cell Urine Auto >30 /lpf (0-5); Glucose Urine UA Negative (Negative); Ketones Urine Negative (Negative); Leukocyte Esterase Urine 1+ (Negative); Nitrite Urine Negative (Negative); Protein Urine 2+ (Negative); RBC Urine Automated 0-4 /hpf (0-4); Specific Gravity Urine 1.018 (1.000-1.030); Urobilinogen Urine Negative (Negative); WBC Urine Automated >30 /hpf (0-5)
[2019-10-24 00:49] LABS: Basophilic Stippling Occasional; Hypochromasia Present; Ovalocytes 1+; Schistocytes Occasional; Spherocytes Occasional
[2019-10-24 00:54] LABS: Influenza A virus by PCR Neg for Influ A (Neg); Influenza B virus by PCR Neg for Influ B (Neg)
[2019-10-24 01:03] LABS: Bacteria Urine Automated 1+ (Negative)
[2019-10-24 01:04] LABS: Renal Epithelial Cells Urine 0-5 /lpf (0-5)
[2019-10-24 01:05] LABS: NT Pro B Type Natriuretic Pept 4405 pg/ml (0-1800)
[2019-10-24 01:11] LABS: Base Excess ABG 4.7 mEq/L (-9-1.8); HCO3 ABG 33 mmol/L (19-24); Oxygen Saturation ABG 91.6 % (90-95); PCO2 ABG 73 mmHg (35-46); PO2 ABG 74 mmHg (80-95); pH ABG 7.27 (7.35-7.45)
[2019-10-24 01:12] LABS: Allen Test Pos (Pos)
[2019-10-24] MEDS ORDERED: NITROGLYCERIN SL 0.4 MG/TAB TAB SL PRN (04:00)
[2019-10-24] MEDS ORDERED: ALBUT/IPRATROP 3MG/0.5MG NEB 3 ML VIAL INH PRN (04:00)
[2019-10-24] MEDS ORDERED: ACETAMINOPHEN 325 MG TAB PO PRN (04:00)
[2019-10-24] MEDS ORDERED: CALCIUM CARBONATE 500 MG CHEWABLE TAB PO PRN (04:00)
[2019-10-24] MEDS ORDERED: LORazepam 0.5 MG TAB PO PRN (04:00)
[2019-10-24] MEDS ORDERED: guaiFENesin 600 MG TABCR PO PRN (04:00)
[2019-10-24] MEDS ORDERED: ARTIFICIAL TEARS OP PRN (04:14)
[2019-10-24 04:35] LABS: Base Excess ABG 7.3 mEq/L (-9-1.8); HCO3 ABG 33 mmol/L (19-24); Oxygen Saturation ABG 95.7 % (90-95); PCO2 ABG 51 mmHg (35-46); PO2 ABG 86 mmHg (80-95); pH ABG 7.42 (7.35-7.45)
[2019-10-24 04:39] LABS: Allen Test Pos (Pos)
--- NOTE | 2019-10-24 05:00 | Emergency Department Note ---
Entered by Timo Stone acting as a scribe for History of Present Illness General Chief complaint: Respiratory Distress Stated complaint: respiratory distress Source: patient Limitations: other (clinical condition) History of Present Illness Onset (ago): hour(s) 1 Location: chest Severity: severe (oxygen saturation in the 70s) Pain Consistency: + other (worsening) Quality: + other (SOB) The patient is an 84 year old female who presents to the emergency department with complaints of worsening SOB beginning an hour ago. Per EMS, the patient was complaining of SOB beginning an hour ago. He states that staff at [facility] were able to calm the patient down and put her back into bed. He notes that the patient called staff back ten minutes later and he reports that the patient had worsening SOB at that time. He states that the patients oxygen saturation was in in the 70s and he notes that she received a nebulizer treatment en route to the emergency department. HPI limited secondary to the patient's clinical condition. Home Medications Home Medications Medication Instructions Recorded Confirmed Type Therems-M 1 tab PO QAM 03/11/19 10/24/19 History acetaminophen [Tylenol] 650 mg PO Q4 PRN MDD 3 GRAMS/24 03/11/19 10/24/19 History HOURS. aspirin-dipyridamole [Aggrenox] 1 cap PO BID 03/11/19 10/24/19 History biotin 1 mg PO BID 03/11/19 10/24/19 History calcium carbonate [Tums] 500 mg PO Q4 PRN 03/11/19 10/24/19 History cetirizine [Zyrtec] 10 mg PO QAM 03/11/19 10/24/19 History cholecalciferol (vitamin D3) 2,000 unit PO QAM 03/11/19 10/24/19 History [Vitamin D3] esomeprazole magnesium [Nexium] 40 mg PO QAM 03/11/19 10/24/19 History fluticasone propionate [Flonase 1 spray INTRANASAL QAM 03/11/19 10/24/19 History Allergy Relief] nitroglycerin [Nitrostat] 0.4 mg SUBLINGUAL UD PRN 03/11/19 10/24/19 History ondansetron HCl [Zofran] 4 mg PO Q6 PRN 03/11/19 10/24/19 History polyethylene glycol 3350 [Miralax] 17 g PO QAM 03/11/19 10/24/19 History sennosides-docusate sodium 2 tab PO QAM 03/11/19 10/24/19 History [Senna-S] Oxygen Home #1 ea 05/29/19 10/13/19 History levetiracetam [Keppra] 750 mg PO BID #0 tab 09/27/19 10/24/19 Rx amiodarone 200 mg tablet 200 mg PO QAM 10/08/19 10/24/19 History metoprolol tartrate 25 mg tablet 25 mg PO BID tab 10/13/19 10/24/19 History venlafaxine 150 mg PO QAM 10/15/19 10/24/19 History lisinopril 2.5 mg PO QAM 14 Days #14 tab 10/17/19 10/24/19 Rx Thera Tears 1 drp INSTIL QID PRN 10/24/19 10/24/19 History diphenhydramine HCl [Banophen] 25 mg PO Q6H PRN 10/24/19 10/24/19 History guaifenesin [Mucinex] 600 mg PO Q12H PRN 10/24/19 10/24/19 History ipratropium-albuterol 3 ml INHALATION Q6H PRN 10/24/19 10/24/19 History lorazepam [Ativan] 0.5 mg PO Q6H PRN 10/24/19 10/24/19 History lorazepam [Ativan] 1 mg PO QID 10/24/19 10/24/19 History Allergies Allergy/AdvReac Type Severity Reaction Status Date / Time morphine Allergy Mild itching Verified 10/15/19 08:40 Past Med/Surg History Social History Preferred Language: Andorran 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 Physical Exam Vital Signs Vital Signs - 24 hr 10/23/19 23:56 10/23/19 23:57 10/24/19 00:03 Pulse Rate 93 H 92 H 89 Pulse Rate from SpO2 Sensor 92 H Respiratory Rate 31 H 32 H 30 H Respiratory Effort / Characteristics Spontaneous Accessory Muscle Use Labored Respiratory Pattern Tachypnea Blood Pressure 199/102 H 199/102 H Blood Pressure Mean 161 134 Pulse Oximetry 98 100 100 Oxygen Delivery Method Room Air BiPAP Fraction of Inspired Oxygen 100 Sepsis Recent Fever Within 48 Hours No Sepsis Action Taken by Nursing No Action Required 10/24/19 00:32 10/24/19 00:45 10/24/19 00:50 Pulse Rate 79 69 69 Pulse Rate from SpO2 Sensor 79 69 Respiratory Rate 28 H 26 H 26 H Respiratory Effort / Characteristics Spontaneous Respiratory Pattern Tachypnea Blood Pressure 147/74 H 110/72 Blood Pressure Mean 85 85 Pulse Oximetry 93 95 100 Oxygen Delivery Method Fraction of Inspired Oxygen 55 Sepsis Recent Fever Within 48 Hours Sepsis Action Taken by Nursing 10/24/19 01:00 10/24/19 01:15 10/24/19 01:30 Pulse Rate 68 63 57 L Pulse Rate from SpO2 Sensor 68 54 L 58 L Respiratory Rate 27 H 26 H 25 H Respiratory Effort / Characteristics Respiratory Pattern Blood Pressure 97/53 L 91/47 L 96/51 L Blood Pressure Mean 71 77 61 Pulse Oximetry 94 95 100 Oxygen Delivery Method Fraction of Inspired Oxygen Sepsis Recent Fever Within 48 Hours Sepsis Action Taken by Nursing 10/24/19 01:45 10/24/19 02:00 10/24/19 02:15 Pulse Rate 57 L 53 L 54 L Pulse Rate from SpO2 Sensor 57 L 53 L 54 L Respiratory Rate 26 H 24 24 Respiratory Effort / Characteristics Respiratory Pattern Blood Pressure 93/46 L 96/54 L 95/51 L Blood Pressure Mean 69 65 62 Pulse Oximetry 93 98 100 Oxygen Delivery Method Fraction of Inspired Oxygen Sepsis Recent Fever Within 48 Hours Sepsis Action Taken by Nursing 10/24/19 02:30 10/24/19 02:45 Pulse Rate 56 L 55 L Pulse Rate from SpO2 Sensor 57 L 54 L Respiratory Rate 27 H 25 H Respiratory Effort / Characteristics Respiratory Pattern Blood Pressure 115/58 L 125/64 Blood Pressure Mean 82 74 Pulse Oximetry 100 100 Oxygen Delivery Method Fraction of Inspired Oxygen Sepsis Recent Fever Within 48 Hours Sepsis Action Taken by Nursing GENERAL: Unresponsive to painful stimuli, does not respond to commands. HENT: Normocephalic, atraumatic. Oropharynx unremarkable. EYES: Normal conjunctiva. Sclera non-icteric. NECK: Supple. No nuchal rigidity. FROM. No JVD. RESPIRATORY: Clear to auscultation. Taking shallow breaths. CARDIAC: Regular rate, normal rhythm. Extremities warm and well perfused. Pulses equal. ABDOMEN: Soft, non-distended. No tenderness to palpation. No rebound or guarding. No masses. RECTAL: Deferred. MUSCULOSKELETAL: Chest examination reveals no tenderness. The back is symmetrica l on inspection without obvious abnormality. There is no CVA tenderness to palpation. No joint edema. LOWER EXTREMITIES: Calves are equal size bilaterally and non-tender. No edema. No discoloration. NEURO: Normal sensorium. No sensory or motor deficits noted. SKIN: No rash or jaundice noted. Course Course 2354: The patient was evaluated in room B1. A complete history and physical exam was performed. 0040: I spoke to the patient's family. 0044: Upon reevaluation, the patient is stable. I discussed the findings and the treatment plan with the patient's son-in-law. He expresses agreement and understanding. I spoke with Dr. Bell of the [facility]. The patient will be evaluated for further management. 0125: I spoke to the patient's family again. I asked if they wanted me to start pressors but they would like to hold off for the moment. Consultations Consultation #1: I reviewed the patient's [facility] He will evaluate the patient for further management. Time: 00:44 Administered Medications Discontinued Medications Furosemide (Lasix) 40 mg IV NOW STA Stop: 10/24/19 00:00 Last Admin: 10/24/19 00:06 Dose: 40 mg Documented by: [id number] Nitroglycerin/Dextrose (Nitroglycerin/D5w 100 Mcg/Ml) 250 mls @ 3 mls/hr IV .Q24H [facility]; Protocol Stop: 11/23/19 00:14 Last Titration: 10/24/19 00:48 Dose: 0 mcg/min, 0 mls/hr Documented by: [id number] Admin: 10/24/19 00:06 Dose: 5 mcg/min, 3 mls/hr Documented by: [id number] Cosigned by: [id number] Piperacillin Sod/Tazobactam Sod (Zosyn) 4.5 gm in 120 mls @ 240 mls/hr IV NOW ONE Stop: 10/24/19 00:33 Last Infusion: 10/24/19 01:19 Dose: 0 mls/hr Documented by: [id number] Admin: 10/24/19 00:53 Dose: 240 mls/hr Documented by: [id number] Levofloxacin/Dextrose (Levaquin/D5w) 750 mg in 150 mls @ 100 mls/hr IV NOW STA Stop: 10/24/19 01:33 Last Infusion: 10/24/19 02:25 Dose: 0 mls/hr Documented by: [id number] Admin: 10/24/19 00:53 Dose: 100 mls/hr Documented by: [id number] Vancomycin HCl 1,250 mg/ (Sodium Chloride) 525 mls @ 200 mls/hr IV NOW ONE Stop: 10/24/19 02:51 Last Infusion: 10/24/19 04:12 Dose: 0 mls/hr Documented by: [id number] Admin: 10/24/19 01:32 Dose: 200 mls/hr Documented by: [id number] Lidocaine HCl (Buffered Lidocaine 1%) 20 ml INFIL NOW ONE Stop: 10/24/19 00:05 Last Admin: 10/24/19 00:41 Dose: Not Given Documented by: [id number] Miscellaneous Information (Consult) 1 ea N/A UD PRN PRN Reason: Consult Stop: 11/23/19 00:03 Last Admin: 10/24/19 01:30 Dose: 1 ea Documented by: [id number] Miscellaneous Information (Consult) 1 ea N/A UD PRN PRN Reason: Consult Stop: 11/23/19 00:13 Last Admin: 10/24/19 01:30 Dose: 1 ea Documented by: [id number] Critical Care Time Critical Care Time: Yes Total Critical Care Time: 90 I have personally spent 90 minutes of critical care time in the direct management of this patient. This includes bedside care, interpretation of diagnostic studies, and testing, discussion with consultants, patient, and family members, and other required patient management activities. This 90 minutes is in excess of all separately billable procedures. Medical Decision Making Differential Diagnosis Differential diagnosis: Etiologies such as infections, reactive airway disease, COPD, pneumonia, pleural effusion, pulmonary edema, ARDS, pneumothorax, CHF, cardiac ischemia, cardiac tamponade, dysrhythmia, anemia, pulmonary embolism, musculoskeletal, gastrointestinal process, as well as others were entertained. Medical Records Attestation: I reviewed the patient's medical records. Home Medications Current Medication List: was personally reviewed by me Laboratory Data Attestation: I reviewed the patient's lab results. Result diagrams: 10/24/19 00:00 10/24/19 00:00 Lab Results 10/24/19 10/24/19 10/24/19 Range/Units 00:00 00:00 00:00 WBC 13.07 H (4.8-10.8) K/uL RBC 3.93 L (4.2-5.4) M/uL Hgb 9.0 L (12.0-16.0) g/dL Hct 29.2 L (37-47) % MCV 74.3 L (80-100) fL MCH 22.9 L (25-34) pg MCHC 30.8 L (32-36) g/dL RDW Std Deviation 44.9 (36.4-46.3) fL RDW Coeff of Gray 16.5 H (11.5-14.5) % Plt Count 353 (130-400) K/uL MPV 9.0 (7.4-10.4) fL Immature Gran % (Auto) 0.5 % Neut % (Auto) 58.8 % Lymph % (Auto) 29.8 % [place] % (Auto) 9.2 % Eos % (Auto) 1.2 % Baso % (Auto) 0.5 % Immature Gran # (Auto) 0.06 H (0.00-0.02) K/uL Neut # (Auto) 7.69 H (1.4-6.5) K/uL Lymph # (Auto) 3.90 H (1.2-3.4) K/uL [place] # (Auto) 1.20 H (0.11-0.59) K/uL Eos # (Auto) 0.16 (0-0.5) K/uL Baso # (Auto) 0.06 (0-0.2) K/uL Absolute Nucleated RBC 0.07 H (0-0) K/uL Nucleated RBC % (auto) 0.5 % Hypochromasia Present Basophilic Stippling Occasional Spherocytes Occasional Ovalocytes 1+ Schistocytes Occasional PT 11.3 (9.0-12.0) Seconds INR 1.1 (0.9-1.1) APTT 27.8 (21.0-31.0) Seconds PTT Ratio 1.0 ABG pH (7.35-7.45) ABG pCO2 (35-46) mmHg ABG pO2 (80-95) mmHg ABG HCO3 (19-24) mmol/L ABG O2 Saturation (90-95) % ABG Base Excess (-9-1.8) mEq/L Far[place] Test (Pos) Oxygen Given Sodium 139 (136-145) mmol/L Potassium 3.9 (3.5-5.1) mmol/L Chloride 102 (98-107) mmol/L Carbon Dioxide 34 H (21-32) mmol/L Anion Gap 3.0 (3-11) BUN 18 (7-18) mg/dl Creatinine 0.93 (0.6-1.2) mg/dl Est Cr Clr Drug Dosing 40.9 ml/min Est GFR ( Amer) 65.4 Est GFR (Non-Af Amer) 56.4 BUN/Creatinine Ratio 19.8 (10-20) Glucose 247 H (70-99) mg/dl Lactate (0.4-2.0) mmol/L Calcium 8.6 (8.5-10.1) mg/dl Magnesium 2.0 (1.8-2.4) mg/dl Total Bilirubin 0.3 (0.2-1) mg/dl AST 15 (15-37) U/L ALT 19 (12-78) U/L Alkaline Phosphatase 105 (45-117) U/L Total Creatine Kinase 67 (26-192) U/L CK-MB (CK-2) 2.6 (0.5-3.6) ng/ml CK/CKMB % Calc 3.9 H (0-3.0) Troponin I < 0.015 (0-0.045) ng/ml NT-Pro-B Natriuret Pep 4405 H (0-1800) pg/ml Total Protein 8.4 H (6.4-8.2) gm/dl Albumin 3.7 (3.4-5.0) gm/dl Globulin 4.7 H (2.5-4.0) gm/dl Albumin/Globulin Ratio 0.8 L (0.9-2) Urine Color Urine Appearance (Clear) Urine pH (4.5-7.5) Ur Specific [place] (1.000-1.030) Urine Protein (Negative) Urine Glucose (UA) (Negative) Urine Ketones (Negative) Urine Blood (Negative) Urine Nitrite (Negative) Urine Bilirubin (Negative) Urine Urobilinogen (Negative) Ur Leukocyte Esterase (Negative) Urine WBC (Auto) (0-5) /hpf Urine RBC (Auto) (0-4) /hpf U Hyaline Cast (Auto) (0-5) /lpf U Epithel Cells (Auto) (0-5) /lpf Urine Bacteria (Auto) (Negative) Ur Renal Epithelial Cell (0-5) /lpf Influenza Type A (PCR) (Neg) Influenza Type B (PCR) (Neg) 10/24/19 10/24/19 10/24/19 Range/Units 00:05 00:10 00:56 WBC (4.8-10.8) K/uL RBC (4.2-5.4) M/uL Hgb (12.0-16.0) g/dL Hct (37-47) % MCV (80-100) fL MCH (25-34) pg MCHC (32-36) g/dL RDW Std Deviation (36.4-46.3) fL RDW Coeff of Gray (11.5-14.5) % Plt Count (130-400) K/uL MPV (7.4-10.4) fL Immature Gran % (Auto) % Neut % (Auto) % Lymph % (Auto) % [place] % (Auto) % Eos % (Auto) % Baso % (Auto) % Immature Gran # (Auto) (0.00-0.02) K/uL Neut # (Auto) (1.4-6.5) K/uL Lymph # (Auto) (1.2-3.4) K/uL [place] # (Auto) (0.11-0.59) K/uL Eos # (Auto) (0-0.5) K/uL Baso # (Auto) (0-0.2) K/uL Absolute Nucleated RBC (0-0) K/uL Nucleated RBC % (auto) % Hypochromasia Basophilic Stippling Spherocytes Ovalocytes Schistocytes PT (9.0-12.0) Seconds INR (0.9-1.1) APTT (21.0-31.0) Seconds PTT Ratio ABG pH (7.35-7.45) ABG pCO2 (35-46) mmHg ABG pO2 (80-95) mmHg ABG HCO3 (19-24) mmol/L ABG O2 Saturation (90-95) % ABG Base Excess (-9-1.8) mEq/L Far[place]kh Test (Pos) Oxygen Given Sodium (136-145) mmol/L Potassium (3.5-5.1) mmol/L Chloride (98-107) mmol/L Carbon Dioxide (21-32) mmol/L Anion Gap (3-11) BUN (7-18) mg/dl Creatinine (0.6-1.2) mg/dl Est Cr Clr Drug Dosing ml/min Est GFR ( Amer) Est GFR (Non-Af Amer) BUN/Creatinine Ratio (10-20) Glucose (70-99) mg/dl Lactate 0.7 (0.4-2.0) mmol/L Calcium (8.5-10.1) mg/dl Magnesium (1.8-2.4) mg/dl Total Bilirubin (0.2-1) mg/dl AST (15-37) U/L ALT (12-78) U/L Alkaline Phosphatase (45-117) U/L Total Creatine Kinase (26-192) U/L CK-MB (CK-2) (0.5-3.6) ng/ml CK/CKMB % Calc (0-3.0) Troponin I (0-0.045) ng/ml NT-Pro-B Natriuret Pep (0-1800) pg/ml Total Protein (6.4-8.2) gm/dl Albumin (3.4-5.0) gm/dl Globulin (2.5-4.0) gm/dl Albumin/Globulin Ratio (0.9-2) Urine Color Yellow Urine Appearance Clear (Clear) Urine pH 6.0 (4.5-7.5) Ur Specific [place] 1.018 (1.000-1.030) Urine Protein 2+ H (Negative) Urine Glucose (UA) Negative (Negative) Urine Ketones Negative (Negative) Urine Blood Negative (Negative) Urine Nitrite Negative (Negative) Urine Bilirubin Negative (Negative) Urine Urobilinogen Negative (Negative) Ur Leukocyte Esterase 1+ H (Negative) Urine WBC (Auto) >30 H (0-5) /hpf Urine RBC (Auto) 0-4 (0-4) /hpf U Hyaline Cast (Auto) 5-10 H (0-5) /lpf U Epithel Cells (Auto) >30 H (0-5) /lpf Urine Bacteria (Auto) 1+ H (Negative) Ur Renal Epithelial Cell 0-5 (0-5) /lpf Influenza Type A (PCR) Neg for Influ A (Neg) Influenza Type B (PCR) Neg for Influ B (Neg) 10/24/19 Range/Units 00:56 WBC (4.8-10.8) K/uL RBC (4.2-5.4) M/uL Hgb (12.0-16.0) g/dL Hct (37-47) % MCV (80-100) fL MCH (25-34) pg MCHC (32-36) g/dL RDW Std Deviation (36.4-46.3) fL RDW Coeff of Gray (11.5-14.5) % Plt Count (130-400) K/uL MPV (7.4-10.4) fL Immature Gran % (Auto) % Neut % (Auto) % Lymph % (Auto) % [place] % (Auto) % Eos % (Auto) % Baso % (Auto) % Immature Gran # (Auto) (0.00-0.02) K/uL Neut # (Auto) (1.4-6.5) K/uL Lymph # (Auto) (1.2-3.4) K/uL [place] # (Auto) (0.11-0.59) K/uL Eos # (Auto) (0-0.5) K/uL Baso # (Auto) (0-0.2) K/uL Absolute Nucleated RBC (0-0) K/uL Nucleated RBC % (auto) % Hypochromasia Basophilic Stippling Spherocytes Ovalocytes Schistocytes PT (9.0-12.0) Seconds INR (0.9-1.1) APTT (21.0-31.0) Seconds PTT Ratio ABG pH 7.27 L (7.35-7.45) ABG pCO2 73 H (35-46) mmHg ABG pO2 74 L (80-95) mmHg ABG HCO3 33 H (19-24) mmol/L ABG O2 Saturation 91.6 (90-95) % ABG Base Excess 4.7 H (-9-1.8) mEq/L [place]kh Test Pos (Pos) Oxygen Given 55% Sodium (136-145) mmol/L Potassium (3.5-5.1) mmol/L Chloride (98-107) mmol/L Carbon Dioxide (21-32) mmol/L Anion Gap (3-11) BUN (7-18) mg/dl Creatinine (0.6-1.2) mg/dl Est Cr Clr Drug Dosing ml/min Est GFR ( Amer) Est GFR (Non-Af Amer) BUN/Creatinine Ratio (10-20) Glucose (70-99) mg/dl Lactate (0.4-2.0) mmol/L Calcium (8.5-10.1) mg/dl Magnesium (1.8-2.4) mg/dl Total Bilirubin (0.2-1) mg/dl AST (15-37) U/L ALT (12-78) U/L Alkaline Phosphatase (45-117) U/L Total Creatine Kinase (26-192) U/L CK-MB (CK-2) (0.5-3.6) ng/ml CK/CKMB % Calc (0-3.0) Troponin I (0-0.045) ng/ml NT-Pro-B Natriuret Pep (0-1800) pg/ml Total Protein (6.4-8.2) gm/dl Albumin (3.4-5.0) gm/dl Globulin (2.5-4.0) gm/dl Albumin/Globulin Ratio (0.9-2) Urine Color Urine Appearance (Clear) Urine pH (4.5-7.5) Ur Specific [place] (1.000-1.030) Urine Protein (Negative) Urine Glucose (UA) (Negative) Urine Ketones (Negative) Urine Blood (Negative) Urine Nitrite (Negative) Urine Bilirubin (Negative) Urine Urobilinogen (Negative) Ur Leukocyte Esterase (Negative) Urine WBC (Auto) (0-5) /hpf Urine RBC (Auto) (0-4) /hpf U Hyaline Cast (Auto) (0-5) /lpf U Epithel Cells (Auto) (0-5) /lpf Urine Bacteria (Auto) (Negative) Ur Renal Epithelial Cell (0-5) /lpf Influenza Type A (PCR) (Neg) Influenza Type B (PCR) (Neg) Imaging Data Attestation: I personally reviewed and interpreted this imaging study as follows: My Impression: 1 VIEW CHEST X-RAY: Large amount of pulmonary edema throughout all lung hayes. Radiologist's Impression: Radiology results as stated below per my review and the radiologist's interpretation: CT HEAD: No acute intracranial hemorrhage, mass effect, midline shift, hydrocephalus, or acute infarct. Generalized atrophy. Low-density in the bilateral periventricular white matter is nonspecific but probably represents chronic small vessel ischemic disease. 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 Ventriculomegaly is unchanged and due to involutional changes. 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 Soft tissues are unremarkable. Radiologist: Ricci Rg MD. ECG Data Attestation: I personally reviewed and interpreted this ECG as follows: Indication: + SOB/dyspnea Rate (beats per minute): 93 Rhythm: + sinus rhythm ECG Intervals/blocks: + First degree AV block Additional Comments: Left ventricular hypertrophy, QRS widening, old inferior infarct, QTC 472. Blood Pressure Blood Pressure Findings: Low blood pressure Blood Pressure Disposition: further management by hospitalist [facility] Narrative This is an 84-year-old female who presents emergency department complaining of altered mental status. Upon arrival to the emergency department the patient is unresponsive. I had extensive talks with the patient's family. They note that she is a DNR and do not want the patient intubated. The patient's daughter is traveling from [place] to come to the hospital. The patient was found to have an elevation in her white blood cell count. She was placed on BiPAP here in the emergency department. She was pancultured and started on multiple antibiotics. She was started on a nitro glycerin drip and given Lasix. Her chest x-ray is concerning for pulmonary edema. Repeat examination revealed improvement the patient's symptoms. CAT scan of the head does not show any acute process. I did discuss the case with the hospitalist service who agreed to admit the patient. Patient family in agreement with treatment plan. Impression & Plan Respiratory failure, Acute exacerbation of CHF (congestive heart failure) Discharge Plan Visit Data *Final* Discharge Date/Time: 10/24/19 03:11 Chief Complaint: Respiratory Distress Stated Complaint: respiratory distress ED Provider: Fernando Kraus Discharge Problem: Respiratory failure, Acute exacerbation of CHF (congestive heart failure) Patient Disposition: Admitted As Inpatient Discharge Instructions Interventions: ED Discharge Assessment Last Done: 10/24/19 03:11 Discharge Problem: Respiratory failure Qualifiers: Chronicity: unspecified Respiratory failure complication: unspecified whether with hypoxia or hypercapnia Qualified Code(s): J96.90 - Respiratory failure, unspecified, unspecified whether with hypoxia or hypercapnia Acute exacerbation of CHF (congestive heart failure) Qualifiers: Heart failure type: unspecified Qualified Code(s): I50.9 - Heart failure, unspecified The scribe's documentation has been prepared under my direction and personally reviewed by me in its entirety. I confirm that the note above accurately reflects all work, treatment, procedures, and medical decision making performed by me.
[2019-10-24] MEDS: cefTRIAXone SODIUM 1,000 MG in DEXTROSE 5% 50 ML IV SCH (05:32)
--- NOTE | 2019-10-24 06:01 | History and Physical Report ---
DATE OF ADMISSION: 10/24/2019 CHIEF COMPLAINT: Acute respiratory failure. HISTORY OF PRESENT ILLNESS: This is an 84-year-old female coming from [facility] with past medical history significant for chronic respiratory failure on oxygen, supposed to be on BiPAP from last admission, but as per alf, she is noncompliant with the BiPAP; history of paroxysmal atrial fibrillation; COPD; history of pneumonia; seizure disorder; history of stroke; depression; anxiety; history of osteoporosis; hypertension; malignant neoplasm of the left breast; presents with respiratory distress. The patient was recently in the hospital on 10/15/2019 and discharged on 10/17/2019. She was admitted for respiratory failure occurred from pulmonary edema and she was advised to be on noninvasive home ventilator, but seemed to be noncompliant. As per nursing staff, before going to bed, she complained short of breath and she feels somewhat anxious. Nurse calmed her down and went to sleep, but then immediately she called back, she could not breathe and her oxygen saturations were low. EMS was called in and she was brought into the ER. She was unresponsive in the ER and oxygen saturation was 60% on room air in bed, but her saturation came up. ABG showed pH of 7.27, CO2 73, currently is saturating okay on BiPAP . Chest x-ray noted pulmonary edema. BNP was 4400. A dose of Lasix was given in the ER and also IV antibiotics were given. She has mild elevation of white count of 13,000 currently. She slightly opened her eyes, but went back to sleep and not responding to tactile or verbal stimuli. As per nursing staff, she is on regular diet. Ambulates with a walker. No recent fever, chills. Yesterday, she has some cough and she was given Mucinex and she has improved. No complaint of chest pain or belly pain. Normal bowel movements. She is status post Mcarthur catheter in the ER and after IV Lasix, she micturated about 500 mL of urine. Could not get any history from the patient. The patient is currently unresponsive. Son-in-law in the hospital. The patient is a DNR/DNI. ALLERGIES: TO MORPHINE. PAST MEDICAL HISTORY: As mentioned above. PAST SURGICAL HISTORY: EGDs, right simple mastectomy, brain surgery for hemorrhagic stroke, tonsillectomy, total hip replacement. MEDICATIONS: Currently the patient is on Tylenol 650 mg p.o. q. 4 hours p.r.n., amiodarone 200 mg p.o. a.m., Aggrenox 1 capsule p.o. b.i.d., biotin 1 mg p.o. b.i.d., calcium carbonate 500 mg p.o. q. 4 hours p.r.n., cetirizine 10 mg p.o. a.m., vitamin D 2000 units p.o. a.m., Benadryl 25 mg p.o. q. 6 hours p.r.n., Nexium 40 mg p.o. a.m., Flonase 1 spray intranasally a.m., Mucinex p.r.n., DuoNebs 3 mL inhalation q. 6 hours p.r.n., Keppra 750 mg p.o. b.i.d., lisinopril 2.5 mg p.o. a.m., Ativan 0.5 mg p.o. q. 6 hours p.r.n., Ativan 1 mg p.o. q.i.d., metoprolol tartrate 25 mg p.o. b.i.d., nitroglycerin 0.4 mg sublingual p.r.n., Zofran 4 mg p.o. q. 6 hours p.r.n., MiraLax 17 grams p.o. a.m., Senokot-S 2 tablets p.o. a.m., TheraTears 1 drop instilled q.i.d. p.r.n. therems 1 tablet p.o. q.a.m., venlafaxine 150 mg p.o. a.m. FAMILY HISTORY: None. SOCIAL HISTORY: , currently living at [facility]. Former smoker, quit in 2010, smoked 1 pack a day for 50 years. No history of alcohol use, no drug use. REVIEW OF SYSTEMS: Unobtainable at this time. PHYSICAL EXAMINATION: GENERAL: The patient is drowsy and unresponsive. VITAL SIGNS: Temperature afebrile, pulse 55, respiratory rate 26, blood pressure 125/64, Oxygen 95% HEENT: No pallor, no icterus. Pupils equal, round, reactive to light. NECK: No JVD or neck masses, no carotid bruits. CARDIOVASCULAR: S1, S2 heard. Regular rate and rhythm. No murmur, no gallop. RESPIRATORY SYSTEM: Normal AP diameter. No accessory muscle use. Bilateral fine crackles heard. No wheezing. ABDOMEN: Soft, bowel sounds present. No distention. CENTRAL NERVOUS SYSTEM: The patient is unresponsive to verbal or tactile stimuli. EXTREMITIES: Mild lower extremity edema present. No erythema seen. LABORATORY DATA: WBC 13, hemoglobin 9, hematocrit 29.2, platelets 298. PT 11.3, INR 1.1, APTT 27.8. ABG: pH of 7.27, pCO2 of 73, pO2 74, Sodium 139, potassium 3.9, chloride 102, bicarb 34, BUN 18, creatinine 0.9, serum glucose 247, lactate 0.7, calcium 8.6, magnesium 2. Total bilirubin 0.3, AST 15, ALT 19, alkaline phosphatase 105, total creatinine kinase 67. Troponin I less than 0.015. BNP 4400. Urinalysis positive for leukocyte esterase. Influenza A and B PCR negative. IMAGING DATA: Chest x-ray: Bilateral pulmonary edema present. CT of the head, preliminary report: No acute intracranial hemorrhage, mass effect, midline shift or hydrocephalus, acute infarct seen. ASSESSMENT AND PLAN: This is an 84-year-old female who presents with acute on chronic respiratory failure. 1. Acute on chronic respiratory failure. The patient supposed to be on BiPAP in the nighttime, but not using, noncompliant: The patient presented with similar pulmonary edema at end of September. 2. Questionable CHF. Echo was okay at that time. we will place on IV Lasix 40 b.i.d. and consult Cardiology. Possible needs Diuretics on discharge. Continue BiPAP q nighttime. 3. Possible questionable pneumonia, received IV antibiotics in the ER with vancomycin, Zosyn and Levaquin. We will change it to IV Rocephin, IV doxycycline. Follow the cultures. Follow the response. 4. Possible urinary tract infection. Antibiotics as above. We will follow the cultures. 5. History of seizure disorder. Dilantin was stopped secondary to staring amiodarone last admission. Keppra 750 mg b.i.d. which we will continue. 6. Hypertension, on Lopressor. We will continue. 7. Paroxysmal atrial fibrillation, on amiodarone, currently at 200 mg. No anticoagulation secondary to frequent falls. 8. History of remote subdural hematoma .. 9. COPD, on nebs p.r.n. and inhalers. Currently on BiPAP. 10. History of stroke, on Aggrenox. 11. Chronic anemia, baseline hemoglobin around 8, current hemoglobin is 9. 12. History of depression and anxiety, on Ativan and venlafaxine. 13. DVT prophylaxis, SCDs for now. DISPOSITION: Closely monitor in the tele floor. CODE STATUS: DNR/DNI as per my discussion with the son-in-law. PT and OT prior to discharge. Social Service to help with discharge planning. Plan to discharge back to [facility] when stable. KURTIS
--- NOTE | 2019-10-24 06:46 | XRay Report ---
XR chest 1V portable HISTORY: 84 years-old Female SEPSIS acute sepsis COMPARISON: Chest radiograph 10/16/2019 TECHNIQUE: Portable AP view of the chest FINDINGS: Cardiac silhouette is enlarged. Mitral annular and thoracic aortic calcifications are noted. Emphysem a with chronic fibrotic changes. Pulmonary vascular congestion with progressively worsened mixed inte rstitial and alveolar opacities. Progressive airspace consolidation is most pronounced within the rig ht lung base. Chronic right hemidiaphragmatic elevation. Trace right pleural effusion. Peripherally c alcified right breast implant. There is a. Right subdiaphragmatic lucency present. Degenerative martin es of the shoulders and spine. IMPRESSION: 1. Cardiomegaly with mixed interstitial and alveolar opacities suggestive of interstitial and alveola r pulmonary edema. 2. Dense airspace consolidation of the right lung base is suspicious for superimposed pneumonia. 3. Chronic right hemidiaphragm elevation with subdiaphragmatic lucency. This finding could be correla rosaline with upright and supine views of the abdomen to exclude pneumoperitoneum. This finding was called /faxed to the floor at time of dictation ACT 112: Negative or not required by law. The above report was generated using voice recognition software. It may contain grammatical, syntax o r spelling errors. Electronically signed by: Reyes Kaur M.D. 10/24/2019 6:45 AM
--- NOTE | 2019-10-24 07:12 | CT Scan Report ---
CT OF THE HEAD WITHOUT CONTRAST CLINICAL HISTORY: Altered mental status. COMPARISON STUDY: Head CT October 15, 2019. CT DOSE: 1382.10 mGy.cm TECHNIQUE: Helical axial images of the head were obtained without IV contrast. Automated exposure con trol was utilized for the study. A dose lowering technique was utilized adhering to the principles o f ALARA. FINDINGS: Exam is mildly compromised by motion artifact. No acute intracranial hemorrhage, midline sh ift or mass effect is present. Ventricular system is stable. There is marked atrophy. White matter hy podensity suggests small vessel disease. This is unchanged. There is an old right occipital lobe infa rct. There are no findings to suggest acute dural sinus thrombosis or acute territorial infarct. Ther e is no calvarial fracture. Several right-sided norman holes are noted. IMPRESSION: 1. No acute intracranial findings. No change in appearance of the brain. 2. No calvarial fracture. Exam mildly compromised by motion artifact. ACT 112: Negative or not required by law. Electronically signed by: Edin Mckeon M.D. 10/24/2019 7:10 AM
[2019-10-24] MEDS: DOXYCYCLINE HYCLATE 100 MG in DEXTROSE 5% 100 ML IV SCH ×2 (08:58→20:43)
[2019-10-24] MEDS ORDERED: NON-FORMULARY MEDICATION (Biotin 1 MG) PO SCH (09:00)
[2019-10-24] MEDS ORDERED: DIPYRIDAMOLE/ASPIRIN CAP PO SCH ×2 (09:00→20:00)
[2019-10-24] MEDS ORDERED: FUROSEMIDE 40 MG in SYRINGE 0 ML IV SCH (09:00)
[2019-10-24] MEDS ORDERED: levETIRAcetam 250 MG TAB PO SCH (09:00)
[2019-10-24] MEDS ORDERED: FUROSEMIDE 40 MG/4 ML VIAL IV SCH (09:00)
[2019-10-24] MEDS: DIPYRIDAMOLE/ASPIRIN CAP PO SCH ×2 (09:03→20:42)
[2019-10-24] MEDS: levETIRAcetam 250 MG TAB PO SCH ×2 (09:03→20:43)
[2019-10-24] MEDS: POLYETHYLENE (MIRALAX) 17 GM PACK PO SCH (09:04)
[2019-10-24] MEDS: PANTOprazole 40 MG TAB PO SCH (09:04)
[2019-10-24] MEDS: LORazepam 1 MG TAB PO SCH ×4 (09:05→20:42)
[2019-10-24] MEDS: VENLAFAXINE HCL XR 150 MG CAPXR PO SCH (09:06)
[2019-10-24] MEDS: DOCUSATE SODIUM/SENNA 50/8.6MG TAB PO SCH (09:06)
[2019-10-24] MEDS: FLUTICASONE PROPIONATE NA SPR 16 GM BTL SCH (09:06)
[2019-10-24] MEDS: METOPROLOL TARTRATE 25 MG TAB PO SCH ×2 (09:08→15:34)
[2019-10-24] MEDS: AMIODARONE 200 MG TAB PO SCH (09:08)
[2019-10-24] MEDS: CHOLECALCIFEROL 1,000 UNITS 25 MCG TAB PO SCH (09:08)
[2019-10-24] MEDS: CETIRIZINE HCL 10 MG TABLET PO SCH (09:09)
[2019-10-24] MEDS ORDERED: ALBUT/IPRATROP 3MG/0.5MG NEB 3 ML VIAL NEB STA (09:34)
--- NOTE | 2019-10-24 09:40 | Hospitalist Progress Note ---
Date of Service October 24, 2019 Assessment & Plan (1) Acute on chronic respiratory failure: from acute congestive heart failure exacerbation possible pneumonia -pulmonary congestion on admission Chest X ray with elevated BNP -Patient seen and examined this AM after cardiology physician microbiology lab assistant spoke with patient and her family member daughter Dolly ([phone]). Patient breathing on nasal cannula oxygen. appears comfortable in appearance but with expiratory wheezes when asked to take deep breaths. -hospitalist discussed with cardiology physician microbiology lab assistant about the diuresis plans and Lasix orders to be changed from 40 mg IV BID to 40 mg IV once a day for now in addition hospitalist noted the patient's BRADYCARDIA with heart rates in the 50s on telemetry and low 60s in the AM and enquired with cardiology service about adjustments of heart rate control medications -currently the medications for heart rate control are metoprolol 25 mg BID and amiodarone 200 mg daily -Continue BiPAP at nighttime -patient had received IV antibiotics in the ER with vancomycin, Zosyn and Levaquin which has then been changed to IV ceftriaxone and IV doxycycline -continue respiratory antibiotics for now Follow the cultures. Paroxysmal atrial fibrillation Hypertension -rate is generally bradycardia and blood pressure is stable on amiodarone and metoprolol COPD -nebulizers p.r.n. -BiPAP with sleep Possible urinary tract infection -urine analysis with bacteria, already on ceftriaxone History of stroke in the past History of remote subdural hematoma -on Aggrenox BID Chronic anemia -monitor the Hgb History of seizure disorder -continue Keppra 750 mg b.i.d. History of depression and anxiety, on Ativan and venlafaxine. DVT prophylaxis, SCDs for now. family member daughter Dolly [phone] Subjective Patient seen and examined this AM after cardiology physician microbiology lab assistant spoke with patient and her family member daughter Dolly ([phone]). Patient breathing on nasal cannula oxygen. appears comfortable in appearance but with expiratory wheezes when asked to take deep breaths. no chest pain. no palpitations. no dizziness. no lightheadedness. no abdomen pain. no nausea. no vomiting. hospitalist discussed with cardiology physician microbiology lab assistant about the diuresis plans and Lasix orders to be changed from 40 mg IV BID to 40 mg IV once a day for now in addition hospitalist noted the patient's BRADYCARDIA with heart rates in the 50s on telemetry and currently low 60s and enquired with cardiology service about adjustments of heart rate control medications Review of Systems Review of Systems: All systems reviewed & are unremarkable except as noted in HPI & below Physical Exam Constitutional: cooperative Eyes: PERRL, conjunctivae normal, anicteric sclerae EOM intact bilaterally ENMT: external ear and nose normal, oropharynx normal Neck: normal visual inspection Respiratory: normal respiratory effort Auscultation: + wheezes Cardiovascular: Rate/Rhythm: regular rhythm and + bradycardic Gastrointestinal (Abdomen): normal bowel sounds, soft, nontender, no hepatosplenomegaly Musculoskeletal: Head/Neck/Chest: normocephalic and head atraumatic Neurologic: PERRL, EOMI, accommodation nl, no face palsy, no dysarthria Psychiatric: A+Ox3, euthymic affect Results & Data ([facility]) Vital Signs (Past 12 Hours) Vital Signs Temp Pulse Pulse Resp BP BP Pulse Ox 10/24/19 07:44 53 L 21 100 10/24/19 07:12 36.2 C L 52 L 18 110/61 99 10/24/19 04:37 58 L 10/24/19 04:06 52 L 24 97 10/24/19 04:00 36.5 C 64 28 H 154/55 H 99 10/24/19 03:00 53 L 23 108/60 100 10/24/19 02:45 55 L 25 H 125/64 100 10/24/19 02:30 56 L 27 H 115/58 L 100 10/24/19 02:15 54 L 24 95/51 L 100 10/24/19 02:00 53 L 24 96/54 L 98 10/24/19 01:45 57 L 26 H 93/46 L 93 10/24/19 01:30 57 L 25 H 96/51 L 100 10/24/19 01:15 63 26 H 91/47 L 95 10/24/19 01:00 68 27 H 97/53 L 94 10/24/19 00:50 69 26 H 100 10/24/19 00:45 69 26 H 110/72 95 10/24/19 00:32 79 28 H 147/74 H 93 10/24/19 00:03 89 30 H 100 10/23/19 23:57 92 H 32 H 199/102 H 100 02/06/20 23:56 93 H 31 H 199/102 H 98
--- NOTE | 2019-10-24 09:43 | Cardiology Progress Note ---
Date of Service October 24, 2019 Subjective Mrs. Ridley is an 84-year-old female with a history of paroxysmal atrial fibrillation, hypertension, hyperlipidemia, mitral regurgitation, and recurrent strokes/TIAs. She also has a history of breast cancer, severe COPD, and seizure disorder Patient was recently admitted from 10/15/19 - 10/17/19 with acute on chronic hypoxic respiratory failure. She had decreased mental status on presentation according to records, likely due to hypercapnia. She was seen in consultation by cardiology, and it was felt that her respiratory failure was likely due to her underlying pulmonary disease rather than CHF. It was recommended that she be on noninvasive home ventilator upon discharge, but according to reports, patient has not been complaint with the BiPAP at times. Last evening, she reportedly became short of breath and oxygen saturations were low. EMS was called and she was brought to the ER. She was unresponsive in the ER and oxygen saturation was 60% on room air in bed. ABG showed pH of 7.27 and CO2 73. Results & Data Vital Signs (Past 12 Hours) Vital Signs Temp Pulse Pulse Resp BP BP Pulse Ox 10/24/19 07:44 53 L 21 100 10/24/19 07:12 97.2 F L 52 L 18 110/61 99 10/24/19 04:37 58 L 10/24/19 04:06 52 L 24 97 10/24/19 04:00 97.7 F 64 28 H 154/55 H 99 10/24/19 03:00 53 L 23 108/60 100 10/24/19 02:45 55 L 25 H 125/64 100 10/24/19 02:30 56 L 27 H 115/58 L 100 10/24/19 02:15 54 L 24 95/51 L 100 10/24/19 02:00 53 L 24 96/54 L 98 10/24/19 01:45 57 L 26 H 93/46 L 93 10/24/19 01:30 57 L 25 H 96/51 L 100 10/24/19 01:15 63 26 H 91/47 L 95 10/24/19 01:00 68 27 H 97/53 L 94 10/24/19 00:50 69 26 H 100 10/24/19 00:45 69 26 H 110/72 95 10/24/19 00:32 79 28 H 147/74 H 93 10/24/19 00:03 89 30 H 100 10/23/19 23:57 92 H 32 H 199/102 H 100 10/23/19 23:56 93 H 31 H 199/102 H 98 PG Care Time/CCT Total # of Minutes Spent Total Time Spent with Patient: Total time spent is greater than 50% in coordination of care (as documented) at patient's floor/unit and/or counseling patient: Coding
--- NOTE | 2019-10-24 10:24 | Cardiology Progress Note ---
Date of Service October 24, 2019 Assessment & Plan (1) Acute on chronic respiratory failure: Her respiratory failure is likely due to her underlying pulmonary disease. She has reportedly been noncompliant with BiPAP at home. She does not appear significantly hypervolemic on exam. Can continue with gentle diuresis to maintain a negative fluid balance, though. Will decrease her IV Lasix dose from 40 mg BID to daily. Recommend close monitoring of I's&O's and PRP. Daily weights. (2) Paroxysmal atrial fibrillation: She has maintained sinus rhythm but has been bradycardic with a rate in the 50s. Doubt the bradycardia has caused symptoms, but beta rodriguez therapy can be further reduced or discontinued if she remains bradycardic. Recommend continuing with amiodarone 200 mg daily as long as tolerated. She has not been on anticoagulation due to falls with subdural hematoma. Patient discussed with Dr. Ortiz. Subjective Mrs. Ridley is an 84-year-old female with a history of paroxysmal atrial fibrillation, hypertension, hyperlipidemia, mitral regurgitation, and recurrent strokes/TIAs. She also has a history of breast cancer, severe COPD, and seizure disorder Patient was recently admitted from 10/15/19 - 10/17/19 with acute on chronic hypoxic respiratory failure. She had decreased mental status on presentation according to records, likely due to hypercapnia. She was seen in consultation by cardiology, and it was felt that her respiratory failure was likely due to her underlying pulmonary disease rather than CHF. It was recommended that she be on BiPAP upon discharge, but according to reports, patient has not been complaint with it at times. Last evening, she reportedly became short of breath and oxygen saturations were low. EMS was called and she was brought to the ER. She was unresponsive in the ER and oxygen saturation was 60% on room air in bed. ABG showed pH of 7.27 and CO2 73. She has been sating okay since BiPAP has been restarted, and pH has normalized. Pro-BNP was elevated at 4405 and CXR showed mixed interstitial and alveolar opacities and airspace consolidation of right lung base. She was given a dose of IV Lasix in the ER and has been ordered IV Lasix 40 mg BID for further diuresis. She has also been initiated in antibiotic therapy. She states today that she has been feeling better and breathing has improved since admission. She has not noted any lower extremity edema. She is only weighed once weekly at [facility]. She reports brief episodes of chest discomfort at times, which appears to be a chronic/stable complaint. She denies palpitations or presyncope. She denies abnormal bleeding such as melena, hematochezia, or hematuria. Physical Exam Physical Exam: Constitutional: Alert, oriented, in no acute distress HEENT: Head is atraumatic and normocephalic. EOMs intact. Sclera non-icteric. Face is symmetric. No perioral cyanosis. Mucous membranes moist Neck: Supple, no appreciable JVD Pulmonary: Normal respiratory effort, decreased breath sounds throughout Cardiac: Distant heart sounds, regular, bradycardic, normal S1 and S2, no gallops, no rubs, no obvious murmurs Extremities: No edema. No clubbing or cyanosis. Pulses 2+ and symmetric Abdomen: Normal bowel sounds, soft, non-tender, no abdominal masses palpated Skin: Normal skin color, turgor, and pigmentation. No rash or skin lesions Neurological: Oriented to person, place, and time Results & Data Vital Signs (Past 12 Hours) Vital Signs Temp Pulse Pulse Resp BP BP Pulse Ox 10/24/19 09:41 54 L 19 97 10/24/19 07:44 53 L 21 100 10/24/19 07:12 97.2 F L 52 L 18 110/61 99 10/24/19 04:37 58 L 10/24/19 04:06 52 L 24 97 10/24/19 04:00 97.7 F 64 28 H 154/55 H 99 10/24/19 03:00 53 L 23 108/60 100 10/24/19 02:45 55 L 25 H 125/64 100 10/24/19 02:30 56 L 27 H 115/58 L 100 10/24/19 02:15 54 L 24 95/51 L 100 10/24/19 02:00 53 L 24 96/54 L 98 10/24/19 01:45 57 L 26 H 93/46 L 93 10/24/19 01:30 57 L 25 H 96/51 L 100 10/24/19 01:15 63 26 H 91/47 L 95 10/24/19 01:00 68 27 H 97/53 L 94 10/24/19 00:50 69 26 H 100 10/24/19 00:45 69 26 H 110/72 95 02/07/20 00:32 79 28 H 147/74 H 93 10/24/19 00:03 89 30 H 100 10/23/19 23:57 92 H 32 H 199/102 H 100 10/23/19 23:56 93 H 31 H 199/102 H 98 Laboratory Results Laboratory Results WBC 13.07 K/uL (4.8-10.8) H 10/24/19 00:00 RBC 3.93 M/uL (4.2-5.4) L 10/24/19 00:00 Hgb 9.0 g/dL (12.0-16.0) L 10/24/19 00:00 Hct 29.2 % (37-47) L 10/24/19 00:00 MCV 74.3 fL (80-100) L 10/24/19 00:00 MCH 22.9 pg (25-34) L 10/24/19 00:00 MCHC 30.8 g/dL (32-36) L 10/24/19 00:00 RDW Std Deviation 44.9 fL (36.4-46.3) 10/24/19 00:00 RDW Coeff of Gray 16.5 % (11.5-14.5) H 10/24/19 00:00 Plt Count 353 K/uL (130-400) 10/24/19 00:00 MPV 9.0 fL (7.4-10.4) 10/24/19 00:00 Immature Gran % (Auto) 0.5 % 10/24/19 00:00 Neut % (Auto) 58.8 % 10/24/19 00:00 Lymph % (Auto) 29.8 % 10/24/19 00:00 Whiteside % (Auto) 9.2 % 10/24/19 00:00 Eos % (Auto) 1.2 % 10/24/19 00:00 Baso % (Auto) 0.5 % 10/24/19 00:00 Immature Gran # (Auto) 0.06 K/uL (0.00-0.02) H 10/24/19 00:00 Neut # (Auto) 7.69 K/uL (1.4-6.5) H 10/24/19 00:00 Lymph # (Auto) 3.90 K/uL (1.2-3.4) H 10/24/19 00:00 Whiteside # (Auto) 1.20 K/uL (0.11-0.59) H 10/24/19 00:00 Eos # (Auto) 0.16 K/uL (0-0.5) 10/24/19 00:00 Baso # (Auto) 0.06 K/uL (0-0.2) 10/24/19 00:00 Absolute Nucleated RBC 0.07 K/uL (0-0) H 10/24/19 00:00 Nucleated RBC % (auto) 0.5 % 10/24/19 00:00 Hypochromasia Present 10/24/19 00:00 Basophilic Stippling Occasional 10/24/19 00:00 Spherocytes Occasional 10/24/19 00:00 Ovalocytes 1+ 10/24/19 00:00 Schistocytes Occasional 10/24/19 00:00 PT 11.3 Seconds (9.0-12.0) 10/24/19 00:00 INR 1.1 (0.9-1.1) 10/24/19 00:00 APTT 27.8 Seconds (21.0-31.0) 10/24/19 00:00 PTT Ratio 1.0 10/24/19 00:00 ABG pH 7.42 (7.35-7.45) 10/24/19 04:21 ABG pCO2 51 mmHg (35-46) H 10/24/19 04:21 ABG pO2 86 mmHg (80-95) 10/24/19 04:21 ABG HCO3 33 mmol/L (19-24) H 10/24/19 04:21 ABG O2 Saturation 95.7 % (90-95) H 10/24/19 04:21 ABG Base Excess 7.3 mEq/L (-9-1.8) H 10/24/19 04:21 Farrukh Test Pos (Pos) 10/24/19 04:21 Oxygen Given 40%FI02 10/24/19 04:21 Sodium 139 mmol/L (136-145) 10/24/19 00:00 Potassium 3.9 mmol/L (3.5-5.1) 10/24/19 00:00 Chloride 102 mmol/L (98-107) 10/24/19 00:00 Carbon Dioxide 34 mmol/L (21-32) H 10/24/19 00:00 Anion Gap 3.0 (3-11) 10/24/19 00:00 BUN 18 mg/dl (7-18) 10/24/19 00:00 Creatinine 0.93 mg/dl (0.6-1.2) 10/24/19 00:00 Est Cr Clr Drug Dosing 40.9 ml/min 10/24/19 00:00 Est GFR ( Amer) 65.4 10/24/19 00:00 Est GFR (Non-Af Amer) 56.4 10/24/19 00:00 BUN/Creatinine Ratio 19.8 (10-20) 10/24/19 00:00 Glucose 247 mg/dl (70-99) H 10/24/19 00:00 Lactate 0.7 mmol/L (0.4-2.0) 10/24/19 00:56 Calcium 8.6 mg/dl (8.5-10.1) 10/24/19 00:00 Magnesium 2.0 mg/dl (1.8-2.4) 10/24/19 00:00 Total Bilirubin 0.3 mg/dl (0.2-1) 10/24/19 00:00 AST 15 U/L (15-37) 10/24/19 00:00 ALT 19 U/L (12-78) 10/24/19 00:00 Alkaline Phosphatase 105 U/L (45-117) 10/24/19 00:00 Total Creatine Kinase 67 U/L (26-192) 10/24/19 00:00 CK-MB (CK-2) 2.6 ng/ml (0.5-3.6) 10/24/19 00:00 CK/CKMB % Calc 3.9 (0-3.0) H 10/24/19 00:00 Troponin I < 0.015 ng/ml (0-0.045) 10/24/19 00:00 NT-Pro-B Natriuret Pep 4405 pg/ml (0-1800) H 10/24/19 00:00 Total Protein 8.4 gm/dl (6.4-8.2) H 10/24/19 00:00 Albumin 3.7 gm/dl (3.4-5.0) 10/24/19 00:00 Globulin 4.7 gm/dl (2.5-4.0) H 10/24/19 00:00 Albumin/Globulin Ratio 0.8 (0.9-2) L 10/24/19 00:00 Urine Color Yellow 10/24/19 00:10 Urine Appearance Clear (Clear) 10/24/19 00:10 Urine pH 6.0 (4.5-7.5) 10/24/19 00:10 Ur Specific [place] 1.018 (1.000-1.030) 10/24/19 00:10 Urine Protein 2+ (Negative) H 10/24/19 00:10 Urine Glucose (UA) Negative (Negative) 10/24/19 00:10 Urine Ketones Negative (Negative) 10/24/19 00:10 Urine Blood Negative (Negative) 10/24/19 00:10 Urine Nitrite Negative (Negative) 10/24/19 00:10 Urine Bilirubin Negative (Negative) 10/24/19 00:10 Urine Urobilinogen Negative (Negative) 10/24/19 00:10 Ur Leukocyte Esterase 1+ (Negative) H 10/24/19 00:10 Urine WBC (Auto) >30 /hpf (0-5) H 10/24/19 00:10 Urine RBC (Auto) 0-4 /hpf (0-4) 10/24/19 00:10 U Hyaline Cast (Auto) 5-10 /lpf (0-5) H 10/24/19 00:10 U Epithel Cells (Auto) >30 /lpf (0-5) H 10/24/19 00:10 Urine Bacteria (Auto) 1+ (Negative) H 10/24/19 00:10 Ur Renal Epithelial Cell 0-5 /lpf (0-5) 10/24/19 00:10 Influenza Type A (PCR) Neg for Influ A (Neg) 10/24/19 00:05 Influenza Type B (PCR) Neg for Influ B (Neg) 10/24/19 00:05 Diagnostic Findings CXR: 1. Cardiomegaly with mixed interstitial and alveolar opacities suggestive of interstitial and alveolar pulmonary edema. 2. Dense airspace consolidation of the right lung base is suspicious for superimposed pneumonia. 3. Chronic right hemidiaphragm elevation with subdiaphragmatic lucency. This finding could be correlated with upright and supine views of the abdomen to exclude pneumoperitoneum. This finding was called/faxed to the floor at time of dictation ECG: Sinus rhythm with first degree AV block. 93 bpm. LVH. Possible inferior UT. Telemetry: Sinus bradycardia in the 50s. PG Care Time/CCT Total # of Minutes Spent Total Time Spent with Patient: Total time spent is greater than 50% in coordination of care (as documented) at patient's floor/unit and/or counseling patient: Coding Level of Care Code 85214 Subseq Hosp Care Lvl 3 Diagnoses Acute on chronic respiratory failure J96.20 Paroxysmal atrial fibrillation I48.0
--- NOTE | 2019-10-24 14:14 | Electrocardiogram Report ---
Test Reason : Blood Pressure : / mmHG Vent. Rate : 093 BPM Atrial Rate : 093 BPM P-R Int : 242 ms QRS Dur : 118 ms QT Int : 380 ms P-R-T Axes : 012 003 045 degrees QTc Int : 472 ms Sinus rhythm with 1st degree A-V block Left ventricular hypertrophy with QRS widening Possible Inferior infarct (cited on or before 23-OCT-2019) Abnormal ECG When compared with ECG of 15-OCT-2019 09:11, No significant change Confirmed by Gabo Ortiz ([id number]) on 10/24/2019 2:14:32 PM Referred By: REFERRED SELF Confirmed By:Gabo Ortiz
[2019-10-25] MEDS: cefTRIAXone SODIUM 1,000 MG in DEXTROSE 5% 50 ML IV SCH (05:37)
[2019-10-25] MEDS: METOPROLOL TARTRATE 25 MG TAB PO SCH (07:51)
[2019-10-25] MEDS: VENLAFAXINE HCL XR 150 MG CAPXR PO SCH (07:51)
[2019-10-25] MEDS: levETIRAcetam 250 MG TAB PO SCH (07:52)
[2019-10-25] MEDS: FLUTICASONE PROPIONATE NA SPR 16 GM BTL SCH (07:52)
[2019-10-25] MEDS: CHOLECALCIFEROL 1,000 UNITS 25 MCG TAB PO SCH (07:53)
[2019-10-25] MEDS: PANTOprazole 40 MG TAB PO SCH (07:53)
[2019-10-25] MEDS: DIPYRIDAMOLE/ASPIRIN CAP PO SCH (07:53)
[2019-10-25] MEDS: AMIODARONE 200 MG TAB PO SCH (07:54)
[2019-10-25] MEDS: POLYETHYLENE (MIRALAX) 17 GM PACK PO SCH (07:54)
[2019-10-25] MEDS: CETIRIZINE HCL 10 MG TABLET PO SCH (07:55)
[2019-10-25] MEDS: DOCUSATE SODIUM/SENNA 50/8.6MG TAB PO SCH (07:55)
[2019-10-25] MEDS: LORazepam 1 MG TAB PO SCH ×2 (07:58→12:26)
[2019-10-25] MEDS: DOXYCYCLINE HYCLATE 100 MG in DEXTROSE 5% 100 ML IV SCH (07:58)
[2019-10-25 08:12] LABS: Albumin Level 2.9 gm/dl (3.4-5.0); BUN Creatinine Ratio 18.9 (10-20); Calcium 8.2 mg/dl (8.5-10.1); Creatinine Clr Calc Pharmacy 44.7 ml/min; Est GFR (Non-African American) 63.8; Magnesium 1.6 mg/dl (1.8-2.4); Potassium 3.6 mmol/L (3.5-5.1)
[2019-10-25 08:18] LABS: Albumin Globulin Ratio 0.8 (0.9-2); Bilirubin,Total 0.4 mg/dl (0.2-1); Globulin 3.7 gm/dl (2.5-4.0); Phosphorus 3.3 mg/dl (2.5-4.9); Total Protein 6.6 gm/dl (6.4-8.2)
[2019-10-25] MEDS: MAGNESIUM SULFATE / D5W 1 GM/100 ML BAG IV SCH ×2 (08:47→09:49)
[2019-10-25] MEDS ORDERED: MAGNESIUM OXIDE 400 MG TAB PO SCH (09:00)
[2019-10-25] MEDS ORDERED: FUROSEMIDE 40 MG in SYRINGE 0 ML IV SCH (09:00)
--- NOTE | 2019-10-25 12:06 | Hospitalist Progress Note ---
Date of Service October 25, 2019 Assessment & Plan (1) Acute on chronic respiratory failure: from acute congestive heart failure exacerbation possible pneumonia Comfort Care Status -pulmonary congestion on admission Chest X ray with elevated BNP -Patient seen and examined this AM after cardiology physician players assistant spoke with patient and her family member daughter Dolly ([phone]). Patient breathing on nasal cannula oxygen. appears comfortable in appearance but with expiratory wheezes when asked to take deep breaths. -hospitalist discussed with cardiology physician players assistant about the diuresis plans and Lasix orders to be changed from 40 mg IV BID to 40 mg IV once a day fo r now in addition hospitalist noted the patient's BRADYCARDIA with heart rates in the 50s on telemetry and low 60s in the AM and enquired with cardiology service about adjustments of heart rate control medications -currently the medications for heart rate control are metoprolol 25 mg BID and amiodarone 200 mg daily -Continue BiPAP at nighttime -patient had received IV antibiotics in the ER with vancomycin, Zosyn and Levaquin which has then been changed to IV ceftriaxone and IV doxycycline -10/25/2019: Patient and her daughter has opted for comfort measures only and wishes to return to [facility] under hospice care. Patient on nasal cannula oxygen. does not have new complaints. no acute distress. no acute pain. They do not want new medications on discharge such as any new discharge medications such as antibiotics or oral diuretics ; and they also do want changes from previous home medications -case manger arranging for discharge to [facility] under hospice care and patient's daughter to transport patient to [facility] Hypomagnesemia -serum magnesium 1.6 on 10/25/2019 and before patient and family affirmed comfort care status, patient was given IV and oral magnesium supplements Paroxysmal atrial fibrillation Hypertension -rate is generally bradycardia and blood pressure is stable on amiodarone and metoprolol Chronic obstructive pulmonary disease (COPD) -nebulizers p.r.n. -BiPAP with sleep Possible urinary tract infection -urine analysis with bacteria, given ceftriaxone when in the hospital -patient wishes to leave the hospital with [facility]edeno despite incomplete treatment if there was possible urinary tract infection History of stroke in the past History of remote subdural hematoma -on Aggrenox BID Chronic anemia History of seizure disorder -continue Keppra 750 mg b.i.d. History of depression and anxiety -on Ativan and venlafaxine. family member daughter Dolly [phone] Subjective Patient and her daughter has opted for comfort measures only and wishes to return to [facility] under hospice care. Patient on nasal cannula oxygen. does not have new complaints. no acute distress. no acute pain. They do no want new medications on discharge such as any new discharge antibiotics or oral diuretics Review of Systems Review of Systems: All systems reviewed & are unremarkable except as noted in HPI & below Physical Exam Constitutional: cooperative Eyes: PERRL, conjunctivae normal, anicteric sclerae EOM intact bilaterally ENMT: external ear and nose normal, oropharynx normal Neck: normal visual inspection Respiratory: normal respiratory effort Cardiovascular: Rate/Rhythm: regular rhythm Gastrointestinal (Abdomen): normal bowel sounds, soft, nontender, no hepatosplenomegaly Musculoskeletal: Head/Neck/Chest: normocephalic and head atraumatic Neurologic: PERRL, EOMI, accommodation nl, no face palsy, no dysarthria Psychiatric: A+Ox3, euthymic affect Results & Data ([facility]) Vital Signs (Past 12 Hours) Vital Signs Temp Pulse Resp BP Pulse Ox 10/25/19 11:39 36.7 C 53 L 18 145/79 H 95 10/25/19 07:50 36.7 C 63 18 133/75 94 10/25/19 03:50 36.8 C 62 18 126/76 95
--- NOTE | 2019-10-25 12:27 | Discharge Summary ---
Date of Service October 25, 2019 Admission HPI Per Admitting Provider DATE OF ADMISSION: 10/24/2019 CHIEF COMPLAINT: Acute respiratory failure. HISTORY OF PRESENT ILLNESS: This is an 84-year-old female coming from [facility] with past medical history significant for chronic respiratory failure on oxygen, supposed to be on BiPAP from last admission, but as per retirement, she is noncompliant with the BiPAP; history of paroxysmal atrial fibrillation; COPD; history of pneumonia; seizure disorder; history of stroke; depression; anxiety; history of osteoporosis; hypertension; malignant neoplasm of the left breast; presents with respiratory distress. The patient was recently in the hospital on 10/15/2019 and discharged on 10/17/2019. She was admitted for respiratory failure occurred from pulmonary edema and she was advised to be on noninvasive home ventilator, but seemed to be noncompliant. As per nursing staff, before going to bed, she complained short of breath and she feels somewhat anxious. Nurse calmed her down and went to sleep, but then immediately she called back, she could not breathe and her oxygen saturations were low. EMS was called in and she was brought into the ER. She was unresponsive in the ER and oxygen saturation was 60% on room air in bed, but her saturation came up. ABG showed pH of 7.27, CO2 73, currently is saturating okay on BiPAP . Chest x-ray noted pulmonary edema. BNP was 4400. A dose of Lasix was given in the ER and also IV antibiotics were given. She has mild elevation of white count of 13,000 currently. She slightly opened her eyes, but went back to sleep and not responding to tactile or verbal stimuli. As per nursing staff, she is on regular diet. Ambulates with a walker. No recent fever, chills. Yesterday, she has some cough and she was given Mucinex and she has improved. No complaint of chest pain or belly pain. Normal bowel movements. She is status post Cedeno catheter in the ER and after IV Lasix, she micturated about 500 mL of urine. Could not get any history from the patient. The patient is currently unresponsive. Son-in-law in the hospital. The patient is a DNR/DNI. Admission Exam Per Admitting Provider GENERAL: The patient is drowsy and unresponsive. VITAL SIGNS: Temperature afebrile, pulse 55, respiratory rate 26, blood pressure 125/64, Oxygen 95% HEENT: No pallor, no icterus. Pupils equal, round, reactive to light. NECK: No JVD or neck masses, no carotid bruits. CARDIOVASCULAR: S1, S2 heard. Regular rate and rhythm. No murmur, no gallop. RESPIRATORY SYSTEM: Normal AP diameter. No accessory muscle use. Bilateral fine crackles heard. No wheezing. ABDOMEN: Soft, bowel sounds present. No distention. CENTRAL NERVOUS SYSTEM: The patient is unresponsive to verbal or tactile stimuli. EXTREMITIES: Mild lower extremity edema present. No erythema seen. Principal Diagnosis Acute on chronic respiratory failure from acute congestive heart failure exacerbation possible pneumonia Comfort Care Status Hypomagnesemia possible urinary tract infection Paroxysmal atrial fibrillation Chronic obstructive pulmonary disease (COPD) Discharge Exam Constitutional cooperative Eyes PERRL, conjunctivae normal, anicteric sclerae EOM intact bilaterally ENMT external ear and nose normal, oropharynx normal Neck normal visual inspection Respiratory normal respiratory effort Cardiovascular Rate/Rhythm: regular rhythm Gastrointestinal (Abdomen) normal bowel sounds, soft, nontender, no hepatosplenomegaly Musculoskeletal Head/Neck/Chest: normocephalic and head atraumatic Neurologic PERRL, EOMI, accommodation nl, no face palsy, no dysarthria Psychiatric A+Ox3, euthymic affect Discharge Data Allergies Allergy/AdvReac Type Severity Reaction Status Date / Time morphine Allergy Mild itching Verified 10/15/19 08:40 Consultations 10/24/19 00:44 ED Decision to Admit Stat 10/24/19 04:00 Consult Case Management - Discharge Planning Routine 10/24/19 08:00 Consult Cardiology Routine 10/24/19 14:15 Consult Palliative Care Routine Ordered Studies 10/23/19 23:59 CT head/brain wo con Stat Hospital Course (1) Acute on chronic respiratory failure: from acute congestive heart failure exacerbation possible pneumonia Comfort Care Status -pulmonary congestion on admission Chest X ray with elevated BNP -Patient seen and examined this AM after cardiology physician drug safety assistant spoke with patient and her family member vignesh Alberto ([phone]). Patient breathing on nasal cannula oxygen. appears comfortable in appearance but with expiratory wheezes when asked to take deep breaths. -hospitalist discussed with cardiology physician drug safety assistant about the diuresis plans and Lasix orders to be changed from 40 mg IV BID to 40 mg IV once a day for now in addition hospitalist noted the patient's BRADYCARDIA with heart rates in the 50s on telemetry and low 60s in the AM and enquired with cardiology service about adjustments of heart rate control medications -currently the medications for heart rate control are metoprolol 25 mg BID and amiodarone 200 mg daily -Continue BiPAP at nighttime -patient had received IV antibiotics in the ER with vancomycin, Zosyn and Levaquin which has then been changed to IV ceftriaxone and IV doxycycline -10/25/2019: Patient and her daughter has opted for comfort measures only and wishes to return to [facility] under hospice care. Patient on nasal cannula oxygen. does not have new complaints. no acute distress. no acute pain. They do not want new medications on discharge such as any new discharge medications such as antibiotics or oral diuretics ; and they also do want changes from previous home medications -case manger arranging for discharge to [facility] under hospice care and patient's daughter to transport patient to [facility] Hypomagnesemia -serum magnesium 1.6 on 10/25/2019 and before patient and family affirmed comfort care status, patient was given IV and oral magnesium supplements Paroxysmal atrial fibrillation Hypertension -rate is generally bradycardia and blood pressure is stable on amiodarone and metoprolol Chronic obstructive pulmonary disease (COPD) -nebulizers p.r.n. -BiPAP with sleep Possible urinary tract infection -urine analysis with bacteria, given ceftriaxone when in the hospital -patient wishes to leave the hospital with cedeno despite incomplete treatment if there was possible urinary tract infection History of stroke in the past History of remote subdural hematoma -on Aggrenox BID Chronic anemia History of seizure disorder -continue Keppra 750 mg b.i.d. History of depression and anxiety -on Ativan and venlafaxine. family member daughter Dolly [phone] Total Time Total Time Spent Total Time Spent (In Minutes): 40 minutes Total Time Includes: Examination of the Patient, Discharge Planning, Medication Reconciliation and Communication With Other Providers Discharge Plan Discharge Items Patient Disposition: Hospice - Medical Facility Reason For Visit: respiratory distress Discharge Diagnosis: Acute on chronic respiratory failure from acute congestive heart failure exacerbation possible pneumonia Comfort Care Status Hypomagnesemia possible urinary tract infection Paroxysmal atrial fibrillation Chronic obstructive pulmonary disease (COPD) Condition on Discharge: Fair Activity: Per Instructions section Non-emergency contact: Primary Care Provider Call non-emergency contact if: you have any medication questions [facility] - Diet: Heart Healthy and Low Sodium (2gm) Addtl Attending Provider Instructions: Patient and her daughter has opted for comfort measures only and wishes to return to [facility] under hospice care. Patient on nasal cannula oxygen. does not have new complaints. no acute distress. no acute pain. They do not want new medications on discharge such as any new discharge medications such as antibiotics or oral diuretics ; and they also do want changes from previous home medications patient wishes to leave the hospital with cedeno despite incomplete treatment if there was possible urinary tract infection follow up with primary care doctor as needed scheduled appointments on [facility] 10/29/2019 1:30 PM Provider [address] [facility] On[facility] Department Hematology/Oncology Treatment, [place] 01/02/2020 2:45 PM Provider Francisco Guardado MD Department Hematology/Oncology [facility] Pending Studies at Discharge: No Stand-Alone Forms: My [facility] Skilled Items Patient informed of condition?: Yes DNR: Yes Discharge Level of Care: Other Communicable Disease: No Discharge Prognosis: Stable Lines: None Urinary Catheter: Yes Medications and DC Order Prescriptions: Continued amiodarone 200 mg tablet 200 mg PO QAM RF: 0 metoprolol tartrate 25 mg tablet 25 mg PO BID RF: 0 (DME) Oxygen Home Liters Per Minute See Dose Instructions .ROUTE .MEDSUPPLY Qty: 1 RF: 0 aspirin-dipyridamole [Aggrenox] 25-200 mg capsule, ER multiphase 12 hr 1 cap PO BID RF: 0 polyethylene glycol 3350 [Miralax] 17 gram Powder In Packet 17 g PO QAM RF: 0 cetirizine [Zyrtec] 10 mg Tablet 10 mg PO QAM RF: 0 ondansetron HCl [Zofran] 4 mg tablet 4 mg PO Q6 PRN (Reason: Nausea) RF: 0 sennosides-docusate sodium [Senna-S] 8.6-50 mg Tablet 2 tab PO QAM RF: 0 esomeprazole magnesium [Nexium] 40 mg capsule,delayed release(DR/EC) 40 mg PO QAM RF: 0 calcium carbonate [Tums] 200 mg calcium (500 mg) Tablet,Chewable 500 mg PO Q4 PRN (Reason: Dyspepsia) RF: 0 fluticasone propionate [Flonase Allergy Relief] 50 mcg/actuation spray,suspension 1 spray intranasal QAM RF: 0 Therems-M 27-0.4 mg Tablet 1 tab PO QAM RF: 0 biotin 1 mg Tablet 1 mg PO BID RF: 0 acetaminophen [Tylenol] 325 mg Capsule 650 mg PO Q4 MDD 3 GRAMS/24 HOURS. PRN (Reason: Fever Or Pain) RF: 0 cholecalciferol (vitamin D3) [Vitamin D3] 2,000 unit Capsule 2,000 unit PO QAM RF: 0 levetiracetam [Keppra] 500 mg tablet 750 mg PO BID Qty: 0 RF: 0 Thera Tears 1 drp INSTIL QID PRN (Reason: dryness to eyes) RF: 0 diphenhydramine HCl [Banophen] 25 mg Capsule 25 mg PO Q6H PRN (Reason: Allergy Symptoms) RF: 0 ipratropium-albuterol 0.5 mg-3 mg(2.5 mg base)/3 mL Solution For Nebulization 3 ml INHALATION Q6H PRN (Reason: sob) RF: 0 lorazepam [Ativan] 0.5 mg Tablet 0.5 mg PO Q6H PRN (Reason: Anxiety) RF: 0 guaifenesin [Mucinex] 600 mg Tablet Extended Release 12hr 600 mg PO Q12H PRN (Reason: cough/congestion) RF: 0 lorazepam [Ativan] 1 mg Tablet 1 mg PO QID RF: 0 venlafaxine 150 mg capsule,extended release 24hr 150 mg PO QAM RF: 0 lisinopril 2.5 mg Tablet 2.5 mg PO QAM 14 Days Qty: 14 RF: 0 Discontinued nitroglycerin [Nitrostat] 0.4 mg tablet, sublingual 0.4 mg sublingual UD PRN (Reason: Chest Pain) RF: 0 Discharge Orders: Discharge Order (Routine); Ordered 10/25/19 Ordered By: Steve Saldaña Admission Data Admit Date/Time: 10/24/19 02:51 Attending Provider: Steve Saldaña Admit Provider: Denys Bell Primary Care Provider: JOCE ESCALANTEPELHAM Other Providers: Elvin Matthews ; Jonah Del Real ; Gabo Ortzi ; Bogdan Sharma ; Abdi Chiu ; Colton Carson Jr ; Mike Saravia ; Karo Sutton ; Mindy Powell ; Benitez Villagran ; Benitez Jay ; Mathieu Felix ; Denis Phillip ; Jesusita Miller ; Drea Bales ; Denys Bell ; Fay Kim
--- NOTE | 2019-10-31 08:24 | Coding Query ---
CONGESTIVE HEART FAILURE To Promote full compliance with coding requirements relating to patient care, physician participation is requested in all cases of charge out clerk uncertainty. Please assist us with the following questions. A diagnosis of Congestive Heart Failure is documented in the patient's medical record. To accurately code this diagnosis and to compare patient severity, we ask that you specify the type of heart failure by placing an X within the parenthesis (x). SYSTOLIC HEART FAILURE ( ) Acute ( ) Chronic ( ) Acute on Chronic ( ) Rheumatic ( x) Unknown DIASTOLIC HEART FAILURE (x ) Acute ( ) Chronic ( ) Acute on Chronic ( ) Rheumatic ( ) Unknown COMBINED SYSTOLIC AND DIASTOLIC HEART FAILURE ( ) Acute ( ) Chronic ( ) Acute on Chronic ( ) Rheumatic ( x) Unknown Was the CHF Present On Admission? Please check the appropriate box: ( x) Present on Admission ( ) Not Present On Admission ( ) Clinically undetermined Thank you for your time, BETSY Merida, [facility]
== END 2019-10-25 14:09 | disposition hospice, home (50) | DRG 189 ==
LOC: ED 23:51 → 2S 10-24 02:51